=== PATIENT | female | born 2000 | race Caucasian/White ===

== ENCOUNTER 2023-01-20 13:03 | Outpatient (OUT) | payer BC, SELFPAY ==
--- NOTE | 2023-01-20 13:06 | US_ITS ---
The [address] [address] Patient Name: DELIA FUENTES MRN: [id number] date: 2000 Sex: F Assigned Patient Location: US Current Patient Location: US Accession/Order Number: [id number] Exam Date: 01/20/2023 13:07 Report Date: 01/20/2023 22:31 At the request of: JAIDA TRAN Procedure: US OB transvaginal EXAMINATION: US OB transvaginal HISTORY: Missed menses COMPARISON: No relevant comparison available. FINDINGS: GESTATIONAL SAC: Present and normal appearing. YOLK SAC: Present and normal appearing. POLE: Present and normal appearing. CARDIAC: Present. UTERUS: Normal size and appearance. OVARIES: Right: Normal. Left: Normal. CERVIX: 6.0 cm in length and closed. CUL-DE-SAC: Normal. OTHER: None. AGE BY LMP: 9 weeks 5 days ANDI BY LMP: 08/20/2023 AGE BY US CRL: 8 weeks 5 days ANDI BY US CRL: 08/27/2023 US/US OB transvaginal IMPRESSION: 1. Single live intrauterine . Electronically authenticated by: CAIO NGO Date: 01/20/2023 22:31
== END 2023-01-20 13:04 | disposition home or self-care (01) ==
LOC: US 13:05
PROVIDERS: Visit Provider Obstetrics & Gynecology
DX: N92.6 Irregular menstruation, unspecified (principal)
CPT/HCPCS: 76817

== ENCOUNTER 2023-02-02 16:10 | Outpatient (OUT) | payer BC, SELFPAY ==
[2023-02-02 16:59] LABS: Basophils Percent Auto 0.3 % (0.2-2.0); Eosinophils Absolute Auto 0.1 10^3/uL (0.0-0.7); Hematocrit 45.4 % (36.0-48.0); Hemoglobin 15.3 g/dL (12.0-16.0); Immature Granulocytes Abs Auto 0.06 10^3/uL (0.00-0.03); Immature Granulocytes Pct Auto 0.5 % (0.0-0.5); Lymphocytes Absolute Auto 2.1 10^3/uL (1.2-3.8); Lymphocytes Percent Auto 18.6 % (20.5-60.0); Mean Corpuscular HGB Conc 33.7 g/dL (29.9-35.2); Mean Corpuscular Hemoglobin 30.2 pg (26.7-34.0); Mean Corpuscular Volume 89.7 fL (81.0-99.0); Mean Platelet Volume 9.5 fL (9.5-13.5); Monocytes Absolute Auto 0.8 10^3/uL (0.3-0.8); Monocytes Percent Auto 6.7 % (1.7-12.0); Neutrophils Absolute Auto 8.4 10^3/uL (1.4-6.5); Neutrophils Percent Auto 72.9 % (43.0-75.0); Platelet Count 289 10^3/uL (150-450); Red Blood Count 5.06 10^6/uL (4.20-5.40); Red Cell Distribution Width 12.3 % (11.0-15.0); White Blood Count 11.5 10^3/uL (4.0-11.0)
[2023-02-02 17:22] LABS: Estimated Average Glucose 88 mg/dL; Glycohemoglobin A1C 4.7 % (4.5-6.2)
[2023-02-02 17:33] LABS: Thyroid Stimulating Hormone 0.143 uIU/mL (0.358-3.740)
[2023-02-04 04:11] LABS: HBsAg Screen Negative (Negative); HCV Ab Non Reactive (Non Reactive)
[2023-02-04 06:11] LABS: HIV Ab/p24 Ag Screen Non Reactive (Non Reactive); Rubella Antibodies, IgG 4.26 index (Immune >0.99)
[2023-02-04 10:08] LABS: Rapid Plasma Reagin, Quant Non Reactive titer (NonRea<1:1)
== END 2023-02-02 16:11 | disposition home or self-care (01) ==
PROVIDERS: Visit Provider Obstetrics & Gynecology
DX: Z34.80 Encounter for supervision of other normal pregnancy, unspecified trimester (principal); N92.6 Irregular menstruation, unspecified
CPT/HCPCS: 36415; 83036; 84443; 85025; 86592; 86762; 86803; 86850; 86900; 86901; 87086; 87150; 87186; 87340; 87389

== ENCOUNTER 2023-03-31 14:22 | Outpatient (OUT) | payer BC, SELFPAY ==
[2023-04-02 00:07] LABS: AFP Value 76.6 ng/mL (.); Gest. Age on Collection Date 18.7 weeks (.); Gestat. Age Based On Ultrasound (.); Insulin Dep Diabetes No (.); Maternal Age At EDD 24.5 yr (.); OSBR Risk 1 IN 1590 (.); Results Report (.)
== END 2023-03-31 14:23 | disposition home or self-care (01) ==
PROVIDERS: Visit Provider Obstetrics & Gynecology
DX: Z34.92 Encounter for supervision of normal pregnancy, unspecified, second trimester (principal)
CPT/HCPCS: 36415; 82105

== ENCOUNTER 2023-04-11 08:05 | Outpatient (OUT) | payer BC, SELFPAY ==
--- NOTE | 2023-04-11 08:06 | US_ITS ---
[address] [address] Patient Name: DELIA FUENTES MRN: [id number] date: 2000 Sex: F Assigned Patient Location: US Current Patient Location: Accession/Order Number: [id number] Exam Date: 04/11/2023 08:09 Report Date: 04/11/2023 21:28 At the request of: JAIDA TRAN Procedure: US OB anatomy EXAMINATION: US OB anatomy, US OB transvaginal HISTORY: SECOND TRIMESTER Z34.92 COMPARISON: No relevant comparison available. TECHNIQUE: Transabdominal sonographic examination was performed for obstetrical and evaluation. FINDINGS: Number: 1 Heart Rate: 131.0 bpm H.B. /min Amniotic Fluid Volume: Subjectively normal Placental Location: ANTERIOR with lower margin 1.9 cm from os. Cervix Length: 4.4 cm; closed. ANATOMY: Normal Structures -cerebellum, choroid plexus, cisterna magna, lateral cerebral ventricles, orbits, midline falx, hard palate, four-chamber heart, RVOT, LVOT, stomach, kidneys, bladder, umbilical cord insertion into abdomen, three-vessel cord, cervical spine, thoracic spine, lumbar spine, sacral spine, right upper extremity, left upper extremity, right lower extremity, left lower extremity. SUBOPTIMALLY SEEN: None ABNORMALITIES: None BIOMETRY: BPD: 4.4 cm 19 weeks 2 days HC: 17.7 cm 20 weeks 2 days AC: 15.8 cm 20 weeks 6 days FL: 3.4 cm 20 weeks 5 days EFW:370.9 grams; FL/AC: 21.6 FL/BPD: 78.0 HC/AC: 1.1 GESTATIONAL AGE: Age by EDC: 20 weeks 2 days ANDI by EDC: 08/27/2023 Age by current US: 20 weeks 2 days ANDI by current US: 08/27/2023 US/US OB anatomy IMPRESSION: 1. Single live intrauterine with growth detailed above. 2. Anterior low-lying placenta. Electronically authenticated by: CAIO NGO Date: 04/11/2023 21:28
--- NOTE | 2023-04-11 08:07 | US_ITS ---
[address] [address] Patient Name: DELIA FUENTES MRN: [id number] date: 2000 Sex: F Assigned Patient Location: US Current Patient Location: Accession/Order Number: [id number] Exam Date: 04/11/2023 08:09 Report Date: 04/11/2023 21:28 At the request of: JAIDA TRAN Procedure: US OB transvaginal EXAMINATION: US OB anatomy, US OB transvaginal HISTORY: SECOND TRIMESTER Z34.92 COMPARISON: No relevant comparison available. TECHNIQUE: Transabdominal sonographic examination was performed for obstetrical and evaluation. FINDINGS: Number: 1 Heart Rate: 131.0 bpm H.B. /min Amniotic Fluid Volume: Subjectively normal Placental Location: ANTERIOR with lower margin 1.9 cm from os. Cervix Length: 4.4 cm; closed. ANATOMY: Normal Structures -cerebellum, choroid plexus, cisterna magna, lateral cerebral ventricles, orbits, midline falx, hard palate, four-chamber heart, RVOT, LVOT, stomach, kidneys, bladder, umbilical cord insertion into abdomen, three-vessel cord, cervical spine, thoracic spine, lumbar spine, sacral spine, right upper extremity, left upper extremity, right lower extremity, left lower extremity. SUBOPTIMALLY SEEN: None ABNORMALITIES: None BIOMETRY: BPD: 4.4 cm 19 weeks 2 days HC: 17.7 cm 20 weeks 2 days AC: 15.8 cm 20 weeks 6 days FL: 3.4 cm 20 weeks 5 days EFW:370.9 grams; FL/AC: 21.6 FL/BPD: 78.0 HC/AC: 1.1 GESTATIONAL AGE: Age by EDC: 20 weeks 2 days ANDI by EDC: 08/27/2023 Age by current US: 20 weeks 2 days ANDI by current US: 08/27/2023 US/US OB transvaginal IMPRESSION: 1. Single live intrauterine with growth detailed above. 2. Anterior low-lying placenta. Electronically authenticated by: CAIO NGO Date: 04/11/2023 21:28
== END 2023-04-11 08:06 | disposition home or self-care (01) ==
LOC: US 08:05
PROVIDERS: Visit Provider Obstetrics & Gynecology
DX: Z34.92 Encounter for supervision of normal pregnancy, unspecified, second trimester (principal); Z3A.49 Greater than 42 weeks gestation of pregnancy; O44.42 Low lying placenta NOS or without hemorrhage, second trimester
CPT/HCPCS: 76805; 76817

== ENCOUNTER 2023-05-09 14:28 | Outpatient (OUT) | payer BC, SELFPAY ==
--- NOTE | 2023-05-09 14:30 | US_ITS ---
[address] [address] Patient Name: DELIA FUENTES MRN: [id number] date: 2000 Sex: F Assigned Patient Location: US Current Patient Location: US Accession/Order Number: [id number] Exam Date: 05/09/2023 14:31 Report Date: 05/09/2023 15:44 At the request of: JAIDA TRAN Procedure: US OB placenta EXAM: US OB placenta, US OB cervical length HISTORY: LOW LYING PLACENTA COMPARISON: None. TECHNIQUE: Transabdominal and transvaginal FINDINGS: position: Breech presentation, longitudinal lie Placenta: Anterior. The placental edge is 3.9 cm from the internal os. Grade 1. No intraplacental or retroplacental echogenic abnormality Heart rate: 137 bpm Cervix: 5.1 cm, closed Clinical age: 24 weeks 2 days US/US OB placenta IMPRESSION: Low lying placenta, the placental edge is 3.9 cm from the internal os Closed cervix measuring 5.1 cm Electronically authenticated by: WILD VOSS Date: 05/09/2023 15:44
--- NOTE | 2023-05-09 14:30 | US_ITS ---
[address] [address] Patient Name: DELIA FUENTES MRN: [id number] date: 2000 Sex: F Assigned Patient Location: Current Patient Location: Accession/Order Number: [id number] Exam Date: 05/09/2023 14:31 Report Date: 05/09/2023 15:44 At the request of: JAIDA TRAN Procedure: US OB cervical length EXAM: US OB placenta, US OB cervical length HISTORY: LOW LYING PLACENTA COMPARISON: None. TECHNIQUE: Transabdominal and transvaginal FINDINGS: position: Breech presentation, longitudinal lie Placenta: Anterior. The placental edge is 3.9 cm from the internal os. Grade 1. No intraplacental or retroplacental echogenic abnormality Heart rate: 137 bpm Cervix: 5.1 cm, closed Clinical age: 24 weeks 2 days US/US OB cervical length IMPRESSION: Low lying placenta, the placental edge is 3.9 cm from the internal os Closed cervix measuring 5.1 cm Electronically authenticated by: WILD VOSS Date: 05/09/2023 15:44
== END 2023-05-09 14:29 | disposition home or self-care (01) ==
LOC: US 14:28
PROVIDERS: Visit Provider Obstetrics & Gynecology
DX: Z36.2 Encounter for other antenatal screening follow-up (principal); O44.40 Low lying placenta NOS or without hemorrhage, unspecified trimester; Z3A.24 24 weeks gestation of pregnancy
CPT/HCPCS: 76815; 76817

== ENCOUNTER 2023-05-30 09:56 | Outpatient (OUT) | payer BC, SELFPAY ==
--- OUTSIDE RECORDS SUMMARY | 2023-05-30 10:16 | XMS_ITS | CCD ---
Author Name Unknown Address [address] [place] [address] Organization [facility] Care Team Providers Care Medical Reviewer Name Role Phone TYLERCY ., DR WATKINS Consulting Unavailabl e MARC ., DR SENA Procedure Practitioner Unavail able MARC ., DR SENA Admitting Unavailable MARC ., DR SENA Attending Unavailable MARC ., DR SENA Consulting Unavailable TOLAYMAT, SANJAY Consulting Unavailable ALICJA, MICHELLE ABREU Consulting Unava ildavey VOSS, DR WILD Garner Consulting Unavailable MARC ., DR SENA Admitting Unavailable MARC ., DR SENA Attending Unavailable MARC ., DR SENA Consulting Unavailable MARC ., DR SENA Consulting Unavailable MARC ., DR SENA Admitting Unavailable MARC ., DR SENA Attending Unavailable WEST, DR WILD Garner Consulting Unavailable MARC ., DR SENA Admitting Unavailable MARC ., DR SENA Attending Unavailable MARC ., DR SENA Consulting Unavailable MARC ., DR SENA Consulting Unavailable MARC ., DR SENA Admitting Unavailable MARC ., DR SENA Attending Unavailable MARC ., DR SENA Consulting Unavailable MARC ., DR SENA Admitting Unavailable MARC ., DR SENA Attending Unavailable MARC ., DR SENA Consulting Unavailable MARC ., DR SENA Admitting Unavailable MARC ., DR SENA Attending Unavailable ZIEBER, DR CAIO Carvalho Consulting Unavailable MARC ., DR SENA Admitting Unavailable MARC ., DR SENA Attending Unavailable MARC ., DR SENA Consulting Unavailable REQUEST, DR NESS LISTED Primary Care Unavaila ble [facility] ., DR SENA Admitting Unavailable WEST, DR WILD Garner Consulting Unavailable MARC ., DR SENA Attending Unavailable MARC ., DR SENA Consulting Unavailable MARC ., DR SENA Admitting Unavailable MARC ., DR SENA Attending Unavailable MARC ., DR SENA Consulting Unavailable MARC, JAIDA Attending Unavailable JAIDA BEVERLY Attending Unavailable Problems Active Problems Problem Classification Problem Date Documented Date Episodic/Chronic Immunizations and screening for infectious disease (1 source) Encounter for screening for human papillomavirus (HPV); Translations: [ENC SCREENING HUMAN PAPILLOMAVIRUS] Onset: 09-28-2022 Episodic Other screening for suspected conditions (not mental disorders or infectious disease) (13 sources) Encounter for screening for malignant neoplasm of cervix; Translations: [Encounter for screening for Streptococcus B] Onset: 11-10-2021 Episodic Past or Other Problems Problem Classification Problem Date Documented Da te Episodic/Chronic Malposition; malpresentation (1 source) Maternal care for high head at term, not applicable or unspecified; Translations: [MATERNAL CARE HIGH HEAD TERM NA/UNS] Onset: 02-17-2022 Episodic Other complications of (5 sources) Maternal care for excessive growth, third trimester, not applicable or unspecified; Translations: [MAT CARE EXCSS FTL GRTH 3RD TRI UNS] Onset: 01-29-2022 Episodic Other complications of (4 sources) Abnormal ultrasonic finding on screening of mother; Translations: [ABNORM US SCREEN MOTHER] Onset: 11-02-2021 Episodic Other and delivery including normal (1 source) Single live ; Translations: [SINGLE LIVE ] Onset: 02-17-2022 Episodic Polyhydramnios and other problems of amniotic cavity (3 sources) Full-term premature rupture of membranes, unspecified as to length of time between rupture and onset of labor; Translations: [FT PROM UNS TM BTWN RUPT ONSET LABR] Onset: 01-29-2022 Episodic Residual codes; unclassified (1 source) 38 weeks gestation of ; Translations: [38 WEEKS GESTATION OF ] Onset: 02-17-2022 Episodic Residual codes; unclassified (1 source) 37 weeks gestation of ; Translations: [37 WEEKS GESTATION OF ] Onset: 2022 Episodic Residual codes; unclassified (1 source) 36 weeks gestation of ; Translations: [36 WEEKS GESTATION OF ] Onset: 01-19-2022 Episodic Residual codes; unclassified (1 source) 35 weeks gestation of ; Translations: [35 WEEKS GESTATION OF ] Onset: 01-13-2022 Episodic Results Test Name Value Interpretation Reference Range Facility PAP ACOG PANEL 2: 21 to 29on 09-29-2022 . . Normal [facility] Comment on above: Performed By: #### [id number] #### [facility] [place] [facility] [address] [place] [address] Dr. Tyree Paiz Age Gdln ACOG Testing - Normal [facility] Comment on above: Performed By: #### [id number] #### [facility] [place] [facility] [address] [address] [address] Tyree Paiz DIAGNOSIS: Comment [facility] Comment on above: Result Comment: NEGA TIVE FOR INTRAEPITHELIAL LESION OR MALIGNANCY. Performed By: #### [id number] #### [facility] [place] [facility] [address] [place] [address] Dr. Tyree Paiz Methodology: Comment [facility] Comment on above: Result Comment: This liquid based ThinPrep(R) pap test was screened with the use of an image guided system. Performed By: #### 4 [id number] #### [facility] [place] [facility] [address] [place] [address] Dr. Tyree Paiz Note: Comment [facility] Comment on above: Result Comment: The Pap smear is a screening test designed to aid in the detection of premalignant and malignant conditions of the uterine cervix. It is not a diagnostic procedure and should not be used as the sole means of detecting cervical cancer. Both false-positive and false-negative reports do occur. . Performed By: #### [id number] #### [facility] [place] [facility] [address] [place] [address] Dr. Tyree Paiz Performed by: Comment Normal [facility] Comment on above: Result Comment: Rafael Tejada Mother Tester (ASCP) Performed By: #### [id number] #### [facility] [place] [facility] [address] [place] [address] Dr. Tyree Paiz Reflex Criteria: Comment [facility] Comment on above: Result Comment: The HPV DNA reflex criteria were not met with this specimen result therefore, no HPV testing was performed. . Performed By: #### 4 [id number] #### [facility] [place] [facility] [address] [place] [address] Dr. Tyree Paiz Specimen adequacy: Comment Normal [facility] Comment on above: Result Comment: Sati sfactory for evaluation. Endocervical and/or squamous metaplastic cells (endocervical component) are present. Performed By: #### 4 [id number] #### [facility] [place] [facility] [address] [place] [address] Dr. Tyree Paiz TYPE AND SCREENon 02-01-2022 TYPE AND SCREEN Antibody Screen NEGATIVE Blood Bank Notes testing done by 01/29/22 ABO Rh Typing AB Rh Positive Blood Bank Notes testing done by 01/29/22 [facility] Comment on above: Performed By: #### T NS ####[facility] [place] [id number] [address]Dr. Tyree Paiz CBC AUTO DIFFon 01-31-2022 BASO # 0.0 103/ul Normal 0.0-0.1 [facility] Comment on above: Performed By: #### C BC #### [facility] [address] [place] [address] Dr. Tyree Paiz Basophils/100 WBC (Bld) 0.3 % Normal 0.2-2.0 [facility] Comment on above: Performed By: #### C BC #### [facility] [address] [place] [address] Dr. Tyree Paiz EO # 0.1 103/ul Normal 0.0-0.7 [facility] Comment on above: Performed By: #### C BC #### [facility] [address] [place] [address] Dr. Tyree Paiz Eosinophils/100 WBC (Bld) 0.8 % Critically low 0.9-7.0 [facility] Comment on above: Performed By: #### C BC #### [facility] [address] [place] [address] Dr. Tyree Paiz Erythrocyte distribution width (RBC) [Ratio] 13.4 % Normal 11.0-15.0 [facility] Comment on above: Performed By: #### C BC #### [facility] [place] [facility] [address] [address] [address] Tyree Paiz Hematocrit (Bld) [Volume fraction] 27.4 % Critically low 36.0-48.0 [facility] Comment on above: Performed By: #### C BC #### [facility] [place] [facility] [address] [address] [address] Tyree Paiz Hemoglobin (Bld) [Mass/Vol] 8.6 g/dL Critically low 12.0-16.0 [facility] Comment on above: Performed By: #### C BC #### [facility] [place] [facility] [address] [place] [address] Dr. Tyree Paiz IG # 0.12 10e3/ul Critically high 0.00-0.03 [facility] Comment on above: Performed By: #### C BC #### [facility] [address] [place] [address] Dr. Tyree Paiz IG % 0.9 % Critically high 0.0-0.5 [facility] Comment on above: Performed By: #### C BC #### [facility] [address] [place] [address] Dr. Tyree Paiz LYMPH # 1.9 103/ul Normal 1.2-3.8 [facility] Comment on above: Performed By: #### C BC #### [facility] [address] [place] [address] Dr. Tyree Paiz Lymphocytes/100 WBC (Bld) 13.7 % Critically low 20.5-60.0 [facility] Comment on above: Performed By: #### C BC #### [facility] [address] [place] [address] Dr. Tyree Paiz MANUAL DIFF REQ NO Normal [facility] Comment on above: Performed By: #### C BC #### [facility] [address] [place] [address] Dr. Tyree Paiz MCH (RBC) [Entitic mass] 27.0 pg Normal 26.7-34.0 [facility] Comment on above: Performed By: #### C BC #### [facility] [place] [facility] [address] [address] [address] Tyree Paiz MCHC (RBC) [Mass/Vol] 31.4 g/dL Normal 29.9-35.2 [facility] Comment on above: Performed By: #### C BC #### [facility] [place] [facility] [address] [address] [address] Tyree Paiz MCV (RBC) [Entitic vol] 85.9 fL Normal 81.0-99.0 [facility] Comment on above: Performed By: #### C BC #### [facility] [address] [address] [address] Tyree Paiz MONO # 1.1 103/ul Critically high 0.3-0.8 [facility] Comment on above: Performed By: #### C BC #### [facility] [address] [address] [address] Tyree Paiz Monocytes/100 WBC (Bld) 8.1 % Normal 1.7-12.0 [facility] Comment on above: Performed By: #### C BC #### [facility] [place] [facility] [address] [address] [address] Tyree Paiz NEUT # 10.3 103/ul Critically high 1.4-6.5 [facility] Comment on above: Performed By: #### C BC #### [facility] [address] [place] [address] Dr. Tyree Paiz Neutrophils/100 WBC (Bld) 76.2 % Critically high 43.0-75.0 [facility] Comment on above: Performed By: #### C BC #### [facility] [address] [id number] Tyree Paiz Platelet mean volume (Bld) [Entitic vol] 9.5 fL Normal 9.5-13.5 [facility] Comment on above: Performed By: #### C BC #### [facility] [address] [place] [address] Dr. Tyree Paiz PLT 196 103/ul Normal 150-450 [facility] Comment on above: Performed By: #### C BC #### [facility] [address] [address] [address] Tyree Paiz RBC 3.19 106/ul Critically low 4.20-5.40 [facility] Comment on above: Performed By: #### C BC #### [facility] [address] [address] [address] Tyree Paiz WBC 13.5 103/ul Critically high 4.0-11.0 [facility] Comment on above: Performed By: #### C BC #### [facility] [address] [address] [address] Tyree Paiz CBC W MANUAL DIFFon 01-30-20 22 ATYPICAL LYMPH # Normal [facility] Comment on above: Performed By: #### C BCMAN ####[facility] [address] [place], [place] [address]DrSarah Paiz ATYPICAL LYMPH % Normal [facility] Comment on above: Performed By: #### C BCMAN ####[facility] [address] [address]Dr. Tyree Paiz BAND # 0.0 103/ul Normal 0.0-0.3 [facility] Comment on above: Performed By: #### C BCMAN ####[facility] [address] [address]Dr. Tyree Paiz BAND % 0 % Normal 0-5 [facility] Comment on above: Performed By: #### C BCMAN ####[facility] [address] [address]Dr. Tyree Paiz BASOM # 0.00 103/ul Normal 0.00-0.10 [facility] Comment on above: Performed By: #### C BCMAN ####[facility] [address] [address]Dr. Tyree Paiz BASOM % 0.0 % Critically low 0.2-2.0 [facility] Comment on above: Performed By: #### C BCMAN ####[facility] [address] [address]Dr. Tyree Paiz BLAST # Normal [facility] Comment on above: Performed By: #### C BCMAN ####[facility] [address] [id number]. Tyree Paiz BLAST % Normal [facility] Comment on above: Performed By: #### C LEWIS ####[facility] [address] [id number]. Tyree Paiz CORRECTED WBC Normal 4.0-11.0 [facility] Comment on above: Performed By: #### C LEWIS ####[facility] [address] [id number]. Tyree Paiz EOS # 0.41 103/ul Normal 0.00-0.70 [facility] Comment on above: Performed By: #### C LEWIS ####[facility] [address] [place], [place] [address]Dr. Tyree Paiz EOS% 3.0 % Normal 0.9-7.0 [facility] Comment on above: Performed By: #### C LEWIS ####[facility] [address] [place], [place] [address]Dr. Tyree Paiz HCT 31.3 % Critically low 36.0-48.0 [facility] Comment on above: Performed By: #### C LEWIS ####[facility] [address] [place], [place] [address]Dr. Tyree Paiz HGB 10.2 g/dl Critically low 12.0-16.0 [facility] Comment on above: Performed By: #### C LEWIS ####[facility] [address] [place], [place] [address]Dr. Tyree Paiz LYMPHM # 1.63 103/ul Normal 1.20-3.80 [facility] Comment on above: Performed By: #### C LEWIS ####[facility] [address] [place], [place] [address]Dr. Tyree Paiz LYMPHM% 12.0 % Critically low 20.5-60.0 [facility] Comment on above: Performed By: #### C LEWIS ####[facility] [address] [place], [place] [address]Dr. Tyree Paiz MCH 27.4 pg Normal 26.7-34.0 [facility] Comment on above: Performed By: #### C LEWIS ####[facility] [address] [address]Dr. Tyree Piaz MCHC 32.6 g/dl Normal 29.9-35.2 [facility] Comment on above: Performed By: #### C LEWIS ####[facility] [address] [id number]. Tyree Paiz MCV 84.1 fL Normal 81.0-99.0 [facility] Comment on above: Performed By: #### C LEWIS ####[facility] [address] [place], [place] [address]Dr. Tyree Paiz METAMYELOCYTE # Normal [facility] Comment on above: Performed By: #### C LEWIS ####[facility] [address] [place], [place] [address]Dr. Tyree Paiz METAMYELOCYTE % Normal [facility] Comment on above: Performed By: #### C LEWIS ####[facility] [address] [id number]. Tyree Paiz MONOM# 1.36 103/ul Critically high 0.30-0.80 [facility] Comment on above: Performed By: #### C LEWIS ####[facility] [address] [address]Dr. Tyree Paiz MONOM% 10.0 % Normal 1.7-12.0 [facility] Comment on above: Performed By: #### C LEWIS ####[facility] [address] [id number]. Tyree Paiz MPV 9.5 fL Normal 9.5-13.5 [facility] Comment on above: Performed By: #### C LEWIS ####[facility] [address] [address]Dr. Tyree Paiz MYELOCYTE # Normal [facility] Comment on above: Performed By: #### C LEWIS ####[facility] [address] [place], [place] [address]Dr. Tyree Paiz MYELOCYTE % Normal [facility] Comment on above: Performed By: #### C LEWIS ####[facility] [address] [id number]. Tyree Paiz NRBC Normal [facility] Comment on above: Performed By: #### C LEWIS ####[facility] [address] [id number]. Tyree Paiz PLT 258 103/ul Normal 150-450 [facility] Comment on above: Performed By: #### C LEWIS ####[facility] [address] [place], [place] [address]Lk. Tyree Paiz RBC 3.72 106/ul Critically low 4.20-5.40 [facility] Comment on above: Performed By: #### C LEWIS ####[facility] [address] [id number]. Tyree Paiz RDW 13.0 % Normal 11.0-15.0 [facility] Comment on above: Performed By: #### C LEWIS ####[facility] [address] [id number]. Tyree Paiz SEG # 10.20 103/ul Critically high 1.40-6.50 [facility] Comment on above: Performed By: #### C LEWIS ####[facility] [place] [address] [id number]. Tyree Paiz SEG % 75.0 % Normal 43.0-75.0 [facility] Comment on above: Performed By: #### C LEWIS ####[facility] [place] [address] [id number]. Tyree Paiz WBC 13.6 103/ul Critically high 4.0-11.0 [facility] Comment on above: Performed By: #### C LEWIS ####[facility] [place] [address] [id number]. Tyree Paiz Covid-19 PCR ([facility])on SARS-CoV-2 (COVID-19) RNA GINO+probe Ql (Unsp spec) Not detected Normal NOT DETECTED The [facility] Comment on above: Result Comment: When diagnostic testing is negative, the possibility of a false negative should be considered in the context of a patient's recent exposures and the presence of clinical signs and symptoms consistent with SARS-CoV-2. This test is not yet approved or cleared by the [place] FDA. When there are no FDA-approved or cleared tests available, and other criteria are met, FDA can make tests available under an emergency access mechanism called an Emergency Use Authorization (EUA). The EUA for this test is supported by the [place] of Health and Human Service's declaration that circumstances exist to justify the emergency use of in vitro diagnostics for the detection and/or diagnosis of the virus that causes COVID-19. This EUA will remain in effect for the duration of the COVID-19 declaration justifying emergency of IVDs, unless it is terminated or revoked by the FDA (after which the test may no longer be used). Performed By: #### C VDTBH #### [facility] [address] [place] [address] Dr. Tyree Paiz DRUG SCREEN RAPID (URINE)on 01-29-2022 AMP Negative Normal NEGATIVE [facility] Comment on above: Performed By: #### D RUGRPD #### [facility] [address] [place] [address] Dr. Tyree Paiz BAR Negative Normal NEGATIVE [facility] Comment on above: Performed By: #### D RUGRPD #### [facility] [address] [place] [address] Dr. Tyree Paiz BUP Negative Normal NEGATIVE [facility] Comment on above: Performed By: #### D RUGRPD #### [facility] [address] [place] [address] Dr. Tyree Paiz BZO Negative Normal NEGATIVE [facility] Comment on above: Performed By: #### D RUGRPD #### [facility] [address] [place] [address] Dr. Tyree Paiz ZACHARY Negative Normal NEGATIVE [facility] Comment on above: Performed By: #### D RUGRPD #### [facility] [place] [facility] [address] [place] [address] Dr. Tyree Paiz CUT-OFFS SEE BELOW Normal [facility] Comment on above: Result Comment: AMP (Amphetamine): 500ng/mL, BAR (Barbituates): 200 ng/mL, BZO (Benzodiazepines): 150 ng/mL, BUP (Buprenorphine): 10 ng/mL, ZACHARY (Cocaine): 150 ng/mL, mAMP (Methamphetamine): 500 ng/mL, MTD (Methadone): 200 ng/mL, OPI (Opiates): 100 ng/mL, OXY (Oxycodone): 100 ng/mL, PCP (Phencyclidine): 25 ng/mL, PPX (Propoxyphene): 300 ng/mL, THC (Cannabinoids): 50 ng/mL, TCA (Trycyclic Antidepressants): 300 ng/mL Performed By: #### D RUGRPD #### [facility] [place] [facility] [address] [place] [address] Dr. Tyree Paiz DRUG CUT HEADER DRUG CLASS TEST SYST EM CUT-OFF CONCENTRATIONS ARE FOLLOWS: Normal [facility] Comment on above: Performed By: #### D RUGRPD #### [facility] [place] [facility] [address] [place] [address] Dr. Tyree Paiz mAMP Negative Normal NEGATIVE [facility] Comment on above: Performed By: #### D RUGRPD #### [facility] [address] [place] [address] Dr. Tyree Paiz MTD Negative Normal NEGATIVE [facility] Comment on above: Performed By: #### D RUGRPD #### [facility] [address] [place] [address] Dr. Tyree Paiz OPI Negative Normal NEGATIVE [facility] Comment on above: Performed By: #### D RUGRPD #### [facility] [address] [place] [address] Dr. Tyree Paiz OXY Negative Normal NEGATIVE [facility] Comment on above: Performed By: #### D RUGRPD #### [facility] [place] [facility] [address] [place] [address] Dr. Tyree Paiz PCP Negative Normal NEGATIVE [facility] Comment on above: Performed By: #### D RUGRPD #### [facility] [place] [facility] [address] [place] [address] Dr. Tyree Paiz PPX Negative Normal NEGATIVE [facility] [place] Comment on above: Performed By: #### D RUGRPD #### [facility] [place] [facility] [address] [place] [address] Dr. Tyree Paiz TCA Negative Normal NEGATIVE [facility] [place] Comment on above: Performed By: #### D RUGRPD #### [facility] [place] [facility] [address] [place] [address] Dr. Tyree Paiz THC Negative Normal NEGATIVE [facility] [place] Comment on above: Performed By: #### D RUGRPD #### [facility] [place] [facility] [address] [place] [address] Dr. Tyree Paiz US PREG BIOPHY W NON STRESSo n 01-26-2022 US PREG BIOPHY W NON STRESS EXAMINATION: US PREG BIOPHY W NON STRESS HISTORY: Excessive growth affecting management of mother COMPARISON: No relevant comparison available. TECHNIQUE: Ultrasound biophysical profile was performed in the radiology department. FINDINGS: BREATHING MOVEMENTS: 2.0 GROSS BODY MOVEMENTS: 2.0 TONE: 2.0 QUALITATIVE AMNIOTIC FLUID VOLUME: 2.0 PRESENTATION: Blank HEART RATE: 158.8 bpm H.B./min AMNIOTIC FLUID VOLUME: 19.0 cm cm GESTATIONAL AGE: 37 weeks 5 days Largest pocket: 5.7 cm presentation: Cephalic CONCLUSION: Total biophysical profile score: 8.0 Electronically authenticated by: WILD VOSS Date: 2022-01-26 19:11 Normal [facility] US PREG BIOPHY W NON STRESSo n 01-19-2022 US PREG BIOPHY W NON STRESS EXAMINATION: US PREG BIOPHY W NON STRESS HISTORY: Large for gestation age fetus COMPARISON: No relevant comparison available. TECHNIQUE: Ultrasound biophysical profile was performed in the radiology department. FINDINGS: BREATHING MOVEMENTS: 2.0 GROSS BODY MOVEMENTS: 2.0 TONE: 2.0 QUALITATIVE AMNIOTIC FLUID VOLUME: 2.0 PRESENTATION: CEPHALIC AMNIOTIC FLUID VOLUME: 14.1 cm cm GESTATIONAL AGE: 36 weeks 4 days CONCLUSION: Total biophysical profile score: 8.0 Electronically authenticated by: WILD VOSS Date: 2022-01-19 07:52 Normal [facility] GROUP B STREP CULTUREon 12-22 S. agalactiae Ag Ql (Unsp spec) Culture Observations: NEGATIVE FOR GROUP B STREPTOCOCCUS. Normal [facility] Comment on above: Performed By: #### G BSCX ####[facility] [place] [id number] [place], [place] [address]EwDr. Tyree Paiz US PREG GROWTHon 01-12-2022 US PREG GROWTH EXAMINATION: US PREG GROWTH HISTORY: Large for gestation age fetus COMPARISON: No relevant comparison available. FINDINGS: Heart Rate: 148.0 bpm Amniotic Fluid Volume: 15.4 cm Number: 1.0 Position: CEPHALIC Maximum Vertical Pocket: 3.7 cm cm 3.4 cm cm 4.7 cm cm 3.6 cm cm BIOMETRY: BPD: 9.0 cm cm; 36 weeks 4 days; 78% HC: 32.1 cmcm; 36 weeks 2 days, 31% AC: 35.0 cm cm; 39 weeks 0 days, greater than 97% FL: 7.3 cm cm; 37 weeks 4 days; 86.2 % % EFW: 3368.8 grams, 7 lbs. 7 oz., 96% FL/AC: 20.9 FL/BPD: 81.3 HC/AC: 0.9 GESTATIONAL AGE: Age by EDC: 35 weeks 5 days ANDI by EDC: 02/11/2022 Age by US: 37 weeks 3 days ANDI by US: 01/30/2022 IMPRESSION: Large for gestational age. Estimated weight 96th percentile Electronically authenticated by: WILD VOSS Date: 2022-01-12 16:41 Normal [facility] [place] GLUCOSE - 1HRon 11-10-2021 Glucose [Mass/Vol] 98 mg/dL Normal 74-106 [facility] Comment on above: Performed By: #### G LU1HR #### [facility] [place] [facility] [address] [place], [place] [address] Dr. Tyree Paiz HEMOGRAM AND PLATELon 2021 Hematocrit (Bld) [Volume fraction] 36.3 % Normal 36.0-48.0 [facility] Comment on above: Performed By: #### H H #### [facility] [place] [facility] [address] [place], [place] [address] Dr. Tyree Paiz Hemoglobin (Bld) [Mass/Vol] 11.9 g/dL Critically low 12.0-16.0 [facility] Comment on above: Performed By: #### H H #### [facility] [place] [facility] [address] [place] [address] [address] Tyree Paiz MCH (RBC) [Entitic mass] 30.1 pg Normal 26.7-34.0 [facility] Comment on above: Performed By: #### H H #### [facility] [place] [facility] [address] [place] [address] [address] Tyree Paiz MCHC (RBC) [Mass/Vol] 32.8 g/dL Normal 29.9-35.2 [facility] [place] Comment on above: Performed By: #### H H #### [facility] [place] [facility] [address] [place] [address] [address] Tyree Paiz MCV (RBC) [Entitic vol] 91.7 fL Normal 81.0-99.0 [facility] Comment on above: Performed By: #### H H #### [facility] [place] [facility] [address] [place] [address] [address] Tyree Paiz PLT 237 103/ul Normal 150-450 [facility] [place] Comment on above: Performed By: #### H H #### [facility] [place] [facility] [address] [place] [address] [address] Tyree Paiz RBC 3.96 106/ul Critically low 4.20-5.40 [facility] Comment on above: Performed By: #### H H #### [facility] [place] [facility] [address] [place] [address] [address] Tyree Paiz WBC 12.6 103/ul Critically high 4.0-11.0 [facility] Comment on above: Performed By: #### H H #### [facility] [place] [facility] [address] [place] [address] [address] Tyree Paiz US PREG INCOMPLETE ANATOMYon 11-02-2021 US PREG INCOMPLETE ANATOMY EXAMINATION: US PREG INCOMPLETE ANATOMY HISTORY: Routine care COMPARISON: Ultrasound anatomy 09/29/2021 FINDINGS: Presentation: Cephalic Heart rate: Present Anatomy: Adequate visualization of the four-chamber heart. Right and left cardiac outflow tracts are limited in evaluation, but no convincing abnormality. Gestational age: 25 weeks, 4 days ANDI: 02/11/2022 IMPRESSION: 1. Single live intrauterine . 2. Four-chamber heart. Cardiac outflow tracts are limited in evaluation, but no appreciable abnormality. Electronically authenticated by: CAIO NGO Date: 2021-11-02 17:30 Normal [facility] [place] ED Note-Physicianon 06-07-19 ED Note-Physician Basic Information Time Seen: Jr Solomon DO 06/06/2020 11:16 Chief Complaint Swelling/redness B/L eyes progressing since thanksgiving. Denies vision changes, fevers. History of Present Illness Patient is a thin 20-year-old female who presents to emergency department the chief complaint of itchy scaly erythematous rash and swelling to the bilateral eyelids. She states that she first noticed a small amount of swelling and itching at Thanksgiving, it is grown progressively worse. She is attempted to use an pyfv-zhj-emelwjl eczema cream but states that it is not working. She is tearful, denies any pain but states that the itching is driving her crazy. She denies any visual disturbance, she does not wear contact lenses or use corrective lenses. She denies any new facial products or cosmetics, she denies any known irritants. She denies cough, fever, chills, denies sneezing, denies environmental allergies. She denies other areas of rash. Review of Systems A 10 point review of systems is negative except as noted above. Medical and Surgical History: Reviewed and noted Social history: Lives at home Tobacco: Denies Physical Exam Vitals & Measurements T: 36.4 ?C (Temporal Artery) HR: 130(Peripheral) RR: 18 BP: 132/86 SpO2: 99% HT: 160 cm HT: 160.0 cm WT: 73 kg WT: 73.0 kg BMI: 28.52 General: Alert and oriented, No acute distress, Comfortable in bed. Eye: Pupils are equal, round and reactive to light, Extraocular movements are intact. HENT: Normocephalic. There is an erythematous scaly rash about the periorbital tissues bilaterally. There is mild periorbital edema noted. There is no injection of the sclera or conjunctiva, no evidence of ocular foreign bodies. Neck: Supple, Non-tender, No jugular venous distention. Musculoskeletal: Normal range of motion, Normal strength. Neurologic: Alert, Oriented, Normal sensory, Normal motor function. Cognition and Speech: Oriented, Speech clear and coherent. Psychiatric: Cooperative, Appropriate mood & affect. Integumentary: Warm, Dry, [place] Medical Decision Making I believe this to be eyelid dermatitis/eczema, patient will be started on Lotemax ophthalmic ointment. She was given instructions on how to use it, she is to return should her rash worsen or other problems arise. She was instructed to follow-up with ophthalmology for recheck. Patient understood and agreed with the plan. Assessment/Plan 1. Eyelid dermatitis, eczematous (H01.139: Eczematous dermatitis of unspecified eye, unspecified eyelid) Disposition Plan Patient Discharge Condition Stable Discharge Disposition Discharge home Discharge Prescription List Prescriptions Lotemax 0.5% ophthalmic ointment, See Instructions Follow-up With When Contact Information Austyn Bocanegra In 3 days 06/09/2020 EST [facility] [address] [facility], [facility] [address] [phone] Business (1) Additional Instructions: Use the eye ointment as prescribed, return should vision disturbance develop, otherwise follow-up with the road oiling truck driver as directed for reevaluation. Patient Education Eczema Problem List/Past Medical History Ongoing No qualifying data Historical None Medications Inpatient No active inpatient medications Home Lotemax 0.5% ophthalmic ointment, See Instructions naproxen 500 mg Tab, 500 mg= 1 tab(s), Oral, BID, PRN Allergies No Known Allergies Social History Alcohol - Denies Alcohol Use, 06/06/2020 Substance Abuse - Denies Substance Abuse, 06/06/2020 Tobacco - Denies Tobacco Use, 06/06/2020 Lab Results No qualifying data available. Diagnostic Results No qualifying data available. Normal [facility] Comment on above: Result Comment: Elec tronically Signed By: Calvin Morley PA-C\.br\Date and Time Signed: 06/06/20 12:03 EST\.br\Electronically Co-Signed By: Jr Solomon DO\.br\Date and Time Co-Signed: 06/06/20 22:16 EST Coding Summary.on 06-06-2020 Coding Summary. CODING DATE: 06/06/2020 FINAL [facility] STATUS: Home (Routine DC) PAYOR: Self Pay ADMIT DX: REASON FOR VISIT DX: R21 Rash and other nonspecific skin eruption R22.0 Localized swelling, mass and lump, head FINAL DX: PRINCIPAL: H01.133 Eczematous dermatitis of right eye, unspecified eyelid SECONDARY: H01.136 Eczematous dermatitis of left eye, unspecified eyelid PYMT PROC APC STAT DESCRIPTION DOCTOR NAME DATE NOTE: The code number assigned matches the documented diagnosis and / or procedure in the patient's chart. However, the narrative phrase printed from the coding software may appear abbreviated, or result in slightly different terminology. Coded By: Aliya Mejía Date Saved: 06/06/2020 05:36 pm Normal [facility] Consent for Treatmenton 05-23 Consent for Treatment [id number] 0CD:127 Normal [facility] Discharge Instructionson Discharge Instructions [id number]. [id number]:127 Normal [facility] ED Clinical Summaryon 2020 ED Clinical Summary [place] [address] ED Clinical Summary Person Information Name: GRACE PENNY [facility]up[facility] Age: 20 Years : 2000 Sex: Female Language: Haitian PCP: Tony PHAN MD Marital Status: Single Visit Id: Visit Reason: Eye problem; EYE PROBLEMS Speciality: Acuity: 5 Enc Type: Emergency Med Service: Emergency Arrival: 06/06/2020 11:09:25 Discharge: 06/06/2020 11:59:55 LOS: 000 00:50 Checkin: 06/06/2020 11:09:25 Checkout: 06/06/2020 11:59:55 Dispo Type: Home (Routine DC) EVENTS: Event Name Event Status Request Date/Time Start Date/Time Complete Date/Time Arrive Complete 06/06/2020 11:09:25 06/06/2020 11:09:25 06/06/2020 11:09:25 Document Home Meds Request 06/06/2020 11:09:25 Triage Complete 06/06/2020 11:09:25 06/06/2020 11:15:38 06/06/2020 11:15:38 Bed Assign Complete 06/06/2020 11:15:49 06/06/2020 11:15:49 06/06/2020 11:15:49 Dr Exam Complete 06/06/2020 11:15:49 06/06/2020 11:16:35 06/06/2020 11:16:35 RN Exam Complete 06/06/2020 11:15:49 06/06/2020 11:31:25 06/06/2020 11:31:25 Registration Complete 06/06/2020 11:16:35 06/06/2020 11:32:13 06/06/2020 11:32:13 Dr Exam Complete 06/06/2020 11:16:57 06/06/2020 11:16:57 06/06/2020 11:16:57 Reg Complete Request 06/06/2020 11:32:13 Reg Bed Request Complete 06/06/2020 11:32:13 06/06/2020 11:32:13 06/06/2020 11:32:13 Discharge Complete 06/06/2020 11:41:28 06/06/2020 12:00:00 06/06/2020 12:00:00 Transfer Complete 06/06/2020 12:00:00 06/06/2020 12:00:00 06/06/2020 12:00:00 ADDRESS: [address] [place] [id number] PHYS DOC NOTES: MEDICAL INFORMATION: Prescriptions Given: New Medications Printed Prescriptions loteprednol ophthalmic (Lotemax 0.5% ophthalmic ointment) 1 eloise OPTH QID. Refills: 0. Medications to Continue with No Changes Other Medications naproxen (naproxen 500 mg Tab) 1 Tablets By Mouth 2 times a day as needed for pain. Refills: 0. PATIENT EDUCATION INFORMATION: Instructions: Eczema Follow up: With: Address: When: Austyn Bocanegra [facility] [address], [address] [place] [address] Business (1) In 3 days 06/09/2020 Comments: Use the eye ointment as prescribed, return should vision disturbance develop, otherwise follow-up with the road oiling truck driver as directed for reevaluation. DIAGNOSIS: 1:Eyelid dermatitis, eczematous Normal [facility] ED Patient Education Noteon 06-06-2020 ED Patient Education Note Immunology Eczema Eczema, also called atopic dermatitis, is a skin disorder that causes inflammation of the skin. It causes a red rash and dry, scaly skin. The skin becomes very itchy. Eczema is generally worse during the cooler winter months and often improves with the warmth of summer. Eczema usually starts showing signs in infancy. Some children outgrow eczema, but it may last through adulthood. CAUSES The exact cause of eczema is not known, but it appears to run in families. People with eczema often have a family history of eczema, allergies, asthma, or hay fever. Eczema is not contagious. Flare-ups of the condition may be caused by: ? Contact with something you are sensitive or allergic to. ? ? Stress. SIGNS AND SYMPTOMS ? Dry, scaly skin. ? ? Red, itchy rash. ? ? Itchiness. This may occur before the skin rash and may be very intense. ? DIAGNOSIS The diagnosis of eczema is usually made based on symptoms and medical history. TREATMENT Eczema cannot be cured, but symptoms usually can be controlled with treatment and other strategies. A treatment plan might include: ? Controlling the itching and scratching. ? ? Use solb-glx-gxgstsn antihistamines as directed for itching. This is especially useful at night when the itching tends to be worse. ? ? Use aqrt-kbu-ztkfdxv steroid creams as directed for itching. ? ? Avoid scratching. Scratching makes the rash and itching worse. It may also result in a skin infection (impetigo) due to a break in the skin caused by scratching. ? ? Keeping the skin well moisturized with creams every day. This will seal in moisture and help prevent dryness. Lotions that contain alcohol and water should be avoided because they can dry the skin. ? ? Limiting exposure to things that you are sensitive or allergic to (allergens). ? ? Recognizing situations that cause stress. ? ? Developing a plan to manage stress. ? HOME CARE INSTRUCTIONS ? Only take kpzu-cvm-udlmtop or prescription medicines as directed by your health care provider. ? ? Do not use anything on the skin without checking with your health care provider. ? ? Keep baths or showers short (5 minutes) in warm (not hot) water. Use mild cleansers for bathing. These should be unscented. You may add nonperfumed bath oil to the bath water. It is best to avoid soap and bubble bath. ? ? Immediately after a bath or shower, when the skin is still damp, apply a moisturizing ointment to the entire body. This ointment should be a petroleum ointment. This will seal in moisture and help prevent dryness. The thicker the ointment, the better. These should be unscented. ? ? Keep fingernails cut short. Children with eczema may need to wear soft gloves or mittens at night after applying an ointment. ? ? Dress in clothes made of cotton or cotton blends. Dress lightly, because heat increases itching. ? ? A child with eczema should stay away from anyone with fever blisters or cold sores. The virus that causes fever blisters (herpes simplex) can cause a serious skin infection in children with eczema. SEEK MEDICAL CARE IF: ? Your itching interferes with sleep. ? ? Your rash gets worse or is not better within 1 week after starting treatment. ? ? You see pus or soft yellow scabs in the rash area. ? ? You have a fever. ? ? You have a rash flare-up after contact with someone who has fever blisters. ? Document Released: 05/06/2001 Document Revised: 02/27/2014 Document Reviewed: 12/10/2013 ExitCare? Patient Information ?2015 [email or web address]. This information is not intended to replace advice given to you by your health care provider. Make sure you discuss any questions you have with your health care provider. Normal [facility] ED Patient Summaryon 021 ED Patient Summary [address] [address] Patient Discharge Instructions Person Information Name: GRACE PENNY Age: 20 Years Arrival Date: 06/06/2020 11:09:25 Discharge Diagnosis: 1:Eyelid dermatitis, eczematous Primary Care Physician: Tony PHAN MD Provider Information Primary Provider: Jr Solomon DO Advanced Mercerizing Range Controller:Calvin Morley PA-C The exam and treatment you received in the Emergency Department were for an urgent problem and are not intended as complete care. It is important that you follow up with a doctor, nurse practitioner, or physician?s studio assistant for ongoing care. If your symptoms become worse or you do not improve as expected and you are unable to reach your usual health care provider, you should return to the Emergency Department. We are available 24 hours a day. GRACE PENNY has been given the following list of patient education materials, prescriptions and follow-up instructions: Follow-up Instructions: With: Address: When: Austyn Bocanegra [facility], [address], [facility] [address] [place] [address] [facility] (1) In 3 days 06/09/2020 Comments: Use the eye ointment as prescribed, return should vision disturbance develop, otherwise follow-up with the road oiling truck driver as directed for reevaluation. In the event that this physician does not participate in your insurance network, please consult with your insurance company to find a nearby participating provider. Patient Education Materials: Eczema A MESSAGE TO ALL PATIENTS REGARDING OPIOIDS PRESCRIPTION OPIOIDS: WHAT YOU NEED TO KNOW Prescription opioids can be used to help relieve vqfftllb-zt-qesulx pain and are often prescribed following a surgery or injury, or for certain health conditions. These medications can be an important part of the treatment but also come with serious risks. It is important to work with your healthcare provider to make sure you are getting the safest, most effective care. WHAT ARE THE RISKS AND SIDE EFFECTS OF OPIOID USE? Prescription opioids carry serious risks of addiction and overdose, especially with prolonged use. An opioid overdose, often marked by slowed breathing, can cause sudden . The use of prescription opioids can have a number of side effects as well, even when taken as directed: ? Tolerance?meaning you might need to take more of the medication for the same pain relief ? Physical dependence?meaning you have symptoms of withdrawal when a medication is stopped ? Increased sensitivity to pain ? Constipation ? Nausea, vomiting, and dry mouth ? Sleepiness and dizziness ? Confusion ? Depression ? Low levels of testosterone that can result in lower sex drive, energy, and strength ? Itching and sweating RISKS ARE GREATER WITH: ? History of drug misuse, substance use disorder, or overdose ? Mental health conditions (such as depression or anxiety) ? Sleep apnea ? Older age (65 years and older) ? Avoid alcohol while taking prescription opioids. Also, unless specifically advised by your health care provider, medications to avoid include: ? Benzodiazepines (such as Xanax or Valium) ? Muscle relaxants (such as Soma or Flexeril) ? Hypnotics (such as Ambien or Lunesta) ? Other prescription opioids KNOW YOUR OPTIONS Talk to your health care provider about ways to manage your pain that don?t involve prescription opioids. Some of these options may actually work better and have fewer risks and side effects. Options may include: ? Pain relievers such as acetaminophen, ibuprofen, and naproxen ? Some medication that are also used for depression or seizures ? Physical therapy and exercise ? Cognitive behavioral therapy, a psychological, goal-directed approach, in which patients learn how to modify physical, behavioral, and emotional triggers of pain and stress. IF YOU ARE PRESCRIBED OPIOIDS FOR PAIN: ? Never take opioids in greater amounts or more often than prescribed. ? Follow up with your primary health care provider. o Work together to create a plan on how to manage your pain. o Talk about ways to help manage your pain that don?t involve prescription opioids. o Talk about any and all concerns and side effects. ? Help prevent misuse and abuse o Never sell or share prescription opioids. o Never use another person?s prescription opioids. ? Store prescription opioids in a secure place and out of reach of others (this may include visitors, children, friends, and family). ? Safely dispose of unused prescription opioids: Find your community drug take-back program or your pharmacy mail-back program, or flush them down the toilet, following guidance from the Food and Drug Administration (www.fda.gov/Drugs/Res ourcesForYou). ? Visit www.cdc.gov/drugoverdo se to learn about the risks of opioids abuse and overdose. (more content not included)... [facility] Registrationon 04-08-2020 Registration [id number]:127 [facility] Consenton 04-07-2020 Consent [id number]. [id number]:127 [facility] Registrationon 04-07-2020 Registration [id number]. [id number]:127 [facility] Encounters Encounter Date Encounter Type Care Provider Facility Start: 05-17-2023 End: 05-17-2023 ambulatory JAIDA BEVERLY Not Available Start: 04-19-2023 End: 04-19-2023 ambulatory JAIDA BEVERLY Not Available Start: 09-22-2022 End: 09-22-[address] JAIDA BEVERLY . Facility:[facility] Start: 01-29-2022 End: 02-01-2022 Evaluation and management of inpatient DR ROLAND NORTON . Facility:[facility] Start: 01-29-2022 End: 01-29-[address] JAIDA BEVERLY . Facility[facility] Start: 01-26-2022 End: 01-26-[address] WILD VOSS Facility:[facility] Start: 01-21-2022 End: 01-21-[address] JAIDA BEVERLY . Facility:[facility] Start: 01-18-2022 End: 01-18-[address] WILD VOSS Facility:[facility] Start: 01-12-2022 End: 01-12-[address] JAIDA BEVERLY . Facility:[facility] Start: 01-12-2022 End: 01-13-[address] NESS LISTED REQUEST Facility:[facility] Start: 11-10-2021 End: 11-11-[address] JAIDA BEVERLY . Facility:[facility] Start: 11-02-2021 End: 11-03-[address] JAIDA BEVERLY . Facility:[facility] Procedures Date Procedure Procedure Detail Performing Clinician Start: 01-30-2022 Extraction of Produc ts of Conception, Low Cervical, Open Approach DR ROLAND NORTON . Payers Date Payer Category Payer Unknown [id number] 2.16.84 [id number] 1999 Unknown [id number] 2.16.84 0.1.499473.3.579.2.593 1999 Unknown [id number] 2.16.84 0.1.295237.3.579.2.593 1999 Unknown [id number] 2.16.84 0.1.182852.3.579.2.593 1999 Unknown [id number] 2.16.84 0.1.655822.3.579.2.593 1999 Unknown [id number] 2.16.84 0.1.780791.3.579.2.593 1999 Unknown [id number] 2.16.84 0.1.509549.3.579.2.593 1999 Unknown [id number] 2.16.84 0.1.754197.3.579.2.593 1999 Unknown [id number] 2.16.84 0.1.148263.3.579.2.593 1999 Unknown [id number] 2.16.84 0.1.112711.3.579.2.593 1999 Unknown [id number] 2.16.840 .1.511775.3.579.2.1259 1999 Unknown [id number] 2.16.840 .1.789001.3.579.2.1259 1959 Unknown [id number] Clinical Note 01-29-2022 Note Date & Type Note Facility 01-29-2022 Note OPERATIVE NOTE OPERATION DATE: 01/30/2022 PROCEDURE: Primary low transverse section. PREOPERATIVE DIAGNOSIS: 1. Intrauterine at 38+ weeks. 2. Spontaneous labor. 3. Failure to descend. POSTOPERATIVE DIAGNOSIS: 1. Intrauterine at 38+ weeks. 2. Spontaneous labor. 3. Failure to descend. ANESTHESIA: Epidural with Duramorph. SURGEON: Jaida Beverly D.O. ECHOCARDIOGRAPHY TECHNOLOGIST: JOCELYNN Matos URINE OUTPUT: Yellow and clear. BLOOD LOSS: 575 mL. FINDINGS: Viable female. Apgars 8 at 1, 9 at 5. Weight unknown at this time. Delivery at 08:49. PROCEDURE: Patient was taken back to the Operating Room where she was given a spinal anesthesia with Duramorph without difficulty. She was prepped and draped in the normal sterile fashion. A Pfannenstiel skin incision was then made 2 cm above the symphysis pubis and carried down to underlying rectus fascia using a Bovie. The fascia was incised in the midline and extended laterally using Reza scissors. Two Vibha clamps were placed on the superior aspect of the fascia and dissected off the underlying rectus muscles. The same was performed on the inferior aspect as well. The muscles were then in the midline. Peritoneum was identified and entered bluntly. The peritoneum was then extended superiorly and inferiorly with good visualization of the bladder. The bladder blade was inserted. A low transverse incision was made on the patient's uterus and extended laterally digitally. The was then delivered atraumatically after the bladder blade was removed in the cephalic position. The cord was clamped and cut. Cord blood was obtained. The was handed off to awaiting team. The patient's placenta was spontaneously delivered. The uterus was then exteriorized. The uterus was cleared of all clots and debris. The bladder blade was reinserted. The patient's uterine incision was closed using #0 Vicryl in a running lock fashion. Excellent hemostasis was assured. The uterus was then returned to the patient's abdomen. The patient's abdomen was copiously irrigated using warm saline. Peritoneal gutters were cleared of all clots and debris. Again excellent hemostasis was assured. The patient's peritoneum was closed using 3-0 Vicryl in a running fashion. The patient's fascia was closed using #0 Vicryl in a running fashion. The patient's skin was closed using 4-0 Vicryl subcuticularly. The patient tolerated the procedure well. Sponge, lap, and needle counts were correct x2. The patient was taken to the Recovery Room in stable condition. [facility] Discharge summary note 01-29-2022 Note Date & Type Note Facility 01-29-2022 Note DISCHARGE SUMMARY DISCHARGE DATE: 02/16/2022 PRIMARY DIAGNOSES: 1. Intrauterine 38+ weeks. 2. Spontaneous labor. 3. Failure to descend. PROCEDURE: Primary low transverse section. HOSPITAL COURSE: As expected. Please see chart for full details. LABORATORY DATA: Please see chart. COMPLICATIONS: None. DISCHARGE CONDITION: Stable. CONSULTATION: Anesthesia. DISCHARGE INSTRUCTIONS: 1. Diet: Regular. 2. Medications: a. Percocet 5/325 one to two p.o. every 4-6 hours p.r.n. pain. b. Motrin 800 one p.o. every 8 hours p.r.n. pain. 3. Followup in one week. Restrictions: Pelvic rest for 6 weeks. No heavy lifting. May drive when pain free and no longer on narcotics. [facility] Progress note 08-08-2020 Note Date & Type Note Facility 08-08-2020 Note HNO ID: [id number] Author: Jackelyn Russell Service: ? Author Type: Physician Type: Progress Notes Filed: 08/08/2020 1:56 PM Note Text: VIRTUAL VISIT PROGRESS NOTE This is a virtual visit using ec0 It required patient-provider interaction for the medical decision making as documented below. Grace Penny is a 20 year old female seen for eyelid rash that is itchy uses eyedrops which help but then it comes right back. History of eczema HISTORY REVIEWED (electronic chart updated): No past medical history on file. No past surgical history on file. No family history on file. Social History Tobacco Use - Smoking status: Not on file Substance Use Topics - Alcohol use: Not on file - Drug use: Not on file No current outpatient medications on file. No current facility-administered medications for this visit. ALLERGIES Not on File REVIEW OF SYSTEMS: No f c sob PHYSICAL EXAMINATION: VIDEO EXAM: (if completed, performed via video enabled technology) Eyelid flaking dry patches bl ASSESSMENT: (H01.113, H01.116) Allergic dermatitis of eyelids of both eyes, unspecified eyelid (primary encounter diagnosis) PLAN: HC 2.4 oint bid 2 weeks Mupirocin oint bid x 7 days vaseline nightly Zyrtec nightly rtc 2 weeks if no improvement There are no Patient Instructions on file for this visit. Jackelyn Russell MD [facility] Summary Purpose Family History No Family History Records FoundNo Family History Records FoundNo Family History Records FoundNo Family History Records Found Advance Directives No Advanced Directives Records FoundNo Advanced Directives Records FoundNo Advanced Directives Records FoundNo Advanced Directives Records Found Additional Source Comments INFORMATION SOURCE (unrecogn ized section and content) DATE CREATED AUTHOR 11/23/2020 [facility] DATE CREATED AUTHOR AUTHOR'S ORGANIZ ATION 06/21/2021 [facility] DATE CREATED AUTHOR AUTHOR'S ORGANIZ ATION 09/29/2022 [facility] DATE CREATED AUTHOR AUTHOR'S ORGANALESSIO ATION 05/19/2023 [facility] FOR RECORDS PERTAINING TO PATIENTS WHO ARE OR HAVE BEEN ENROLLED IN A CHEMICAL DEPENDENCY/SUBSTANCEABUSE PROGRAM, SOME INFORMATION MAY BE OMITTED. This clinical summary was aggregated from multiple sources. Caution should be exercised in using it in the provision of clinical care. This summary normalizes information from multiple sources, and as a consequence, information in this document may materially change the coding, format and clinical context of patient data. In addition, data may be omitted in some cases. CLINICAL DECISIONS SHOULD BE BASED ON THE PRIMARY CLINICAL RECORDS. [facility]. provides no warranty or guarantee of the accuracy or completeness of information in this document.
[2023-05-30 11:22] LABS: Basophils Absolute Auto 0.1 10^3/uL (0.0-0.1); Basophils Percent Auto 0.5 % (0.2-2.0); Eosinophils Absolute Auto 0.1 10^3/uL (0.0-0.7); Eosinophils Percent Auto 0.7 % (0.9-7.0); Hemoglobin 12.9 g/dL (12.0-16.0); Immature Granulocytes Abs Auto 0.21 10^3/uL (0.00-0.03); Immature Granulocytes Pct Auto 1.7 % (0.0-0.5); Lymphocytes Absolute Auto 1.8 10^3/uL (1.2-3.8); Mean Corpuscular HGB Conc 32.3 g/dL (29.9-35.2); Mean Corpuscular Hemoglobin 29.4 pg (26.7-34.0); Mean Corpuscular Volume 91.1 fL (81.0-99.0); Mean Platelet Volume 8.9 fL (9.5-13.5); Monocytes Percent Auto 8.1 % (1.7-12.0); Platelet Count 251 10^3/uL (150-450); Red Blood Count 4.39 10^6/uL (4.20-5.40); Red Cell Distribution Width 12.8 % (11.0-15.0); White Blood Count 12.1 10^3/uL (4.0-11.0)
[2023-05-30 13:16] LABS: Glucose 1 Hour 88 mg/dL
== END 2023-05-30 09:57 | disposition home or self-care (01) ==
PROVIDERS: Visit Provider Obstetrics & Gynecology
DX: Z34.92 Encounter for supervision of normal pregnancy, unspecified, second trimester (principal)
CPT/HCPCS: 36415; 82950; 85025

== ENCOUNTER 2023-07-19 09:24 | Outpatient (OUT) | payer BC, SELFPAY ==
--- NOTE | 2023-07-19 09:27 | US_ITS ---
[address] [address] Patient Name: DELIA FUENTES MRN: [id number] date: 2000 Sex: F Assigned Patient Location: [facility] Current Patient Location: [facility] Accession/Order Number: [id number] Exam Date: 07/19/2023 09:27 Report Date: 07/19/2023 10:37 At the request of: JAIDA TRAN Procedure: US OB growth EXAMINATION: US OB growth HISTORY: SIZE INCONSISTENT WITH DATES COMPARISON: 04/11/2023 TECHNIQUE: Transabdominal sonographic examination was performed for obstetrical and evaluation. FINDINGS: Number: 1 Heart Rate: 138.0 bpm H.B. /min Amniotic Fluid Volume: 12.3 cm, largest fluid pocket 4.3 cm position: Cephalic presentation, longitudinal lie Placental Location: Anterior Cervix Length: Not measured BIOMETRY: BPD: 8.2 cm 32 weeks 5 days , 9% HC: 30.1 cm 33 weeks 2 days, 4% AC: 29.8 cm 33 weeks 5 days, 34% FL: 6.1 cm 31 weeks 5 days , less than 3% EFW:2103.6 grams; 4 lbs. 10 oz., 12% FL/AC: 20.5 FL/BPD: 75.0 HC/AC: 1.0 GESTATIONAL AGE: Age by EDC: 34 weeks 3 days Age by current US: 32 weeks 6 days ANDI by current US: 09/07/2023 ANDI by EDC: 08/27/2023 US/US OB growth IMPRESSION: Femur length less than the 3rd percentile Head circumference at the 4th percentile Estimated weight 12% *Reference: [facility] Practice Guideline for the performance of Obstetric Ultrasound Examinations, February 20, 2007. Electronically authenticated by: WILD VOSS Date: 07/19/2023 10:37
== END 2023-07-19 09:25 | disposition home or self-care (01) ==
LOC: NOMS 09:25
PROVIDERS: Visit Provider Obstetrics & Gynecology
DX: O26.843 Uterine size-date discrepancy, third trimester (principal); Z3A.32 32 weeks gestation of pregnancy
CPT/HCPCS: 76816

== ENCOUNTER 2023-08-03 13:59 | Outpatient (OUT) | payer BC, SELFPAY ==
--- NOTE | 2023-08-03 14:00 | US_ITS ---
[address] [address] Patient Name: DELIA FUENTES MRN: [id number] date: 2000 Sex: F Assigned Patient Location: [facility] Current Patient Location: [facility] Accession/Order Number: [id number] Exam Date: 08/03/2023 14:01 Report Date: 08/03/2023 14:36 At the request of: JAIDA TRAN Procedure: US OB growth EXAMINATION: US OB growth HISTORY: Size of fetus inconsistent with dates O26.843 COMPARISON: No relevant comparison available. FINDINGS: Heart Rate: 148.0 bpm Number: 1.0 Position: CEPHALIC Amniotic Fluid Volume: 15.5 cm Maximum Vertical Pocket: 6.3 cm BIOMETRY: BPD: 8.6 cm cm; 34 weeks 4 days; 11% HC: 31.5 cmcm; 35 weeks 2 days; 5% AC: 30.4 cm cm; 34 weeks 2 days; 8% FL: 7.4 cm cm; 37 weeks 6 days; 78% EFW: 2672.3 grams; 24% FL/AC: 24.3 FL/BPD: 86.3 HC/AC: 1.0 GESTATIONAL AGE: Age by EDC: 36 weeks 4 days ANDI by EDC: 08/27/2023 Age by US: 35 weeks 4 days ANDI by US: 09/03/2023 US/US OB growth IMPRESSION: 1. Single live intrauterine with growth detailed above. 2. Head circumference is at 5th percentile. Abdominal circumference 8th percentile. Electronically authenticated by: [employer] Date: 08/03/2023 14:36
--- OUTSIDE RECORDS SUMMARY | 2023-08-03 14:04 | XMS_ITS | CCD ---
Author Name Unknown Address [address] [place] [address] Organization [facility] Care Team Providers Care Fur Stylist Name Role Phone CIERRA ., DR WATKINS Consulting Unavailabl e SIRIA ., DR SENA Procedure Practitioner Unavail able SIRIA ., DR SENA Admitting Unavailable SIRIA ., DR SENA Attending Unavailable SIRIA ., DR SENA Consulting Unavailable AARONAYMAJacob, SANJAY Consulting Unavailable ALICJA, MICHELLE ABREU Consulting Unava ildavey VOSS, DR WILD Garner Consulting Unavailable SIRIA ., DR SENA Admitting Unavailable SIRIA ., DR SENA Attending Unavailable SIRIA ., DR SENA Consulting Unavailable SIRIA ., DR SENA Consulting Unavailable SIRIA ., DR SENA Admitting Unavailable SIRIA ., DR SENA Attending Unavailable WEST, DR WILD Garner Consulting Unavailable SIRIA ., DR SENA Admitting Unavailable SIRIA ., DR SENA Attending Unavailable SIRIA ., DR SENA Consulting Unavailable SIRIA ., DR SENA Consulting Unavailable SIRIA ., DR SENA Admitting Unavailable SIRIA ., DR SENA Attending Unavailable SIRIA ., DR SENA Consulting Unavailable SIRIA ., DR SENA Admitting Unavailable SIRIA ., DR SENA Attending Unavailable SIRIA ., DR SENA Consulting Unavailable SIRIA ., DR SENA Admitting Unavailable SIRIA ., DR SENA Attending Unavailable ZIEBER, DR CAIO Carvalho Consulting Unavailable SIRIA ., DR SENA Admitting Unavailable SIRIA ., DR SENA Attending Unavailable SIRIA ., DR SENA Consulting Unavailable REQUEST, DR NESS LISTED Primary Care Unavaila ble SIRIA ., DR SENA Admitting Unavailable WEST, DR WILD Garner Consulting Unavailable SIRIA ., DR SENA Attending Unavailable SIRIA ., DR SENA Consulting Unavailable SIRIA ., DR SENA Admitting Unavailable SIRIA ., DR SENA Attending Unavailable SIRIA ., DR SENA Consulting Unavailable Unavailable Primary Care Provider Unavailabl e SIRIA, JAIDA Attending Unavailable SIRIA, JAIDA Attending Unavailable SIRIA, JAIDA Attending Unavailable SIRIA, JAIDA Attending Unavailable SIRIA, JAIDA Attending Unavailable SIRIA, JAIDA Attending Unavailable Medications Current Medications Medication Drug Class(es) Dates Sig (Normalized) Sig (Original) alpha-tocopherol acetate 30 unt / ascorbic acid 100 mg / beta carotene 1000 unt / calcium carbonate 200 mg / calcium pantothenate 7 mg / cholecalciferol 400 unt / docusate sodium 25 mg / ferrous fumarate 29 mg / folic acid 1 mg / niacinamide 15 mg / pyridoxine hydrochloride 20 mg / riboflavin 3 mg / thiamine 3 mg / vitamin b12 0.012 mg / zinc oxide 20 mg oral tablet (2 sources) Vitamin B12, Vitamin D, Vitamin C Vit-DSS-Fe Fum-FA ( 19) tablet 1 (one) time each day at the same time 0 Active omeprazole 20 mg delayed release oral capsule (2 sources) Proton Pump Inhibitor Start: 05-17-2023 End: 05-16-2024 take 1 capsule by mouth once before mealtime omeprazole (PriLOSEC) [address] capsule Indications: Heartburn during in second trimester Take 1 capsule (20 mg) by mouth in the morning. Take before meals. Do not crush or chew.. 30 capsule 11 05/17/2023 05/16/2024 Active Problems Active Problems Problem Classification Problem Date Documented Date Episodic/Chronic Immunizations and screening for infectious disease (1 source) Encounter for screening for human papillomavirus (HPV); Translations: [ENC SCREENING HUMAN PAPILLOMAVIRUS] Onset: 09-28-2022 Episodic Other and delivery including normal (3 sources) Single live ; Translations: [Third trimester ] Onset: 02-17-2022 06-21-2023 Episodic Other screening for suspected conditions (not mental disorders or infectious disease) (13 sources) Encounter for screening for malignant neoplasm of cervix; Translations: [Encounter for screening for Streptococcus B] Onset: 11-10-2021 Episodic Unclassified (2 sources) OB Reminders Onset: 02-02-2023 02-02-2023 Past or Other Problems Problem Classification Problem [...] [ABNORM US SCREEN MOTHER] Onset: 11-02-2021 Episodic Polyhydramnios and other problems of amniotic [...] Test Name Value Interpretation Reference Range Facility Urinalysis macro (dipstick) panel (U)Ordered By: Debbie Pelaez on 06-23-2023 Bilirubin, UA Negative Negative - 4(70) +++ mg/dL [facility] Work Phone: Blood, UA Negative Negative - 50 Hugh/mcL [facility] Work Phone: Clarity, UA Clear [facility] [employer] Work Phone: Color, UA Yellow NOM [employer] Work Phone: Glucose, UA Negative Negative - 2000(110) ++++ mg/dL [facility] Work Phone: Interpretation and review of laboratory results Normal [facility] [employer] Work Phone: Ketones, UA Negative Negative - 160(16) ++++ mg/dL [facility] Work Phone: Leukocytes, UA Negative Negative - 500+++ Joe/mcL [facility] Work Phone: Nitrite, UA Negative Negative - Positive [facility] [employer] Work Phone: pH, UA 5.5 5 - 9 [facility] [employer] Work Phone: Protein, UA Negative Negative - 2000(20) ++++ mg/dL [facility] [employer] Work Phone: Spec Grav, UA 1.015 1 - 1.03 [facility] [employer] care Work Phone: Urobilinogen, UA 0.2 0.2 - 12 mg/dL [facility] [employer] Work Phone: [facility] [employer] Work Phone: PAP ACOG PANEL 2: 21 to 29on 09-29-2022 . . Normal [facility] Comment on above: Performed By: #### [id number] #### [facility] [address] [place] [address] Dr. Tyree Paiz Age Gdln ACOG Testing 21-29 [facility] Comment on above: Performed By: #### [id number] #### [facility] [address] [place] [address] Dr. Tyree Paiz DIAGNOSIS: Comment [facility] Comment on above: Result Comment: NEGA TIVE FOR INTRAEPITHELIAL LESION OR MALIGNANCY. Performed By: #### [id number] #### [facility] [address] [place] [address] Dr. Tyree Paiz Methodology: Comment [facility] Comment on above: Result Comment: This liquid based ThinPrep(R) pap test was screened with the use of an image guided system. Performed By: #### [id number] #### [facility] [address] [place] [address] Dr. Tyree Paiz Note: Comment Normal [facility] Comment on above: Result Comment: The Pap smear is a screening test designed to aid in the detection of premalignant and malignant conditions of the uterine cervix. It is not a diagnostic procedure and should not be used as the sole means of detecting cervical cancer. Both false-positive and false-negative reports do occur. . Performed By: #### [id number] #### [facility] [address] [place] [address] Dr. Tyree Paiz Performed by: Comment Normal [facility] Comment on above: Result Comment: Rafael Tejada, Fur Mixer (ASCP) Performed By: #### [id number] #### [facility] [address] [place] [address] Dr. Tyree Paiz Reflex Criteria: Comment [facility] Comment on above: Result Comment: The HPV DNA reflex criteria were not met with this specimen result therefore, no HPV testing was performed. . Performed By: #### [id number] #### [facility] [address] [place] [address] Dr. Tyree Paiz Specimen adequacy: Comment Normal [facility] Comment on above: Result Comment: Sati sfactory for evaluation. Endocervical and/or squamous metaplastic cells (endocervical component) are present. Performed By: #### [id number] #### [facility] [address] [place] [address] Dr. Tyree Paiz TYPE AND SCREENon 02-01-2022 TYPE AND SCREEN Antibody Screen NEGATIVE Blood Bank Notes testing done by 01/29/22 ABO Rh Typing AB Rh Positive Blood Bank Notes testing done by 01/29/22 [facility] Comment on above: Performed By: #### T NS ####[facility] [address] [place] [address]Dr. Tyree Paiz CBC AUTO DIFFon 01-31-2022 BASO # 0.0 103/ul Normal 0.0-0.1 [facility] Comment on above: Performed By: #### C BC #### [facility] [address] [place] [address] Dr. Tyree Paiz Basophils/100 WBC (Bld) 0.3 % Normal 0.2-2.0 [facility] Comment on above: Performed By: #### C BC #### [facility] [address] [place] [address] Dr. Tyree Paiz EO # 0.1 103/ul Normal 0.0-0.7 [facility] Comment on above: Performed By: #### C BC #### [facility] [address] [place] [address] Dr. Tyree Paiz Eosinophils/100 WBC (Bld) 0.8 % Critically low 0.9-7.0 [facility] Comment on above: Performed By: #### C BC #### [facility] [address] [place] [address] Dr. Tyree Paiz Erythrocyte distribution width (RBC) [Ratio] 13.4 % Normal 11.0-15.0 [facility] Comment on above: Performed By: #### C BC #### [facility] [address] [place] [address] Dr. Tyree Paiz Hematocrit (Bld) [Volume fraction] 27.4 % Critically low 36.0-48.0 [facility] Comment on above: Performed By: #### C BC #### [facility] [address] [place] [address] Dr. Tyree Paiz Hemoglobin (Bld) [Mass/Vol] 8.6 g/dL Critically low 12.0-16.0 [facility] Comment on above: Performed By: #### C BC #### [facility] [address] [place] [address] Dr. Tyree Paiz IG # 0.12 10e3/ul Critically high 0.00-0.03 [facility] Comment on above: Performed By: #### C BC #### [facility] [address] [place] [address] Dr. Tyree Paiz IG % 0.9 % Critically high 0.0-0.5 [facility] Comment on above: Performed By: #### C BC #### [facility] [address] [place] [address] Dr. Tyree Paiz LYMPH # 1.9 103/ul Normal 1.2-3.8 [facility] Comment on above: Performed By: #### C BC #### [facility] [address] [place] [address] Dr. Tyree Paiz Lymphocytes/100 WBC (Bld) 13.7 % Critically low 20.5-60.0 [facility] Comment on above: Performed By: #### C BC #### [facility] [address] [place] [address] Dr. Tyree Paiz MANUAL DIFF REQ NO Normal [facility] Comment on above: Performed By: #### C BC #### [facility] [address] [place] [address] Dr. Tyree Paiz MCH (RBC) [Entitic mass] 27.0 pg Normal 26.7-34.0 [facility] Comment on above: Performed By: #### C BC #### [facility] [address] [place] [address] Dr. Tyree Paiz MCHC (RBC) [Mass/Vol] 31.4 g/dL Normal 29.9-35.2 [facility] Comment on above: Performed By: #### C BC #### [facility] [address] [place] [address] Dr. Tyree Paiz MCV (RBC) [Entitic vol] 85.9 fL Normal 81.0-99.0 [facility] Comment on above: Performed By: #### C BC #### [facility] [address] [place] [address] Dr. Tyree Paiz MONO # 1.1 103/ul Critically high 0.3-0.8 [facility] Comment on above: Performed By: #### C BC #### [facility] [address] [place] [address] Dr. Tyree Paiz Monocytes/100 WBC (Bld) 8.1 % Normal 1.7-12.0 [facility] Comment on above: Performed By: #### C BC #### [facility] [address] [place] [address] Dr. Tyree Paiz NEUT # 10.3 103/ul Critically high 1.4-6.5 [facility] Comment on above: Performed By: #### C BC #### [facility] [address] [address] [address] Tyree Paiz Neutrophils/100 WBC (Bld) 76.2 % Critically high 43.0-75.0 [facility] Comment on above: Performed By: #### C BC #### [facility] [address] [address] [address] Tyree Paiz Platelet mean volume (Bld) [Entitic vol] 9.5 fL Normal 9.5-13.5 [facility] Comment on above: Performed By: #### C BC #### [facility] [address] [place] [address] Dr. Tyree Paiz PLT 196 103/ul Normal 150-450 [facility] Comment on above: Performed By: #### C BC #### [facility] [address] [place] [address] Dr. Tyree Paiz RBC 3.19 106/ul Critically low 4.20-5.40 [facility] Comment on above: Performed By: #### C BC #### [facility] [address] [address] [address] Tyree Paiz WBC 13.5 103/ul Critically high 4.0-11.0 [facility] Comment on above: Performed By: #### C BC #### [facility] [address] [address] [address] Tyree Paiz CBC W MANUAL DIFFon 01-30-20 22 ATYPICAL LYMPH # Normal [facility] [place] [facility] Comment on above: Performed By: #### C BCMAN ####[facility] [address] [place] [address]Dr. Tyree Paiz ATYPICAL LYMPH % Normal [facility] [place] [facility] Comment on above: Performed By: #### C BCMAN ####[facility] [address] [place] [id number]. Tyree Paiz BAND # 0.0 103/ul Normal 0.0-0.3 [facility] Comment on above: Performed By: #### C BCMAN ####[facility] [address] [place] [id number]. Yicy Paiz BAND % 0 % Normal 0-5 [facility] Comment on above: Performed By: #### C BCTY ####[facility] [address] [place] [id number]. Yicy Paiz BASOM # 0.00 103/ul Normal 0.00-0.10 [facility] Comment on above: Performed By: #### C BCTY ####[facility] [address] [place] [address]Dr. Yicy Paiz BASOM % 0.0 % Critically low 0.2-2.0 [facility] Comment on above: Performed By: #### C BCTY ####[facility] [address] [place] [address]Dr. Yicy Paiz BLAST # Normal [facility] Comment on above: Performed By: #### C BCTY ####[facility] [address] [place] [address]Dr. Yilan Paiz BLAST % Normal [facility] Comment on above: Performed By: #### C BCTY ####[facility] [address] [place] [address]Dr. Tyree Paiz CORRECTED WBC Normal 4.0-11.0 [facility] Comment on above: Performed By: #### C BCTY ####[facility] [address] [place] [address]Dr. Yicy Paiz EOS # 0.41 103/ul Normal 0.00-0.70 [facility] Comment on above: Performed By: #### C BCTY ####[facility] [address] [place] [address]Dr. Tyree Paiz EOS% 3.0 % Normal 0.9-7.0 [facility] Comment on above: Performed By: #### C BCTY ####[facility] [address] [place] [address]Dr. Tyree Paiz HCT 31.3 % Critically low 36.0-48.0 [facility] Comment on above: Performed By: #### Swathi SAUCEDO ####[facility] [address] [place], [place] [address]An. Tyree Paiz HGB 10.2 g/dl Critically low 12.0-16.0 [facility] Comment on above: Performed By: #### Swathi SAUCEDO ####[facility] [address] [place], [place] [address]Ld. Tyree Paiz LYMPHM # 1.63 103/ul Normal 1.20-3.80 [facility] Comment on above: Performed By: #### Swathi SAUCEDO ####[facility] [address] [place], [place] [address]We. Tyree Paiz LYMPHM% 12.0 % Critically low 20.5-60.0 [facility] Comment on above: Performed By: #### Swathi SAUCEDO ####[facility] [address] [place] [id number]. Tyree Paiz MCH 27.4 pg Normal 26.7-34.0 [facility] Comment on above: Performed By: #### Swathi SAUCEDO ####[facility] [address] [place] [id number]. Tyree Paiz MCHC 32.6 g/dl Normal 29.9-35.2 [facility] Comment on above: Performed By: #### Swathi SAUCEDO ####[facility] [address] [place], [place] [address]Lr. Tyree Paiz MCV 84.1 fL Normal 81.0-99.0 [facility] Comment on above: Performed By: #### Swathi SAUCEDO ####[facility] [address] [place], [place] [address]Dt. Tyree Paiz METAMYELOCYTE # Normal [facility] Comment on above: Performed By: #### Swathi SAUCEDO ####[facility] [address] [place] [id number]. Tyree Paiz METAMYELOCYTE % Normal [facility] Comment on above: Performed By: #### Swathi SAUCEDO ####[facility] [address] [place] [id number]. Tyree Paiz MONOM# 1.36 103/ul Critically high 0.30-0.80 [facility] [place] [facility] Comment on above: Performed By: #### C LEWIS ####[facility] [address] [place] [id number]. Tyree Paiz MONOM% 10.0 % Normal 1.7-12.0 [facility] Comment on above: Performed By: #### C LEWIS ####[facility] [address] [place] [id number]. Tyree Paiz MPV 9.5 fL Normal 9.5-13.5 [facility] Comment on above: Performed By: #### C LEWIS ####[facility] [address] [place] [id number]. Tyree Chencho MYELOCYTE # Normal [facility] Comment on above: Performed By: #### C LEWIS ####[facility] [address] [place] [id number]. Tyree Paiz MYELOCYTE % Normal [facility] Comment on above: Performed By: #### C LEWIS ####[facility] [address] [place] [id number]. Tyree Chencho NRBC Normal [facility] Comment on above: Performed By: #### C LEWIS ####[facility] [address] [place] [id number]. Nuhacy Chencho PLT 258 103/ul Normal 150-450 [facility] Comment on above: Performed By: #### C LEWIS ####[facility] [address] [place] [id number]. Tyree Paiz RBC 3.72 106/ul Critically low 4.20-5.40 [facility] Comment on above: Performed By: #### C LEWIS ####[facility] [address] [place] [id number]. Tyree Paiz RDW 13.0 % Normal 11.0-15.0 [facility] Comment on above: Performed By: #### C LEWIS ####[facility] [address] [place], [place] [address]DrSarah Paiz SEG # 10.20 103/ul Critically high 1.40-6.50 [facility] Comment on above: Performed By: #### C LEWIS ####[facility] [address] [place], [place] [address]OjSarah Paiz SEG % 75.0 % Normal 43.0-75.0 [facility] Comment on above: Performed By: #### C LEWIS ####[facility] [address] [place], [place] [address]PiSarah Paiz WBC 13.6 103/ul Critically high 4.0-11.0 [facility] Comment on above: Performed By: #### C LEWIS ####[facility] [address] [place], [place] [address]BqSarah Tyree Paiz [facility]on SARS-CoV-2 (COVID-19) RNA GINO+probe Ql (Unsp spec) Not detected Normal NOT DETECTED [facility] Comment on above: Result Comment: When diagnostic [...] for this test is supported by the [place] of Health and Human Service's declaration that [...] used). Performed By: #### C VDTBH #### [facility] [address] [place], [place] [address] Dr. Tyree Paiz DRUG SCREEN RAPID (URINE)on 01-29-2022 AMP Negative Normal NEGATIVE [facility] Comment on above: Performed By: #### D RUGRPD #### [facility] [address] [place] [address] Dr. Tyree Paiz BAR Negative Normal NEGATIVE [facility] Comment on above: Performed By: #### D RUGRPD #### [facility] [address] [place] [address] Dr. Tyree Paiz BUP Negative Normal NEGATIVE [facility] Comment on above: Performed By: #### D RUGRPD #### [facility] [address] [place] [address] Dr. Tyree Paiz BZO Negative Normal NEGATIVE [facility] Comment on above: Performed By: #### D RUGRPD #### [facility] [address] [place] [address] Dr. Tyree Paiz ZACHARY Negative Normal NEGATIVE [facility] Comment on above: Performed By: #### D RUGRPD #### [facility] [address] [place] [address] Dr. Tyree Paiz CUT-OFFS SEE BELOW Normal [facility] Comment on above: Result Comment: AMP [...] ng/mL Performed By: #### D RUGRPD #### [facility] [address] [place] [address] Dr. Tyree Paiz DRUG CUT HEADER DRUG CLASS TEST SYSTEM CUT-OFF CONCENTRATIONS ARE FOLLOWS: Normal [facility] Comment on above: Performed By: #### D RUGRPD #### [facility] [address] [place] [address] Dr. Tyree Paiz mAMP Negative Normal NEGATIVE [facility] Comment on above: Performed By: #### D RUGRPD #### [facility] [address] [place] [address] [address] Tyree Paiz MTD Negative Normal NEGATIVE [facility] Comment on above: Performed By: #### D RUGRPD #### [facility] [address] [place] [address] [address] Tyree Paiz OPI Negative Normal NEGATIVE [facility] Comment on above: Performed By: #### D RUGRPD #### [facility] [address] [place] [address] [address] Tyree Paiz OXY Negative Normal NEGATIVE [facility] Comment on above: Performed By: #### D RUGRPD #### [facility] [address] [place] [address] [address] Tyree Paiz PCP Negative Normal NEGATIVE [facility] Comment on above: Performed By: #### D RUGRPD #### [facility] [address] [place] [address] Dr. Tyree Paiz PPX Negative Normal NEGATIVE [facility] Comment on above: Performed By: #### D RUGRPD #### [facility] [address] [place] [address] [address] Tyree Paiz TCA Negative Normal NEGATIVE [facility] Comment on above: Performed By: #### D RUGRPD #### [facility] [address] [place] [address] [address] Tyree Paiz THC Negative Normal NEGATIVE [facility] Comment on above: Performed By: #### D RUGRPD #### [facility] [address] [place] [address] [address] Tyree Paiz US PREG BIOPHY W [...] by: WILD VOSS Date: 2022-01-26 19:11 Normal [facility] US PREG BIOPHY W NON STRESSo [...] by: WILD VOSS Date: 2022-01-19 07:52 Normal [facility] GROUP B STREP CULTUREon 12-22 S. agalactiae Ag Ql (Unsp spec) Culture Observations: NEGATIVE FOR GROUP B STREPTOCOCCUS. Normal [facility] Comment on above: Performed By: #### G BSCX ####[facility] [address] [place], [place] [address]Ci. Tyree Paiz US PREG GROWTHon 01-12-2022 US [...] WILD VOSS Date: 2022-01-12 16:41 Normal [facility] GLUCOSE - 1HRon 11-10-2021 Glucose [Mass/Vol] 98 mg/dL Normal 74-106 [facility] Comment on above: Performed By: #### G LU1HR #### [facility] [address] [place] [address] Dr. Tyree Paiz HEMOGRAM AND PLATELon 2021 Hematocrit (Bld) [Volume fraction] 36.3 % Normal 36.0-48.0 [facility] Comment on above: Performed By: #### H H #### [facility] [address] [place] [address] Dr. Tyree Paiz Hemoglobin (Bld) [Mass/Vol] 11.9 g/dL Critically low 12.0-16.0 [facility] Comment on above: Performed By: #### H H #### [facility] [address] [place] [address] Dr. Tyree Paiz MCH (RBC) [Entitic mass] 30.1 pg Normal 26.7-34.0 [facility] Comment on above: Performed By: #### H H #### [facility] [address] [place] [address] Dr. Tyree Paiz MCHC (RBC) [Mass/Vol] 32.8 g/dL Normal 29.9-35.2 [facility] Comment on above: Performed By: #### H H #### [facility] [address] [place] [address] Dr. Tyree Paiz MCV (RBC) [Entitic vol] 91.7 fL Normal 81.0-99.0 [facility] Comment on above: Performed By: #### H H #### [facility] [address] [place] [address] Dr. Tyree Paiz PLT 237 103/ul Normal 150-450 [facility] Comment on above: Performed By: #### H H #### [facility] [address] [place] [address] Dr. Tyree Paiz RBC 3.96 106/ul Critically low 4.20-5.40 [facility] Comment on above: Performed By: #### H H #### [facility] [address] [place], [place] [address] Dr. Tyree Paiz WBC 12.6 103/ul Critically high 4.0-11.0 [facility] Comment on above: Performed By: #### H H #### [facility] [address], [place] [address] Dr. Tyree Paiz US PREG INCOMPLETE ANATOMYon [...] CAIO NGO Date: 2021-11-02 17:30 Normal [facility] ED Note-Physicianon 06-07-19 ED Note-Physician Basic Information Time Seen: Neha Jr 06/06/2020 11:16 Chief Complaint Swelling/redness B/L eyes progressing since . Denies vision changes, fevers. History of Present Illness Patient is a thin 20-year-old female who presents to emergency department the chief complaint of itchy scaly erythematous rash and swelling to the bilateral eyelids. She states that she first noticed a small amount of swelling and itching at giving, it is grown progressively worse. She is attempted to use an tdrb-dic-gwhhnui eczema cream but states that it is [...] Appropriate mood & affect. Integumentary: Warm, Dry, Nimrod Medical Decision Making I believe this to [...] Information Austyn Bocanegra In 3 days 06/09/2020 [facility] [address] [facility], [facility] [address] [place] [address] Business (1) Additional Instructions: Use the eye ointment as prescribed, return should vision disturbance develop, otherwise follow-up with the appraisal analyst as directed for reevaluation. Patient Education Eczema [...] available. Diagnostic Results No qualifying data available. [facility] Comment on above: Result Comment: Elec tronically Signed By: Calvin Morley PA-C\.br\Date and Time Signed: 06/06/20 12:03 EST\.br\Electronically Co-Signed By: Jr Solomon DO\.br\Date and Time Co-Signed: 06/06/20 22:16 EST Coding Summary.on 06-06-2020 Coding Summary. CODING DATE: 06/06/2020 FINAL [facility] STATUS: Home (Routine DC) PAYOR: Self Pay [...] Aliya Mejía Date Saved: 06/06/2020 05:36 pm [facility] Consent for Treatmenton 05-23 Consent for Treatment [id number] .00CD:127 [facility] Discharge Instructionson Discharge Instructions [id number] 1.00CD:127 [facility] ED Clinical Summaryon 2020 ED Clinical Summary [address] [address] ED Clinical Summary Person Information Name: GRACE PENNY/[facility] Age: 20 Years : 2000 Sex: Female Language: Divehi PCP: Tony PHAN MD Marital Status: Single [...] 06/06/2020 12:00:00 06/06/2020 12:00:00 06/06/2020 12:00:00 ADDRESS: [address] [place] [id number] PHYS DOC NOTES: MEDICAL INFORMATION: Prescriptions Given: New Medications Printed Prescriptions loteprednol ophthalmic (Lotemax 0.5% ophthalmic ointment) 1 eloise OPTH QID. Refills: 0. Medications to Continue with No Changes Other Medications naproxen (naproxen 500 mg Tab) 1 Tablets By Mouth 2 times a day as needed for pain. Refills: 0. PATIENT EDUCATION INFORMATION: Instructions: Eczema Follow up: With: Address: When: Austyn Bocanegra [facility] [address], [address] [place] [address] Business (1) In 3 days 06/09/2020 Comments: Use the eye ointment as prescribed, return should vision disturbance develop, otherwise follow-up with the appraisal analyst as directed for reevaluation. DIAGNOSIS: 1:Eyelid dermatitis, eczematous Normal [facility] ED Patient Education Noteon 06-06-2020 [...] the itching and scratching. ? ? Use zhiz-ujv-cmdjbhu antihistamines as directed for itching. This is especially useful at night when the itching tends to be worse. ? ? Use uxjn-aja-wrmhpas steroid creams as directed for itching. ? [...] ? HOME CARE INSTRUCTIONS ? Only take zfuy-ovj-fchiokx or prescription medicines as directed by your [...] 02/27/2014 Document Reviewed: 12/10/2013 ExitCare? Patient Information ?2014 [employer]. This information is not intended to replace advice given to you by your health care provider. Make sure you discuss any questions you have with your health care provider. Normal [facility] ED Patient Summaryon 021 ED Patient Summary [address] [address] Patient Discharge Instructions Person Information Name: GRACE PENNY Age: 20 Years Arrival Date: 06/06/2020 11:09:25 Discharge Diagnosis: 1:Eyelid dermatitis, eczematous Primary Care Physician: Tony PHAN MD Provider Information Primary Provider: Jr Solomon DO Advanced Service Girl:Calvin Morley PA-C The exam and treatment you received in the Emergency Department were for an urgent problem and are not intended as complete care. It is important that you follow up with a doctor, nurse practitioner, or physician?s environmental assistant for ongoing care. If your symptoms [...] Follow-up Instructions: With: Address: When: Austyn Bocanegra [facility] [address], [address] [facility] [address] [place] [address] Business (1) In 3 days 06/09/2020 Comments: Use the eye ointment as prescribed, return should vision disturbance develop, otherwise follow-up with the appraisal analyst as directed for reevaluation. In the event that this physician does not participate in your insurance network, please consult with your insurance company to find a nearby participating provider. Patient Education Materials: Eczema A MESSAGE TO ALL PATIENTS REGARDING OPIOIDS PRESCRIPTION OPIOIDS: WHAT YOU NEED TO KNOW Prescription opioids can be used to help relieve kxrvdqbw-wt-ryyvyx pain and are often prescribed following a [...] guidance from the Food and Drug Administration (www.fda.gov/Drugs/Re sourcesForYou). ? Visit www.cdc.gov/drugoverd ose to learn about the risks of opioids abuse and overdose. (more content not included)... [facility] Registrationon 04-08-2020 Registration [id number] 1.00CD:127 [facility] Consenton 04-07-2020 Consent [id number] 1.00CD:127 [facility] Registrationon 04-07-2020 Registration [id number] 1.00CD:127 [facility] Vital Signs Date Time Vital Sign Value Performing Clinician Frances rajany 06-23-2023 11:47-0500 Body mass index (BMI) [Ratio] 33.37 kg/m2 Jaida Siria DO Work Phone: [facility] 06-23-2023 11:47-0500 Body weight 85.46 kg Jaida Siria DO Work Phone: [facility] 06-23-2023 11:47-0500 Diastolic blood pressure 70 mm[Hg] Jaida Siria DO Work Phone: [facility] 06-23-2023 11:47-0500 Systolic blood pressure 120 mm[Hg] Jaida Siria DO Work Phone: [facility] Healthcare Encounters Encounter Date Encounter Type Care Provider Facility Start: 07-25-2023 End: 07-25-2023 ambulatory JAIDA SIRIA Not Available Start: 07-11-2023 End: 07-11-2023 ambulatory JAIDA SIRIA Not Available Start: 06-23-2023 End: 06-23-2023 ambulatory JAIDA BEVERLY Not Available Start: 06-23-2023 End: 06-23-2023 flow sheet Jaida Beverly DO Work Phone: [facility] Comment on above: Third trimester preg jose Start: 06-07-2023 End: 06-07-2023 ambulatory JAIDA BEVERLY Not Available Start: 05-17-2023 End: 05-17-2023 ambulatory JAIDA BEVERLY Not Available Start: 04-19-2023 End: 04-19-2023 ambulatory JAIDA BEVERLY Not Available Start: 09-22-2022 End: 09-22-[address] JAIDA BEVERLY . Facility: Start: 01-29-2022 End: 02-01-2022 Evaluation and management of inpatient DR ROLAND NORTON . Facility: Start: 01-29-2022 End: 01-29-[address] JAIDA BEVERLY . Facility: Start: 01-26-2022 End: 01-26-[address] WILD VOSS Facility: Start: 01-21-2022 End: 01-21-[address] JAIDA BEVERLY . Facility: Start: 01-18-2022 End: 01-18-[address] WILD VOSS Facility: Start: 01-12-2022 End: 01-12-[address] JAIDA BEVERLY . Facility: Start: 01-12-2022 End: 01-13-2022 ambulatory NONE LISTED REQUEST Facility:[facility] Start: 11-10-2021 End: 11-11-[address] JAIDA BEVERLY . Facility: Start: 11-02-2021 End: 11-03-[address] JAIDA BEVERLY . Facility: Procedures Date Procedure Procedure Detail Performing Clinician Start: 06-23-2023 Urnls dip stick/tabl et rgnt non-auto w/o micrscp Jaida Beverly DO Work Phone: Start: 01-30-2022 Extraction of Produc ts of Conception, Low Cervical, Open Approach DR ROLAND NORTON . Plan of Treatment Date Care Activity Detail Author Start: 07-11-2023 End: 07-11-2023 Patient encounter procedure 07/11/2023 3:10 PM EST Routine [facility] [address] [place] [address] Jaida Beverly, DO [address] [place] [address] [facility] Payers Date Payer Category Payer Unknown BCBS BCBS xxxxxx [id number] 2022-Present [phone] [address] [place] [address] [id number] 1999 Unknown [id number] [id number] 1999 Unknown [id number] 2.16.840.1.636631.3.579.2.593 1999 Unknown [id number] 2.16.840.1.216607.3.579.2.593 1999 Unknown [id number] 2.16.840.1.571514.3.579.2.593 1999 Unknown [id number] 2.16.840.1.800482.3.579.2.593 1999 Unknown [id number] 2.16.840.1.801012.3.579.2.593 1999 Unknown [id number] 2.16.840.1.726490.3.579.2.593 1999 Unknown [id number] 2.16.840.1.591160.3.579.2.593 1999 Unknown [id number] 2.16.840.1.541665.3.579.2.593 1999 Unknown [id number] 2.16.840.1.328642.3.579.2.593 1999 Unknown [id number] 2.16.840.1.440089.3.579.2.9 1999 Unknown [id number] 2.16.840.1.814539.3.579.2.9 1999 Unknown [id number] 2.16.840.1.267362.3.579.2.9 1999 Unknown [id number] 2.16.840.1.040444.3.579.2.9 1999 Unknown [id number] 2.16.840.1.771713.3.579.2.9 1999 Unknown [id number] 2.16.840.1.955887.3.579.2.1259 1959 Unknown [id number] Social History Date Type Detail Facility Start: 02-02-2023 Tobacco smoking stat [facility] Never smoked tobacco [facility] Start: 02-02-2023 Tobacco use and exposure Smokeless t obacco non-user [facility] Start: 06-23-2023 Alcohol intake Current drinke r of alcohol (finding) [facility] Start: 02-02-2023 History of Social function [facility] Start: 02-02-2023 Tobacco use panel [facility] Start: 02-02-2023 Alcohol Comment Occasional alcohol u se [facility] Start: 12-04-2022 [facility] Start: 2000 Sex Assigned At Female [facility] Start: 01-13-2023 Gender identity Identifies as female gender (finding) [facility] Start: 01-13-2023 Sexual orientation Heterosexual (fin ding) [facility] Goals Date Patient Goal Desired Activity /State Personal health goal History of Present illness Narrative 06-23-2023 BHARAT Xavier - 06/23/2023 11:50 AM EST Note Date & Type Note Facility 06-23-2023 History of Presen t illness Narrative Reason for Appointment: Patient ID: Grace Fuentes is a 23 y.o. female who presents for Routine Visit Patient presents today for Return OB appointment. Patient presents today for a routine obstetrics appointment. Patient is currently 30w5d with a Estimated Date of Delivery: 08/27/23. Current Medications: has a current medication list which includes the following prescription(s): omeprazole and 19. Medical History: Active Ambulatory Problems Diagnosis Date Noted No Active Ambulatory Problems Resolved Ambulatory Problems Diagnosis Date Noted No Resolved Ambulatory Problems Past Medical History: Diagnosis Date 6 weeks follow-up Abnormal Pap smear of cervix History of Obesity (BMI 30-39.9) No family history on file. Social History Tobacco Use Smoking status: Never Smokeless tobacco: Never Substance Use Topics Alcohol use: Yes Comment: Occasional alcohol use Drug use: Never Past Surgical History: Procedure Laterality Date SECTION, LOW TRANSVERSE 01/2022 No Known Allergies Review of Systems: Review of Systems Constitutional: Negative. HENT: Negative. Eyes: Negative. Respiratory: Negative. Cardiovascular: Negative. Gastrointestinal: Negative. Genitourinary: Negative. Musculoskeletal: Negative. Skin: Negative. Neurological: Negative. All other systems reviewed and are negative. Hematological: Negative. Endocrine: Negative. Allergic/Immunologic: Negative. Objective Physical Exam Constitutional: Appearance: Normal appearance. She is normal weight. HENT: Head: Normocephalic. Cardiovascular: Rate and Rhythm: Normal rate. Pulses: Normal pulses. Pulmonary: Effort: Pulmonary effort is normal. Breath sounds: Normal breath sounds. Abdominal: Palpations: Abdomen is soft. Musculoskeletal: General: Normal range of motion. Neurological: General: No focal deficit present. Mental Status: She is alert and oriented to person, place, and time. Psychiatric: Mood and Affect: Mood normal. Behavior: Behavior normal. Thought Content: Thought content normal. Judgment: Judgment normal. Vitals and nursing note reviewed. Vitals: Estimated body mass index is 33.37 kg/m as calculated from the following: Height as of 09/22/22: 5' 3 . Weight as of this encounter: 188 lb 6.4 oz. BP: 120/70 Patient's last menstrual period was 11/13/2022. Assessment/Plan Encounter Diagnosis Name Primary? Third trimester Patient presents today for a routine obstetrics appointment. Patient is currently 30w5d . Patient states she is doing well but has complaints of being tired due to current . Patient has verbalizes frequent movement. labor precautions was discussed/given and patient was instructed to perform kick counts three times a day. Follow Up: Patient is to return to office in 2 week for routine OB appointment. Documented by BHARAT Xavier on behalf of: YVETTE Xavier documented in this encounter [facility] Clinical Note 01-29-2022 Note Date & Type Note Facility 01-29-2022 Note OPERATIVE NOTE OPERATION DATE: 01/30/2022 PROCEDURE: Primary low transverse section. PREOPERATIVE DIAGNOSIS: 1. Intrauterine at 38+ weeks. 2. Spontaneous labor. 3. Failure to descend. POSTOPERATIVE DIAGNOSIS: 1. Intrauterine at 38+ weeks. 2. Spontaneous labor. 3. Failure to descend. ANESTHESIA: Epidural with Duramorph. SURGEON: Jaida Beverly D.O. STUDENT DEVELOPMENT SPECIALIST: JOCELYNN Matos URINE OUTPUT: Yellow and clear. [...] and cut. Cord blood was obtained. The infant was handed off to awaiting team. The [...] the Recovery Room in stable condition. [facility] Discharge summary note 01-29-2022 Note Date & [...] free and no longer on narcotics. [facility] Progress note 08-08-2020 Note Date & Type Note Facility 08-08-2020 Note HNO ID: [id number] Author: Jackelyn Russell Service: ? Author Type: [...] file for this visit. Jackelyn Russell MD [facility] Evaluation note Note Date & Type Note Facility Evaluation note Diagnosis Third trimester state, incidental documented in this encounter [facility] Summary Purpose Family History No Family History Records FoundNo Family History Records FoundNo Family History Records FoundNo Family History Records Found Advance Directives No Advanced Directives Records FoundNo Advanced Directives Records FoundNo Advanced Directives Records FoundNo Advanced Directives Records Found Additional Source Comments INFORMATION SOURCE (unrecogn ized section and content) DATE CREATED AUTHOR [facility]23/2020 [place] [facility] DATE CREATED AUTHOR AUTHOR'S ORGANIZ ATION 06/21/2021 [facility] DATE CREATED AUTHOR AUTHOR'S ORGANIZ ATION 09/29/2022 [facility] DATE CREATED AUTHOR AUTHOR'S ORGANIZ ATION 07/26/2023 [facility] [employer] EPIC Reason for Visit (unrecogniz ed section and content) Reason Comments Routine Visit FOR RECORDS PERTAINING TO PATIENTS WHO ARE [...] BE BASED ON THE PRIMARY CLINICAL RECORDS. [employer] [facility]. provides no warranty or guarantee of the accuracy or completeness of information in this document.
== END 2023-08-03 14:00 | disposition home or self-care (01) ==
LOC: NOMS 13:59
PROVIDERS: Visit Provider Obstetrics & Gynecology
DX: O26.843 Uterine size-date discrepancy, third trimester (principal); Z3A.36 36 weeks gestation of pregnancy
CPT/HCPCS: 76816; 87081

== ENCOUNTER 2023-08-03 20:44 | Outpatient (REF) | payer BC, SELFPAY ==
--- OUTSIDE RECORDS SUMMARY | 2023-08-03 20:50 | XMS_ITS | CCD ---
Author Name Unknown Address [address] [place] [address] Organization [facility] Care Team Providers Care Hand Ii Blocker Name Role Phone CIERRA ., DR WATKINS [...] Unavailable SIRIA ., DR SENA Admitting Unavailable SRIIA ., DR SENA Attending Unavailable SIRIA ., [...] UA Negative Negative - 4(70) +++ mg/dL [facility] Work Phone: Blood, UA Negative Negative - 50 Hugh/mcL [facility] Work Phone: Clarity, UA Clear [facility] [employer] Work Phone: Color, UA Yellow [facility] [employer] Work Phone: Glucose, UA Negative Negative - 2000(110) ++++ mg/dL [facility] Work Phone: Interpretation and review of laboratory results Normal [facility] [employer] re Work Phone: Ketones, UA Negative Negative - 160(16) ++++ mg/dL [facility] Work Phone: Leukocytes, UA Negative Negative - 500+++ Joe/mcL [facility] Work Phone: Nitrite, UA Negative Negative - Positive [facility] [employer] Work Phone: pH, UA 5.5 5 - 9 [facility] [employer] Work Phone: Protein, UA Negative Negative - 2000(20) ++++ mg/dL [facility] [employer] Work Phone: Spec Grav, UA 1.015 1 - 1.03 [facility] [employer] care Work Phone: Urobilinogen, UA 0.2 0.2 - 12 mg/dL [facility] [employer] Work Phone: [facility] [employer] Work Phone: PAP ACOG PANEL 2: 21 to 29on 09-29-2022 . . Normal [facility] Comment on above: Performed By: #### [id number] #### [facility] [address] [place] [address] Dr. Tyree Paiz Age Gdln ACOG Testing 21-29 [facility] Comment on above: Performed By: #### [id number] #### [facility] [address] [place] [address] Dr. Tyree Paiz DIAGNOSIS: Comment [facility] Comment on above: Result Comment: NEGA TIVE FOR INTRAEPITHELIAL LESION OR MALIGNANCY. Performed By: #### [id number] #### [facility] [address] [place] [address] Dr. Tyree Paiz Methodology: Comment [facility] Comment on above: Result Comment: This liquid based ThinPrep(R) pap test was screened with the use of an image guided system. Performed By: #### [id number] #### [facility] [address] [place] [address] Dr. Tyree Paiz Note: Comment Normal [facility] Comment on above: Result Comment: The Pap smear is a screening test designed to aid in the detection of premalignant and malignant conditions of the uterine cervix. It is not a diagnostic procedure and should not be used as the sole means of detecting cervical cancer. Both false-positive and false-negative reports do occur. . Performed By: #### [id number] #### [facility] [address] [place] [address] Dr. Tyree Paiz Performed by: Comment Normal [facility] Comment on above: Result Comment: Rafael Tejada, Platform Attendant (ASCP) Performed By: #### [id number] #### [facility] [address] [place] [address] Dr. Tyree Paiz Reflex Criteria: Comment [facility] Comment on above: Result Comment: The HPV DNA reflex criteria were not met with this specimen result therefore, no HPV testing was performed. . Performed By: #### 4 [id number] #### [facility] [address] [place] [address] Dr. Tyree Paiz Specimen adequacy: Comment Normal [facility] Comment on above: Result Comment: Sati sfactory for evaluation. Endocervical and/or squamous metaplastic cells (endocervical component) are present. Performed By: #### [id number] #### [facility] [address] [place] [address] Dr. Tyree Paiz TYPE AND SCREENon 02-01-2022 TYPE AND SCREEN Antibody Screen NEGATIVE Blood Bank Notes testing done by 01/29/22 ABO Rh Typing AB Rh Positive Blood Bank Notes testing done by 01/29/22 [facility] Comment on above: Performed By: #### T NS ####[facility] [address] [place] [address]Dr. Tyree Paiz CBC AUTO DIFFon 01-31-2022 BASO # 0.0 103/ul Normal 0.0-0.1 [facility] Comment on above: Performed By: #### C BC #### [facility] [address] [place] [address] Dr. Tyree Paiz Basophils/100 WBC (Bld) 0.3 % Normal 0.2-2.0 [facility] Comment on above: Performed By: #### C BC #### [facility] [address] [place] [address] Dr. Tyree Paiz EO # 0.1 103/ul Normal 0.0-0.7 [facility] Comment on above: Performed By: #### C BC #### [facility] [address] [place] [address] Dr. Tyree Paiz Eosinophils/100 WBC (Bld) 0.8 % Critically low 0.9-7.0 [facility] Comment on above: Performed By: #### C BC #### [facility] [address] [place] [address] Dr. Tyree Paiz Erythrocyte distribution width (RBC) [Ratio] 13.4 % Normal 11.0-15.0 [facility] Comment on above: Performed By: #### C BC #### [facility] [address] [place] [address] Dr. Tyree Paiz Hematocrit (Bld) [Volume fraction] 27.4 % Critically low 36.0-48.0 [facility] Comment on above: Performed By: #### C BC #### [facility] [address] [place] [address] Dr. Tyree Paiz Hemoglobin (Bld) [Mass/Vol] 8.6 g/dL Critically low 12.0-16.0 [facility] Comment on above: Performed By: #### C BC #### [facility] [address] [place] [address] Dr. Tyree Paiz IG # 0.12 10e3/ul Critically high 0.00-0.03 [facility] Comment on above: Performed By: #### C BC #### [facility] [address] [place] [address] Dr. Tyree Paiz IG % 0.9 % Critically high 0.0-0.5 [facility] Comment on above: Performed By: #### C BC #### [facility] [address] [place] [address] Dr. Tyree Paiz LYMPH # 1.9 103/ul Normal 1.2-3.8 [facility] Comment on above: Performed By: #### C BC #### [facility] [address] [place] [address] Dr. Tyree Paiz Lymphocytes/100 WBC (Bld) 13.7 % Critically low 20.5-60.0 [facility] Comment on above: Performed By: #### C BC #### [facility] [address] [place] [address] Dr. Tyree Paiz MANUAL DIFF REQ NO Normal [facility] Comment on above: Performed By: #### C BC #### [facility] [address] [place] [address] Dr. Tyree Paiz MCH (RBC) [Entitic mass] 27.0 pg Normal 26.7-34.0 [facility] Comment on above: Performed By: #### C BC #### [facility] [address] [place] [address] Dr. Tyree Paiz MCHC (RBC) [Mass/Vol] 31.4 g/dL Normal 29.9-35.2 [facility] Comment on above: Performed By: #### C BC #### [facility] [address] [place] [address] Dr. Tyree Paiz MCV (RBC) [Entitic vol] 85.9 fL Normal 81.0-99.0 [facility] Comment on above: Performed By: #### C BC #### [facility] [address] [place] [address] Dr. Tyree Paiz MONO # 1.1 103/ul Critically high 0.3-0.8 [facility] Comment on above: Performed By: #### C BC #### [facility] [address] [place] [address] Dr. Tyree Paiz Monocytes/100 WBC (Bld) 8.1 % Normal 1.7-12.0 [facility] Comment on above: Performed By: #### C BC #### [facility] [address] [place] [address] Dr. Tyree Paiz NEUT # 10.3 103/ul Critically high 1.4-6.5 [facility] Comment on above: Performed By: #### C BC #### [facility] [address] [address] [address] Tyree Paiz Neutrophils/100 WBC (Bld) 76.2 % Critically high 43.0-75.0 [facility] Comment on above: Performed By: #### C BC #### [facility] [address] [address] [address] Tyree Paiz Platelet mean volume (Bld) [Entitic vol] 9.5 fL Normal 9.5-13.5 [facility] Comment on above: Performed By: #### C BC #### [facility] [address] [place] [address] Dr. Tyree Paiz PLT 196 103/ul Normal 150-450 [facility] Comment on above: Performed By: #### C BC #### [facility] [address] [place] [address] Dr. Tyree Paiz RBC 3.19 106/ul Critically low 4.20-5.40 [facility] Comment on above: Performed By: #### C BC #### [facility] [address] [address] [address] Tyree Paiz WBC 13.5 103/ul Critically high 4.0-11.0 [facility] Comment on above: Performed By: #### C BC #### [facility] [address] [address] [address] Tyree Paiz CBC W MANUAL DIFFon 01-30-20 22 ATYPICAL LYMPH # Normal [facility] Comment on above: Performed By: #### C BCMAN ####[facility] [address] [place] [address]Dr. Tyree Paiz ATYPICAL LYMPH % Normal [facility] Comment on above: Performed By: #### C BCMAN ####[facility] [address] [place] [id number]. Tyree Paiz BAND # 0.0 103/ul Normal 0.0-0.3 [facility] Comment on above: Performed By: #### C BCMAN ####[facility] [address] [place] [id number]. Yicy Paiz BAND % 0 % Normal 0-5 [facility] Comment on above: Performed By: #### C BCTY ####[facility] [address] [place] [id number]. Yicy Paiz BASOM # 0.00 103/ul Normal 0.00-0.10 [facility] Comment on above: Performed By: #### C BCTY ####[facility] [address] [place] [address]Dr. Yicy Paiz BASOM % 0.0 % Critically low 0.2-2.0 [facility] Comment on above: Performed By: #### C BCTY ####[facility] [address] [place] [address]Dr. Yicy Paiz BLAST # Normal [facility] Comment on above: Performed By: #### C BCTY ####[facility] [address] [place] [address]Dr. Yilan Paiz BLAST % Normal [facility] Comment on above: Performed By: #### C BCTY ####[facility] [address] [place] [address]Dr. Tyree Paiz CORRECTED WBC Normal 4.0-11.0 [facility] Comment on above: Performed By: #### C BCTY ####[facility] [address] [place] [address]Dr. Yicy Paiz EOS # 0.41 103/ul Normal 0.00-0.70 [facility] Comment on above: Performed By: #### C BCTY ####[facility] [address] [place] [address]Dr. Tyree Paiz EOS% 3.0 % Normal 0.9-7.0 [facility] Comment on above: Performed By: #### C BCTY ####[facility] [address] [place] [address]Dr. Tyree Paiz HCT 31.3 % Critically low 36.0-48.0 [facility] Comment on above: Performed By: #### Swathi SAUCEDO ####[facility] [address] [place], [place] [address]Kj. Tyree Paiz HGB 10.2 g/dl Critically low 12.0-16.0 [facility] Comment on above: Performed By: #### Swathi SAUCEDO ####[facility] [address] [place], [place] [address]Tj. Tyree Paiz LYMPHM # 1.63 103/ul Normal 1.20-3.80 [facility] Comment on above: Performed By: #### Swathi SAUCEDO ####[facility] [address] [place], [place] [address]Pg. Tyree Paiz LYMPHM% 12.0 % Critically low 20.5-60.0 [facility] Comment on above: Performed By: #### Swathi SAUCEDO ####[facility] [address] [place] [id number]. Tyree Paiz MCH 27.4 pg Normal 26.7-34.0 [facility] Comment on above: Performed By: #### Swathi SAUCEDO ####[facility] [address] [place] [id number]. Tyree Paiz MCHC 32.6 g/dl Normal 29.9-35.2 [facility] Comment on above: Performed By: #### Swathi SAUCEDO ####[facility] [address] [place], [place] [address]Ex. Tyree Paiz MCV 84.1 fL Normal 81.0-99.0 [facility] Comment on above: Performed By: #### Swathi SAUCEDO ####[facility] [address] [place], [place] [address]Nu. Tyree Paiz METAMYELOCYTE # Normal [facility] Comment on above: Performed By: #### Swathi SAUCEDO ####[facility] [address] [place] [id number]. Tyree Paiz METAMYELOCYTE % Normal [facility] Comment on above: Performed By: #### Swathi SAUCEDO ####[facility] [address] [place] [id number]. Tyree Paiz MONOM# 1.36 103/ul Critically high 0.30-0.80 [facility] [place] [facility] Comment on above: Performed By: #### C LEWIS ####[facility] [address] [place] [id number]. Tyree Paiz MONOM% 10.0 % Normal 1.7-12.0 [facility] Comment on above: Performed By: #### C LEWIS ####[facility] [address] [place] [id number]. Tyree Paiz MPV 9.5 fL Normal 9.5-13.5 [facility] Comment on above: Performed By: #### C LEWIS ####[facility] [address] [place] [id number]. Tyree Chencho MYELOCYTE # Normal [facility] Comment on above: Performed By: #### C LEWIS ####[facility] [address] [place] [id number]. Tyree Paiz MYELOCYTE % Normal [facility] Comment on above: Performed By: #### C LEWIS ####[facility] [address] [place] [id number]. Tyree Chencho NRBC Normal [facility] Comment on above: Performed By: #### C LEWIS ####[facility] [address] [place] [id number]. Nuhacy Chencho PLT 258 103/ul Normal 150-450 [facility] Comment on above: Performed By: #### C LEWIS ####[facility] [address] [place] [id number]. Tyree Paiz RBC 3.72 106/ul Critically low 4.20-5.[address] [facility] Comment on above: Performed By: #### C LEWIS ####[facility] [address] [place] [id number]. Tyree Paiz RDW 13.0 % Normal 11.0-15.0 [facility] Comment on above: Performed By: #### C LEWIS ####[facility] [address] [place], [place] [address]DrSarah Paiz SEG # 10.20 103/ul Critically high 1.40-6.50 The [facility] Comment on above: Performed By: #### C LEWIS ####[facility] [address] [place], [place] [address]QrSarah Paiz SEG % 75.0 % Normal 43.0-75.0 [facility] Comment on above: Performed By: #### C LEWIS ####[facility] [address] [place], [place] [address]VlSarah Paiz WBC 13.6 103/ul Critically high 4.0-11.0 [facility] Comment on above: Performed By: #### C LEWIS ####[facility] [address] [place], [place] [address]UdSarah Tyree Paiz Covid-19 PCR ([facility])on SARS-CoV-2 (COVID-19) RNA GINO+probe Ql (Unsp spec) Not detected Normal NOT DETECTED [facility] Comment on above: Result Comment: When [...] for this test is supported by the [place] of Health and Human Service's declaration that [...] used). Performed By: #### C VDTBH #### [facility] [address] [place], [place] [address] Dr. Tyree Paiz DRUG SCREEN RAPID (URINE)on 01-29-2022 AMP Negative Normal NEGATIVE [facility] Comment on above: Performed By: #### D RUGRPD #### [facility] [address] [place] [address] Dr. Tyree Paiz BAR Negative Normal NEGATIVE [facility] Comment on above: Performed By: #### D RUGRPD #### [facility] [address] [place] [address] Dr. Tyree Paiz BUP Negative Normal NEGATIVE [facility] Comment on above: Performed By: #### D RUGRPD #### [facility] [address] [place] [address] Dr. Tyree Paiz BZO Negative Normal NEGATIVE [facility] Comment on above: Performed By: #### D RUGRPD #### [facility] [address] [place] [address] Dr. Tyree Paiz ZACHARY Negative Normal NEGATIVE [facility] Comment on above: Performed By: #### D RUGRPD #### [facility] [address] [place] [address] Dr. Tyree Paiz CUT-OFFS SEE BELOW Normal [facility] Comment on above: Result Comment: AMP (Amphetamine): 500ng/mL, BAR (Barbituates): 200 ng/mL, BZO (Benzodiazepines): 150 ng/mL, BUP (Buprenorphine): 10 ng/mL, ZACHARY (Cocaine): 150 ng/mL, mAMP (Methamphetamine): 500 ng/mL, MTD (Methadone): 200 ng/mL, OPI (Opiates): 100 ng/mL, OXY (Oxycodone): 100 ng/mL, PCP (Phencyclidine): 25 ng/mL, PPX (Propoxyphene): 300 ng/mL, THC (Cannabinoids): 50 ng/mL, TCA (Trycyclic Antidepressants): 300 ng/mL Performed By: #### D RUGRPD #### [facility] [address] [place] [address] Dr. Tyree Paiz DRUG CUT HEADER DRUG CLASS TEST SYSTEM CUT-OFF CONCENTRATIONS ARE FOLLOWS: Normal [facility] Comment on above: Performed By: #### D RUGRPD #### [facility] [address] [place] [address] Dr. Tyree Paiz mAMP Negative Normal NEGATIVE [facility] Comment on above: Performed By: #### D RUGRPD #### [facility] [address] [address] [address] Tyree Paiz MTD Negative Normal NEGATIVE [facility] Comment on above: Performed By: #### D RUGRPD #### [facility] [address] [address] [address] Tyree Paiz OPI Negative Normal NEGATIVE [facility] Comment on above: Performed By: #### D RUGRPD #### [facility] [address] [address] [address] Tyree Paiz OXY Negative Normal NEGATIVE [facility] Comment on above: Performed By: #### D RUGRPD #### [facility] [address] [address] [address] Tyree Paiz PCP Negative Normal NEGATIVE [facility] Comment on above: Performed By: #### D RUGRPD #### [facility] [address] [place] [address] Dr. Tyree Paiz PPX Negative Normal NEGATIVE [facility] Comment on above: Performed By: #### D RUGRPD #### [facility] [address] [address] [address] Tyree Paiz TCA Negative Normal NEGATIVE [facility] Comment on above: Performed By: #### D RUGRPD #### [facility] [address] [address] [address] Tyree Paiz THC Negative Normal NEGATIVE [facility] Comment on above: Performed By: #### D RUGRPD #### [facility] [address] [address] [address] Tyree Paiz US PREG BIOPHY W [...] WILD VOSS Date: 2022-01-26 19:11 Normal [facility] US PREG BIOPHY W NON STRESSo [...] WILD VOSS Date: 2022-01-19 07:52 Normal [facility] GROUP B STREP CULTUREon 12-22 S. agalactiae Ag Ql (Unsp spec) Culture Observations: NEGATIVE FOR GROUP B STREPTOCOCCUS. Normal [facility] Comment on above: Performed By: #### G BSCX ####[facility] [address] [place], [place] [address]Ew. Tyree Paiz US PREG GROWTHon 01-12-2022 US [...] Age by US: 37 weeks 3 days ADNI by US: 01/30/2022 IMPRESSION: Large for gestational age. Estimated weight 96th percentile Electronically authenticated by: WILD VOSS Date: 2022-01-12 16:41 Normal [facility] GLUCOSE - 1HRon 11-10-2021 Glucose [Mass/Vol] 98 mg/dL Normal 74-106 [facility] Comment on above: Performed By: #### G LU1HR #### [facility] [address] [place] [address] Dr. Tyree Paiz HEMOGRAM AND PLATELon 2021 Hematocrit (Bld) [Volume fraction] 36.3 % Normal 36.0-48.0 [facility] Comment on above: Performed By: #### H H #### [facility] [address] [place] [address] Dr. Tyree Paiz Hemoglobin (Bld) [Mass/Vol] 11.9 g/dL Critically low 12.0-16.0 [facility] Comment on above: Performed By: #### H H #### [facility] [address] [place] [address] Dr. Tyree Paiz MCH (RBC) [Entitic mass] 30.1 pg Normal 26.7-34.0 [facility] Comment on above: Performed By: #### H H #### [facility] [address] [place] [address] Dr. Tyree Paiz MCHC (RBC) [Mass/Vol] 32.8 g/dL Normal 29.9-35.2 [facility] Comment on above: Performed By: #### H H #### [facility] [address] [place] [address] Dr. Tyree Paiz MCV (RBC) [Entitic vol] 91.7 fL Normal 81.0-99.0 [facility] Comment on above: Performed By: #### H H #### [facility] [address] [place] [address] Dr. Tyree Paiz PLT 237 103/ul Normal 150-450 [facility] Comment on above: Performed By: #### H H #### [facility] [address] [place] [address] Dr. Tyree Paiz RBC 3.96 106/ul Critically low 4.20-5.[address] [facility] Comment on above: Performed By: #### H H #### [facility] [address] [place], [place] [address] Dr. Tyree Paiz WBC 12.6 103/ul Critically high 4.0-11.0 [facility] Comment on above: Performed By: #### H H #### [facility] [address] [place], [place] [address] Dr. Tyree Paiz US PREG INCOMPLETE ANATOMYon [...] CAIO NGO Date: 2021-11-02 17:30 Normal [facility] ED Note-Physicianon 06-07-19 ED Note-Physician Basic [...] worse. She is attempted to use an sbaa-aqn-rmfkwot eczema cream but states that it is [...] Appropriate mood & affect. Integumentary: Warm, Dry, Kaka Medical Decision Making I believe this to [...] Information Austyn Bocanegra In 3 days 06/09/2020 [facility] [address] [facility], [facility] [address] [place] [address] Business (1) Additional Instructions: Use the eye ointment as prescribed, return should vision disturbance develop, otherwise follow-up with the kennel manager as directed for reevaluation. Patient Education Eczema [...] available. Diagnostic Results No qualifying data available. [facility] Comment on above: Result Comment: Elec tronically Signed By: Calvin Morley PA-C\.br\Date and Time Signed: 06/06/20 12:03 EST\.br\Electronically Co-Signed By: Jr Solomon DO\.br\Date and Time Co-Signed: 06/06/20 22:16 EST Coding Summary.on 06-06-2020 Coding Summary. CODING DATE: 06/06/2020 FINAL [facility] STATUS: Home (Routine DC) PAYOR: Self Pay [...] Aliya Mejía Date Saved: 06/06/2020 05:36 pm [facility] Consent for Treatmenton 05-23 Consent for Treatment [id number] [facility] Discharge Instructionson Discharge Instructions [id number] 1.00CD:127 [facility] ED Clinical Summaryon 2020 ED Clinical Summary [address] [address] ED Clinical Summary Person Information Name: GRACE PENNY/[facility] Age: 20 Years : 2000 Sex: Female Language: Hebrew PCP: Tony PHAN MD Marital Status: Single [...] 06/06/2020 12:00:00 06/06/2020 12:00:00 06/06/2020 12:00:00 ADDRESS: [address] [id number] PHYS DOC NOTES: MEDICAL INFORMATION: Prescriptions Given: New Medications Printed Prescriptions loteprednol ophthalmic (Lotemax 0.5% ophthalmic ointment) 1 eloise OPTH QID. Refills: 0. Medications to Continue with No Changes Other Medications naproxen (naproxen 500 mg Tab) 1 Tablets By Mouth 2 times a day as needed for pain. Refills: 0. PATIENT EDUCATION INFORMATION: Instructions: Eczema Follow up: With: Address: When: Austyn Bocanegra [facility] [address], [address] [place] [address] Business (1) In 3 days 06/09/2020 Comments: Use the eye ointment as prescribed, return should vision disturbance develop, otherwise follow-up with the kennel manager as directed for reevaluation. DIAGNOSIS: 1:Eyelid dermatitis, eczematous Normal [facility] ED Patient Education Noteon 06-06-2020 ED Patient [...] the itching and scratching. ? ? Use qlpu-wdy-llvwuvc antihistamines as directed for itching. This is especially useful at night when the itching tends to be worse. ? ? Use hfyf-vug-hranwqm steroid creams as directed for itching. ? [...] ? HOME CARE INSTRUCTIONS ? Only take xpns-yph-frzahhn or prescription medicines as directed by your [...] Document Reviewed: 12/10/2013 ExitCare? Patient Information ?2014 [employer]. This information is not intended to replace advice given to you by your health care provider. Make sure you discuss any questions you have with your health care provider. Normal [facility] ED Patient Summaryon 021 ED Patient Summary [address] [address] Patient Discharge Instructions Person Information Name: GRACE PENNY Age: 20 Years Arrival Date: 06/06/2020 11:09:25 Discharge Diagnosis: 1:Eyelid dermatitis, eczematous Primary Care Physician: Tony PHAN MD Provider Information Primary Provider: Jr Solomon DO Advanced Director Peoplesoft:Calvin Morley PA-C The exam and treatment you received in the Emergency Department were for an urgent problem and are not intended as complete care. It is important that you follow up with a doctor, nurse practitioner, or physician?s fire control assistant for ongoing care. If your symptoms [...] Follow-up Instructions: With: Address: When: Austyn Bocanegra [facility] [address], [address] [facility] [address] [place] [address] Business (1) In 3 days 06/09/2020 Comments: Use the eye ointment as prescribed, return should vision disturbance develop, otherwise follow-up with the kennel manager as directed for reevaluation. In the event that this physician does not participate in your insurance network, please consult with your insurance company to find a nearby participating provider. Patient Education Materials: Eczema A MESSAGE TO ALL PATIENTS REGARDING OPIOIDS PRESCRIPTION OPIOIDS: WHAT YOU NEED TO KNOW Prescription opioids can be used to help relieve lkbrbehd-mf-dyamzx pain and are often prescribed following a [...] abuse and overdose. (more content not included)... [facility] Registrationon 04-08-2020 Registration [id number]# 1.00CD:127 [facility] [place] 04-07-2020 Consent [id number]# 1.00CD:127 [facility] Registrationon 04-07-2020 Registration [id number]# 1.00CD:127 [facility] Vital Signs Date Time Vital Sign Value Performing Clinician Frances rajany 06-23-2023 11:47-0500 Body mass index (BMI) [Ratio] 33.37 kg/m2 Jaida Siria DO Work Phone: [facility] 06-23-2023 11:47-0500 Body weight 85.46 kg Jaida Siria DO Work Phone: [facility] 06-23-2023 11:47-0500 Diastolic blood pressure 70 mm[Hg] Jaida Siria DO Work Phone: [facility] 06-23-2023 11:47-0500 Systolic blood pressure 120 mm[Hg] Jaida Siria DO Work Phone: [facility] Healthcare Encounters Encounter Date Encounter Type Care [...] PM EST Routine [facility] [address] [place] [address] Jaida Beverly, DO [address] [place] [address] [facility] Payers Date Payer Category Payer Unknown BCBS BCBS xxxxxx [id number] 2022-Present [phone] [address] [place] [address] [id number] 1999 Unknown [id number] 2.16.840.1.526043.3.579.2.593 1999 Unknown [id number] 2.16.840.1.499601.3.579.2.593 1999 Unknown [id number] 2.16.840.1.509889.3.579.2.593 1999 Unknown [id number] 2.16.840.1.243971.3.579.2.593 1999 Unknown [id number] 2.16.840.1.769868.3.579.2.593 1999 Unknown [id number] 2.16.840.1.587250.3.579.2.593 1999 Unknown [id number] 2.16.840.1.197307.3.579.2.593 1999 Unknown [id number] 2.16.840.1.378678.3.579.2.593 1999 Unknown [id number] 2.16.840.1.773684.3.579.2.593 1999 Unknown [id number] 2.16.840.1.907013.3.579.2.593 1999 Unknown [id number] 2.16.840.1.549857.3.579.2.9 1999 Unknown [id number] 2.16.840.1.539635.3.579.2.9 1999 Unknown [id number] 2.16.840.1.686388.3.579.2.9 1999 Unknown [id number] 2.16.840.1.144395.3.579.2.9 1999 Unknown [id number] 2.16.840.1.012858.3.579.2.9 1999 Unknown [id number] 2.16.840.1.986909.3.579.2.1259 1959 Unknown [id number] Social History Date Type Detail Facility Start: 02-02-2023 Tobacco smoking stat [facility] Never smoked tobacco [facility] Start: 02-02-2023 [...] of: YVETTE Xavier documented in this encounter [facility] Clinical Note 01-29-2022 Note Date & Type Note Facility 01-29-2022 Note OPERATIVE NOTE OPERATION DATE: 01/30/2022 PROCEDURE: Primary low transverse section. PREOPERATIVE DIAGNOSIS: 1. Intrauterine at 38+ weeks. 2. Spontaneous labor. 3. Failure to descend. POSTOPERATIVE DIAGNOSIS: 1. Intrauterine at 38+ weeks. 2. Spontaneous labor. 3. Failure to descend. ANESTHESIA: Epidural with Duramorph. SURGEON: Jaida Beverly D.O. REGISTERED DENTAL ASSISTANT RDA: JOCELYNN Matos URINE OUTPUT: Yellow and clear. [...] the Recovery Room in stable condition. [facility] Discharge summary note 01-29-2022 Note Date [...] free and no longer on narcotics. [facility] Progress note 08-08-2020 Note Date & Type Note Facility 08-08-2020 Note HNO ID: [id number] Author: Jackelyn Russell Service: ? Author Type: [...] file for this visit. Jackelyn Russell MD [facility] Evaluation note Note Date & Type [...] section and content) DATE CREATED AUTHOR 11/23/2020 [facility] DATE CREATED AUTHOR AUTHOR'S ORGANIZ ATION 06/21/2021 [facility] DATE CREATED AUTHOR AUTHOR'S ORGANIZ ATION 09/29/[address] [facility] DATE CREATED AUTHOR AUTHOR'S ORGANIZ ATION 07/26/2023 [facility] EPIC Reason for Visit (unrecogniz ed [...] BE BASED ON THE PRIMARY CLINICAL RECORDS. [facility]. provides no warranty or guarantee of the accuracy or completeness of information in this document.
== END 2023-08-03 20:45 | disposition home or self-care (01) ==
LOC: LAB 20:44
PROVIDERS: Visit Provider Obstetrics & Gynecology
DX: Z34.93 Encounter for supervision of normal pregnancy, unspecified, third trimester (principal)
CPT/HCPCS: 87081

== ENCOUNTER 2023-08-12 20:50 | Observation (INO) | payer BC, SELFPAY ==
--- OUTSIDE RECORDS SUMMARY | 2023-08-12 20:53 | XMS_ITS | CCD ---
Author Organization [facility] Care Team Providers Care Drug Abuse Resistance Education Officer Name Role Phone CIERRA ., DR WATKINS Consulting Unavailabl e SIRIA ., DR SENA Procedure Practitioner Unavail able SIRIA ., DR SENA Admitting Unavailable SIRIA ., DR SENA Attending Unavailable SIRIA ., DR SENA Consulting Unavailable TOLAYMAT, SANJAY Consulting Unavailable ALICJA, MICHELLE ABREU Consulting Unava ildavey VOSS, DR WILD Garner Consulting Unavailable SIRIA ., DR SENA Admitting Unavailable SIRIA ., DR SENA Attending Unavailable SIRIA ., DR SENA Consulting Unavailable SIRIA ., DR SENA Consulting Unavailable SIRIA ., DR SENA Admitting Unavailable SIRIA ., DR SENA Attending Unavailable [place], DR WILD Garner Consulting Unavailable SIRIA ., [...] ble SIRIA ., DR SENA Admitting Unavailable SHANIKA, DR WILD Garner Consulting Unavailable SIRIA ., [...] UA Negative Negative - 4(70) +++ mg/dL [facility] Work Phone: Blood, UA Negative Negative - 50 Hugh/mcL [facility] Work Phone: Clarity, UA Clear [facility] [employer] [facility] Work Phone: Color, UA Yellow [facility] Work Phone: Glucose, UA Negative Negative - 2000(110) ++++ mg/dL [facility] Work Phone: Interpretation and review of laboratory results Normal [facility] [employer] [facility] Work Phone: Ketones, UA Negative Negative - 160(16) ++++ mg/dL [facility] Work Phone: Leukocytes, UA Negative Negative - 500+++ Joe/mcL [facility] Work Phone: Nitrite, UA Negative Negative - Positive [facility] Work Phone: pH, UA 5.5 5 - 9 [facility] [employer] Work Phone: Protein, UA Negative Negative - 2000(20) ++++ mg/dL [facility] Work Phone: Spec Grav, UA 1.015 1 - 1.03 [facility] care Work Phone: Urobilinogen, UA 0.2 0.2 - 12 mg/dL [facility] Work Phone: [facility] Work Phone: PAP ACOG PANEL 2: 20 to 28on 09-29-2022 . . Normal [facility] Comment on above: Performed By: #### [id number] #### [facility] [address] [place] [address] Dr. Tyree Paiz Age Gdln ACOG Testing - [facility] Comment on above: Performed By: #### [id number] #### [facility] [address] [address] [address] Tyree Paiz DIAGNOSIS: Comment [facility] Comment on above: Result Comment: NEGA TIVE FOR INTRAEPITHELIAL LESION OR MALIGNANCY. Performed By: #### [id number] #### [facility] [address] [address] [address] Tyree Paiz Methodology: Comment [facility] Comment on above: Result Comment: This liquid based ThinPrep(R) pap test was screened with the use of an image guided system. Performed By: #### [id number] #### [facility] [address] [place] [address] Dr. Tyree Paiz Note: Comment [facility] Comment on above: Result Comment: The Pap smear is a screening test designed to aid in the detection of premalignant and malignant conditions of the uterine cervix. It is not a diagnostic procedure and should not be used as the sole means of detecting cervical cancer. Both false-positive and false-negative reports do occur. . Performed By: #### [id number] #### [facility] [address] [place] [address] Dr. Tyree Paiz Performed by: Comment Normal [facility] Comment on above: Result Comment: Rafael Tejada, Radiator Fitter (ASCP) Performed By: #### [id number] #### [facility] [address] [place] [address] Dr. Tyree Paiz Reflex Criteria: Comment [facility] Comment on above: Result Comment: The HPV DNA reflex criteria were not met with this specimen result therefore, no HPV testing was performed. . Performed By: #### [id number] #### [facility] [address] [place] [address] Dr. Tyree Paiz Specimen adequacy: Comment Normal [facility] Comment on above: Result Comment: Sati sfactory for evaluation. Endocervical and/or squamous metaplastic cells (endocervical component) are present. Performed By: #### [id number] #### [facility] [address] [place] [address] Dr. Tyree Paiz TYPE AND SCREENon 02-01-2022 TYPE AND SCREEN Antibody Screen NEGATIVE Blood Bank Notes testing done by 01/29/22 ABO Rh Typing AB Rh Positive Blood Bank Notes testing done by 01/29/22 [facility] Comment on above: Performed By: #### T NS ####[facility] [address] [address]Dr. Tyree Paiz CBC AUTO DIFFon 01-31-2022 BASO # 0.0 103/ul Normal 0.0-0.1 [facility] Comment on above: Performed By: #### C BC #### [facility] [address] [place] [address] Dr. Tyree Paiz Basophils/100 WBC (Bld) 0.3 % Normal 0.2-2.0 [facility] Comment on above: Performed By: #### C BC #### [facility] [address] [place] [address] Dr. Tyree Paiz EO # 0.1 103/ul Normal 0.0-0.7 [facility] Comment on above: Performed By: #### C BC #### [facility] [address] [place] [address] Dr. Tyree Paiz Eosinophils/100 WBC (Bld) 0.8 % Critically low 0.9-7.0 [facility] Comment on above: Performed By: #### C BC #### [facility] [address] [place] [address] Dr. Tyree Paiz Erythrocyte distribution width (RBC) [Ratio] 13.4 % Normal 11.0-15.0 [facility] Comment on above: Performed By: #### C BC #### [facility] [address] [place] [address] Dr. Tyree Paiz Hematocrit (Bld) [Volume fraction] 27.4 % Critically low 36.0-48.0 [facility] Comment on above: Performed By: #### C BC #### [facility] [address] [place] [address] Dr. Tyree Paiz Hemoglobin (Bld) [Mass/Vol] 8.6 g/dL Critically low 12.0-16.0 [facility] [place] Comment on above: Performed By: #### C BC #### [facility] [address] [place] [address] Dr. Tyree Paiz IG # 0.12 10e3/ul Critically high 0.00-0.03 [facility] Comment on above: Performed By: #### C BC #### [facility] [address] [place] [address] Dr. Tyree Paiz IG % 0.9 % Critically high 0.0-0.5 [facility] Comment on above: Performed By: #### C BC #### [facility] [address] [place] [address] Dr. Tyree Paiz LYMPH # 1.9 103/ul Normal 1.2-3.8 [facility] [place] Comment on above: Performed By: #### C BC #### [facility] [address] [place] [address] Dr. Tyree Paiz Lymphocytes/100 WBC (Bld) 13.7 % Critically low 20.5-60.0 [facility] Comment on above: Performed By: #### C BC #### [facility] [address] [place] [address] Dr. Tyree Paiz MANUAL DIFF REQ NO Normal [facility] Comment on above: Performed By: #### C BC #### [facility] [address] [place] [address] Dr. Tyree Paiz MCH (RBC) [Entitic mass] 27.0 pg Normal 26.7-34.0 [facility] Comment on above: Performed By: #### C BC #### [facility] [address] [place] [address] Dr. Tyree Paiz MCHC (RBC) [Mass/Vol] 31.4 g/dL Normal 29.9-35.2 [facility] Comment on above: Performed By: #### C BC #### [facility] [address] [place] [address] Dr. Tyree Paiz MCV (RBC) [Entitic vol] 85.9 fL Normal 81.0-99.0 [facility] Comment on above: Performed By: #### C BC #### [facility] [address] [place] [address] Dr. Tyree Paiz MONO # 1.1 103/ul Critically high 0.3-0.8 [facility] Comment on above: Performed By: #### C BC #### [facility] [address] [place] [address] Dr. Tyree Paiz Monocytes/100 WBC (Bld) 8.1 % Normal 1.7-12.0 [facility] Comment on above: Performed By: #### C BC #### [facility] [address] [place] [address] Dr. Tyree Paiz NEUT # 10.3 103/ul Critically high 1.4-6.5 [place] Comment on above: Performed By: #### C BC #### [facility] [address] [address] [address] Tyree Paiz Neutrophils/100 WBC (Bld) 76.2 % Critically high 43.0-75.0 [facility] Comment on above: Performed By: #### C BC #### [facility] [address] [address] [address] Tyree Paiz Platelet mean volume (Bld) [Entitic vol] 9.5 fL Normal 9.5-13.5 [facility] Comment on above: Performed By: #### C BC #### [facility] [address] [address] [address] Tyree Paiz PLT 196 103/ul Normal 150-450 [facility] Comment on above: Performed By: #### C BC #### [facility] [address] [address] [address] Tyree Paiz RBC 3.19 106/ul Critically low 4.20-5.40 [facility] Comment on above: Performed By: #### C BC #### [facility] [address] [address] [address] Tyree Paiz WBC 13.5 103/ul Critically high 4.0-11.0 [facility] Comment on above: Performed By: #### C BC #### [facility] [address] [address] [address] Tyree Paiz CBC W MANUAL DIFFon 01-30-20 22 ATYPICAL LYMPH # Normal [facility] Comment on above: Performed By: #### C BCMAN ####[facility] [address] [address]DrSarah Paiz ATYPICAL LYMPH % Normal [facility] Comment on above: Performed By: #### C BCMAN ####[facility] [address] [id number]. Tyree Paiz BAND # 0.0 103/ul Normal 0.0-0.3 [facility] Comment on above: Performed By: #### C BCMAN ####[facility] [address] [address]Dr. Tyree Paiz BAND % 0 % Normal 0-5 [facility] Comment on above: Performed By: #### C BCMAN ####[facility] [address] [address]Dr. Tyree Paiz BASOM # 0.00 103/ul Normal 0.00-0.10 [facility] Comment on above: Performed By: #### C BCMAN ####[facility] [address] [address]Dr. Yicy Pazi BASOM % 0.0 % Critically low 0.2-2.0 [facility] Comment on above: Performed By: #### C BCMAN ####[facility] [address] [place], [place] [address]Dr. Yicy Paiz BLAST # Normal [facility] Comment on above: Performed By: #### C BCTY ####[facility] [address] [place], [place] [address]Dr. Yicy Paiz BLAST % Normal [facility] Comment on above: Performed By: #### C BCTY ####[facility] [address] [address]Dr. Tyree Paiz CORRECTED WBC Normal 4.0-11.0 [facility] Comment on above: Performed By: #### C BCTY ####[facility] [address] [place], [place] [address]Dr. Tyree Paiz EOS # 0.41 103/ul Normal 0.00-0.70 [facility] Comment on above: Performed By: #### C BCTY ####[facility] [address] [address]Dr. Tyree Paiz EOS% 3.0 % Normal 0.9-7.0 [facility] Comment on above: Performed By: #### C BCMAN ####[facility] [address] [address]Dr. Tyree Paiz HCT 31.3 % Critically low 36.0-48.0 [facility] Comment on above: Performed By: #### C BCTY ####[facility] [address] [employer] [place], [place] [address]Oz. Tyree Paiz HGB 10.2 g/dl Critically low 12.0-16.0 [facility] Comment on above: Performed By: #### C LEWIS ####[facility] [address] [employer] [place], [place] [address]Ev. Tyree Paiz LYMPHM # 1.63 103/ul Normal 1.20-3.80 [facility] Comment on above: Performed By: #### C LEWIS ####[facility] [address] [employer], [place] [address]Xc. Tyree Paiz LYMPHM% 12.0 % Critically low 20.5-60.0 [facility] Comment on above: Performed By: #### C LEWIS ####[facility] [address] [employer], [place] [address]Id. Tyree Paiz MCH 27.4 pg Normal 26.7-34.0 [facility] Comment on above: Performed By: #### Swathi SAUCEDO ####[facility] [address] [id number]. Tyree Paiz MCHC 32.6 g/dl Normal 29.9-35.2 [facility] Comment on above: Performed By: #### C LEWIS ####[facility] [address] [employer] [place] [employer], [place] [address]Sg. Tyree Paiz MCV 84.1 fL Normal 81.0-99.0 [facility] Comment on above: Performed By: #### Swathi SAUCEDO ####[facility] [address] [employer], [place] [address]Rv. Tyree Paiz METAMYELOCYTE # Normal [facility] Comment on above: Performed By: #### Swathi SAUCEDO ####[facility] [address] [employer], [place] [address]Ud. Tyree Paiz METAMYELOCYTE % Normal [facility] Comment on above: Performed By: #### Swathi SAUCEDO ####[facility] [address] [id number]. Tyree Paiz MONOM# 1.36 103/ul Critically high 0.30-0.80 [place] Comment on above: Performed By: #### C LEWIS ####[facility] [address] [address]Dr. Tyree Paiz MONOM% 10.0 % Normal 1.7-12.0 [facility] Comment on above: Performed By: #### C LEWIS ####[facility] [address] [id number]. Tyree Paiz MPV 9.5 fL Normal 9.5-13.5 [facility] Comment on above: Performed By: #### C BCTY ####[facility] [address] [address]Dr. Tyree Paiz MYELOCYTE # Normal [facility] Comment on above: Performed By: #### C LEWIS ####[facility] [address] [id number]. Nuhacy Paiz MYELOCYTE % Normal [facility] Comment on above: Performed By: #### C LEWIS ####[facility] [address] [address]Dr. Tyree Paiz NRBC Normal [facility] Comment on above: Performed By: #### C LEWIS ####[facility] [address] [id number]. Tyree Paiz PLT 258 103/ul Normal 150-450 [facility] Comment on above: Performed By: #### C LEWIS ####[facility] [address] [id number]. Tyree Paiz RBC 3.72 106/ul Critically low 4.20-5.40 [facility] Comment on above: Performed By: #### C LEWIS ####[facility] [address] [address]Dr. Tyree Chencho RDW 13.0 % Normal 11.0-15.0 [facility] Comment on above: Performed By: #### C LEWIS ####[facility] [address] [place], [place] [address]Dr. Nuhacy Paiz SEG # 10.20 103/ul Critically high 1.40-6.50 [facility] Comment on above: Performed By: #### C LEWIS ####[facility] [address] [employer], [place] [address]Dr. Tyree Paiz SEG % 75.0 % Normal 43.0-75.0 [facility] Comment on above: Performed By: #### C LEWIS ####[facility] [address] [employer], [place] [address]HcSarah Paiz WBC 13.6 103/ul Critically high 4.0-11.0 [place] Comment on above: Performed By: #### C LEWIS ####[facility] [address] [employer], [place] [address]JlDr. Tyree Paiz Covid-19 PCR ([facility])on SARS-CoV-2 (COVID-19) RNA GINO+probe Ql (Unsp spec) Not detected Normal NOT DETECTED [facility] Comment on above: Result Comment: When [...] for this test is supported by the [place] of Health and Human Service's declaration that [...] used). Performed By: #### C VDTBH #### [facility] [address], [place] [address] Dr. Tyree Paiz DRUG SCREEN RAPID (URINE)on 01-29-2022 AMP Negative Normal NEGATIVE [facility] Comment on above: Performed By: #### D RUGRPD #### [facility] [address] [place] [address] Dr. Tryee Paiz BAR Negative Normal NEGATIVE [facility] Comment on above: Performed By: #### D RUGRPD #### [facility] [address] [place] [address] Dr. Tyree Paiz BUP Negative Normal NEGATIVE [facility] Comment on above: Performed By: #### D RUGRPD #### [facility] [address] [place] [address] Dr. Tyree Paiz BZO Negative Normal NEGATIVE [facility] [place] Comment on above: Performed By: #### D RUGRPD #### [facility] [address] [place] [address] Dr. Tyree Paiz ZACHARY Negative Normal NEGATIVE [facility] Comment on above: Performed By: #### D RUGRPD #### [facility] [address] [place] [address] Dr. Tyree Paiz CUT-OFFS SEE BELOW Normal [facility] Comment on above: Result Comment: AMP (Amphetamine): 500ng/mL, BAR (Barbituates): 200 ng/mL, BZO (Benzodiazepines): 150 ng/mL, BUP (Buprenorphine): 10 ng/mL, ZACHARY (Cocaine): 150 ng/mL, mAMP (Methamphetamine): 500 ng/mL, MTD (Methadone): 200 ng/mL, OPI (Opiates): 100 ng/mL, OXY (Oxycodone): 100 ng/mL, PCP (Phencyclidine): 25 ng/mL, PPX (Propoxyphene): 300 ng/mL, THC (Cannabinoids): 50 ng/mL, TCA (Trycyclic Antidepressants): 300 ng/mL Performed By: #### D RUGRPD #### [facility] [address] [place] [address] Dr. Tyree Paiz DRUG CUT HEADER DRUG CLASS TEST SYSTEM CUT-OFF CONCENTRATIONS ARE FOLLOWS: Normal [facility] Comment on above: Performed By: #### D RUGRPD #### [facility] [address] [place] [address] Dr. Tyree Paiz mAMP Negative Normal NEGATIVE [facility] Comment on above: Performed By: #### D RUGRPD #### [facility] [address] [address] [address] Tyree Paiz MTD Negative Normal NEGATIVE [facility] Comment on above: Performed By: #### D RUGRPD #### [facility] [address] [address] [address] Tyree Paiz OPI Negative Normal NEGATIVE [facility] Comment on above: Performed By: #### D RUGRPD #### [facility] [address] [address] [address] Tyree Paiz OXY Negative Normal NEGATIVE [facility] Comment on above: Performed By: #### D RUGRPD #### [facility] [address] [place] [address] Dr. Tyree Paiz PCP Negative Normal NEGATIVE [facility] Comment on above: Performed By: #### D RUGRPD #### [facility] [address] [place] [address] Dr. Tyree Paiz PPX Negative Normal NEGATIVE [facility] Comment on above: Performed By: #### D RUGRPD #### [facility] [address] [address] [address] Tyree Paiz TCA Negative Normal NEGATIVE [facility] Comment on above: Performed By: #### D RUGRPD #### [facility] [address] [place] [address] Dr. Tyree Paiz THC Negative Normal NEGATIVE [facility] Comment on above: Performed By: #### D RUGRPD #### [facility] [address] [place] [address] Dr. Tyree Paiz US PREG BIOPHY W [...] WILD VOSS Date: 2022-01-26 19:11 Normal [facility] US PREG BIOPHY W NON STRESSo [...] WILD VOSS Date: 2022-01-19 07:52 Normal [facility] GROUP B STREP CULTUREon 12-22 S. agalactiae Ag Ql (Unsp spec) Culture Observations: NEGATIVE FOR GROUP B STREPTOCOCCUS. Normal [facility] Comment on above: Performed By: #### G BSCX ####[facility] [address] [employer], [place] [address]Fz. Tyree Paiz US PREG GROWTHon 01-12-2022 US [...] WILD VOSS Date: 2022-01-12 16:41 Normal [facility] GLUCOSE - 1HRon 11-10-2021 Glucose [Mass/Vol] 98 mg/dL Normal 74-106 [facility] Comment on above: Performed By: #### G LU1HR #### [facility] [address] [place] [address] Dr. Tyree Paiz HEMOGRAM AND PLATELon 2021 Hematocrit (Bld) [Volume fraction] 36.3 % Normal 36.0-48.0 [facility] Comment on above: Performed By: #### H H #### [facility] [address] [place] [address] Dr. Tyree Paiz Hemoglobin (Bld) [Mass/Vol] 11.9 g/dL Critically low 12.0-16.0 [facility] Comment on above: Performed By: #### H H #### [facility] [address] [place] [address] Dr. Tyree Paiz MCH (RBC) [Entitic mass] 30.1 pg Normal 26.7-34.0 [facility] Comment on above: Performed By: #### H H #### [facility] [address] [place] [address] Dr. Tyree Paiz MCHC (RBC) [Mass/Vol] 32.8 g/dL Normal 29.9-35.2 [facility] Comment on above: Performed By: #### H H #### [facility] [address] [place] [address] Dr. Tyree Paiz MCV (RBC) [Entitic vol] 91.7 fL Normal 81.0-99.0 [facility] Comment on above: Performed By: #### H H #### [facility] [address] [place] [address] Dr. Tyree Paiz PLT 237 103/ul Normal 150-450 [facility] Comment on above: Performed By: #### H H #### [facility] [address] [place] [address] Dr. Tyree Paiz RBC 3.96 106/ul Critically low 4.20-5.40 [facility] Comment on above: Performed By: #### H H #### [facility] [address], [place] [address] Dr. Tyree Paiz WBC 12.6 103/ul Critically high 4.0-11.0 [place] Comment on above: Performed By: #### H H #### [facility] [address], [place] [address] Dr. Tyree Paiz US PREG INCOMPLETE ANATOMYon [...] CAIO NGO Date: 2021-11-02 17:30 Normal [facility] ED Note-Physicianon 06-07-19 21 ED Note-Physician Basic Information Time Seen: Jr Solomon DO 06/06/2020 11:16 Chief Complaint Swelling/redness B/L eyes progressing since gi. Denies vision changes, fevers. History of Present Illness Patient is a thin 20-year-old female who presents to emergency department the chief complaint of itchy scaly erythematous rash and swelling to the bilateral eyelids. She states that she first noticed a small amount of swelling and itching at Thanksgiving, it is grown progressively worse. She is attempted to use an ivca-lxy-nhxfiqa eczema cream but states that it is [...] Appropriate mood & affect. Integumentary: Warm, Dry, [place] Medical Decision Making I believe this to [...] Information Austyn Bocanegra In 3 days 06/09/2020 [facility] [address] [facility], [place] [id number] Business (1) Additional Instructions: Use the eye ointment as prescribed, return should vision disturbance develop, otherwise follow-up with the oil field rig builder as directed for reevaluation. Patient Education Eczema [...] available. Diagnostic Results No qualifying data available. [facility] Comment on above: Result Comment: Elec tronically Signed By: Calvin Morley PA-C\.br\Date and Time Signed: 06/06/20 12:03 EST\.br\Electronically Co-Signed By: Jr Solomon DO\.br\Date and Time Co-Signed: 06/06/20 22:16 EST Coding Summary.on 06-06-2020 Coding Summary. CODING DATE: 06/06/2020 FINAL [facility] STATUS: Home (Routine DC) PAYOR: Self [...] Aliya Mejía Date Saved: 06/06/2020 05:[address] [facility] Consent for Treatmenton 05-23 Consent for Treatment [id number] .00CD:127 [facility] Discharge Instructionson Discharge Instructions [id number]# 1.00CD:127 [facility] ED Clinical Summaryon 2020 ED Clinical Summary [place] [id number] ED Clinical Summary Person Information Name: GRACE PENNY [facility] Age: 20 Years : 2000 Sex: [...] 06/06/2020 12:00:00 06/06/2020 12:00:00 06/06/2020 12:00:00 ADDRESS: [address] [facility] [address] PHYS DOC NOTES: MEDICAL INFORMATION: Prescriptions Given: New Medications Printed Prescriptions loteprednol ophthalmic (Lotemax 0.5% ophthalmic ointment) 1 eloise OPTH QID. Refills: 0. Medications to Continue with No Changes Other Medications naproxen (naproxen 500 mg Tab) 1 Tablets By Mouth 2 times a day as needed for pain. Refills: 0. PATIENT EDUCATION INFORMATION: Instructions: Eczema Follow up: With: Address: When: Austyn Bocanegra [facility] [address], [address] [place] [address] Business (1) In 3 days 06/09/2020 Comments: Use the eye ointment as prescribed, return should vision disturbance develop, otherwise follow-up with the oil field rig builder as directed for reevaluation. DIAGNOSIS: 1:Eyelid dermatitis, eczematous [facility] ED Patient Education Noteon 06-06-2020 ED [...] the itching and scratching. ? ? Use myhq-zre-jjnwnkw antihistamines as directed for itching. This is especially useful at night when the itching tends to be worse. ? ? Use wpwn-qnn-iknvbrf steroid creams as directed for itching. ? [...] ? HOME CARE INSTRUCTIONS ? Only take rqdf-mcy-lnutjao or prescription medicines as directed by your [...] Document Reviewed: 12/10/2013 ExitCare? Patient Information ?2014 [employer]. This information is not intended to replace advice given to you by your health care provider. Make sure you discuss any questions you have with your health care provider. [facility] ED Patient Summaryon 021 ED Patient Summary [address] [address] Patient Discharge Instructions Person Information Name: GRACE PENNY Age: 20 Years Arrival Date: 06/06/2020 11:09:25 Discharge Diagnosis: 1:Eyelid dermatitis, eczematous Primary Care Physician: Tony PHAN MD Provider Information Primary Provider: Jr Solomon DO Advanced Conveyor Tender:Calvin Morley PA-C The exam and treatment you received in the Emergency Department were for an urgent problem and are not intended as complete care. It is important that you follow up with a doctor, nurse practitioner, or physician?s offset press assistant for ongoing care. If your symptoms [...] Follow-up Instructions: With: Address: When: Austyn Bocanegra [facility] [address] [address] Business (1) In 3 days 06/09/2020 Comments: Use the eye ointment as prescribed, return should vision disturbance develop, otherwise follow-up with the oil field rig builder as directed for reevaluation. In the event that this physician does not participate in your insurance network, please consult with your insurance company to find a nearby participating provider. Patient Education Materials: Eczema A MESSAGE TO ALL PATIENTS REGARDING OPIOIDS PRESCRIPTION OPIOIDS: WHAT YOU NEED TO KNOW Prescription opioids can be used to help relieve pyawozkv-qw-wfzrhn pain and are often prescribed following a [...] abuse and overdose. (more content not included)... [facility] Registrationon 04-08-2020 Registration [id number] 1.00CD:127 [facility] Consenton 04-07-2020 Consent [id number]# 1.00CD:127 [facility] Registrationon 04-07-2020 Registration [id number]# 1.00CD:127 [facility] Vital Signs Date Time Vital Sign Value Performing Clinician Frances lity 06-23-2023 11:47-0500 Body mass index (BMI) [Ratio] 33.37 kg/m2 Jaida Siria DO Work Phone: [facility] 06-23-2023 11:47-0500 Body weight 85.46 kg Jaida Siria DO Work Phone: [facility] 06-23-2023 11:47-0500 Diastolic blood pressure 70 mm[Hg] Jaida Siria DO Work Phone: [facility] 06-23-2023 11:47-0500 Systolic blood pressure 120 mm[Hg] Jaida Siria DO Work Phone: [facility] Healthcare Encounters Encounter Date Encounter Type Care Provider Facility Start: 08-10-2023 End: 08-10-2023 ambulatory JAIDA SIRIA Not Available Start: 08-03-2023 End: 08-03-2023 ambulatory JAIDA SIRIA Not Available Start: 07-25-2023 End: 07-25-2023 ambulatory JAIDA SIRIA Not Available Start: 07-11-2023 End: 07-11-2023 ambulatory JAIDA SIRIA Not Available Start: 06-23-2023 End: 06-23-2023 ambulatory JAIDA SIRIA Not Available Start: 06-23-2023 End: 06-23-2023 flow sheet Jaida Siria DO Work Phone: [facility] Comment on above: Third trimester preg jose Start: 06-07-2023 End: 06-07-2023 ambulatory JAIDA SIRIA Not Available Start: 05-17-2023 End: 05-17-2023 ambulatory JAIDA SIRIA Not Available Start: 04-19-2023 End: 04-19-2023 ambulatory JAIDA SIRIA Not Available Start: 09-22-2022 End: 09-22-2022 ambulatory [...] . Facility:[facility] Start: 01-12-2022 End: 01-13-2022 ambulatory NONE LISTED REQUEST Facility: Start: 11-10-2021 End: 11-11-[address] JAIDA BEVERLY . Facility: Start: 11-02-2021 End: 11-03-[address] JAIDA BEVERLY . Facility: Procedures Date Procedure Procedure Detail Performing Clinician Start: 06-23-2023 Urnls dip stick/tabl et rgnt non-auto w/o micrscp Jaida Siria DO Work Phone: Start: 01-30-2022 Extraction of Produc ts of Conception, Low Cervical, Open Approach DR ROLAND NORTON . Plan of Treatment Date Care Activity Detail Author Start: 07-11-2023 End: 07-11-2023 Patient encounter procedure 07/11/2023 3:10 PM EST Routine [facility] [address] [id number] Jaida Beverly, DO [address] [place] [address] [facility] Payers Date Payer Category Payer Unknown BCBS BCBS xxxxxx [id number] 2022-Present [phone] [address] [place] [address] [id number] 1999 Unknown [id number] 2.16.840.1.975605.3.579.2.593 1999 Unknown [id number] 2.16.840.1.234184.3.579.2.593 1999 Unknown [id number] 2.16.840.1.503474.3.579.2.593 1999 Unknown [id number] 2.16.840.1.937465.3.579.2.593 1999 Unknown [id number] 2.16.840.1.580202.3.579.2.593 1999 Unknown [id number] 2.16.840.1.833722.3.579.2.593 1999 Unknown [id number] 2.16.840.1.306389.3.579.2.593 1999 Unknown [id number] 2.16.840.1.023464.3.579.2.593 1999 Unknown [id number] 2.16.840.1.705309.3.579.2.593 1999 Unknown [id number] 2.16.840.1.003968.3.579.2.593 1999 Unknown [id number] 2.16.840.1.219848.3.579.2.9 1999 Unknown [id number] 2.16.840.1.901564.3.579.2.9 1999 Unknown [id number] 2.16.840.1.725845.3.579.2.9 1999 Unknown [id number] 2.16.840.1.261317.3.579.2.9 1999 Unknown [id number] 2.16.840.1.814813.3.579.2.9 1999 Unknown [id number] 2.16.840.1.662600.3.579.2.9 1999 Unknown [id number] 2.16.840.1.337415.3.579.2.9 1999 Unknown [id number] 2.16.840.1.317929.3.579.2.9 1959 Unknown [id number] Social History Date Type Detail Facility Start: 02-02-2023 Tobacco smoking stat [facility] Never smoked tobacco [facility] [...] of: YVETTE Xavier documented in this encounter [facility] Clinical Note 01-29-2022 Note Date & Type Note Facility 01-29-2022 Note OPERATIVE NOTE OPERATION DATE: 01/30/2022 PROCEDURE: Primary low transverse section. PREOPERATIVE DIAGNOSIS: 1. Intrauterine at 38+ weeks. 2. Spontaneous labor. 3. Failure to descend. POSTOPERATIVE DIAGNOSIS: 1. Intrauterine at 38+ weeks. 2. Spontaneous labor. 3. Failure to descend. ANESTHESIA: Epidural with Duramorph. SURGEON: Jaida Beverly D.O. CHARITY FUNDRAISER: JOCELYNN Matos URINE OUTPUT: Yellow and clear. [...] patient's uterus and extended laterally digitally. The infant was then delivered atraumatically after the bladder [...] the Recovery Room in stable condition. [facility] Discharge summary note 01-29-2022 Note Date [...] free and no longer on narcotics. [facility] Progress note 08-08-2020 Note Date & Type Note Facility 08-08-2020 Note HNO ID: [id number] Author: Jackelyn Russell Service: ? Author Type: [...] file for this visit. Jackelyn Russell MD [facility] Evaluation note Note Date & Type Note [...] and content) DATE CREATED AUTHOR 11/23/2020 [facility] DATE CREATED AUTHOR AUTHOR'S ORGANIZ ATION 06/21/2021 [facility] DATE CREATED AUTHOR AUTHOR'S ORGANIZ ATION 09/29/2022 [facility] DATE CREATED AUTHOR AUTHOR'S ORGANIZ ATION 08/11/2023 [facility] EPIC Reason for Visit (unrecogniz ed [...] BE BASED ON THE PRIMARY CLINICAL RECORDS. [facility] [employer] [facility]. provides no warranty or guarantee of the accuracy or completeness of information in this document.
[2023-08-12 21:11] VITALS: BP 116/76; PULSE 110
[2023-08-12 21:23] LABS: Bilirubin Urine NEGATIVE (NEGATIVE); Blood Urine NEGATIVE (NEGATIVE); Clarity Urine CLEAR (CLEAR); Color Urine LT. YELLOW (YELLOW); Glucose Urine UA NEGATIVE (NEGATIVE); Ketones Urine NEGATIVE (NEGATIVE); Leukocyte Esterase Urine NEGATIVE (NEGATIVE); Nitrite Urine NEGATIVE (NEGATIVE); Protein Urine NEGATIVE (NEG/TRACE); Specific Gravity Urine 1.025 (1.005-1.025); Urobilinogen Urine 0.2 EU/dL (0.2-1.0)
[2023-08-12 21:26] LABS: Urine Microscopic Indicated NO
== END 2023-08-12 22:10 | disposition home or self-care (01) ==
PROVIDERS: Admitting Provider Obstetrics & Gynecology; Visit Provider Obstetrics & Gynecology
DX: O26.893 Other specified pregnancy related conditions, third trimester (principal); R10.9 Unspecified abdominal pain; R19.7 Diarrhea, unspecified; Z3A.37 37 weeks gestation of pregnancy
CPT/HCPCS: 59025; 81003; G0378; G0379

== ENCOUNTER 2023-08-20 06:28 | Inpatient (IN) | payer BC, SELFPAY ==
[2023-08-20] VITALS (30 sets, daily range): BP systolic 86–123; BP diastolic 43–73; PULSE 65–102; TEMP 36.4–36.7; O2SAT 95–100
--- OUTSIDE RECORDS SUMMARY | 2023-08-20 06:32 | XMS_ITS | CCD ---
Author Organization [facility] Care Team Providers Care Commissioner Of Relocation Services Name Role Phone CIERRA ., DR WATKINS [...] Unavailable SIRIA ., DR SENA Attending Unavailable BLISS, DR WILD [employer] Unavailable SIRIA ., [...] UA Negative Negative - 4(70) +++ mg/dL [facility] Work Phone: Blood, UA Negative Negative - 50 Hugh/mcL [facility] Work Phone: Clarity, UA Clear NOM Reactivity re Work Phone: Color, UA Yellow NOM Rico e Work Phone: Glucose, UA Negative Negative - 2000(110) ++++ mg/dL [facility] Work Phone: Interpretation and review of laboratory results Normal [facility] [employer] Work Phone: Ketones, UA Negative Negative - 160(16) ++++ mg/dL [facility] Work Phone: Leukocytes, UA Negative Negative - 500+++ Joe/mcL [facility] Work Phone: Nitrite, UA Negative Negative - Positive [facility] [employer] Work Phone: pH, UA 5.5 5 - 9 [facility] [employer] Work Phone: Protein, UA Negative Negative - 2000(20) ++++ mg/dL [facility] [employer] Work Phone: Spec Grav, UA 1.015 1 - 1.03 [facility] [employer] care Work Phone: Urobilinogen, UA 0.2 0.2 - 12 mg/dL [facility] [employer] Work Phone: [facility] [employer] Work Phone: PAP ACOG PANEL 2: 21 to 29on 09-29-2022 . . Normal [place] Comment on above: Performed By: #### [id number] #### [facility] [address] [place] [address] Dr. Tyree Paiz Age Gdln ACOG Testing 21-29 [facility] Comment on above: Performed By: #### [id number] #### [facility] [address] [place] [address] Dr. Tyree Paiz DIAGNOSIS: Comment [facility] Comment on above: Result Comment: NEGA TIVE FOR INTRAEPITHELIAL LESION OR MALIGNANCY. Performed By: #### [id number] #### [facility] [address] [place] [address] Dr. Tyree Paiz Methodology: Comment [facility] Comment on above: Result Comment: This liquid based ThinPrep(R) pap test was screened with the use of an image guided system. Performed By: #### [id number] #### [facility] [address] [place] [address] Dr. Tyree Paiz Note: Comment Normal [place] Comment on above: Result Comment: The Pap smear is a screening test designed to aid in the detection of premalignant and malignant conditions of the uterine cervix. It is not a diagnostic procedure and should not be used as the sole means of detecting cervical cancer. Both false-positive and false-negative reports do occur. . Performed By: #### [id number] #### [facility] [address] [place] [address] Dr. Tyree Paiz Performed by: Comment Normal [facility] Comment on above: Result Comment: Rafael Tejada, Prosthetic Dentist (ASCP) Performed By: #### [id number] #### [facility] [address] [place] [address] Dr. Tyree Paiz Reflex Criteria: Comment [facility] Comment on above: Result Comment: The HPV DNA reflex criteria were not met with this specimen result therefore, no HPV testing was performed. . Performed By: #### [id number] #### [facility] [address] [place] [address] Dr. Tyree Paiz Specimen adequacy: Comment Normal [facility] Comment on above: Result Comment: Sati sfactory for evaluation. Endocervical and/or squamous metaplastic cells (endocervical component) are present. Performed By: #### [id number] #### [facility] [address] [place] [address] Dr. Tyree Paiz TYPE AND SCREENon 02-01-2022 TYPE AND SCREEN Antibody Screen NEGATIVE Blood Bank Notes testing done by 01/29/22 ABO Rh Typing AB Rh Positive Blood Bank Notes testing done by 01/29/22 [facility] Comment on above: Performed By: #### T NS ####[facility] [address] [place] [address]Dr. Tyree Paiz CBC AUTO DIFFon 01-31-2022 BASO # 0.0 103/ul Normal 0.0-0.1 [place] Comment on above: Performed By: #### C BC #### [facility] [address] [place] [address] Dr. Tyree Paiz Basophils/100 WBC (Bld) 0.3 % Normal 0.2-2.0 [place] Comment on above: Performed By: #### C BC #### [facility] [address] [place] [address] Dr. Tyree Paiz EO # 0.1 103/ul Normal 0.0-0.7 [place] Comment on above: Performed By: #### C BC #### [facility] [address] [place] [address] Dr. Tyree Paiz Eosinophils/100 WBC (Bld) 0.8 % Critically low 0.9-7.0 [place] Comment on above: Performed By: #### C BC #### [facility] [address] [place] [address] Dr. Tyree Paiz Erythrocyte distribution width (RBC) [Ratio] 13.4 % Normal 11.0-15.0 [place] Comment on above: Performed By: #### C BC #### [facility] [address] [place] [address] Dr. Tyree Paiz Hematocrit (Bld) [Volume fraction] 27.4 % Critically low 36.0-48.0 [place] Comment on above: Performed By: #### C BC #### [facility] [address] [place] [address] Dr. Tyree Paiz Hemoglobin (Bld) [Mass/Vol] 8.6 g/dL Critically low 12.0-16.0 [place] Comment on above: Performed By: #### C BC #### [facility] [address] [place] [address] Dr. Tyree Paiz IG # 0.12 10e3/ul Critically high 0.00-0.03 [facility] Comment on above: Performed By: #### C BC #### [facility] [address] [place] [address] Dr. Tyree Paiz IG % 0.9 % Critically high 0.0-0.5 [facility] Comment on above: Performed By: #### C BC #### [facility] [address] [place] [address] Dr. Tyree Paiz LYMPH # 1.9 103/ul Normal 1.2-3.8 [place] Comment on above: Performed By: #### C BC #### [facility] [address] [place] [address] Dr. Tyree Paiz Lymphocytes/100 WBC (Bld) 13.7 % Critically low 20.5-60.0 [place] Comment on above: Performed By: #### C BC #### [facility] [address] [place] [address] Dr. Tyree Paiz MANUAL DIFF REQ NO Normal [facility] Comment on above: Performed By: #### C BC #### [facility] [address] [place] [address] Dr. Tyree Paiz MCH (RBC) [Entitic mass] 27.0 pg Normal 26.7-34.0 [place] Comment on above: Performed By: #### C BC #### [facility] [address] [place] [address] Dr. Tyree Paiz MCHC (RBC) [Mass/Vol] 31.4 g/dL Normal 29.9-35.2 [place] Comment on above: Performed By: #### C BC #### [facility] [address] [place] [address] Dr. Tyree Paiz MCV (RBC) [Entitic vol] 85.9 fL Normal 81.0-99.0 [place] Comment on above: Performed By: #### C BC #### [facility] [address] [place] [address] Dr. Tyree Paiz MONO # 1.1 103/ul Critically high 0.3-0.8 [facility] Comment on above: Performed By: #### C BC #### [facility] [address] [place] [address] Dr. Tyree Paiz Monocytes/100 WBC (Bld) 8.1 % Normal 1.7-12.0 [place] Comment on above: Performed By: #### C BC #### [facility] [address] [place] [address] Dr. Tyree Paiz NEUT # 10.3 103/ul Critically high 1.4-6.5 [facility] Comment on above: Performed By: #### C BC #### [facility] [address] [address] [address] Tyree Paiz Neutrophils/100 WBC (Bld) 76.2 % Critically high 43.0-75.0 [place] Comment on above: Performed By: #### C BC #### [facility] [address] [address] [address] Tyree Paiz Platelet mean volume (Bld) [Entitic vol] 9.5 fL Normal 9.5-13.5 [facility] Comment on above: Performed By: #### C BC #### [facility] [address] [place] [address] Dr. Tyree Paiz PLT 196 103/ul Normal 150-450 [place] Comment on above: Performed By: #### C BC #### [facility] [address] [place] [address] Dr. Tyree Paiz RBC 3.19 106/ul Critically low 4.20-5.40 [facility] Comment on above: Performed By: #### C BC #### [facility] [address] [address] [address] Tyree Paiz WBC 13.5 103/ul Critically high 4.0-11.0 [facility] Comment on above: Performed By: #### C BC #### [facility] [address] [address] [address] Tyree Paiz CBC W MANUAL DIFFon 01-30-20 22 ATYPICAL LYMPH # Normal [facility] Comment on above: Performed By: #### C BCMAN ####[facility] [address] [place] [address]Dr. Tyree Paiz ATYPICAL LYMPH % Normal [facility] Comment on above: Performed By: #### C BCMAN ####[facility] [address] [place] [address]Dr. Tyree Paiz BAND # 0.0 103/ul Normal 0.0-0.3 [facility] Comment on above: Performed By: #### C BCMAN ####[facility] [address] [place] [address]Dr. Yicy Paiz BAND % 0 % Normal 0-5 [facility] Comment on above: Performed By: #### C BCTY ####[facility] [address] [place] [address]Dr. Yicy Paiz BASOM # 0.00 103/ul Normal 0.00-0.10 [facility] Comment on above: Performed By: #### C BCTY ####[facility] [address] [place] [address]Dr. Yicy Paiz BASOM % 0.0 % Critically low 0.2-2.0 [facility] Comment on above: Performed By: #### C BCTY ####[facility] [address] [place] [address]Dr. Yicy Paiz BLAST # Normal [facility] Comment on above: Performed By: #### C BCTY ####[facility] [address] [place] [address]Dr. Yilan Paiz BLAST % Normal [facility] Comment on above: Performed By: #### C BCTY ####[facility] [address] [place] [address]Dr. Tyree Paiz CORRECTED WBC Normal 4.0-11.0 [facility] Comment on above: Performed By: #### C BCTY ####[facility] [address] [place] [address]Dr. Yicy Paiz EOS # 0.41 103/ul Normal 0.00-0.70 [facility] Comment on above: Performed By: #### C BCTY ####[facility] [address] [place] [address]Dr. Tyree Paiz EOS% 3.0 % Normal 0.9-7.0 [facility] Comment on above: Performed By: #### C BCTY ####[facility] [address] [place] [address]Dr. Tyree Paiz HCT 31.3 % Critically low 36.0-48.0 [facility] Comment on above: Performed By: #### Swathi SAUCEDO ####[facility] [address] [place], [place] [address]Ib. Tyree Paiz HGB 10.2 g/dl Critically low 12.0-16.0 [facility] Comment on above: Performed By: #### Swathi SAUCEDO ####[facility] [address] [place], [place] [address]Ff. Tyree Paiz LYMPHM # 1.63 103/ul Normal 1.20-3.80 [place] Comment on above: Performed By: #### Swathi SAUCEDO ####[facility] [address] [place], [place] [address]Dp. Tyree Paiz LYMPHM% 12.0 % Critically low 20.5-60.0 [facility] Comment on above: Performed By: #### Swathi SAUCEDO ####[facility] [address] [place] [address]Dr. Tyree Paiz MCH 27.4 pg Normal 26.7-34.0 [place] Comment on above: Performed By: #### Swathi SAUCEDO ####[facility] [address] [place] [address]Dr. Tyree Paiz MCHC 32.6 g/dl Normal 29.9-35.2 [place] Comment on above: Performed By: #### Swathi SAUCEDO ####[facility] [address] [place], [place] [address]Tw. Tyree Paiz MCV 84.1 fL Normal 81.0-99.0 [facility] Comment on above: Performed By: #### Swathi SAUCEDO ####[facility] [address] [place], [place] [address]Is. Tyree Paiz METAMYELOCYTE # Normal [facility] Comment on above: Performed By: #### Swathi SAUCEDO ####[facility] [address] [place] [address]Dr. Tyree Paiz METAMYELOCYTE % Normal [facility] Comment on above: Performed By: #### Swathi SAUCEDO ####[facility] [address] [place] [address]Dr. Tyree Paiz MONOM# 1.36 103/ul Critically high 0.30-0.80 [facility] Comment on above: Performed By: #### C LEWIS ####[facility] [address] [place] [address]Dr. Tyree Paiz MONOM% 10.0 % Normal 1.7-12.0 [place] Comment on above: Performed By: #### C LEWIS ####[facility] [address] [place] [address]Dr. Tyree Paiz MPV 9.5 fL Normal 9.5-13.5 [place] Comment on above: Performed By: #### C LEWIS ####[facility] [address] [place] [address]Dr. Tyree Chencho MYELOCYTE # Normal [place] Comment on above: Performed By: #### C LEWIS ####[facility] [address] [place] [address]Dr. Tyree Paiz MYELOCYTE % Normal [facility] Comment on above: Performed By: #### C LEWIS ####[facility] [address] [place] [address]Dr. Tyree Chencho NRBC Normal [facility] Comment on above: Performed By: #### C LEWIS ####[facility] [address] [place] [address]Dr. Nuhacy Chencho PLT 258 103/ul Normal 150-450 [facility] Comment on above: Performed By: #### C LEWIS ####[facility] [address] [place] [address]Dr. Tyree Paiz RBC 3.72 106/ul Critically low 4.20-5.40 [facility] Comment on above: Performed By: #### C LEWIS ####[facility] [address] [place] [address]Dr. Tyree Paiz RDW 13.0 % Normal 11.0-15.0 [facility] Comment on above: Performed By: #### C LEWIS ####[facility] [address] [place], [place] [address]DrSarah Paiz SEG # 10.20 103/ul Critically high 1.40-6.50 [facility] [place] [facility] Comment on above: Performed By: #### C LEWIS ####[facility] [address] [place], [place] [address]IzSarah Paiz SEG % 75.0 % Normal 43.0-75.0 [place] Comment on above: Performed By: #### C LEWIS ####[facility] [address] [place], [place] [address]RvSarah Paiz WBC 13.6 103/ul Critically high 4.0-11.0 [facility] Comment on above: Performed By: #### C LEWIS ####[facility] [address] [place], [place] [address]EsSarah Tyree Paiz [facility]on SARS-CoV-2 (COVID-19) RNA GINO+probe Ql (Unsp spec) Not detected Normal NOT DETECTED [facility] Comment on above: Result Comment: When [...] for this test is supported by the [place] of Health and Human Service's declaration that [...] used). Performed By: #### C VDTBH #### [facility] [address] [place], [place] [address] Dr. Tyree Paiz DRUG SCREEN RAPID (URINE)on 01-29-2022 AMP Negative Normal NEGATIVE [facility] Comment on above: Performed By: #### D RUGRPD #### [facility] [address] [place] [address] Dr. Tyree Paiz BAR Negative Normal NEGATIVE [place] Comment on above: Performed By: #### D RUGRPD #### [facility] [address] [place] [address] Dr. Tyree Paiz BUP Negative Normal NEGATIVE [place] Comment on above: Performed By: #### D RUGRPD #### [facility] [address] [place] [address] Dr. Tyree Paiz BZO Negative Normal NEGATIVE [place] Comment on above: Performed By: #### D RUGRPD #### [facility] [address] [place] [address] Dr. Tyree Paiz ZACHARY Negative Normal NEGATIVE [place] Comment on above: Performed By: #### D RUGRPD #### [facility] [address] [place] [address] Dr. Tyree Paiz CUT-OFFS SEE BELOW Normal [place] Comment on above: Result Comment: AMP (Amphetamine): 500ng/mL, BAR (Barbituates): 200 ng/mL, BZO (Benzodiazepines): 150 ng/mL, BUP (Buprenorphine): 10 ng/mL, ZACHARY (Cocaine): 150 ng/mL, mAMP (Methamphetamine): 500 ng/mL, MTD (Methadone): 200 ng/mL, OPI (Opiates): 100 ng/mL, OXY (Oxycodone): 100 ng/mL, PCP (Phencyclidine): 25 ng/mL, PPX (Propoxyphene): 300 ng/mL, THC (Cannabinoids): 50 ng/mL, TCA (Trycyclic Antidepressants): 300 ng/mL Performed By: #### D RUGRPD #### [facility] [address] [place] [address] Dr. Tyree Paiz DRUG CUT HEADER DRUG CLASS TEST SYSTEM CUT-OFF CONCENTRATIONS ARE FOLLOWS: Normal [place] Comment on above: Performed By: #### D RUGRPD #### [facility] [address] [place] [address] Dr. Tyree Paiz mAMP Negative Normal NEGATIVE [place] Comment on above: Performed By: #### D RUGRPD #### [facility] [address] [address] [address] Tyree Paiz MTD Negative Normal NEGATIVE [place] Comment on above: Performed By: #### D RUGRPD #### [facility] [address] [address] [address] Tyree Paiz OPI Negative Normal NEGATIVE [place] Comment on above: Performed By: #### D RUGRPD #### [facility] [address] [address] [address] Tyree Paiz OXY Negative Normal NEGATIVE [place] Comment on above: Performed By: #### D RUGRPD #### [facility] [address] [address] [address] Tyree Paiz PCP Negative Normal NEGATIVE [place] Comment on above: Performed By: #### D RUGRPD #### [facility] [address] [place] [address] Dr. Tyree Paiz PPX Negative Normal NEGATIVE [place] Comment on above: Performed By: #### D RUGRPD #### [facility] [address] [address] [address] Tyree Paiz TCA Negative Normal NEGATIVE [place] Comment on above: Performed By: #### D RUGRPD #### [facility] [address] [address] [address] Tyree Paiz THC Negative Normal NEGATIVE [place] Comment on above: Performed By: #### D RUGRPD #### [facility] [address] [address] [address] Tyree Paiz US PREG BIOPHY W [...] WILD VOSS Date: 2022-01-26 19:11 Normal [facility] US PREG BIOPHY W NON STRESSo [...] WILD VOSS Date: 2022-01-19 07:52 Normal [facility] GROUP B STREP CULTUREon 12-22 S. agalactiae Ag Ql (Unsp spec) Culture Observations: NEGATIVE FOR GROUP B STREPTOCOCCUS. Normal [facility] Comment on above: Performed By: #### G BSCX ####[facility] [address] [place], [place] [address]Qn. Tyree Paiz US PREG GROWTHon 01-12-2022 US [...] WILD VOSS Date: 2022-01-12 16:41 Normal [facility] GLUCOSE - 1HRon 11-10-2021 Glucose [Mass/Vol] 98 mg/dL Normal 74-106 [facility] Comment on above: Performed By: #### G LU1HR #### [facility] [address] [place] [address] Dr. Tyree Paiz HEMOGRAM AND PLATELon 2021 Hematocrit (Bld) [Volume fraction] 36.3 % Normal 36.0-48.0 [place] Comment on above: Performed By: #### H H #### [facility] [address] [place] [address] Dr. Tyree Paiz Hemoglobin (Bld) [Mass/Vol] 11.9 g/dL Critically low 12.0-16.0 [facility] Comment on above: Performed By: #### H H #### [facility] [address] [place] [address] Dr. Tyree Paiz MCH (RBC) [Entitic mass] 30.1 pg Normal 26.7-34.0 [place] Comment on above: Performed By: #### H H #### [facility] [address] [place] [address] Dr. Tyree Paiz MCHC (RBC) [Mass/Vol] 32.8 g/dL Normal 29.9-35.2 [facility] Comment on above: Performed By: #### H H #### [facility] [address] [place] [address] Dr. Tyree Paiz MCV (RBC) [Entitic vol] 91.7 fL Normal 81.0-99.0 [facility] Comment on above: Performed By: #### H H #### [facility] [address] [place] [address] Dr. Tyree Paiz PLT 237 103/ul Normal 150-450 [facility] Comment on above: Performed By: #### H H #### [facility] [address] [place] [address] Dr. Tyree Paiz RBC 3.96 106/ul Critically low 4.20-5.40 [facility] Comment on above: Performed By: #### H H #### [facility] [address] [place], [place] [address] Dr. Tyree Paiz WBC 12.6 103/ul Critically high 4.0-11.0 [facility] Comment on above: Performed By: #### H H #### [facility] [address] [place], [place] [address] Dr. Tyree Paiz US PREG INCOMPLETE ANATOMYon [...] CAIO NGO Date: 2021-11-02 17:30 Normal [facility] ED Note-Physicianon 06-07-19 ED Note-Physician Basic [...] worse. She is attempted to use an ahta-kui-tyzhqux eczema cream but states that it is [...] Appropriate mood & affect. Integumentary: Warm, Dry, [facility] Decision Making I believe this to [...] Information Austyn Bocanegra In 3 days 06/09/2020 [place] [address] [facility] [address] [place] [address] Business (1) Additional Instructions: Use the eye ointment as prescribed, return should vision disturbance develop, otherwise follow-up with the air breaker operator as directed for reevaluation. Patient Education Eczema [...] available. Diagnostic Results No qualifying data available. [facility] Comment on above: Result Comment: Elec tronically Signed By: Calvin Morley PA-C\.br\Date and Time Signed: 06/06/20 12:03 EST\.br\Electronically Co-Signed By: Jr Solmoon DO\.br\Date and Time Co-Signed: 06/06/20 22:16 EST Coding Summary.on 06-06-2020 Coding Summary. CODING DATE: 06/06/2020 FINAL [facility] STATUS: Home (Routine DC) PAYOR: Self [...] Aliya Mejía Date Saved: 06/06/2020 05:36 pm [facility] Consent for Treatmenton 05-23 Consent for Treatment [id number] .[id number]:127 [facility] Discharge Instructionson Discharge Instructions [id number] 1.00CD:127 [facility] ED Clinical Summaryon 2020 ED Clinical Summary [address] [address] ED Clinical Summary Person Information Name: GRACE PENNY/[facility] Age: 20 Years : 2000 Sex: Female Language: Faroese PCP: Tony PHAN MD Marital Status: Single [...] 06/06/2020 12:00:00 06/06/2020 12:00:00 06/06/2020 12:00:00 ADDRESS: [address] [place] [id number] PHYS DOC NOTES: MEDICAL INFORMATION: Prescriptions Given: New Medications Printed Prescriptions loteprednol ophthalmic (Lotemax 0.5% ophthalmic ointment) 1 eloise OPTH QID. Refills: 0. Medications to Continue with No Changes Other Medications naproxen (naproxen 500 mg Tab) 1 Tablets By Mouth 2 times a day as needed for pain. Refills: 0. PATIENT EDUCATION INFORMATION: Instructions: Eczema Follow up: With: Address: When: Austyn Bocanegra [facility] [address], [address] [place] [address] Business (1) In 3 days 06/09/2020 Comments: Use the eye ointment as prescribed, return should vision disturbance develop, otherwise follow-up with the air breaker operator as directed for reevaluation. DIAGNOSIS: 1:Eyelid dermatitis, eczematous Normal [facility] ED Patient Education Noteon 06-06-2020 ED [...] the itching and scratching. ? ? Use ozuq-zkk-saypwnz antihistamines as directed for itching. This is especially useful at night when the itching tends to be worse. ? ? Use nrrz-uyx-uiwizcv steroid creams as directed for itching. ? [...] ? HOME CARE INSTRUCTIONS ? Only take ynoq-tku-yvqphqh or prescription medicines as directed by your [...] Document Reviewed: 12/10/2013 ExitCare? Patient Information ?2014 [employer] This information is not intended to replace advice given to you by your health care provider. Make sure you discuss any questions you have with your health care provider. Normal [facility] ED Patient Summaryon 021 ED Patient Summary [address] [address] Patient Discharge Instructions Person Information Name: GRACE PENNY Age: 20 Years Arrival Date: 06/06/2020 11:09:25 Discharge Diagnosis: 1:Eyelid dermatitis, eczematous Primary Care Physician: Tony PHAN MD Provider Information Primary Provider: Jr Solomon DO [facility] Counselor:Calvin Morley PA-C The exam and treatment you received in the Emergency Department were for an urgent problem and are not intended as complete care. It is important that you follow up with a doctor, nurse practitioner, or physician?s registered nurse first assistant for ongoing care. If your symptoms [...] Follow-up Instructions: With: Address: When: Austyn Bocanegra [facility] 3, [address] [facility] [address] [place] [address] Business (1) In 3 days 06/09/2020 Comments: Use the eye ointment as prescribed, return should vision disturbance develop, otherwise follow-up with the air breaker operator as directed for reevaluation. In the event that this physician does not participate in your insurance network, please consult with your insurance company to find a nearby participating provider. Patient Education Materials: Eczema A MESSAGE TO ALL PATIENTS REGARDING OPIOIDS PRESCRIPTION OPIOIDS: WHAT YOU NEED TO KNOW Prescription opioids can be used to help relieve sabtoyne-js-oobysl pain and are often prescribed following a [...] abuse and overdose. (more content not included)... [facility] Registrationon 04-08-2020 Registration [id number]# 1.00CD:127 [facility] Consenton 04-07-2020 Consent [id number]# 1.00CD:127 [facility] Registrationon 04-07-2020 Registration [id number]# 1.00CD:127 [facility] Vital Signs Date Time Vital Sign Value Performing Clinician Frances lity 06-23-2023 11:47-0500 Body mass index (BMI) [Ratio] 33.37 kg/m2 Jaida Siria DO Work Phone: [facility] 06-23-2023 11:47-0500 Body weight 85.46 kg Jaida Siria DO Work Phone: [facility] 06-23-2023 11:47-0500 Diastolic blood pressure 70 mm[Hg] Jaida Siria DO Work Phone: [facility] 06-23-2023 11:47-0500 Systolic blood pressure 120 mm[Hg] Jaida Siria DO Work Phone: [facility] Healthcare Encounters Encounter Date Encounter Type Care Provider Facility Start: 08-17-2023 End: 08-17-2023 ambulatory JAIDA SIRIA Not Available Start: 08-10-2023 End: 08-10-2023 ambulatory JAIDA SIRIA Not Available Start: 08-03-2023 End: 08-03-2023 ambulatory JAIDA SIRIA Not Available Start: 07-25-2023 End: 07-25-2023 ambulatory JAIDA MORRISONO Not Available Start: 07-11-2023 End: 07-11-2023 ambulatory JAIDA SIRIA Not Available Start: 06-23-2023 End: 06-23-2023 ambulatory JAIDA SIRIA Not Available Start: 06-23-2023 End: 06-23-2023 flow sheet Jaida Beverly DO Work Phone: [facility] Comment on above: Third trimester preg jose Start: 06-07-2023 End: 06-07-2023 ambulatory JAIDA MORRISONO Not Available Start: 05-17-2023 End: 05-17-2023 ambulatory JAIDA SIRIA Not Available Start: 04-19-2023 End: 04-19-2023 ambulatory JAIDA MORRISONO Not Available Start: 09-22-2022 End: 09-22-2022 ambulatory [...] PM EST Routine [facility] [address] [place] [id number] Jaida Beverly, DO [address] [place] [address] [facility] Payers Date Payer Category Payer Unknown BCBS BCBS xxxxxx [id number] 2022-Present [phone] [address] [place] [address] [id number] 1999 Unknown [id number] 2.16.840.1.266840.3.579.2.593 1999 Unknown [id number] 2.16.840.1.589267.3.579.2.593 1999 Unknown [id number] 2.16.840.1.607468.3.579.2.593 1999 Unknown [id number] 2.16.840.1.313437.3.579.2.593 1999 Unknown [id number] 2.16.840.1.532152.3.579.2.593 1999 Unknown [id number] 2.16.840.1.360610.3.579.2.593 1999 Unknown [id number] 2.16.840.1.542069.3.579.2.593 1999 Unknown [id number] 2.16.840.1.262100.3.579.2.593 1999 Unknown [id number] 2.16.840.1.508020.3.579.2.593 1999 Unknown [id number] 2.16.840.1.126440.3.579.2.593 1999 Unknown [id number] 2.16.840.1.404799.3.579.2.9 1999 Unknown [id number] 2.16.840.1.251538.3.579.2.1259 1999 Unknown [id number] 2.16.840.1.134697.3.579.2.9 1999 Unknown [id number] 2.16.840.1.416576.3.579.2.9 1999 Unknown [id number] 2.16.840.1.474547.3.579.2.9 1999 Unknown [id number] 2.16.840.1.333032.3.579.2.1259 1999 Unknown [id number] 2.16.840.1.080231.3.579.2.9 1999 Unknown [id number] 2.16.840.1.484821.3.579.2.9 1999 Unknown [id number] 2.16.840.1.716529.3.579.2.1259 1959 Unknown [id number] Social History Date Type Detail Facility Start: 02-02-2023 Tobacco smoking stat [facility] Never smoked tobacco [facility] [...] [facility] Start: 01-13-2023 Sexual orientation Heterosexual (rosario larissa) [facility] Goals Date Patient Goal Desired Activity /State Personal health goal History of Present illness Narrative 06-23-2023 BHARAT Mandel - 06/23/2023 11:50 AM EST Note Date [...] for routine OB appointment. Documented by BHARAT Mandel on behalf of: mychal Bedolla PAC documented in this encounter [facility] Clinical Note 01-29-2022 Note Date & Type Note Facility 01-29-2022 Note OPERATIVE NOTE OPERATION DATE: 01/30/2022 PROCEDURE: Primary low transverse section. PREOPERATIVE DIAGNOSIS: 1. Intrauterine at 38+ weeks. 2. Spontaneous labor. 3. Failure to descend. POSTOPERATIVE DIAGNOSIS: 1. Intrauterine at 38+ weeks. 2. Spontaneous labor. 3. Failure to descend. ANESTHESIA: Epidural with Duramorph. SURGEON: Jaida Beverly D.O. HYPNOTHERAPIST: JOCELYNN Matos URINE OUTPUT: Yellow and clear. [...] the Recovery Room in stable condition. [facility] Discharge summary note 01-29-2022 Note Date [...] free and no longer on narcotics. [facility] Progress note 08-08-2020 Note Date & Type Note Facility 08-08-2020 Note HNO ID: [id number] Author: Jackelyn Russell Service: ? Author Type: [...] file for this visit. Jackelyn Russell MD [facility] Evaluation note Note Date & Type [...] and content) DATE CREATED AUTHOR 11/23/2020 [facility] DATE CREATED AUTHOR AUTHOR'S ORGANIZ ATION 06/21/2021 [facility] DATE CREATED AUTHOR AUTHOR'S ORGANIZ ATION 09/29/2022 [facility] DATE CREATED AUTHOR AUTHOR'S ORGANIZ ATION 08/19/2023 [facility] EPIC Reason for Visit (unrecogniz ed [...] BE BASED ON THE PRIMARY CLINICAL RECORDS. [facility] [employer] [facility]. provides no warranty or guarantee of the accuracy or completeness of information in this document.
[2023-08-20 07:44] LABS: Basophils Percent Auto 0.4 % (0.2-2.0); Eosinophils Absolute Auto 0.1 10^3/uL (0.0-0.7); Eosinophils Percent Auto 0.6 % (0.9-7.0); Hematocrit 37.7 % (36.0-48.0); Immature Granulocytes Pct Auto 0.9 % (0.0-0.5); Lymphocytes Absolute Auto 2.3 10^3/uL (1.2-3.8); Lymphocytes Percent Auto 20.3 % (20.5-60.0); Mean Corpuscular HGB Conc 31.8 g/dL (29.9-35.2); Mean Corpuscular Volume 84.7 fL (81.0-99.0); Mean Platelet Volume 9.6 fL (9.5-13.5); Monocytes Percent Auto 8.6 % (1.7-12.0); Neutrophils Absolute Auto 7.7 10^3/uL (1.4-6.5); Neutrophils Percent Auto 69.2 % (43.0-75.0); Platelet Count 236 10^3/uL (150-450); Red Blood Count 4.45 10^6/uL (4.20-5.40); Red Cell Distribution Width 13.9 % (11.0-15.0); White Blood Count 11.1 10^3/uL (4.0-11.0)
[2023-08-20 08:09] LABS: Cannabinoid Screen Urine NEGATIVE (NEGATIVE); Cocaine Screen Urine NEGATIVE (NEGATIVE); Methamphetamines Screen Urine NEGATIVE (NEGATIVE); Phencyclidine Screen Urine NEGATIVE (NEGATIVE)
[2023-08-20 08:10] LABS: Amphetamine Screen Urine NEGATIVE (NEGATIVE); Barbiturates Screen Urine NEGATIVE (NEGATIVE); Benzodiazepines Screen Urine NEGATIVE (NEGATIVE); Buprenorphine Screen Urine NEGATIVE (NEGATIVE); Methadone Screen Urine NEGATIVE (NEGATIVE); Opiate Screen Urine NEGATIVE (NEGATIVE); Oxycodone Screen Urine NEGATIVE (NEGATIVE); Tricyclic Antidepressant Urine NEGATIVE (NEGATIVE)
[2023-08-20] MEDS: 0.9 % SODIUM CHLORIDE 1,000 ML 1000 ML IV (08:18)
[2023-08-20] MEDS: CITRIC ACID/SODIUM CITRATE 30 ML SOLUTION ORACIT SHOHL'S SOLN PO (08:18)
[2023-08-20] MEDS: FAMOTIDINE/PF 20 MG/2 ML VIAL IV (08:18)
[2023-08-20] MEDS: CEFAZOLIN SODIUM/DEXTROSE,ISO 2 GM/50 ML PIGGYBACK IV ×2 (08:18→15:39)
[2023-08-20] MEDS: METOCLOPRAMIDE HCL 10 MG/2 ML VIAL IVP (08:19)
[2023-08-20] MEDS: ACETAMINOPHEN 500 MG TABLET 1000 MG PO ×2 (08:55→18:24)
[2023-08-20] MEDS: LACTATED RINGER'S SOLUTION 1,000 ML 50 ML IV ×2 (09:09→09:19)
--- NOTE | 2023-08-20 09:31 | PM.ONB ---
Brief Operative Note Date of procedure: 08/20/23 Pre-op diagnosis general: iup at 39wks, previous c/s Post-op diagnosis: same as pre-op Procedure: NAME OF PROCEDURE: [ section ] PROCEDURE: Patient was taken back to the Operating Room where she was given a spinal anesthesia with Duramorph without difficulty. She was prepped and draped in the normal sterile fashion. A Pfannenstiel skin incision was then made 2 cm above the symphysis pubis and carried down to underlying rectus fascia using a Bovie. The fascia was incised in the midline and extended laterally using Reza scissors. Two Vibha clamps were placed on the superior aspect of the fascia and dissected off the underlying rectus muscles. The same was performed on the inferior aspect as well. The muscles were then in the midline. Peritoneum was identified and entered bluntly. The peritoneum was then extended superiorly and inferiorly with good visualization of the bladder. The bladder blade was inserted. A low transverse incision was made on the patient's uterus and extended laterally digitally. The was then delivered atraumatically after the bladder blade was removed in the cephalic position. The cord was clamped and cut. Cord blood was obtained. The was handed off to awaiting team. The patient's placenta was spontaneously delivered. The uterus was then exteriorized. The uterus was cleared of all clots and debris. The bladder blade was reinserted. The patient's uterine incision was closed using #0 Vicryl in a running lock fashion. Excellent hemostasis was assured. The uterus was then returned to the patient's abdomen. The patient's abdomen was copiously irrigated using warm saline. Peritoneal gutters were cleared of all clots and debris. Again excellent hemostasis was assured. The patient's peritoneum was closed using 3-0 Vicryl in a running fashion. The patient's fascia was closed using #0 Vicryl in a running fashion. The patient's skin was closed using 4-0 Vicryl subcuticularly. The patient tolerated the procedure well. Sponge, lap, and needle counts were correct x2. The patient was taken to the Recovery Room in stable condition. Anesthesia: spinal Surgeon: Shmuel Beverly Calibrator Barometers: Tiffany Salazar Estimated blood loss (mL): 600 Pathology: none sent Condition: stable Disposition: PACU Urinary Catheter Management Urinary Catheter Management Urethral: Cath placed during this visit: yes Urethral indwelling: No Insertion date: 08/20/23 Insertion time: 08:00
--- NOTE | 2023-08-20 09:34 | P.OBPRC_ITS ---
Procedure Pre-op/Post-op diagnoses: Pre-Op/Post-Op Diagnoses Operation Date: 08/20/23 08:30 <No data on this case meets the specified criteria> Procedure: Procedures Operation Date: 08/20/23 08:30 Actual Procedure Side Surgeon p Repeat Not Applicable Shmuel Beverly DO Product Engineering Manager: Tiffany Salazar Disposition: PACU Anesthesia type: Spinal
[2023-08-20] MEDS: BUPIVACAINE LIPOSOME/PF 266 MG/13.3 ML VIAL INJ (09:47)
[2023-08-20] MEDS: BUPIVACAINE HCL 0.5% PF 50 MG/10 ML VIAL INJ (09:47)
[2023-08-20] MEDS: 0.9 % SODIUM CHLORIDE 10 ML VIAL 40 ML INJ (09:48)
[2023-08-20] MEDS: OXYTOCIN/0.9 % SODIUM CHLORIDE 20 UNITS/1,000 ML PLAST..BAG 125 UNIT IV (10:21)
[2023-08-20] MEDS: KETOROLAC TROMETHAMINE 30 MG/ML VIAL IVP ×2 (15:38→22:10)
[2023-08-20] MEDS: ENOXAPARIN SODIUM 40 MG/0.4 ML SYRINGE SUBQ (22:09)
[2023-08-21 00:41] VITALS: BP 105/59; PULSE 75; TEMP 36.7
[2023-08-21] MEDS: ACETAMINOPHEN 500 MG TABLET 1000 MG PO ×3 (03:21→19:41)
[2023-08-21 05:06] VITALS: BP 131/64; PULSE 97; TEMP 36.6
[2023-08-21 06:25] LABS: Basophils Absolute Auto 0.1 10^3/uL (0.0-0.1); Basophils Percent Auto 0.4 % (0.2-2.0); Eosinophils Absolute Auto 0.1 10^3/uL (0.0-0.7); Eosinophils Percent Auto 0.5 % (0.9-7.0); Hematocrit 29.2 % (36.0-48.0); Hemoglobin 9.3 g/dL (12.0-16.0); Immature Granulocytes Pct Auto 0.8 % (0.0-0.5); Lymphocytes Absolute Auto 2.8 10^3/uL (1.2-3.8); Lymphocytes Percent Auto 20.9 % (20.5-60.0); Mean Corpuscular HGB Conc 31.8 g/dL (29.9-35.2); Mean Corpuscular Hemoglobin 27.5 pg (26.7-34.0); Mean Corpuscular Volume 86.4 fL (81.0-99.0); Mean Platelet Volume 9.5 fL (9.5-13.5); Monocytes Absolute Auto 0.9 10^3/uL (0.3-0.8); Monocytes Percent Auto 6.9 % (1.7-12.0); Neutrophils Absolute Auto 9.3 10^3/uL (1.4-6.5); Neutrophils Percent Auto 70.5 % (43.0-75.0); Platelet Count 195 10^3/uL (150-450); Red Blood Count 3.38 10^6/uL (4.20-5.40); White Blood Count 13.2 10^3/uL (4.0-11.0)
[2023-08-21] MEDS: IBUPROFEN 400 MG TABLET 800 MG PO ×3 (06:54→18:25)
[2023-08-21 08:35] VITALS: TEMP 37.3
[2023-08-21 08:37] VITALS: BP 113/69; PULSE 100
--- NOTE | 2023-08-21 10:02 | P.OBPN_ITS ---
OB - PN: Subj Subjective Patient comments: no complaints and pain well controlled [place] status: doing well Exam Constitutional Vital Signs, click to edit/add: Last Vital Signs Temp 99.1 F 08/21/23 08:35 Pulse 100 H 08/21/23 08:37 Resp 16 08/21/23 08:35 BP 113/69 08/21/23 08:37 Pulse Ox 95 08/20/23 15:42 O2 Del Method Room Air 08/21/23 05:06 Documenting provider has reviewed patient's vital signs: yes Common normals: no apparent distress Respiratory Common normals: clear to auscultation bilaterally Cardio Common normals: regular rate and regular rhythm GI Common normals: Normal to inspection, nondistended, normoactive bowel sounds present Extremity Common normals: no clubbing, cyanosis or edema and no calf tenderness Results Labs Labs: Short CBC 08/21/23 Range/Units 06:13 WBC 13.2 H (4.0-11.0) 10^3/uL Hgb 9.3 L (12.0-16.0) g/dL Hct 29.2 L (36.0-48.0) % Plt Count 195 (150-450) 10^3/uL Urinary Catheter Management Urinary Catheter Management Urethral: Cath placed during this visit: yes, but has since been removed by the nurse Urethral indwelling: No Insertion date: 08/20/23 Insertion time: 08:00 Removal date: 08/21/23 Removal time: 05:29 OB - PN: A/P Plan - day: 1 Plan: routine postop care Time Spent with Patient Time: Total time spent is greater than 50% in coordination of care (as documented) at patient's floor/unit and/or counseling patient: Total time spent with greater than 50% in coordination of care (as documented) at patient's floor/unit and/or counseling patient: less than 15 minutes
[2023-08-21] MEDS: DOCUSATE SODIUM 100 MG CAPSULE PO (11:40)
[2023-08-21] MEDS: SIMETHICONE 80 MG TAB.CHEW PO (13:37)
--- NOTE | 2023-08-21 13:48 | PC.NURSE ---
c/o gas pain-medicated with simethicone, visits with family
[2023-08-21 16:53] VITALS: BP 109/66; PULSE 97
[2023-08-21 16:59] VITALS: TEMP 36.7
[2023-08-21] MEDS: ENOXAPARIN SODIUM 40 MG/0.4 ML SYRINGE SUBQ (22:52)
[2023-08-22 01:09] VITALS: BP 109/61; PULSE 83
[2023-08-22 01:12] VITALS: TEMP 36.6
[2023-08-22] MEDS: IBUPROFEN 400 MG TABLET 800 MG PO ×2 (01:12→08:42)
[2023-08-22] MEDS: ACETAMINOPHEN 500 MG TABLET 1000 MG PO (04:12)
--- NOTE | 2023-08-22 07:41 | PM.OBPN ---
OB - PN: Subj Subjective Patient comments: no complaints and pain well controlled [place] status: doing well Exam Constitutional Vital Signs, click to edit/add: Last Vital Signs Temp 97.9 F 08/22/23 01:12 Pulse 83 08/22/23 01:09 Resp 16 08/22/23 01:12 BP 109/61 08/22/23 01:09 Pulse Ox 95 08/20/23 15:42 O2 Del Method Room Air 08/22/23 01:12 Documenting provider has reviewed patient's vital signs: yes Common normals: no apparent distress Respiratory Common normals: clear to auscultation bilaterally Cardio Common normals: regular rate and regular rhythm GI Common normals: Normal to inspection, nondistended, normoactive bowel sounds present Extremity Common normals: no calf tenderness Urinary Catheter Management Urinary Catheter Management Urethral: Cath placed during this visit: yes, but has since been removed by the nurse Urethral indwelling: No Insertion date: 08/20/23 Insertion time: 08:00 Removal date: 08/21/23 Removal time: 05:29 OB - PN: A/P Plan - day: 2 Plan: routine postop care, discharge home and other (1wk) Time Spent with Patient Time: Total time spent is greater than 50% in coordination of care (as documented) at patient's floor/unit and/or counseling patient: Total time spent with greater than 50% in coordination of care (as documented) at patient's floor/unit and/or counseling patient: less than 15 minutes
[2023-08-22 08:39] VITALS: BP 133/72; PULSE 104
[2023-08-22 08:40] VITALS: BP 133/72; TEMP 36.7
[2023-08-22] MEDS: DOCUSATE SODIUM 100 MG CAPSULE PO (08:42)
--- NOTE | 2023-08-22 11:35 | DS_ITS ---
DISCHARGE DATE: ??08/22/2023 ? PRIMARY DIAGNOSES: 1.? Intrauterine at 39 weeks. 2.? Previous . ? PROCEDURE:? section. ? HOSPITAL COURSE:? As expected.? Please see chart for full details.? ? LABORATORY DATA:? Please see chart. ? COMPLICATIONS:? None. ? DISCHARGE CONDITION:? Stable. ? CONSULTATION:? Anesthesia. ? DISCHARGE INSTRUCTIONS: 1.? Diet:? Regular. 2.? Medications: a.? Percocet 5/325 one to two p.o. every 4-6 hours p.r.n. pain. b.? Motrin 800 one p.o. every 8 hours p.r.n. pain. 3.? Followup in one week. Restrictions:? Pelvic rest for 6 weeks.? No heavy lifting.? May drive when pain free and no longer on narcotics. MTDD
== END 2023-08-22 11:35 | disposition home or self-care (01) | DRG 788 ==
PROVIDERS: Admitting Provider Obstetrics & Gynecology; Visit Provider Obstetrics & Gynecology
PROC: 10D00Z1 Extraction of Products of Conception, Low, Open Approach (ICD-10-PCS; CPT 59514; principal; 2023-08-20 08:30)
DX: O34.211 Maternal care for low transverse scar from previous cesarean delivery (principal); Z3A.39 39 weeks gestation of pregnancy; Z37.0 Single live birth
CPT/HCPCS: 36415; 51702; 80307; 85025; 86850; 86900; 86901; 94667; 94668; 96372; 96374; 96375; J1094

== ENCOUNTER 2024-08-28 10:03 | Outpatient (OUT) | payer BC, SELFPAY ==
--- OUTSIDE RECORDS SUMMARY | 2024-08-28 10:29 | XMS_ITS | CCD ---
Author Organization [facility] Care Team Providers Care Application Integration Specialist Name Role Phone CIERRA ., DR WATKINS Consulting Unavailabl e MARC ., DR SENA Procedure Practitioner Unavail able MARC ., DR SENA Admitting Unavailable MARC ., DR SENA Attending Unavailable MARC ., DR SENA Consulting Unavailable TOLAYMAT, SANJAY Consulting Unavailable ALICJA, MICHELLE ABREU Consulting Unava ilable SHANIKA, DR WILD Garner Consulting Unavailable MARC ., [...] DR NESS LISTED Primary Care Unavaila ble MARC ., DR SENA Admitting Unavailable WEST, DR WILD Garner Consulting Unavailable MARC ., DR SENA Attending Unavailable MARC ., DR SENA Consulting Unavailable MARC ., DR SENA Admitting Unavailable MARC ., JAIDA Attending Unavailable MARC ., DR SENA Consulting Unavailable Unavailable Primary Care Provider Unavailelizabeth e Unavailable Primary Care Provider Unavailelizabeth e BJORN CAMARGO Attending Unavailable JAIDA BEVERLY Attending Unavailable JAIDA BEVERLY Attending Unavailable MARIE RIZVI Attending Unavailable Medications Current Medications Medication Drug [...] day at the same time 0 Active nitrofurantoin, macrocrystals 25 mg / nitrofurantoin, monohydrate 75 mg oral capsule (1 source) Nitrofuran Antibacterial Start: 06-26-2024 End: 07-01-2024 take 1 capsule by mouth twice daily nitrofurantoin monohydrate and macrocrystal (MACROBID) 100 mg capsule Indications: Dysuria Take 1 capsule by mouth two times a day for 5 days. 10 capsule 06/26/2024 07/01/2024 Active omeprazole 20 mg delayed release oral [...] Problem Classification Problem Date Documented Date Episodic/Chronic Genitourinary symptoms and ill-defined conditions (1 source) Dysuria; Translations: [Dysuria] 06-26-2024 Episodic Immunizations and screening for infectious disease (1 [...] UA Negative Negative - 4(70) +++ mg/dL [facility] Work Phone: Blood, UA Negative Negative - 50 Hugh/mcL [facility] Work Phone: Clarity, UA Clear [employer] Work Phone: Color, UA Yellow [employer] Work Phone: Glucose, UA Negative Negative - 1999(110) ++++ mg/dL [facility] [employer] Work Phone: Interpretation and review of laboratory results Normal [employer] Work Phone: Ketones, UA Negative Negative - 160(16) ++++ mg/dL [facility] Work Phone: Leukocytes, UA Negative Negative - 500+++ Joe/mcL [employer] Work Phone: Nitrite, UA Negative Negative - Positive [facility] [employer] Work Phone: pH, UA 5.5 5 - 9 [facility] [employer] Work Phone: Protein, UA Negative Negative - 1999(20) ++++ mg/dL [facility] [employer] Work Phone: Spec Grav, UA 1.015 1 - 1.03 [facility] [employer] Work Phone: Urobilinogen, UA 0.2 0.2 - 12 mg/dL [facility] [employer] Work Phone: [employer] Work Phone: PAP ACOG PANEL 2: 21 to 29on 09-29-2022 . . Normal [facility] Comment on above: Performed By: #### [id number] #### [facility] [address] [address] [address] Tyree Paiz Age Gdln ACOG Testing 20- Normal [facility] Comment on above: Performed By: #### [id number] #### [facility] [id number] Tyree Paiz DIAGNOSIS: Comment [facility] Comment on above: Result Comment: NEGA TIVE FOR INTRAEPITHELIAL LESION OR MALIGNANCY. Performed By: #### 4 [id number] #### [facility] [address] [place] [address] Dr. Tyree Paiz Methodology: Comment [facility] Comment on above: Result Comment: This liquid based ThinPrep(R) pap test was screened with the use of an image guided system. Performed By: #### [id number] #### [facility] [address] [place] [address] Dr. Tyree Paiz Note: Comment Normal [facility] Comment on above: Result Comment: The Pap smear is a screening test designed to aid in the detection of premalignant and malignant conditions of the uterine cervix. It is not a diagnostic procedure and should not be used as the sole means of detecting cervical cancer. Both false-positive and false-negative reports do occur. . Performed By: #### 4 [id number] #### [facility] [address] [place] [address] Dr. Tyree Paiz Performed by: Comment Normal [facility] Comment on above: Result Comment: Rafael Tejada, Shoe Reconditioner (ASCP) Performed By: #### [id number] #### [facility] [address] [place] [address] Dr. Tyree Paiz Reflex Criteria: Comment [facility] Comment on above: Result Comment: The HPV DNA reflex criteria were not met with this specimen result therefore, no HPV testing was performed. . Performed By: #### 4 [id number] #### [facility] [address] [place] [address] Dr. Tyree Paiz Specimen adequacy: Comment Normal [facility] Comment on above: Result Comment: Sati sfactory for evaluation. Endocervical and/or squamous metaplastic cells (endocervical component) are present. Performed By: #### 4 [id number] #### [facility] [address] [place] [address] Dr. Tyree Paiz TYPE AND SCREENon 02-01-2022 TYPE AND SCREEN Antibody Screen NEGATIVE Blood Bank Notes testing done by 01/29/22 ABO Rh Typing AB Rh Positive Blood Bank Notes testing done by 01/29/22 [facility] Comment on above: Performed By: #### T NS ####[facility] [address] [id number]. Tyree Paiz CBC AUTO DIFFon 01-31-2022 BASO # 0.0 103/ul Normal 0.0-0.1 [facility] Comment on above: Performed By: #### C BC #### [facility] [address] [address] [address] Tyree Paiz Basophils/100 WBC (Bld) 0.3 % Normal 0.2-2.0 [facility] Comment on above: Performed By: #### C BC #### [facility] [address] [address] [address] Tyree Paiz EO # 0.1 103/ul Normal 0.0-0.7 [facility] Comment on above: Performed By: #### C BC #### [facility] [address] [address] [address] Tyree Paiz Eosinophils/100 WBC (Bld) 0.8 % Critically low 0.9-7.0 [facility] Comment on above: Performed By: #### C BC #### [facility] [address] [address] [address] Tyree Paiz Erythrocyte distribution width (RBC) [Ratio] 13.4 % Normal 11.0-15.0 [facility] Comment on above: Performed By: #### C BC #### [facility] [address] [address] [address] Tyree Paiz Hematocrit (Bld) [Volume fraction] 27.4 % Critically low 36.0-48.0 [facility] Comment on above: Performed By: #### C BC #### [facility] [address] [address] [address] Tyree Paiz Hemoglobin (Bld) [Mass/Vol] 8.6 g/dL Critically low 12.0-16.0 [facility] Comment on above: Performed By: #### C BC #### [facility] [address] [address] [address] Tyree Paiz IG # 0.12 10e3/ul Critically high 0.00-0.03 [facility] Comment on above: Performed By: #### C BC #### [facility] [address] [place] [address] Dr. yTree Paiz IG % 0.9 % Critically high 0.0-0.5 [facility] Comment on above: Performed By: #### C BC #### [facility] [address] [place] [address] Dr. Tyree Paiz LYMPH # 1.9 103/ul Normal 1.2-3.8 [facility] Comment on above: Performed By: #### C BC #### [facility] [address] [place] [address] Dr. Tyree Paiz Lymphocytes/100 WBC (Bld) 13.7 % Critically low 20.5-60.0 [facility] Comment on above: Performed By: #### C BC #### [facility] [address] [place] [address] Dr. Tyree Paiz MANUAL DIFF REQ NO Normal [facility] Comment on above: Performed By: #### C BC #### [facility] [address] [place] [address] Dr. Tyree Paiz MCH (RBC) [Entitic mass] 27.0 pg Normal 26.7-34.0 [facility] Comment on above: Performed By: #### C BC #### [facility] [address] [place] [address] Dr. Tyree Paiz MCHC (RBC) [Mass/Vol] 31.4 g/dL Normal 29.9-35.2 [facility] Comment on above: Performed By: #### C BC #### [facility] [address] [place] [address] Dr. Tyree Paiz MCV (RBC) [Entitic vol] 85.9 fL Normal 81.0-99.0 [facility] Comment on above: Performed By: #### C BC #### [facility] [address] [place] [address] Dr. Tyree Paiz MONO # 1.1 103/ul Critically high 0.3-0.8 [facility] Comment on above: Performed By: #### C BC #### [facility] [id number] Tyree Paiz Monocytes/100 WBC (Bld) 8.1 % Normal 1.7-12.0 [facility] Comment on above: Performed By: #### C BC #### [facility] [address] [address] [address] Tyree Paiz NEUT # 10.3 103/ul Critically high 1.4-6.5 [facility] Comment on above: Performed By: #### C BC #### [facility] [address] [address] [address] Tyree Paiz Neutrophils/100 WBC (Bld) 76.2 % Critically high 43.0-75.0 [facility] Comment on above: Performed By: #### C BC #### [facility] [address] [address] [address] Tyree Paiz Platelet mean volume (Bld) [Entitic vol] 9.5 fL Normal 9.5-13.5 [facility] Comment on above: Performed By: #### C BC #### [facility] [address] [address] [address] Tyree Paiz PLT 196 103/ul Normal 150-450 [facility] Comment on above: Performed By: #### C BC #### [facility] [id number] Tyree Paiz RBC 3.19 106/ul Critically low 4.20-5.40 [facility] Comment on above: Performed By: #### C BC #### [facility] [address] [address] [address] Tyree Paiz WBC 13.5 103/ul Critically high 4.0-11.0 [facility] Comment on above: Performed By: #### C BC #### [facility] [id number] Tyree Paiz CBC W MANUAL DIFFon 01-30-20 22 ATYPICAL LYMPH # Normal [facility] Comment on above: Performed By: #### C BCMAN ####[facility] [address] [address]Dr. Tyree Paiz ATYPICAL LYMPH % Normal [facility] Comment on above: Performed By: #### C BCMAN ####[facility] [address] [address]Dr. Yicy Paiz BAND # 0.0 103/ul Normal 0.0-0.3 [facility] Comment on above: Performed By: #### C BCMAN ####[facility] [address] [address]Dr. Yilan Paiz BAND % 0 % Normal 0-5 [facility] Comment on above: Performed By: #### C BCMAN ####[facility] [address] [address]Dr. Tyree Paiz BASOM # 0.00 103/ul Normal 0.00-0.10 [facility] Comment on above: Performed By: #### C BCTY ####[facility] [address] [place], [place] [address]Dr. Tyree Paiz BASOM % 0.0 % Critically low 0.2-2.0 [facility] Comment on above: Performed By: #### C BCTY ####[facility] [address] [address]Dr. Tyree Paiz BLAST # Normal [facility] Comment on above: Performed By: #### C BCTY ####[facility] [address] [address]Dr. Tyree Paiz BLAST % Normal [facility] Comment on above: Performed By: #### C BCTY ####[facility] [address] [address]Dr. Tyree Paiz CORRECTED WBC Normal 4.0-11.0 [facility] Comment on above: Performed By: #### C BCTY ####[facility] [address] [address]Dr. Tyree Paiz EOS # 0.41 103/ul Normal 0.00-0.70 [facility] Comment on above: Performed By: #### C BCTY ####[facility] [address] [place], [place] [address]Dr. Tyree Paiz EOS% 3.0 % Normal 0.9-7.0 [facility] Comment on above: Performed By: #### C LEWIS ####[facility] [address] [id number]. Tyree Paiz HCT 31.3 % Critically low 36.0-48.0 [facility] Comment on above: Performed By: #### C LEWIS ####[facility] [address] [id number]. Tyree Paiz HGB 10.2 g/dl Critically low 12.0-16.0 [facility] Comment on above: Performed By: #### C LEWIS ####[facility] [address] [address]Dr. Tyree Paiz LYMPHM # 1.63 103/ul Normal 1.20-3.80 [facility] Comment on above: Performed By: #### C LEWIS ####[facility] [address] [address]Dr. Tyree Paiz LYMPHM% 12.0 % Critically low 20.5-60.0 [facility] Comment on above: Performed By: #### C LEWIS ####[facility] [address] [address]Dr. Tyree Paiz MCH 27.4 pg Normal 26.7-34.0 [facility] Comment on above: Performed By: #### C LEWIS ####[facility] [address] [id number]. Tyree Paiz MCHC 32.6 g/dl Normal 29.9-35.2 [facility] Comment on above: Performed By: #### C LEWIS ####[facility] [address] [id number]. Tyree Paiz MCV 84.1 fL Normal 81.0-99.0 [facility] Comment on above: Performed By: #### C LEWIS ####[facility] [address] [address]Dr. Tyree Paiz METAMYELOCYTE # Normal [facility] Comment on above: Performed By: #### C LEWIS ####[facility] [address] [id number]. Tyree Paiz METAMYELOCYTE % Normal [facility] Comment on above: Performed By: #### C BCTY ####[facility] [address] [place], [place] [address]Rk. Tyree Paiz MONOM# 1.36 103/ul Critically high 0.30-0.80 [facility] Comment on above: Performed By: #### C LEWIS ####[facility] [address] [id number]. Tyree Paiz MONOM% 10.0 % Normal 1.7-12.0 [facility] Comment on above: Performed By: #### C LEWIS ####[facility] [address] [id number]. Tyree Chencho MPV 9.5 fL Normal 9.5-13.5 [facility] Comment on above: Performed By: #### C LEWIS ####[facility] [address] [id number]. Tyree Paiz MYELOCYTE # Normal [facility] Comment on above: Performed By: #### C LEWIS ####[facility] [address] [id number]. Tyree Paiz MYELOCYTE % Normal [facility] Comment on above: Performed By: #### C LEWIS ####[facility] [address] [id number]. Tyree Paiz NRBC Normal [facility] Comment on above: Performed By: #### C LEWIS ####[facility] [address] [id number]. Tyree Paiz PLT 258 103/ul Normal 150-450 [facility] Comment on above: Performed By: #### C LEWIS ####[facility] [address] [id number]. Tyree Paiz RBC 3.72 106/ul Critically low 4.20-5.40 [facility] Comment on above: Performed By: #### C LEWIS ####[facility] [address] [place], [place] [address]Gj. Tyree Paiz RDW 13.0 % Normal 11.0-15.0 [facility] Comment on above: Performed By: #### C LEWIS ####[facility] [address] [place], [place] [address]Kp. Tyree Paiz SEG # 10.20 103/ul Critically high 1.40-6.50 [facility] Comment on above: Performed By: #### C LEWIS ####[facility] [address] [place], [place] [address]Zk. Tyree Paiz SEG % 75.0 % Normal 43.0-75.0 [facility] Comment on above: Performed By: #### C LEWIS ####[facility] [address] [place], [place] [address]Tv. Tyree Paiz WBC 13.6 103/ul Critically high 4.0-11.0 [facility] Comment on above: Performed By: #### C LEWIS ####[facility] [address] [place], [place] [address]Av. Tyree Paiz Covid-19 PCR ([facility])on SARS-CoV-2 (COVID-19) RNA GINO+probe Ql (Unsp spec) Not detected Normal NOT DETECTED [facility] Comment on above: Result Comment: When [...] for this test is supported by the [employer] Worker of Health and Human Service's declaration that [...] used). Performed By: #### C VDTBH #### [facility] [address] [place] [address] Dr. Tyree Paiz DRUG SCREEN RAPID (URINE)on 01-29-2022 AMP Negative Normal NEGATIVE [facility] Comment on above: Performed By: #### D RUGRPD #### [facility] [address] [place] [address] Dr. Tyree Paiz BAR Negative Normal NEGATIVE [facility] Comment on above: Performed By: #### D RUGRPD #### [facility] [address] [place] [address] Dr. Tyree Paiz BUP Negative Normal NEGATIVE [facility] Comment on above: Performed By: #### D RUGRPD #### [facility] [address] [place] [address] Dr. Tyree Paiz BZO Negative Normal NEGATIVE [facility] Comment on above: Performed By: #### D RUGRPD #### [facility] [address] [place] [address] Dr. Tyree Paiz ZACHARY Negative Normal NEGATIVE [facility] Comment on above: Performed By: #### D RUGRPD #### [facility] [address] [place] [address] Dr. Tyree Paiz CUT-OFFS SEE BELOW Normal [facility] Comment on above: Result Comment: AMP [...] ng/mL Performed By: #### D RUGRPD #### [facility] [address] [address] [address] Tyree Paiz DRUG CUT HEADER DRUG CLASS TEST SYSTEM CUT-OFF CONCENTRATIONS ARE FOLLOWS: Normal [facility] Comment on above: Performed By: #### D RUGRPD #### [facility] [address] [address] [address] Tyree Paiz mAMP Negative Normal NEGATIVE [facility] Comment on above: Performed By: #### D RUGRPD #### [facility] [address] [address] [address] Tyree Paiz MTD Negative Normal NEGATIVE [facility] Comment on above: Performed By: #### D RUGRPD #### [facility] [address] [place] [address] Dr. Tyree Paiz OPI Negative Normal NEGATIVE [facility] Comment on above: Performed By: #### D RUGRPD #### [facility] [address] [place] [address] Dr. Tyree Paiz OXY Negative Normal NEGATIVE [facility] Comment on above: Performed By: #### D RUGRPD #### [facility] [address] [place] [address] Dr. Tyree Paiz PCP Negative Normal NEGATIVE [facility] Comment on above: Performed By: #### D RUGRPD #### [facility] [address] [place] [address] Dr. Tyree Paiz PPX Negative Normal NEGATIVE [facility] Comment on above: Performed By: #### D RUGRPD #### [facility] [address] [address] [address] Tyree Paiz TCA Negative Normal NEGATIVE [facility] Comment on above: Performed By: #### D RUGRPD #### [facility] [address] [address] [address] Tyree Paiz THC Negative Normal NEGATIVE [facility] Comment on above: Performed By: #### D RUGRPD #### [facility] [address] [place] [address] Dr. Tyree Paiz US PREG BIOPHY W [...] WILD VOSS Date: 2022-01-26 19:11 Normal [facility] US PREG BIOPHY W NON STRESSo [...] WILD VOSS Date: 2022-01-19 07:52 Normal [facility] GROUP B STREP CULTUREon 12-22 S. agalactiae Ag Ql (Unsp spec) Culture Observations: NEGATIVE FOR GROUP B STREPTOCOCCUS. Normal [facility] Comment on above: Performed By: #### G BSCX ####[facility] [address] [place], [place] [address]ZxSarah Paiz US PREG GROWTHon 01-12-2022 US PREG [...] by: WILD VOSS Date: 2022-01-12 16:41 Normal [facility] GLUCOSE - 1HRon 11-10-2021 Glucose [Mass/Vol] 98 mg/dL Normal 74-106 [facility] Comment on above: Performed By: #### G LU1HR #### [facility] [address] [place] [address] Dr. Tyree Paiz HEMOGRAM AND PLATELon 2021 Hematocrit (Bld) [Volume fraction] 36.3 % Normal 36.0-48.0 [facility] Comment on above: Performed By: #### H H #### [facility] [address] [address] [address] Tyree Paiz Hemoglobin (Bld) [Mass/Vol] 11.9 g/dL Critically low 12.0-16.0 [facility] Comment on above: Performed By: #### H H #### [facility] [address] [address] [address] Tyree Paiz MCH (RBC) [Entitic mass] 30.1 pg Normal 26.7-34.0 [facility] Comment on above: Performed By: #### H H #### [facility] [address] [address] [address] Tyree Paiz MCHC (RBC) [Mass/Vol] 32.8 g/dL Normal 29.9-35.2 [facility] Comment on above: Performed By: #### H H #### [facility] [address] [address] [address] Tyree Paiz MCV (RBC) [Entitic vol] 91.7 fL Normal 81.0-99.0 [facility] Comment on above: Performed By: #### H H #### [facility] [address] [place], [place] [address] Dr. Tyree Paiz PLT 237 103/ul Normal 150-450 [facility] Comment on above: Performed By: #### H H #### [facility] [address] [place], [place] [address] Dr. Tyree Paiz RBC 3.96 106/ul Critically low 4.20-5.40 [facility] Comment on above: Performed By: #### H H #### [facility] [address] [place], [place] [address] Dr. Tyree Paiz WBC 12.6 103/ul Critically high 4.0-11.0 [facility] Comment on above: Performed By: #### H H #### [facility] [address] [place], [place] [address] Dr. Tyree Paiz US PREG INCOMPLETE ANATOMYon [...] CAIO NGO Date: 2021-11-02 17:30 Normal [facility] ED Note-Physicianon 06-07-19 21 ED Note-Physician Basic Information Time Seen: Neha [...] small amount of swelling and itching at , it is grown progressively worse. She is attempted to use an tgyb-pyg-zbemaoo eczema cream but states that it is [...] Appropriate mood & affect. Integumentary: Warm, Dry, [place] Medical Decision Making I believe this to [...] Information Austyn Bocanegra In 3 days 06/09/2020 [facility] [place] [address], [address] [place] [address]- Business (1) Additional Instructions: Use the eye ointment as prescribed, return should vision disturbance develop, otherwise follow-up with the manager of software development as directed for reevaluation. Patient Education Eczema [...] available. Diagnostic Results No qualifying data available. [facility] Comment on above: Result Comment: Elec tronically Signed By: Calvin Morley PA-C\.br\Date and Time Signed: 06/06/20 12:03 EST\.br\Electronically Co-Signed By: Jr Solomon DO\.br\Date and Time Co-Signed: 06/06/20 22:16 EST Coding Summary.on 06-06-2020 Coding Summary. CODING DATE: 06/06/2020 [facility] System STATUS: Home (Routine DC) PAYOR: Self Pay [...] Aliya Mejía Date Saved: 06/06/2020 05:36 pm [facility] Consent for Treatmenton 05-23 Consent for Treatment [id number] .00CD:127 [facility] Discharge Instructionson Discharge Instructions [id number] 1.00CD:127 Normal [facility] ED Clinical Summaryon 2020 ED Clinical Summary [place] [id number] ED Clinical Summary Person Information Name: GRACE PENNY Krupa/NewOsmin Age: 20 Years : 2000 Sex: Female Language: Georgian PCP: Tony PHAN MD Marital Status: Single [...] 06/06/2020 12:00:00 06/06/2020 12:00:00 06/06/2020 12:00:00 ADDRESS: [address] [place], [place] [id number] [facility] DOC NOTES: MEDICAL INFORMATION: Prescriptions Given: New Medications Printed Prescriptions loteprednol ophthalmic (Lotemax 0.5% ophthalmic ointment) 1 eloise OPTH QID. Refills: 0. Medications to Continue with No Changes Other Medications naproxen (naproxen 500 mg Tab) 1 Tablets By Mouth 2 times a day as needed for pain. Refills: 0. PATIENT EDUCATION INFORMATION: Instructions: Eczema Follow up: With: Address: When: Austyn Bocanegra [facility] [address] [id number] [facility] (0) In 3 days 06/09/2020 Comments: Use the eye ointment as prescribed, return should vision disturbance develop, otherwise follow-up with the manager of software development as directed for reevaluation. DIAGNOSIS: 1:Eyelid dermatitis, eczematous Normal [facility] ED Patient Education Noteon 06-06-2020 ED [...] the itching and scratching. ? ? Use rtbk-sel-gwzhiwu antihistamines as directed for itching. This is especially useful at night when the itching tends to be worse. ? ? Use jwfy-arj-edxweaq steroid creams as directed for itching. ? [...] ? HOME CARE INSTRUCTIONS ? Only take vmiw-eaf-etpcroz or prescription medicines as directed by your [...] Document Reviewed: 12/10/2013 ExitCare? Patient Information ?2015 [employer]. This information is not intended to replace advice given to you by your health care provider. Make sure you discuss any questions you have with your health care provider. Normal [facility] ED Patient Summaryon 021 ED Patient Summary [address] [address] Patient Discharge Instructions Person Information Name: GRACE PENNY Age: 20 Years Arrival Date: 06/06/2020 11:09:25 Discharge Diagnosis: 1:Eyelid dermatitis, eczematous Primary Care Physician: Tony PHAN MD Provider Information Primary Provider: Jr Solomon DO Advanced Mailroom Coordinator:Calvin Morley PA-C The exam and treatment you received in the Emergency Department were for an urgent problem and are not intended as complete care. It is important that you follow up with a doctor, nurse practitioner, or physician?s assistant baseball coach for ongoing care. If your symptoms become worse or you do not improve as expected and you are unable to reach your usual health care provider, you should return to the Emergency Department. We are available 24 hours a day. GRACE PENNY has been given the following list of patient education materials, prescriptions and follow-up instructions: Follow-up Instructions: With: Address: When: Austyn Bocanegra [facility] [address], [address] [address] Business (1) In 3 days 06/09/2020 Comments: Use the eye ointment as prescribed, return should vision disturbance develop, otherwise follow-up with the manager of software development as directed for reevaluation. In the event that this physician does not participate in your insurance network, please consult with your insurance company to find a nearby participating provider. Patient Education Materials: Eczema A MESSAGE TO ALL PATIENTS REGARDING OPIOIDS PRESCRIPTION OPIOIDS: WHAT YOU NEED TO KNOW Prescription opioids can be used to help relieve bjafqkwj-gw-jxnuww pain and are often prescribed following a [...] abuse and overdose. (more content not included)... [facility] Registrationon 04-08-2020 Registration [id number] 1.00CD:127 [facility] Consenton 04-07-2020 Consent [id number] 1.00CD:127 [facility] Registrationon 04-07-2020 Registration [id number] 1.00CD:127 [facility] Vital Signs Date Time Vital Sign Value Performing Clinician Frances godoy 06-23-2023 11:47-0500 Body mass index (BMI) [Ratio] 33.37 kg/m2 Itandi DO Work Phone: [facility] [employer] 06-23-2023 11:47-0500 Body weight 85.46 kg Itandi DO Work Phone: [facility] 06-23-2023 11:47-0500 Diastolic blood pressure 70 mm[Hg] [employer] Work Phone: [facility] 06-23-2023 11:47-0500 Systolic blood pressure 120 mm[Hg] Jaida Beverly DO Work Phone: [facility] Encounters Encounter Date Encounter Type Care Provider Facility Start: 08-10-2024 End: 08-10-2024 ambulatory BJORN Estrella ALTONBRIAN Not Available Start: 06-26-2024 End: 06-26-2024 ambulatory Facility:[facility] Start: 06-26-2024 End: 06-26-2024 Telemedicine consultation with patient Chadwick Ornelas APRN.ASSEMBLER [employer] Work Phone: Telemedicine Comment on above: Dysuria (Primary Dx) Start: 09-29-2023 End: 09-29-2023 ambulatory MARIE RIZVI Not Available Start: 08-25-2023 End: 08-25-2023 ambulatory JAIDA BEVERLY Not Available Start: 08-17-2023 End: 08-17-2023 ambulatory JAIDA BEVERLY Not Available Start: 06-23-2023 End: 06-23-2023 flow sheet Jaida Beverly DO Work Phone: [facility] Comment on above: Third trimester preg jose Start: 09-22-2022 End: 09-22-[address] JAIDA [...] Treatment Date Care Activity Detail Author Start: 02-02-2032 Urine microalbumin profile DTa P,Tdap,Td Vaccine (2 - Tdap) [facility] Start: 01-22-2024 Covid-19 Vaccine ( season) Covid-19 Vaccine () [facility] Start: 01-22-2024 Influenza vaccination Influenza Vacc ine (#1) [facility] Start: 07-11-2023 End: 07-11-2023 Patient encounter procedure 07/11/2023 3:10 PM EST Routine [facility] [address] [place] [id number] Jaida Beverly, DO [address] [place] [address] [facility] Start: 01-29-2020 Screening for malign ant neoplasm of cervix Cervical Cancer Screening [facility] Start: 2018 Hepatitis B Vaccine (1 of 3 - 19+ 3-dose series) Hepatitis B Vaccine (1 of 3 - 19+ 3-dose series) [facility] Start: 2017 Anxiety Screening Anxiety Screening [facility] Start: 2017 Depression Screening Depression Scre ening [facility] Start: 2017 Hepatitis C screening Hepatitis C Sc reening [facility] Start: 2017 HIV screening HIV Screening [facility] Start: 2014 HPV Vaccine (1 - 3-d ose series) HPV Vaccine (1 - 3-dose series) [facility] Start: 2013 Peds To Adult Transi tion Annual Assessment Peds To Adult Transition Annual Assessment [facility] Start: 2011 Peds To Adult Transi tion Initial Discussion Peds To Adult Transition Initial Discussion [facility] Payers Date Payer Category Payer Unknown BCBS BCBS xxxxxx [id number] 2022-Present [phone] [address] [place] [address] [id number] 1999 Unknown [id number] 1999 Unknown [id number] [id number] 1999 Unknown [id number] [id number] 1999 Unknown [id number] 1999 Unknown [id number] 1999 Unknown [id number] [id number] 1999 Unknown [id number] [id number] 1999 Unknown [id number] [id number] 1999 Unknown [id number] [id number] 1999 Unknown [id number] [id number] 1999 Unknown [id number] [id number] 1999 Unknown [id number] [id number] 1999 Unknown [id number] [id number] 1999 Unknown [id number] 1959 Unknown [id number] Social History Date Type Detail Facility Start: 02-02-2023 Tobacco smoking stat [facility] Never smoked tobacco [facility] Start: 02-02-2023 Tobacco use and exposure Smoke less tobacco non-user [facility] Start: 06-23-2023 Alcohol intake [...] Sexual orientation Heterosexual (fin ding) [facility] Tobacco smoking stat [facility] Tobacco smoking consumption unknown [facility] Goals Date Patient Goal Desired Activity /State Personal health goal Instructions 06-26-2024 Patient Instructions Note Date & Type Note Facility 06-26-2024 Instructions Chadwick Ornelas APRN.ASSEMBLER [employer] - 06/26/2024 12:45 PM EST [facility] PATIENT INFO BLADDER INFECTION OVERVIEW Bladder infections are one of the most common infections, causing symptoms of burning with urination and needing to urinate frequently. A bladder infection is a type of urinary tract infection (UTI). Bladder infections are more common is women than men. Most women have an uncomplicated bladder infection that is easily treated with a short course of antibiotics. In men, bladder infections may also affect the prostate gland, and a longer course of treatment may be needed. BLADDER INFECTION CAUSES The urinary tract includes the kidneys (which filter urine), ureters (the tube that carries urine from the kidneys to the bladder), the bladder (which stores urine), and urethra (the tube that carries urine out of the bladder). Bacteria do not normally live in these areas. However, bacteria normally live close to the urethra in women and men who are not circumcised. Bladder infections occur when bacteria travel up the urethra into the bladder. Factors that increase the risk of developing a bladder infection include: Vaginal sex Use of spermicides History of past bladder infections Diabetes In men, not being circumcised or having anal sex increase the risk of bladder infections. BLADDER INFECTION SYMPTOMS The typical symptoms of a bladder infection include: Pain or burning when urinating Frequent need to urinate Urgent need to urinate Blood in the urine Fever, back pain, nausea, or vomiting are not common symptoms of a bladder infection, but can occur in people with a kidney infection (pyelonephritis). If you have these symptoms, you should call your doctor or nurse immediately. Is it a bladder infection or something else? -- Burning with urination can also occur in people with vaginitis (eg, yeast infection) or urethritis (inflammation of the urethra). For this reason, it is important to call your healthcare provider before assuming you have a bladder infection. BLADDER INFECTION DIAGNOSIS Simple bladder infections are usually diagnosed based upon your symptoms alone. However, most patients, especially those who have bladder infection symptoms for the first time, should see a healthcare provider for urine testing. Urine culture -- A urine culture is a test that uses a sample of urine to try and grow bacteria in a laboratory. It usually requires about 48 hours to get results. However, a urine culture is not always required to diagnose a bladder infection. Urine culture is often recommended if: You have never had a bladder infection before You have symptoms that are not typical for bladder infection You have had resistant bladder infections before You have frequent bladder infections You do not begin to feel better within 24 to 48 hours after starting antibiotics You are BLADDER INFECTION TREATMENT Bladder infection -- In young, healthy adolescents and adults with a bladder infection, the usual treatment includes a three to seven day course of antibiotics. The typical drugs chosen are: trimethoprim-sulfamethoxazole (Bactrim ), nitrofurantoin (Macrobid ), ciprofloxacin (Cipro ) or levofloxacin (Levaquin ). In men, the infection may involve your prostate gland and treatment is usually given for at least 7 days. Your symptoms should begin to resolve within one day after starting treatment. It is important to take the full course of antibiotics to completely eliminate the infection. If your symptoms persist for more than two or three days after starting treatment, call your healthcare provider. If needed, you can take a prescription medication that numbs the bladder and urethra (phenazopyridine [Pyridium ]) to reduce the burning pain of some UTIs. A similar medication is available without a prescription (eg, Uristat). Both medications change the color of the urine (usually blue or orange) and can interfere with laboratory testing. You should not take these medications for more than 48 hours due to the risk of side effects. These medications do not treat the infection and must be taken along with an antibiotic. Some providers recommend drinking more fluids while treating bladder infections to help flush bacteria from the bladder. Others believe that drinking more fluids may dilute the antibiotic in the bladder and make the medication less effective. No studies have been performed to address this issue. There are also no good studies on the effectiveness of cranberry juice for treating a bladder infection; we do not recommend using cranberry juice to treat bladder infections. Follow-up care -- Follow-up testing is not needed in healthy, young men or women with a bladder infection if symptoms resolve. women are usually asked to have a repeat urine culture one to two weeks after treatment has ended to make sure the bacteria are no longer in the urine. RECURRENT BLADDER INFECTIONS Bladder infections versus other causes -- Some adults, especially women, develop bladder infections frequently. In this case, it is important to confirm that your symptoms (eg, pain or burning, frequency, and urgency) are caused by a bladder infection. Symptoms are usually similar from one infection to another. The best way to confirm an infection is to have a urine culture. If your urine culture is negative for infection, other causes of pain, burning, and frequency should be investigated. There is no reason to take antibiotics if your urine culture is negative. Need for further testing -- If you continue to develop bladder infections, you may require further testing. If you continue to notice blood in your urine after your bladder infection has cleared, you should have further testing. Preventing recurrent UTIs -- Women with recurrent urinary tract infections may be advised to take steps to prevent bladder infections, including one or more of the following: Changes in control -- Women who develop frequent bladder infections and use spermicides, particularly those who also use a diaphragm, may be encouraged to use an alternate method of control. Cranberry products -- Taking cranberry juice or cranberry tablets has been promoted as one way to help prevent frequent bladder infections. However, this has not been proven. Drinking more fluid and urinating after intercourse -- Although studies have not proven that drinking more fluids or urinating soon after intercourse can prevent infection, some healthcare providers recommend these measures since they are not harmful. Drinking more fluid may help to wash out bacteria that enter the bladder. Postmenopausal women -- Postmenopausal women who develop recurrent bladder infections may benefit from using vaginal estrogen. Vaginal estrogen is available in a flexible ring that is worn in the vagina for three months (eg, Estring ), a small tablet (Vagifem ), or a cream (eg, Premarin or Estrace ). Vaginal estrogen is discussed in more detail in a separate topic review. Antibiotics -- A preventive antibiotic treatment may be recommended if you repeatedly develop bladder infections and have not responded to other preventive measures. Antibiotics are highly effective in preventing recurrent bladder infections and can be taken in several different ways. Preventive antibiotic -- You can take a low dose of an antibiotic once per day or three times per week for six months to several years. Antibiotics following intercourse -- In women who develop urinary tract infections after sex, taking a single low dose antibiotic after intercourse can help to prevent bladder infections. Self-treatment -- A plan to begin antibiotics at the first sign of a bladder infection may be recommended in some situations. Before starting this regimen, it is important that you have had testing (urine cultures) to confirm that your symptoms are caused by a bladder infection; some people have symptoms of a bladder infection but do not actually have an infection. documented in this encounter [facility] Progress note 06-26-2024 Note Date & Type Note Facility 06-26-2024 Note HNO ID: [id number] Author: CHADWICK ORNELAS APRN.ANDREW Service: ? Author Type: Nurse Practitioner Type: Progress Notes Filed: 06/26/2024 12:45 Note Text: Telemedicine Visit - Distance Health Virtual Visit Note Patient seen on [employer] Video Visit platform. Location of patient: [place] I have communicated my name and active licensure. The patient's identity and physical location were verified at the time of this visit. Either the patient or their legal auto service representative has been informed of the risks and benefits of -- and alternatives to -- treatment through a remote evaluation and consents to proceed with the evaluation remotely. History of Present Illness Grace Fuentes is a 24 year old female with a history of UTI symptoms for 1 days. Urinary symptoms ROS: Positive for: Blood in urine, Dysuria, and Increase in frequency of urination Negative for: Back/Flank pain and Fevers /Lactating: : No: Lactating: No Sexually active: Yes: STI concerns: No LMP: 10 days ago Number of previous UTI's in last 6 months: 0 Number of previous UTI's in last 12 months: 0 Alleviating Factors include Increasing fluids with minimal relief in symptoms. No past medical history on file. No past surgical history on file. No family history on file. ALLERGIES No Known Allergies Current Outpatient Medications Medication Sig nitrofurantoin monohydrate and macrocrystal (MACROBID) 100 mg capsule Take 1 capsule by mouth two times a day for 5 days. No current facility-administered medications for this visit. Video Exam (Examination performed via Video enabled technology) General Appearance: Alert, oriented, pleasant, in NAD: Yes Ill appearing: No Lethargic appearing: No Respiratory distress: No Abdomen: non-tender by self palpation CVA Tenderness: non-tender bilaterally by self palpation ASSESSMENT/PLAN: 1. Dysuria - ICD9: 788.1, ICD10: R30.0 Acute -Pt. With 1 day of symptoms, some blood when wiping. Pt. Does not live near [facility] lab. Advised patient will empirically treat but under strict precautions to be seen in person if no improvement or worsening symptoms -Pt. Aware if gets another UTI in the next 12 months, needs in person visit -Have urinalysis done in 4 weeks - Begin treatment with Macrobid 100 mg BID for 5 days - Patient education for prevention given - NITROFURANTOIN MONOHYDRATE AND MACROCRYSTAL 100 MG ORAL CAP Red flags discussed for in person care and follow up, including but not limited to worsening symptoms, hematuria, new back pain, fever, chills, or other concerning symptoms All questions answered Chadwick Ornelas APRN.CNP [facility] History of Present illness Narrative 06-26-2024 Chadwick Ornelas APRN.ANDREW - 06/26/2024 12:33 PM EST Note Date & Type Note Facility 06-26-2024 History of Presen t illness Narrative Telemedicine Visit - Distance Health Virtual Visit Note Patient seen on [employer] Video Visit platform. Location of patient: [place] I have communicated my name and active licensure. The patient's identity and physical location were verified at the time of this visit. Either the patient or their legal auto service representative has been informed of the risks and benefits of -- and alternatives to -- treatment through a remote evaluation and consents to proceed with the evaluation remotely. History of Present Illness Grace Fuentes is a 24 year old female with a history of UTI symptoms for 1 days. Urinary symptoms ROS: Positive for: Blood in urine, Dysuria, and Increase in frequency of urination Negative for: Back/Flank pain and Fevers /Lactating: : No: Lactating: No Sexually active: Yes: STI concerns: No LMP: 10 days ago Number of previous UTI's in last 6 months: 0 Number of previous UTI's in last 12 months: 0 Alleviating Factors include Increasing fluids with minimal relief in symptoms. No past medical history on file. No past surgical history on file. No family history on file. ALLERGIES No Known Allergies Current Outpatient Medications Medication Sig nitrofurantoin monohydrate and macrocrystal (MACROBID) 100 mg capsule Take 1 capsule by mouth two times a day for 5 days. No current facility-administered medications for this visit. Video Exam (Examination performed via Video enabled technology) General Appearance: Alert, oriented, pleasant, in NAD: Yes Ill appearing: No Lethargic appearing: No Respiratory distress: No Abdomen: non-tender by self palpation CVA Tenderness: non-tender bilaterally by self palpation ASSESSMENT/PLAN: 1. Dysuria - ICD9: 788.1, ICD10: R30.0 Acute -Pt. With 1 day of symptoms, some blood when wiping. Pt. Does not live near [facility] lab. Advised patient will empirically treat but under strict precautions to be seen in person if no improvement or worsening symptoms -Pt. Aware if gets another UTI in the next 12 months, needs in person visit -Have urinalysis done in 4 weeks - Begin treatment with Macrobid 100 mg BID for 5 days - Patient education for prevention given - NITROFURANTOIN MONOHYDRATE & MACROCRYSTAL 100 MG ORAL CAP Red flags discussed for in person care and follow up, including but not limited to worsening symptoms, hematuria, new back pain, fever, chills, or other concerning symptoms All questions answered Chadwick Ornelas APRN.ANDREW documented in this encounter [facility] History of Present illness Narrative 06-23-2023 BHARAT [...] of: YVETTE Xavier documented in this encounter [facility] Clinical Note 01-29-2022 Note Date & Type Note Facility 01-29-2022 Note OPERATIVE NOTE OPERATION DATE: 01/30/2022 PROCEDURE: Primary low transverse section. PREOPERATIVE DIAGNOSIS: 1. Intrauterine at 38+ weeks. 2. Spontaneous labor. 3. Failure to descend. POSTOPERATIVE DIAGNOSIS: 1. Intrauterine at 38+ weeks. 2. Spontaneous labor. 3. Failure to descend. ANESTHESIA: Epidural with Duramorph. SURGEON: Jaida Beverly D.O. BUILDING SERVICES COORDINATOR: JOCELYNN Matos URINE OUTPUT: Yellow and clear. [...] the Recovery Room in stable condition. [facility] Discharge summary note 01-29-2022 Note Date [...] free and no longer on narcotics. [facility] Progress note 08-08-2020 Note Date & Type Note Facility 08-08-2020 Note HNO ID: [id number] Author: Jackelyn Russell Service: ? Author Type: [...] for this visit. Jackelyn Russell MD [facility] Evaluation note Note Date & Type Note Facility Evaluation note Diagnosis Third trimester state, incidental documented in this encounter [facility] Evaluation note Note Date & Type Note Facility Evaluation note Diagnosis Dysuria- Primary documented in this encounter [facility] Summary Purpose Family History No Family History Records FoundNo Family History Records FoundNo Family History Records FoundNo Family History Records FoundNo Family History Records Found Advance Directives No Advanced Directives Records FoundNo Advanced Directives Records FoundNo Advanced Directives Records FoundNo Advanced Directives Records FoundNo Advanced Directives Records Found Additional Source Comments INFORMATION SOURCE (unrecogn ized section and content) DATE CREATED AUTHOR 11/23/2020 Chavez Lal [facility] DATE CREATED AUTHOR AUTHOR'S ORGANIZ ATION 06/21/2021 [facility] DATE CREATED AUTHOR AUTHOR'S ORGANIZ ATION 09/29/2022 [facility] DATE CREATED AUTHOR AUTHOR'S ORGANIZ ATION 06/28/2024 [facility] DATE CREATED AUTHOR AUTHOR'S ORGANIZ ATION 08/12/2024 [facility] d[facility] Specialists EPIC Reason for Visit (unrecogniz ed section and content) Reason Comments Routine Visit Reason Comments UTI Source Comments (unrecognize d section and content) In the event this informatio n is protected by the Federal Confidentiality of Alcohol and Drug Abuse Patient Records regulations: The Federal rules restrict any use of the information to criminally investigate or prosecute any alcohol or drug abuse patient.[facility] FOR RECORDS PERTAINING TO PATIENTS WHO ARE [...] BE BASED ON THE PRIMARY CLINICAL RECORDS. [employer] provides no warranty or guarantee of the accuracy or completeness of information in this document.
[2024-08-28 10:33] LABS: Basophils Percent Auto 0.6 % (0.2-2.0); Eosinophils Absolute Auto 0.2 10^3/uL (0.0-0.7); Eosinophils Percent Auto 2.4 % (0.9-7.0); Hemoglobin 14.8 g/dL (12.0-16.0); Immature Granulocytes Abs Auto 0.01 10^3/uL (0.00-0.03); Immature Granulocytes Pct Auto 0.1 % (0.0-0.5); Lymphocytes Absolute Auto 2.4 10^3/uL (1.2-3.8); Lymphocytes Percent Auto 34.2 % (20.5-60.0); Mean Corpuscular HGB Conc 32.9 g/dL (29.9-35.2); Mean Corpuscular Hemoglobin 29.2 pg (26.7-34.0); Mean Corpuscular Volume 88.8 fL (81.0-99.0); Mean Platelet Volume 9.2 fL (9.5-13.5); Monocytes Absolute Auto 0.5 10^3/uL (0.3-0.8); Monocytes Percent Auto 7.7 % (1.7-12.0); Neutrophils Absolute Auto 3.8 10^3/uL (1.4-6.5); Platelet Count 279 10^3/uL (150-450); Red Blood Count 5.07 10^6/uL (4.20-5.40); Red Cell Distribution Width 12.4 % (11.0-15.0)
[2024-08-28 11:23] LABS: Alanine Aminotransferase 38 U/L (14-59); Albumin Globulin Ratio 1.2; Albumin Level 4.3 g/dL (3.4-5.0); Alkaline Phosphatase 77 U/L (46-116); Aspartate Amino Transferase 22 U/L (15-37); BUN Creatinine Ratio 18.7; Bilirubin Total 0.4 mg/dL (0.2-1.0); Carbon Dioxide 31.3 mmol/L (21.0-32.0); Chloride 105 mmol/L (98-107); Chol HDL Ratio 2.1; Cholesterol 133 mg/dL (<=200); Estimated GFR (African America >60 (>=60 mL/min/1.73m^2); Estimated GFR (Non-African Ame >60 (>=60 mL/min/1.73m^2); Globulin 3.5 g/dL; Glucose 88 mg/dL (74-106); HDL Cholesterol 62 mg/dL (40-60); Potassium 4.3 mmol/L (3.5-5.1); Sodium 140 mmol/L (136-145); Total Protein 7.8 g/dL (6.4-8.2); Triglycerides 40 mg/dL (<=150)
== END 2024-08-28 10:04 | disposition home or self-care (01) ==
LOC: LAB 10:06
PROVIDERS: PCP Family Medicine; Visit Provider Family Medicine
DX: Z00.00 Encounter for general adult medical examination without abnormal findings (principal); Z13.6 Encounter for screening for cardiovascular disorders; R30.0 Dysuria
CPT/HCPCS: 36415; 80053; 80061; 85025

== ENCOUNTER 2024-09-20 07:54 | Outpatient (OUT) | payer BC, SELFPAY ==
--- NOTE | 2024-09-20 07:56 | US_ITS ---
The [address] [address] Patient Name: DELIA FUENTES MRN: [id number] date: 2000 Sex: F Assigned Patient Location: Current Patient Location: Accession/Order Number: [id number] Exam Date: 09/20/2024 09:08 Report Date: 09/20/2024 09:12 At the request of: JAIDA TRAN DO Procedure: US pelvis w/ transvaginal Pelvic ultrasound. Reason for exam: Pelvic pain Comparison: none Technique: Transabdominal imaging of the uterus and ovaries was performed. Transvaginal imaging of the uterus and ovaries was also obtained. Additional spectral Doppler analysis of the ovaries was also obtained. Findings: Uterus measures 7.6 x 5.9 x 4.4 cm. No fibroid. Endometrium measures 7.4 mm without focal abnormality. No free fluid is seen. Right ovary measures 3.4 x 2.0 x 1.7 cm. The left ovary measures 3.1 x 1.6 x 2.0 cm. No evidence of adnexal mass or cyst. Normal arterial and venous Doppler waveforms. US/US pelvis w/ transvaginal Impression: Unremarkable pelvic ultrasound. Impression dictated by: Arturo Ruggiero Jr., D.O. 09/20/2024 9:12 AM Dictation [facility] Electronically authenticated by: [id number] Y Date: 09/20/2024 09:12
== END 2024-09-20 07:55 | disposition home or self-care (01) ==
LOC: US 07:54
PROVIDERS: PCP Family Medicine; Visit Provider Obstetrics & Gynecology
DX: R10.2 Pelvic and perineal pain (principal)
CPT/HCPCS: 76830; 76856

== ENCOUNTER 2024-12-12 19:37 | Outpatient (REF) | payer BC, SELFPAY ==
--- OUTSIDE RECORDS SUMMARY | 2024-11-29 10:40 | XMS_ITS | Encounter Summary ---
Author Organization [facility] Address [address] [place] [address] Care Team Providers Care Tamping Machine Operator Name Role Phone JostinSheng Sameer DO Primary Care Provider [phone] JostinSheng Sameer DO Unavailable [phone] Encounter Details Date Type Department Care Team (Late st Contact Info) Description 11/29/2024 10:40 AM EDT Office Visit [facility] [address] [facility] [address] [place] [address] Sandhya Jaramillo, CHEMICAL LABORATORY TESTER [address] [place] [address] Dysuria (Primary Dx); Vaginal itching Social History Tobacco Use Types Packs/Day Years Used Date Smoking Tobacco: Never Smokeless Tobacco: Never Alcohol Use Standard Drinks/Week Comments Yes 0 (1 standard drink = 0.6 oz pur e alcohol) Occasional alcohol use Social Connection and Isolat ion Panel [NHANES] Answer Date Recorded In a typical week, how many times do you talk on the phone with family, friends, or neighbors? More than three times a week 08/09/2024 How often do you get togethe r with friends or relatives? Once a week 08/09/2024 How often do you attend chur ch or synagogue services? Patient declined 08/09/2024 Do you belong to any clubs o r organizations such as latter day groups, unions, fraternal or athletic groups, or school groups? No 08/09/2024 How often do you attend meet ings of the clubs or organizations you belong to? Never 08/09/2024 Are you , , di vorced, , never , or living with a partner? 08/09/2024 AUDIT-C Answer Date Recorded Q1: How often do you have a drink containing alcohol? Never 08/09/2024 Q2: How many drinks containi ng alcohol do you have on a typical day when you are drinking? Patient does not drink Q3: How often do you have si x or more drinks on one occasion? Never 08/09/2024 Overall Financial Resource Strain (CARDIA) Answe r Date Recorded How hard is it for you to pa y for the very basics like food, housing, medical care, and heating? Not hard at all 08/09/2024 PHQ-2 Answer Date Recorded Patient Health Questionnaire-2 Score 0 08/10/2024 [facility] - Occupational Stress Questionnaire Answer Date Recorded Do you feel stress - tense, restless, nervous, or anxious, or unable to sleep at night because your mind is troubled all the time - these days? Only a little 08/09/2024 Exercise Vital Sign Answer Date Recorde d On average, how many days pe r week do you engage in moderate to strenuous exercise (like a brisk walk)? 4 days 08/09/2024 On average, how many minutes do you engage in exercise at this level? 30 min 08/09/2024 Hunger Vital Sign Answer Date Recorded Within the past 12 months, y ou worried that your food would run out before you got the money to buy more. Never true 08/10/19 Within the past 12 months, t he food you bought just didn't last and you didn't have money to get more. Never true 08/09/2024 PRAPARE - Transportation Answer Date Re corded In the past 12 months, has l ack of transportation kept you from medical appointments or from getting medications? No 07/22 In the past 12 months, has l ack of transportation kept you from meetings, work, or from getting things needed for daily living? No 08/09/2024 Housing Stability Vital Sign Answer Daniel e Recorded In the last 12 months, was t here a time when you were not able to pay the mortgage or rent on time? No 08/09/2024 In the past 12 months, how m any times have you moved where you were living? 0 08/09/2024 At any time in the past 12 m [facility], were you homeless or living in a usp (including now)? No 08/09/2024 Comments Unknown Sex and Gender Information Value Date Recorded Sex Assigned at Female 01/13/2023 1:36 PM EDT Legal Sex Female 11:47 PM EDT Gender Identity Female 01/13/2023 1:36 PM EDT Sexual Orientation Straight 01/13/2023 1: 36 PM EDT documented as of this encounter Last Filed Vital Signs Vital Sign Reading Time Taken Comments Blood Pressure 110/80 11/29/2024 10:50 AM EDT Pulse 103 11/29/2024 10:50 AM EDT Temperature 36.7 C (98.1 F) 11/29/2024 10:50 AM EDT Respiratory Rate 20 11/29/2024 10:50 AM EDT Oxygen Saturation 98% 11/29/2024 10:50 AM EDT Inhaled Oxygen Concentration - - Weight - - Height - - Body Mass Index - - documented in this encounter Progress Notes * Sandhya Jaramillo NP - 11/29/2024 10:40 AM EDT Images from the original note were not included. [address] [facility] [place], [address] P: [phone] F: [phone] [facility] Historian of HPI: patient Grace Gayle is a 24 y.o. female who presents today to the Urgent Care with the following complaints and denials which have been present for 7 month(s). C/O Denies Symptom Comments [x] [] Dysuria [] [x] hematuria [] [x] Urinary frequency [] [x] Urinary incontinence [] [x] Urinary urgency [x] [] Genital itching [x] [] Genital discharge [x] [] Back pain [x] [] Abd pain Additional Comments: pt has not taken any OTC medications Pt stated that she has been having issues off and on since April 2024. She stated she has seen her family PCP and OB. All testing through those offices has been negative. She has diarrhea/constipation off and on. She now has a GI appt on January 012024. IH Testing: An In-House UA has been obtained ROS A complete system ROS was performed and negative aside from the pertinent positives noted in the HPI and PE. Visit Vitals BP 110/80 Pulse 103 Temp 98.1 ??F Resp 20 SpO2 98% OB Status Unknown Smoking Status Never PHYSICAL EXAM Physical Exam Vitals reviewed. Constitutional: General: She is not in acute distress. Appearance: Normal appearance. HENT: Head: Normocephalic and atraumatic. Nose: Nose normal. Mouth/Throat: Mouth: Mucous membranes are moist. Pharynx: Oropharynx is clear. Eyes: Extraocular Movements: Extraocular movements intact. Conjunctiva/sclera: Conjunctivae normal. Pupils: Pupils are equal, round, and reactive to light. Cardiovascular: Rate and Rhythm: Normal rate and regular rhythm. Pulses: Normal pulses. Heart sounds: Normal heart sounds. Pulmonary: Effort: Pulmonary effort is normal. No respiratory distress. Breath sounds: Normal breath sounds. No wheezing, rhonchi or rales. Abdominal: General: Abdomen is flat. Bowel sounds are normal. There is no distension. Palpations: Abdomen is soft. There is no mass. Tenderness: There is no abdominal tenderness. There is no right CVA tenderness, left CVA tenderness, guarding or rebound. Hernia: No hernia is present. Genitourinary: Vagina: Vaginal discharge present. Comments: Reports slight vaginal discharge with irritation and burning with urination Musculoskeletal: General: Normal range of motion. Cervical back: Normal range of motion and neck supple. Skin: General: Skin is warm and dry. Capillary Refill: Capillary refill takes less than 2 seconds. Findings: No rash. Neurological: General: No focal deficit present. Mental Status: She is alert and oriented to person, place, and time. Psychiatric: Mood and Affect: Mood normal. Behavior: Behavior normal. Thought Content: Thought content normal. Judgment: Judgment normal. TREATMENT PLAN 1. Dysuria (Primary) Presents today for evaluation of possible UTI vs yeast infection. She does not have any concern forSTI. She reports ongoing symptoms off and on since April of 2024 . She has seen her PCP, RADIO INTERFERENCE SUPERVISOR, and now has an upcoming appointment with GI in December. UA in urgent care is negative for acute UTI. She is agreeable to in house testing. - URINALYSIS ANALYZER TEST - URINARY TRACT INFECTION (HTRX); Future - URINARY TRACT INFECTION (HTRX) 2. Vaginal itching Pt is agreeable to in house testing for BV, yeast, and Trich. She does not have any concern for STI, but was made aware that Trich is run automatically for the in house testing. She expressed an understanding. - POCT CEPHEID MVP See telephone encounter. documented in this encounter Plan of Treatment Upcoming Encounters Date Type Department Care Team (Late st Contact Info) Description 01/09/2025 8:10 AM EDT Office Visit [facility] [address] [place] [address] Shmuel Beverly, DO [address] [facility] [place] [address] Pending Results Name Type Priority Associated Diagnoses Date /Time POCT CEPHEID MVP Point of Care Testing Routine Vaginal itching 11/29/2024 2:08 PM EDT documented as of this encounter Goals Goal Patient Goal Type Associated Problems Recent Progress Patient-Stated? Author Reminders Care Plan OB Reminders No Open Scheduling, Background documented as of this encounter Procedures Procedure Name Priority Date/Time Associated Diagnosis Comments POCT CEPHEID MVP Routine 11/29/2024 2:08 PM EDT Vaginal itching URINARY TRACT INFECTION (HTRX) Routine 11/29/2024 11:32 AM EDT Dysuria URINALYSIS ANALYZER TEST Routine 11/29/2024 10:56 AM EDT Dysuria documented in this encounter Results * (ABNORMAL) URINARY TRACT INFECTION (HTRX) (11/29/2024 11:32 AM EDT) ACINETOBACTER BAUMANII 0 19.961 - 24.689 ppm 11/30/2024 6:48 AM EDT [facility] ACINETOBACTER BAUMANII Not Detected 19.961 - 24.689 ppm 11/30/2024 6:48 AM EDT [facility] CITROBACTER FREUNDII 0 23.000 - 31.881 ppm 11/30/2024 6:48 AM EDT [facility] CITROBACTER FREUNDII Not Detected 23.000 - 31.881 ppm 11/30/2024 6:48 AM EDT [facility] ENTEROBACTER AEROGENES, CLOACAE 0 23.000 - 31.535 ppm 11/30/2024 6:48 AM EDT [facility] ENTEROBACTER AEROGENES, CLOACAE Not Detected 23.000 - 31.535 ppm 11/30/2024 6:48 AM EDT [facility] ENTEROCOCCUS FAECALIS, FAECIUM 0 26.000 - 31.575 ppm 11/30/2024 6:48 AM EDT [facility] ENTEROCOCCUS FAECALIS, FAECIUM Not Detected 26.000 - 31.575 ppm 11/30/2024 6:48 AM EDT [facility] ESCHERICHIA COLI 0 23.000 - 28.500 ppm 11/30/2024 6:48 AM EDT [facility] ESCHERICHIA COLI Not Detected 23.000 - 28.500 ppm 11/30/2024 6:48 AM EDT [facility] KLEBSIELLA PNEUMONIAE, OXYTOCA 0 23.000 - 30.500 ppm 11/30/2024 6:48 AM EDT [facility] KLEBSIELLA PNEUMONIAE, OXYTOCA Not Detected 23.000 - 30.500 ppm 11/30/2024 6:48 AM EDT [facility] MORGANELLA MORGANII 0 19.961 - 24.689 ppm 11/30/2024 6:48 AM EDT [facility] MORGANELLA MORGANII Not Detected 19.961 - 24.689 ppm 11/30/2024 6:48 AM EDT [facility] PROTEUS MIRABILIS, VULGARIS 0 23.000 - 28.500 ppm 11/30/2024 6:48 AM EDT [facility] PROTEUS MIRABILIS, VULGARIS Not Detected 23.000 - 28.500 ppm 11/30/2024 6:48 AM EDT [facility] PSEUDOMONAS AERUGINOSA 0 23.000 - 28.500 ppm 11/30/2024 6:48 AM EDT [facility] PSEUDOMONAS AERUGINOSA Not Detected 23.000 - 28.500 ppm 11/30/2024 6:48 AM EDT [facility] STAPHYLOCOCCUS AUREUS 0 26.000 - 30.902 ppm 11/30/2024 6:48 AM EDT [facility] STAPHYLOCOCCUS AUREUS Not Detected 26.000 - 30.902 ppm 11/30/2024 6:48 AM EDT [facility] STREPTOCOCCUS AGALACTIAE (GROUP B STREP) 0 26.000 - 32.222 ppm 11/30/2024 6:48 AM EDT [facility] STREPTOCOCCUS AGALACTIAE (GROUP B STREP) Not Detected 26.000 - 32.222 ppm 11/30/2024 6:48 AM EDT [facility] TAWANDA ALBICANS, PARAPSILOSIS, TROPICALIS 0 19.961 - 30.770 ppm 11/30/2024 6:48 AM EDT [facility] TAWANDA ALBICANS, PARAPSILOSIS, TROPICALIS Not Detected 19.961 - 30.770 ppm 11/30/2024 6:48 AM EDT [facility] TAWANDA GLABRATA 0 23.000 - 32.138 ppm 11/30/2024 6:48 AM EDT [facility] TAWANDA GLABRATA Not Detected 23.000 - 32.138 ppm 11/30/2024 6:48 AM EDT [facility] TAWANDA KRUSEI 0 23.000 - 32.271 ppm 11/30/2024 6:48 AM EDT [facility] TAWANDA KRUSEI Not Detected 23.000 - 32.271 ppm 11/30/2024 6:48 AM EDT [facility] SERRATIA MARCESCENS 0 23.000 - 31.204 ppm 11/30/2024 6:48 AM EDT [facility] SERRATIA MARCESCENS Not Detected 23.000 - 31.204 ppm 11/30/2024 6:48 AM EDT [facility] STREPTOCOCCUS PYOGENES (GROUP A STREP) 0 19.961 - 24.689 ppm 11/30/2024 6:48 AM EDT [facility] STREPTOCOCCUS PYOGENES (GROUP A STREP) Not Detected 19.961 - 24.689 ppm 11/30/2024 6:48 AM EDT [facility] STAPHYLOCOCCUS EPIDERMIDIS, HAEMOLYTICUS, LUGDUNENSIS, SAPROPHYTICUS (URINA 0 19.961 - 24.689 ppm 11/30/2024 6:48 AM EDT [facility] STAPHYLOCOCCUS EPIDERMIDIS, HAEMOLYTICUS, LUGDUNENSIS, SAPROPHYTICUS (URINA Not Detected 19.961 - 24.689 ppm 11/30/2024 6:48 AM EDT [facility] STAPHYLOCOCCUS EPIDERMIDIS, HAEMOLYTICUS, LUGDUNENSIS, SAPROPHYTICUS (URINA 30.382(A) 19.961 - 24.689 ppm 11/30/2024 6:48 AM EDT [facility] STAPHYLOCOCCUS EPIDERMIDIS, HAEMOLYTICUS, LUGDUNENSIS, SAPROPHYTICUS (URINA Detected(A) 19.961 - 24.689 ppm 11/30/2024 6:48 AM EDT [facility] Urine 11/29/2024 11:3 2 AM EDT 11/30/2024 1:41 AM EDT Sandhya Jaramillo CHEMICAL LABORATORY TESTER LAB BLOOD ORDERABLES Final R esult [facility] [address] [place] [address] * URINALYSIS ANALYZER TEST (11/29/2024 10:56 AM EDT) LEUKOCYTES - Negative NITRITES - Negative UROBILINOGEN - 0.2 - 1.0 PROTEIN - Negative PH 7.0 5.0 - 6.0 BLOOD - Negative SPECIFIC GRAVITY 1.000 1.001 - 1.035 KETONES - Negative BILIRUBIN - Negative GLUCOSE - Negative Urine 11/29/2024 10:5 6 AM EDT Sandeep Bejarano DO POINT OF CARE TEST ENTER/ED IT ORDERABLES Final Result documented in this encounter Visit Diagnoses Diagnosis Dysuria- Primary Vaginal itching Pruritus of genital organs documented in this encounter Additional Health Concerns Active Problems Noted Date Diagnosed Date OB Reminders 02/02/2023 documented as of this encounter Care Teams Tamping Machine Operator Relationship Specialty Start Date End Date Sheng Frankel DO [address] [place] [address] PCP - General Family Medicine 08/10/24 Sheng Frankel DO [address] [place] [address] PCP - Jaymie Ryan 09/20/24 documented as of this encounter
--- OUTSIDE RECORDS SUMMARY | 2024-12-12 15:40 | XMS_ITS | Encounter Summary ---
Author Organization [facility] Address [address] [place] [address] Care Team Providers Care Lime Vat Tender Name Role Phone Sheng Frankel DO Primary Care Provider [phone] OwingsSheng rocha DO Unavailable [phone] Reason for Visit * Reason Comments Well Women Visit Encounter Details Date Type Department Care Team ([facility] st Contact Info) Description 12/12/2024 3:40 PM EDT Office Visit [facility] [address] [place] [phone] Shmuel Beverly, DO [address] [place], [facility]11 Well woman exam with routine gynecological exam; Anxiety, generalized ; Mood changes Social History Tobacco Use Types Packs/Day Years [...] 08/09/2024 How often do you attend chur or anabaptist services? Patient declined 08/09/2024 Do you belong to any clubs o r organizations such as restorationist groups, unions, fraternal or athletic groups, or [...] Recorded Patient Health Questionnaire-2 Score 0 08/10/2024 [facility] - Occupational Stress [...] money to buy more. Never true 08/10/19 25 Within the past 12 months, t he [...] any time in the past 12 m [facility], were you homeless or living in a fpc (including now)? No 08/09/2024 Comments Unknown Sex and Gender Information Value Date Recorded Sex Assigned at Female 01/13/2023 1:36 PM EDT Legal Sex Female 11:47 PM EDT Gender Identity Female 01/13/2023 1:36 PM EDT Sexual Orientation Straight 01/13/2023 1: 36 PM EDT documented as of this encounter Last Filed Vital Signs Vital Sign Reading Time Taken Comments Blood Pressure 120/82 12/12/2024 4:01 PM EDT Pulse - - Temperature - - Respiratory Rate - - Oxygen Saturation - - Inhaled Oxygen Concentration - - Weight 77.6 kg (171 lb 1.9 oz) 12/12/2024 4:01 P M EDT Height - - Body Mass Index 30.31 08/10/2024 11:12 AM EDT documented in this encounter Plan of Treatment Upcoming Encounters Date Type Department Care Team (Late st Contact Info) Description 01/09/2025 8:10 AM EDT Office Visit [facility] [address] [facility] [facility] [phone] Shmuel Beverly DO [address] [facility] [facility] [place] [address] Scheduled Orders Name Type Priority Associated Diagnoses Orde r Schedule Pap Smear Pathology and Cytology Routine Well woman exam with routine gynecological exam Ordered: 12/12/2024 documented as of this encounter Goals Goal Patient Goal Type Associated Problems Recent Progress Patient-Stated? Author Reminders Care Plan OB Reminders No Open Scheduling, Background documented as of this encounter Visit Diagnoses Diagnosis Well woman exam with routine gynecological exam Routine gynecological examination Anxiety, generalized Mood changes Unspecified episodic mood disorder documented in this encounter Additional Health Concerns Active Problems Noted Date Diagnosed Date OB Reminders 02/02/2023 documented as of this encounter Care Teams Lime Vat Tender Relationship Specialty Start Date End Date Sheng Frankel DO [address] [place] [address] PCP - General Family Medicine 08/10/24 Sheng Frankel DO [address] [place] [address] PCP - [employer] 09/20/24 documented as of this encounter
--- OUTSIDE RECORDS SUMMARY | 2024-12-12 19:40 | XMS_ITS | CCD ---
Author Organization [facility] Care Team Providers Care Travel Sales Consultant Name Role Phone CIERRA ., DR WATKINS Consulting Unavailabl e SIRIA ., DR SENA Procedure Practitioner Unavail able SIRIA ., DR SENA Admitting Unavailable SIRIA ., DR SENA Attending Unavailable SIRIA ., DR SENA Consulting Unavailable TOLAYMAT, SANJAY Consulting Unavailable ALICJA, MICHELLE ABREU Consulting Unava ilable SHANIKA, DR WILD Garner Consulting Unavailable SIRIA [...] DR SENA Admitting Unavailable SIRIA ., DR SEAN Attending Unavailable SIRIA ., DR SENA Consulting [...] Unavailable Unavailable Primary Care Provider Unavailabl e Unavailable Primary Care Provider Unavailabl e [place] TerraceSheng rocha DO Primary Care Provider [phone] Jostin Sheng Estrella Unavailable [phone] SHENG FRANKEL Attending Unavailable JAIDA BEVERLY Attending Unavailable SANDHYA IVORY Attending Unavailable Medications Current Medications Medication Drug [...] day at the same time 0 Active amoxicillin 875 mg / clavulanate 125 mg oral tablet (2 sources) Penicillin-class Antibacterial Start: 12-02-2024 End: 12-12-2024 take 1 tablet by mouth in the morning amoxicillin-clavula tanisha (Augmentin) 875-125 MG tablet Indications: Dysuria Take 1 tablet (875 mg) by mouth in the morning and 1 tablet (875 mg) before bedtime. Do all this for 10 days. 20 tablet 12/02/2024 12/12/2024 Active 24 hr metFORMIN hydrochloride 500 mg extended release oral tablet (5 sources) Biguanide Start: 09-20-2024 End: 12-19-2024 take 1 tablet by mouth every twenty-four hours at mealtime metFORMIN XR (Glucophage-XR) 500 MG 24 hr tablet Indications: PCOS (polycystic ovarian syndrome) Take 1 tablet (500 mg) by mouth in the evening. Take with meals Do not crush, chew, or split. 90 tablet 09/20/2024 12/19/2024 Active nitrofurantoin, macrocrystals 25 mg / nitrofurantoin, [...] Problem Classification Problem Date Documented Date Episodic/Chronic Abdominal pain (2 sources) Pain in female pelvis; Translations: [Pelvic and perineal pain] 09-19-2024 Episodic Genitourinary symptoms and ill-defined conditions (4 sources) Dysuria; Translations: [Dysuria] 06-26-2024 Episodic Immunizations and screening for infectious disease (1 source) Encounter for screening for human papillomavirus (HPV); Translations: [ENC SCREENING HUMAN PAPILLOMAVIRUS] Onset: 09-28-2022 Episodic Other female genital disorders (2 sources) Pruritus of vagina; Translations: [Other specified noninflammatory disorders of vagina] 11-29-2024 Episodic Other nutritional; endocrine; and metabolic disorders (10 sources) Obesity; Translations: [Obesity, unspecified] Onset: 08-10-2024 08-10-2024 Chronic Other and delivery including normal (3 sources) Single live ; Translations: [Third trimester ] Onset: 02-17-2022 06-21-2023 Episodic Unclassified (12 sources) OB Reminders Onset: 02-02-2023 02-02-2023 Past [...] US SCREEN MOTHER] Onset: 11-02-2021 Episodic Other complications of (10 sources) size does not accord with dates; Translations: [Uterine size-date discrepancy, third trimester] Onset: 07-25-2023 07-25-2023 Episodic Other screening for suspected conditions (not mental disorders or infectious disease) (20 sources) Encounter for screening for malignant neoplasm of cervix; Translations: [Encounter for screening for Streptococcus B] Onset: 11-10-2021 Episodic Polyhydramnios and other problems of amniotic [...] WEEKS GESTATION OF ] Onset: 01-13-2022 Episodic Short gestation; low weight; and growth retardation (10 sources) Yftkq-kkl-hctwj baby; Translations: [ small for gestational age, unspecified weight] Onset: 07-25-2023 07-25-2023 Episodic Results Test Name Value Interpretation Reference Range Facility No Panel Informationon 11-30 ACINETOBACTER BAUMANII 0 NO [facility] ACINETOBACTER BAUMANII Not detected [facility] TAWANDA ALBICANS, PARAPSILOSIS, TROPICALIS 0 [facility] TAWANDA ALBICANS, PARAPSILOSIS, TROPICALIS Not detected [facility] TAWANDA GLABRATA 0 [facility] TAWANDA GLABRATA Not detected [facility] TAWANDA KRUSEI 0 [facility] TAWANDA KRUSEI Not detected [facility] CITROBACTER FREUNDII 0 [facility] CITROBACTER FREUNDII Not detected [facility] ENTEROBACTER AEROGENES, CLOACAE 0 [facility] ENTEROBACTER AEROGENES, CLOACAE Not detected [facility] ENTEROCOCCUS FAECALIS, FAECIUM 0 [facility] ENTEROCOCCUS FAECALIS, FAECIUM Not detected [facility] ESCHERICHIA COLI 0 [facility] ESCHERICHIA COLI Not detected [facility] Interpretation and review of laboratory results Abnormal [facility] KLEBSIELLA PNEUMONIAE, OXYTOCA 0 [facility] KLEBSIELLA PNEUMONIAE, OXYTOCA Not detected [facility] MORGANELLA MORGANII 0 [facility] MORGANELLA MORGANII Not detected [facility] PROTEUS MIRABILIS, VULGARIS 0 [facility] PROTEUS MIRABILIS, VULGARIS Not detected [facility] PSEUDOMONAS AERUGINOSA 0 [facility] PSEUDOMONAS AERUGINOSA Not detected [facility] SERRATIA MARCESCENS 0 [facility] SERRATIA MARCESCENS Not detected [facility] STAPHYLOCOCCUS AUREUS 0 [facility] STAPHYLOCOCCUS AUREUS Not detected [facility] STAPHYLOCOCCUS EPIDERMIDIS, HAEMOLYTICUS, LUGDUNENSIS, SAPROPHYTICUS (URINA 0 [facility] STAPHYLOCOCCUS EPIDERMIDIS, HAEMOLYTICUS, LUGDUNENSIS, SAPROPHYTICUS (URINA Not detected [facility] STAPHYLOCOCCUS EPIDERMIDIS, HAEMOLYTICUS, LUGDUNENSIS, SAPROPHYTICUS (URINA 30.382 Abnormal [facility] STAPHYLOCOCCUS EPIDERMIDIS, HAEMOLYTICUS, LUGDUNENSIS, SAPROPHYTICUS (URINA Detected Abnormal [facility] STREPTOCOCCUS AGALACTIAE (GROUP B STREP) 0 [facility] STREPTOCOCCUS AGALACTIAE (GROUP B STREP) Not detected [facility] STREPTOCOCCUS PYOGENES (GROUP A STREP) 0 [facility] STREPTOCOCCUS PYOGENES (GROUP A STREP) Not detected [facility] - Chemistry and C hemistry - challengeon 11-29-2024 Bilirubin Ql (U) - Negative [facility] Glucose [Mass/Vol] - Negative [facility] Ketones Ql (U) - Negative [facility] pH (U) 7 [pH] 5.0 - 6.0 [facility] Specific gravity (U) [Rel density] 1 1.001 - 1.035 [facility] Laboratory - Hematology and Cell countson 11-29-2024 Hemoglobin Ql (U) - Negative [facility] Laboratory - Urinalysison Nitrite Ql (U) - Negative [facility] Protein Ql (U) - Negative [facility] No Panel Informationon 11-29 Interpretation and review of laboratory results [facility] LEUKOC[facility]TES - Negative [facility] UROBILINOGEN - 0.2 - 1.0 [facility] US PELVIS W/ TRANSVAGINALon 09-20-[address] [address] Ultrasound Report Signed Patient: GRCAE FUENTES MR#: [id number] : 2000 Acct:[id number] Age/Sex: 24 / F ADM Date: 09/20/24 Loc: US Attending Dr: Jaida Beverly D.O. Ordering Physician: Jaida Beverly D.O. Date of Service: 09/20/24 Procedure(s): US pelvis w/ transvaginal Accession Number(s): [id number] cc: Sheng Frankel; Jaida Beverly D.O. [address] [address] Patient Name: GRACE FUENTES MRN: [id number] date: 2000 Sex: F Assigned Patient Location: Current Patient Location: US Accession/Order Number: [id number] Exam Date: 09/20/2024 09:08 Report Date: 09/20/2024 09:12 At the request of: JAIDA BEVERLY DO Procedure: US pelvis w/ transvaginal Pelvic ultrasound. Reason for exam: Pelvic pain Comparison: none Technique: Transabdominal imaging of the uterus and ovaries was performed. Transvaginal imaging of the uterus and ovaries was also obtained. Additional spectral Doppler analysis of the ovaries was also obtained. Findings: Uterus measures 7.6 x 5.9 x 4.4 cm. No fibroid. Endometrium measures 7.4 mm without focal abnormality. No free fluid is seen. Right ovary measures 3.4 x 2.0 x 1.7 cm. The left ovary measures 3.1 x 1.6 x 2.0 cm. No evidence of adnexal mass or cyst. Normal arterial and venous Doppler waveforms. US/US pelvis w/ transvaginal Impression: Unremarkable pelvic ultrasound. Impression dictated by: Arturo Ruggiero Jr., D.O. 09/20/2024 9:12 AM Dictation Location: [place] [address] Electronically authenticated by: [id number] Y Date: 09/20/2024 09:12 Dictated By: Arturo Ruggiero M.D. Signed By: 09/20/24914 DD/ 1 TD/TT: Second Ride Fare Collector: [facility] Radiology, Radiologist, - 09/20/2024 [place] [address] Ultrasound Report Signed Patient: GRACE FUENTES MR#: [id number] : 2000 Acct:[id number] Age/Sex: 24 / F ADM Date: 09/20/24 Loc: US Attending Dr: Jaida Beverly D.O. Ordering Physician: Jaida Beverly D.O. Date of Service: 09/20/24 Procedure(s): US pelvis w/ transvaginal Accession Number(s): [id number] cc: Sheng Frankel; Jaida Beverly D.O. The [place] [id number] Patient Name: GRACE FUENTES MRN: [facility]:[id number] date: 2000 Sex: F Assigned Patient Location: Current Patient Location: US Accession/Order Number: [id number] Exam Date: 09/20/2024 09:08 Report Date: 09/20/2024 09:12 At the request of: JAIDA BEVERLY DO Procedure: US pelvis w/ transvaginal Pelvic ultrasound. Reason for exam: Pelvic pain Comparison: none Technique: Transabdominal imaging of the uterus and ovaries was performed. Transvaginal imaging of the uterus and ovaries was also obtained. Additional spectral Doppler analysis of the ovaries was also obtained. Findings: Uterus measures 7.6 x 5.9 x 4.4 cm. No fibroid. Endometrium measures 7.4 mm without focal abnormality. No free fluid is seen. Right ovary measures 3.4 x 2.0 x 1.7 cm. The left ovary measures 3.1 x 1.6 x 2.0 cm. No evidence of adnexal mass or cyst. Normal arterial and venous Doppler waveforms. US/US pelvis w/ transvaginal Impression: Unremarkable pelvic ultrasound. Impression dictated by: Arturo Ruggiero Jr., D.O. 09/20/2024 9:12 AM Dictation Location: [place] [address] Electronically authenticated by: [id number] Y Date: 09/20/2024 09:12 Dictated By: Arturo Ruggiero M.D. Signed By: 09/20/24914 DD/ 1 TD/TT: Second Ride Fare Collector: [facility] Radiology Study observation (narrative) [facility] US PELVIS W/ TRANSVAGINALOrd ered By: Radiologist Radiology on 09-20-2024 [facility] Work Phone: Urinalysis macro (dipstick) panel (U)Ordered By: Debbie Pelaez on 06-23-2023 Bilirubin, UA Negative Negative - 4(70) +++ mg/dL [facility] Work Phone: Blood, UA Negative Negative - 50 Hugh/mcL [facility] Work Phone: Clarity, UA Clear [facility] Work Phone: Color, UA Yellow [facility] Work Phone: Glucose, UA Negative Negative - 2000(110) ++++ mg/dL [facility] Work Phone: Interpretation and review of laboratory results Normal [facility] Work Phone: Ketones, UA Negative Negative - 160(16) ++++ mg/dL [facility] Work Phone: Leukocytes, UA Negative Negative - 500+++ Joe/mcL [facility] Work Phone: Nitrite, UA Negative Negative - Positive [facility] Work Phone: pH, UA 5.5 5 - 9 [facility] Work Phone: Protein, UA Negative Negative - 2000(20) ++++ mg/dL [facility] Work Phone: Spec Grav, UA 1.015 1 - 1.03 [facility] Work Phone: Urobilinogen, UA 0.2 0.2 - 12 mg/dL [facility] Work Phone: [facility] Work Phone: PAP ACOG PANEL 2: 21 to 29on 09-29-2022 . . Normal [facility] Comment on above: Performed By: #### [id number] #### [facility] [address] [place] [address] Dr. Tyree Paiz Age Gdln ACOG Testing 21-29 [facility] Comment on above: Performed By: #### [id number] #### [facility] [address] [place] [address] Dr. Tyree Paiz DIAGNOSIS: Comment [facility] Comment on above: Result Comment: NEGA TIVE FOR INTRAEPITHELIAL LESION OR MALIGNANCY. Performed By: #### 4 [id number] #### [facility] [address] [place] [address] Dr. Tyree Paiz Methodology: Comment [facility] Comment on above: Result Comment: This liquid based ThinPrep(R) pap test was screened with the use of an image guided system. Performed By: #### [id number] #### [facility] [address] [place] [address] Dr. Tyree Paiz Note: Comment [facility] Comment on above: Result Comment: The Pap smear is a screening test designed to aid in the detection of premalignant and malignant conditions of the uterine cervix. It is not a diagnostic procedure and should not be used as the sole means of detecting cervical cancer. Both false-positive and false-negative reports do occur. . Performed By: #### [id number] #### [facility] [address] [place] [address] Dr. Tyree Paiz Performed by: Comment Normal [facility] Comment on above: Result Comment: Rafael Tejada, Unhairing Machine Operator (ASCP) Performed By: #### 4 [id number] #### [facility] [address] [place] [address] Dr. Tyree Paiz Reflex Criteria: Comment [facility] Comment on above: Result Comment: The HPV DNA reflex criteria were not met with this specimen result therefore, no HPV testing was performed. . Performed By: #### 4 [id number] #### [facility] [address] [place] [address] [address] Tyree Paiz Specimen adequacy: Comment Normal [facility] Comment on above: Result Comment: Sati sfactory for evaluation. Endocervical and/or squamous metaplastic cells (endocervical component) are present. Performed By: #### 4 [id number] #### [facility] [address] [place] [address] [address] Tyree Paiz TYPE AND SCREENon 02-01-2022 TYPE AND SCREEN Antibody Screen NEGATIVE Blood Bank Notes testing done by 01/29/22 ABO Rh Typing AB Rh Positive Blood Bank Notes testing done by 01/29/22 Normal [facility] Comment on above: Performed By: #### T NS ####[facility] [address] [place] [address]Dr. Tyree Paiz CBC AUTO DIFFon 01-31-2022 BASO # 0.0 103/ul Normal 0.0-0.1 [facility] Comment on above: Performed By: #### C BC #### [facility] [address] [place] [address] Dr. Tyree Paiz Basophils/100 WBC (Bld) 0.3 % Normal 0.2-2.0 [facility] Comment on above: Performed By: #### C BC #### [facility] [address] [place] [address] Dr. Tyree Paiz EO # 0.1 103/ul Normal 0.0-0.7 [facility] Comment on above: Performed By: #### C BC #### [facility] [address] [place] [address] Dr. Tyree Paiz Eosinophils/100 WBC (Bld) 0.8 % Critically low 0.9-7.0 [facility] Comment on above: Performed By: #### C BC #### [facility] [address] [place] [address] Dr. Tyree Paiz Erythrocyte distribution width (RBC) [Ratio] 13.4 % Normal 11.0-15.0 [facility] Comment on above: Performed By: #### C BC #### [facility] [address] [place] [address] [address] Tyree Paiz Hematocrit (Bld) [Volume fraction] 27.4 % Critically low 36.0-48.0 [facility] Comment on above: Performed By: #### C BC #### [facility] [address] [place] [address] [address] Tyree Paiz Hemoglobin (Bld) [Mass/Vol] 8.6 g/dL Critically low 12.0-16.0 [facility] Comment on above: Performed By: #### C BC #### [facility] [address] [place] [address] [address] Tyree Paiz IG # 0.12 10e3/ul Critically high 0.00-0.03 [facility] Comment on above: Performed By: #### C BC #### [facility] [address] [place] [address] Dr. Tyree Paiz IG % 0.9 % Critically high 0.0-0.5 [facility] Comment on above: Performed By: #### C BC #### [facility] [address] [place] [address] Dr. Tyree Paiz LYMPH # 1.9 103/ul Normal 1.2-3.8 [facility] Comment on above: Performed By: #### C BC #### [facility] [address] [place] [address] Dr. Tyree Paiz Lymphocytes/100 WBC (Bld) 13.7 % Critically low 20.5-60.0 [facility] Comment on above: Performed By: #### C BC #### [facility] [address] [place] [address] Dr. Tyree Paiz MANUAL DIFF REQ NO Normal [facility] Comment on above: Performed By: #### C BC #### [facility] [address] [place] [address] Dr. Tyree Paiz MCH (RBC) [Entitic mass] 27.0 pg Normal 26.7-34.0 [facility] Comment on above: Performed By: #### C BC #### [facility] [address] [place], [place] [address] Dr. Tyree Paiz MCHC (RBC) [Mass/Vol] 31.4 g/dL Normal 29.9-35.2 [facility] Comment on above: Performed By: #### C BC #### [facility] [address] [place] [address] Dr. Tyree Paiz MCV (RBC) [Entitic vol] 85.9 fL Normal 81.0-99.0 [facility] Comment on above: Performed By: #### C BC #### [facility] [address] [place] [address] Dr. Tyree Paiz MONO # 1.1 103/ul Critically high 0.3-0.8 [facility] Comment on above: Performed By: #### C BC #### [facility] [address] [place] [address] Dr. Tyree Paiz Monocytes/100 WBC (Bld) 8.1 % Normal 1.7-12.0 [facility] Comment on above: Performed By: #### C BC #### [facility] [address] [place] [address] Dr. Tyree Paiz NEUT # 10.3 103/ul Critically high 1.4-6.5 [facility] Comment on above: Performed By: #### C BC #### [facility] [address] [place] [address] Dr. Tyree Paiz Neutrophils/100 WBC (Bld) 76.2 % Critically high 43.0-75.0 [facility] Comment on above: Performed By: #### C BC #### [facility] [address] [place] [address] Dr. Tyree Paiz Platelet mean volume (Bld) [Entitic vol] 9.5 fL Normal 9.5-13.5 [facility] Comment on above: Performed By: #### C BC #### [facility] [address] [place] [address] Dr. Tyree Paiz PLT 196 103/ul Normal 150-450 [facility] Comment on above: Performed By: #### C BC #### [facility] [address] [place], [place] [address] Dr. Tyree Paiz RBC 3.19 106/ul Critically low 4.20-5.40 [facility] Comment on above: Performed By: #### C BC #### [facility] [address] [place] [address] [address] Tyree Paiz WBC 13.5 103/ul Critically high 4.0-11.0 [facility] Comment on above: Performed By: #### C BC #### [facility] [address] [place] [address] [address] Tyree Paiz CBC W MANUAL DIFFon 01-30-20 22 ATYPICAL LYMPH # Normal [facility] Comment on above: Performed By: #### C BCMAN ####[facility] [address] [place] [address]Dr. Tyree Paiz ATYPICAL LYMPH % Normal [facility] Comment on above: Performed By: #### C BCMAN ####[facility] [address] [place] [address]Dr. Tyree Paiz BAND # 0.0 103/ul Normal 0.0-0.3 [facility] Comment on above: Performed By: #### C BCMAN ####[facility] [address] [place] [address]Dr. Tyree Paiz BAND % 0 % Normal 0-5 [facility] Comment on above: Performed By: #### C BCMAN ####[facility] [address] [place] [address]Dr. Tyree Paiz BASOM # 0.00 103/ul Normal 0.00-0.10 [facility] Comment on above: Performed By: #### C BCMAN ####[facility] [address] [place] [address]Dr. Tyree Paiz BASOM % 0.0 % Critically low 0.2-2.0 [facility] Comment on above: Performed By: #### C BCMAN ####[facility] [address] [place] [address]Dr. Tyree Paiz BLAST # Normal [facility] Comment on above: Performed By: #### C BCMAN ####[facility] [address] [place] [address]Dr. Tyree Paiz BLAST % Normal [facility] Comment on above: Performed By: #### C LEWIS ####[facility] [address] [place] [address]Dr. Tyree Paiz CORRECTED WBC Normal 4.0-11.0 [facility] Comment on above: Performed By: #### C LEWIS ####[facility] [address] [place] [address]Dr. Tyree Paiz EOS # 0.41 103/ul Normal 0.00-0.70 [facility] Comment on above: Performed By: #### C LEWIS ####[facility] [address] [place] [address]Dr. Tyree Paiz EOS% 3.0 % Normal 0.9-7.0 [facility] Comment on above: Performed By: #### C LEWIS ####[facility] [address] [place] [address]Dr. Tyree Paiz HCT 31.3 % Critically low 36.0-48.0 [facility] Comment on above: Performed By: #### C LEWIS ####[facility] [address] [place], [place] [address]Dr. Tyree Paiz HGB 10.2 g/dl Critically low 12.0-16.0 [facility] Comment on above: Performed By: #### C LEWIS ####[facility] [address] [place] [address]Dr. Tyree Paiz LYMPHM # 1.63 103/ul Normal 1.20-3.80 [facility] Comment on above: Performed By: #### C LEWIS ####[facility] [address] [place], [place] [address]Dr. Tyree Paiz LYMPHM% 12.0 % Critically low 20.5-60.0 [facility] Comment on above: Performed By: #### C LEWIS ####[facility] [address] [place], [place] [address]Dr. Tyree Paiz MCH 27.4 pg Normal 26.7-34.0 [facility] Comment on above: Performed By: #### C LEWIS ####[facility] [address] [place] [id number]. Tyree Paiz MCHC 32.6 g/dl Normal 29.9-35.2 [facility] Comment on above: Performed By: #### C LEWIS ####[facility] [address] [place] [address]Dr. Tyree Paiz MCV 84.1 fL Normal 81.0-99.0 [facility] Comment on above: Performed By: #### C BCTY ####[facility] [address] [place], [place] [address]Dr. Tyree Paiz METAMYELOCYTE # Normal [facility] Comment on above: Performed By: #### C LEWIS ####[facility] [address] [place], [place] [address]Dr. Tyree Paiz METAMYELOCYTE % Normal [facility] Comment on above: Performed By: #### C LEWIS ####[facility] [address] [place] [address]Dr. Tyree Paiz MONOM# 1.36 103/ul Critically high 0.30-0.80 [facility] Comment on above: Performed By: #### C LEWIS ####[facility] [address] [place] [address]Dr. Tyree Paiz MONOM% 10.0 % Normal 1.7-12.0 [facility] Comment on above: Performed By: #### C LEWIS ####[facility] [address] [place], [place] [address]Dr. Tyree Paiz MPV 9.5 fL Normal 9.5-13.5 [facility] Comment on above: Performed By: #### C LEWIS ####[facility] [address] [place], [place] [address]Dr. Tyree Paiz MYELOCYTE # Normal [facility] Comment on above: Performed By: #### C LEWIS ####[facility] [address] [place], [place] [address]Dr. Tyree Paiz MYELOCYTE % Normal [facility] Comment on above: Performed By: #### C LEWIS ####[facility] [address] [place] [address]Dr. Tyree Paiz NRBC Normal [facility] Comment on above: Performed By: #### C LEWIS ####[facility] [address] [place] [address]Dr. Tyree Paiz PLT 258 103/ul Normal 150-450 [facility] Comment on above: Performed By: #### C LEWIS ####[facility] [address] [place], [place] [address]Fu. Tyree Paiz RBC 3.72 106/ul Critically low 4.20-5.40 [facility] Comment on above: Performed By: #### C LEWIS ####[facility] [address] [place] [id number]. Tyree Paiz RDW 13.0 % Normal 11.0-15.0 [facility] Comment on above: Performed By: #### C LEWIS ####[facility] D[address]hlnk[address] [place] [id number]. Tyree Paiz SEG # 10.20 103/ul Critically high 1.40-6.50 [facility] Comment on above: Performed By: #### C LEWIS ####[facility] Rifs[address]hgao[address] [place] [id number]. Tyree Paiz SEG % 75.0 % Normal 43.0-75.0 [facility] Comment on above: Performed By: #### C LEWIS ####[facility] Fhyfwgyrdl68[address] [place] [id number]. Tyree Paiz WBC 13.6 103/ul Critically high 4.0-11.0 [facility] Comment on above: Performed By: #### C LEWIS ####[facility] Sppkgtbvlq6172 [place] [id number]. Tyree Paiz Covid-19 PCR ([facility])on SARS-CoV-2 (COVID-19) RNA GINO+probe Ql (Unsp spec) Not detected Normal NOT DETECTED [facility] Comment on above: Result Comment: When [...] for this test is supported by the Contract Administrative Assistant of Health and Human Service's declaration that [...] used). Performed By: #### C VDTBH #### [facility] [address] [place] [address] Dr. Tyree Paiz DRUG SCREEN RAPID (URINE)on 01-29-2022 AMP Negative Normal NEGATIVE [facility] Comment on above: Performed By: #### D RUGRPD #### [facility] [address] [place] [address] Dr. Tyree Paiz BAR Negative Normal NEGATIVE [facility] Comment on above: Performed By: #### D RUGRPD #### [facility] [address] [place] [address] Dr. Tyree Paiz BUP Negative Normal NEGATIVE [facility] Comment on above: Performed By: #### D RUGRPD #### [facility] [address] [place] [address] Dr. Tyree Paiz BZO Negative Normal NEGATIVE [facility] Comment on above: Performed By: #### D RUGRPD #### [facility] [address] [place] [address] Dr. Tyree Paiz ZACHARY Negative Normal NEGATIVE [facility] Comment on above: Performed By: #### D RUGRPD #### [facility] [address] [place] [address] Dr. Tyree Paiz CUT-OFFS SEE BELOW Normal [facility] Comment on above: Result Comment: AMP (Amphetamine): 500ng/mL, BAR (Barbituates): 200 ng/mL, BZO (Benzodiazepines): 150 ng/mL, BUP (Buprenorphine): 10 ng/mL, ZACHARY (Cocaine): 150 ng/mL, mAMP (Methamphetamine): 500 ng/mL, MTD (Methadone): 200 ng/mL, OPI (Opiates): 100 ng/mL, OXY (Oxycodone): 100 ng/mL, PCP (Phencyclidine): 25 ng/mL, PPX (Propoxyphene): 300 ng/mL, THC (Cannabinoids): 50 ng/mL, TCA (Trycyclic Antidepressants): 300 ng/mL Performed By: #### D RUGRPD #### [facility] [address] [place] [address] Dr. Tyree Paiz DRUG CUT HEADER DRUG CLASS TEST SYSTEM CUT-OFF CONCENTRATIONS ARE FOLLOWS: Normal [facility] Comment on above: Performed By: #### D RUGRPD #### [facility] [address] [place] [address] Dr. Tyree Paiz mAMP Negative Normal NEGATIVE [facility] Comment on above: Performed By: #### D RUGRPD #### [facility] [address] [place] [address] Dr. Tyree Paiz MTD Negative Normal NEGATIVE [facility] Comment on above: Performed By: #### D RUGRPD #### [facility] [address] [place] [address] Dr. Tyree Paiz OPI Negative Normal NEGATIVE [facility] Comment on above: Performed By: #### D RUGRPD #### [facility] [address] [place] [address] Dr. Tyree Paiz OXY Negative Normal NEGATIVE [facility] Comment on above: Performed By: #### D RUGRPD #### [facility] [address] [place] [address] Dr. Tyree Paiz PCP Negative Normal NEGATIVE [facility] Comment on above: Performed By: #### D RUGRPD #### [facility] [address] [place] [address] Dr. Tyree Paiz PPX Negative Normal NEGATIVE [facility] Comment on above: Performed By: #### D RUGRPD #### [facility] [address] [place] [address] [address] Tyree Paiz TCA Negative Normal NEGATIVE [facility] Comment on above: Performed By: #### D RUGRPD #### [facility] [address] [place] [address] [address] Tyree Paiz THC Negative Normal NEGATIVE [facility] Comment on above: Performed By: #### D RUGRPD #### [facility] [address] [place] [address] [address] Tyree Paiz US PREG BIOPHY W [...] [place] Date: 2022-01-26 19:11 Normal [facility] US PREG BIOPHY W NON STRESSo [...] [place] Date: 2022-01-19 07:52 Normal [facility] GROUP B STREP CULTUREon 12-22 S. agalactiae Ag Ql (Unsp spec) Culture Observations: NEGATIVE FOR GROUP B STREPTOCOCCUS. Normal [facility] Comment on above: Performed By: #### G BSCX ####[facility] Lx[address]zbalvm47[address] [place], [place] [address]VcDr. Tyree Pazi US PREG GROWTHon 01-12-2022 US PREG GROWTH [...] [place] Date: 2022-01-12 16:41 Normal [facility] GLUCOSE - 1HRon 11-10-2021 Glucose [Mass/Vol] 98 mg/dL Normal 74-106 [facility] Comment on above: Performed By: #### G LU1HR #### [facility] [address] [place] [address] [address] Tyree Paiz HEMOGRAM AND PLATELon 2021 Hematocrit (Bld) [Volume fraction] 36.3 % Normal 36.0-48.0 [facility] Comment on above: Performed By: #### H H #### [facility] [address] [place], [place] [address] Dr. Tyree Paiz Hemoglobin (Bld) [Mass/Vol] 11.9 g/dL Critically low 12.0-16.0 [facility] Comment on above: Performed By: #### H H #### [facility] [address] [place] [address] [address] Tyree Paiz MCH (RBC) [Entitic mass] 30.1 pg Normal 26.7-34.0 [facility] Comment on above: Performed By: #### H H #### [facility] [address] [place] [address] [address] Tyree Paiz MCHC (RBC) [Mass/Vol] 32.8 g/dL Normal 29.9-35.2 [facility] Comment on above: Performed By: #### H H #### [facility] [address] [place] [address] [address] Tyree Paiz MCV (RBC) [Entitic vol] 91.7 fL Normal 81.0-99.0 [facility] Comment on above: Performed By: #### H H #### [facility] [address] [place] [address] [address] Tyree Paiz PLT 237 103/ul Normal 150-450 [facility] Comment on above: Performed By: #### H H #### [facility] [address] [place] [address] [address] Tyree Paiz RBC 3.96 106/ul Critically low 4.20-5.40 [facility] Comment on above: Performed By: #### H H #### [facility] [address] [place] [address] [address] Tyree Paiz WBC 12.6 103/ul Critically high 4.0-11.0 [facility] Comment on above: Performed By: #### H H #### [facility] [address] [place] [address] [address] Tyree Paiz US PREG INCOMPLETE ANATOMYon [...] CAIO NGO Date: 2021-11-02 17:30 Normal [facility] ED Note-Physicianon 06-07-19 ED Note-Physician Basic [...] worse. She is attempted to use an foia-xdc-nyupeam eczema cream but states that it is [...] Appropriate mood & affect. Integumentary: Warm, Dry, [place] Medical Decision Making I believe this to [...] Austyn Bocanegra In 3 days 06/09/2020 EST [facility] [address] [facility], [place] [place] [phone] Business (1) Additional Instructions: Use the eye ointment as prescribed, return should vision disturbance develop, otherwise follow-up with the application packager as directed for reevaluation. Patient Education Eczema [...] Diagnostic Results No qualifying data available. Normal [facility] Comment on above: Result Comment: Elec tronically Signed By: Calvin Morley PA-C\.br\Date and Time Signed: 06/06/20 12:03 EST\.br\Electronically Co-Signed By: Jr Solomon DO\.br\Date and Time Co-Signed: 06/06/20 22:16 EST Coding Summary.on 06-06-2020 Coding Summary. CODING DATE: 06/06/2020 FINAL [facility] STATUS: Home (Routine DC) PAYOR: Self Pay [...] Mejía Date Saved: 06/06/2020 05:36 pm Normal [facility] Consent for Treatmenton 05-23 Consent for Treatment [id number] #1.00CD:127 Normal [facility] Discharge Instructionson Discharge Instructions [id number] 6#1.00CD:127 Normal [facility] ED Clinical Summaryon 2020 ED Clinical Summary [place] [id number] ED Clinical Summary Person Information Name: GRACE PENNY [facility] Age: 20 Years : 2000 Sex: Female Language: Belizean PCP: Tony PHAN MD Marital Status: Single [...] 06/06/2020 12:00:00 06/06/2020 12:00:00 06/06/2020 12:00:00 ADDRESS: [address] [place] [id number] PHYS DOC NOTES: MEDICAL INFORMATION: Prescriptions Given: New Medications Printed Prescriptions loteprednol ophthalmic (Lotemax 0.5% ophthalmic ointment) 1 eloise OPTH QID. Refills: 0. Medications to Continue with No Changes Other Medications naproxen (naproxen 500 mg Tab) 1 Tablets By Mouth 2 times a day as needed for pain. Refills: 0. PATIENT EDUCATION INFORMATION: Instructions: Eczema Follow up: With: Address: When: Austyn Bocanegra [facility] [address], [address] [place] [phone] Business (1) In 3 days 06/09/2020 Comments: Use the eye ointment as prescribed, return should vision disturbance develop, otherwise follow-up with the application packager as directed for reevaluation. DIAGNOSIS: 1:Eyelid dermatitis, eczematous Normal [facility] ED Patient Education Noteon 06-06-2020 ED Patient [...] the itching and scratching. ? ? Use qbeu-uqe-zphpewg antihistamines as directed for itching. This is especially useful at night when the itching tends to be worse. ? ? Use xufc-tip-umtvahm steroid creams as directed for itching. ? [...] ? HOME CARE INSTRUCTIONS ? Only take oknd-sgl-tlofwce or prescription medicines as directed by your [...] Document Reviewed: 12/10/2013 ExitCare? Patient Information ?2015 [employer] This information is not intended to replace advice given to you by your health care provider. Make sure you discuss any questions you have with your health care provider. Normal [facility] ED Patient Summaryon 021 ED Patient Summary [address] [address] Patient Discharge Instructions Person Information Name: GRACE PENNY Age: 20 Years Arrival Date: 06/06/2020 11:09:25 Discharge Diagnosis: 1:Eyelid dermatitis, eczematous Primary Care Physician: Tony PHAN MD Provider Information Primary Provider: Jr Solomon DO [employer] Operator:Calvin Morley PA-C The exam and treatment you received in the Emergency Department were for an urgent problem and are not intended as complete care. It is important that you follow up with a doctor, nurse practitioner, or physician?s campus administrative assistant for ongoing care. If your symptoms [...] Follow-up Instructions: With: Address: When: Austyn Bocanegra [facility] [address], [facility] [address] [place] [phone] Business (1) In 3 days 06/09/2020 Comments: Use the eye ointment as prescribed, return should vision disturbance develop, otherwise follow-up with the application packager as directed for reevaluation. In the event that this physician does not participate in your insurance network, please consult with your insurance company to find a nearby participating provider. Patient Education Materials: Eczema A MESSAGE TO ALL PATIENTS REGARDING OPIOIDS PRESCRIPTION OPIOIDS: WHAT YOU NEED TO KNOW Prescription opioids can be used to help relieve ehtzaxvu-br-jphxex pain and are often prescribed following a [...] guidance from the Food and Drug Administration (www.fda.gov/Drugs/R esourcesForYou). ? Visit www.cdc.gov/drugover dose to learn about the risks of opioids abuse and overdose. (more content not included)... [facility] Registrationon 04-08-2020 Registration [id number]#1.00CD:127 [facility] Consenton 04-07-2020 Consent [id number] 0#1.00CD:127 [facility] Registrationon 04-07-2020 Registration [id number] 6#1.00CD:127 [facility] Vital Signs Date Time Vital Sign Value Performing Clinician Frances godoy 11-29-2024 10:50-0400 Body temperature 98.1 [degF] Sandhya Ivory DRY HOUSE ATTENDANT Work Phone: [facility] 11-29-2024 10:50-0400 Diastolic blood pressure 80 mm[Hg] Sandhya Ivory DRY HOUSE ATTENDANT Work Phone: [facility] 11-29-2024 10:50-0400 Heart rate 103 /min Sandhya Ivory DRY HOUSE ATTENDANT Work Phone: [facility] 11-29-2024 10:50-0400 Respiratory rate 20 /min Sandhya Ivory DRY HOUSE ATTENDANT Work Phone: [facility] 11-29-2024 10:50-0400 SaO2% (BldA) [Mass fraction] 98 % Sandhya Ivory DRY HOUSE ATTENDANT Work Phone: [facility] 11-29-2024 10:50-0400 Systolic blood pressure 110 mm[Hg] Sandhya Ivory DRY HOUSE ATTENDANT Work Phone: [facility] 09-19-2024 13:00-0400 Body mass index (BMI) [Ratio] 30.56 kg/m2 Jaida Siria DO Work Phone: [facility] 09-19-2024 13:00-0400 Body weight 78.25 kg Jaida Siria DO Work Phone: [facility] 09-19-2024 13:00-0400 Diastolic blood pressure 80 mm[Hg] Jaida Siria DO Work Phone: [facility] 09-19-2024 13:00-0400 Systolic blood pressure 130 mm[Hg] Jaida Siria DO Work Phone: [facility] 06-23-2023 11:47-0500 Body mass index (BMI) [Ratio] 33.37 kg/m2 Jaida Siria DO Work Phone: [facility] 06-23-2023 11:47-0500 Body weight 85.46 kg Jaida Siria DO Work Phone: [facility] 06-23-2023 11:47-0500 Diastolic blood pressure 70 mm[Hg] Jaida Siria DO Work Phone: [facility] 06-23-2023 11:47-0500 Systolic blood pressure 120 mm[Hg] Jaida Siria DO Work Phone: [facility] Encounters Encounter Date Encounter Type Care Provider Facility Start: 12-12-2024 End: 12-12-2024 Bamboo flowsheet Jaida Siria DO Work Phone: [facility] Start: 12-12-2024 End: 12-12-2024 Bamboo flowsheet Jaida Siria DO Work Phone: [facility] Start: 11-29-2024 End: 12-02-2024 Follow-up encounter Sandhya Ivory DRY HOUSE ATTENDANT Work Phone: [facility] Comment on above: Dysuria (Primary Dx) Start: 11-29-2024 End: 11-29-2024 Office outpatient visit 25 minutes Sandhya Ivory DRY HOUSE ATTENDANT Work Phone: [facility] Comment on above: Dysuria (Primary Dx) ; Vaginal itching Start: 11-29-2024 End: 11-29-2024 ambulatory SANDHYA IVORY Not Available Start: 11-05-2024 End: 11-05-2024 Telephone encounter Sheng Sameer Frankel DO Work Phone: [facility] 230 Comment on above: Referral Start: 09-20-2024 End: 09-20-2024 Clinisync Result Encounter Jaida Siria DO Work Phone: [facility] Unsolicited Start: 09-20-2024 End: 09-20-2024 Clinisync Result Encounter Jaida Siria DO Work Phone: [facility] Unsolicited Start: 09-19-2024 End: 09-19-2024 Bamboo flowsheet Jaida Siria DO Work Phone: [facility] Start: 09-19-2024 End: 09-19-2024 Bamboo flowsheet Jaida Siria DO Work Phone: [facility] Start: 09-19-2024 End: 09-19-2024 Office outpatient visit 15 minutes Jaida Siria DO Work Phone: [facility] Comment on above: Pelvic pain in femal e Start: 09-19-2024 End: 09-19-2024 ambulatory JAIDA SIRIA Not Available Start: 08-31-2024 End: 08-31-2024 Telephone encounter Sheng Estrella [place] DO Work Phone: [facility] Start: 08-10-2024 End: 08-10-2024 ambulatory SHENG Estrella ALTONBRIAN Not Available Start: 06-26-2024 End: 06-26-2024 ambulatory Facility:[facility] Start: 06-26-2024 End: 06-26-2024 Telemedicine consultation with patient Chadwick Ornelas APRN.[employer] Work Phone: Telemedicine Comment on above: Dysuria (Primary Dx) Start: 06-23-2023 End: 06-23-2023 flow sheet Jaida [...] Date Procedure Procedure Detail Performing Clinician Start: 11-29-2024 POCT CEPHEID MVP Sarah Ivory DRY HOUSE ATTENDANT Work Phone: Start: 11-29-2024 URINARY TRACT INFECT ION (HTRX) Sandhya Ivory DRY HOUSE ATTENDANT Work Phone: Start: 11-29-2024 Urnls dip stick/tabl et rgnt auto w/o microscopy Sandeep Bejarano DO Work Phone: Start: 09-20-2024 US PELVIS W/ TRANSVAGINAL Jaida Siria DO Work Phone: Start: 06-23-2023 Urnls dip stick/tabl et rgnt non-auto w/o micrscp Jaida Siria DO Work Phone: Start: 01-30-2022 Extraction of Produc ts of Conception, Low Cervical, Open Approach DR ROLAND NORTON . Plan of Treatment Date Care Activity Detail Author Start: 02-02-2032 Urine microalbumin profile DTaP,Tdap,Td Vaccine (2 - Tdap) [facility] Start: 01-21-2025 Influenza [facility] Start: 12-12-2024 End: 12-12-2024 Patient encounter procedure [facility] Comment on above: Arrived Start: 09-19-2024 End: 03-21-2025 US Pelvis US Pelvis w/ TV Imaging Routine Pelvic pain in female Expected: 09/19/2024, Expires: 03/21/2025 [facility] Comment on above: Expected: 09/19/2024 , Expires: 03/21/2025 Start: 09-19-2024 End: 03-21-2025 US Pelvis transvaginal US pelvis transvaginal Imaging Routine Pelvic pain in female Expected: 09/19/2024, Expires: 03/21/2025 [facility] Comment on above: Expected: 09/19/2024 , Expires: 03/21/2025 Start: 09-19-2024 End: 09-19-2024 Patient encounter procedure 09/19/2024 1:00 PM EDT Office Visit [facility] [address] [place] [address] Jaida Beverly, DO [address] [place] [address] Arrived [facility] Comment on above: Arrived Start: 01-22-2024 Covid-19 Vaccine ( season) Covid-19 Vaccine () [facility] Start: 01-22-2024 Influenza vaccination Influenza Vacc ine (#1) [facility] Start: 07-11-2023 End: 07-11-2023 Patient encounter procedure 07/11/2023 3:10 PM EST Routine [facility] [address] [place] [address] Jaida Beverly, DO [address] [place] [address] [facility] Start: 01-29-2020 Screening for malign ant neoplasm of cervix Cervical Cancer Screening [facility] Start: 2018 Hepatitis B Vaccine (1 of 3 - 19+ 3-dose series) Hepatitis B Vaccine (1 of 3 - 19+ 3-dose series) [facility] Start: 2017 Anxiety Screening Anxiety Screening [facility] Start: 2017 Depression Screening Depression Scre ening [facility] Start: 2017 Hepatitis C screening Hepatitis C Sc reening [facility] Start: 2017 HIV screening HIV Screening [facility] Start: 2014 HPV Vaccine (1 - 3-d ose series) HPV Vaccine (1 - 3-dose series) [facility] Start: 2013 Peds To Adult Transition Annual Assessment Peds To Adult Transition Annual Assessment [facility] Start: 2011 Peds To Adult Transition Initial Discussion Peds To Adult Transition Initial Discussion [facility] CHLAMYDIA TRACHOMATI S (GENITO/STI) CHLAMYDIA TRACHOMATIS (GENITO/STI) Lab Routine Pelvic pain in female Ordered: 09/19/2024 [facility] Comment on above: Ordered: 09/19/2024 Neisseria gonorrhoea e DNA [Presence] in Unspecified specimen by GINO with probe detection Neisseria gonorrhea DNA probe, direct Lab Routine Pelvic pain in female Ordered: 09/19/2024 [facility] Comment on above: Ordered: 09/19/2024 POCT CEPHEID MVP POCT CEPHEID MV P Point of Care Testing Routine Vaginal itching 11/29/2024 2:08 PM EDT [facility] Work Phone: SURESWAB(R) ADVANCED VAGINITIS PLUS, TMA SURESWAB(R) ADVANCED VAGINITIS PLUS, TMA Pathology and Cytology Routine Pelvic pain in female Ordered: 09/19/2024 [facility] Work Phone: Comment on above: Ordered: 09/19/2024 Payers Date Payer Category Payer [facility] [id number] 2022 Unknown [facility] [id number] 2022-Present [phone] [address] [place] [address] [id number] 1999 Unknown [id number] [id number]. 2.593 1999 Unknown [id number] 2.16.840.1.576091.3.579. 2.593 1999 Unknown [id number] 2.16.840.1.383989.3.579. 2.593 1999 Unknown [id number] 2.16.840.1.504723.3.579. 2.593 1999 Unknown [id number] 2.16.840.1.195824.3.579. 2.593 1999 Unknown [id number] 2.16.840.1.115537.3.579. 2.593 1999 Unknown [id number] 2.16.840.1.461030.3.579. 2.593 1999 Unknown [id number] 2.16.840.1.964745.3.579. 2.593 1999 Unknown [id number] 2.16.840.1.257469.3.579. 2.593 1999 Unknown [id number] 2.16.840.1.476421.3.579. 2.593 1999 Unknown [id number] 2.16.840.1.406642.3.579. 2.1259 1999 Unknown [id number] 2.16.840.1.013059.3.579. 2.1259 1999 Unknown [id number] 2.16.840.1.568199.3.579. 2.1259 1959 Unknown [id number] Social History Date Type Detail Facility Start: 02-02-2023 Tobacco smoking stat [facility] Never smoked tobacco [facility] Start: 02-02-2023 Tobacco use and exposure Smoke less tobacco non-user [facility] Start: 06-23-2023 End: 11-29-2024 Alcohol intake Current drinker of alcohol (finding) [facility] Start: 02-02-2023 End: 08-09-2024 History of Social function [facility] Start: 02-02-2023 End: 08-09-2024 Tobacco use panel [facility] Start: 02-02-2023 Alcohol Comment Occasional alcohol u se [facility] Start: 12-04-2022 [facility] Start: 2000 Sex Assigned At Female [facility] Start: 01-13-2023 Gender identity Identifies as female gender (finding) [facility] Start: 01-13-2023 Sexual orientation Heterosexual (fin ding) [facility] Tobacco smoking stat us NHIS Tobacco smoking consumption unknown [facility] How often do you att end spiritism or mormonism services? Patient declined [facility] Do you belong to any clubs or organizations such as spiritism groups, unions, fraternal or athletic groups, or school groups? No [facility] Are you now , , , , never or living with a partner? [facility] How often to you hav e a drink containing alcohol? Never [facility] Do you feel stress - tense, restless, nervous, or anxious, or unable to sleep at night because your mind is troubled all the time - these days [OSQ] Only a little [facility] (I/We) worried wheth er (my/our) food would run out before (I/we) got money to buy more. Never true [facility] Goals Date Patient Goal Desired Activity /State Personal health goal Clinical Notes 08-08-2020 to 12-02-2024 Telephone Encounter - Sandhya Ivory NP - 12/02/2024 11:18 AM EDTTelephone Encounter - Sandhya Ivory NP - 12/02/2024 11:18 AM EDTTelephone Encounter - Debra Nunez MA - 12/02/2024 9:19 AM EDT Note Date & Type Note Facility 12-02-2024 Telephone encounter Note Sent [facility] to [facility] 12-02-2024 Miscellaneous Notes Sent Augment[facility] to [facility]. Spoke with patient and she is still having some discomfort. Would like atb to be sent to [facility] in [place] Please notify patient that urine culture report grew low bacterial load of staph epidermidis which is part of a given body sites's normal fadumo. How is she feeling? If she is still having symptoms, I will send in an ATB for her. Follow up with PCP if not improving. Thanks. Please notify patient that in house testing for BV, yeast, and Trich are all negative. These are not the cause of her symptoms. We will call with urine culture results once they are completed. Thanks. documented in this encounter [facility] 12-02-2024 Telephone encounter Note Spoke with patient and she is still having some discomfort. Would like atb to be sent to [facility] in [place] [facility] 12-02-2024 Telephone encounter Note Please notify patient that urine culture report grew low bacterial load of staph epidermidis which is part of a given body sites's normal fadumo. How is she feeling? If she is still having symptoms, I will send in an ATB for her. Follow up with PCP if not improving. Thanks. [facility] 11-29-2024 Telephone encounter Note Please notify patient that in house testing for BV, yeast, and Trich are all negative. These are not the cause of her symptoms. We will call with urine culture results once they are completed. Thanks. [facility] 11-29-2024 History of Presen t illness Narrative Images from the original note were not included. [address] , [address] [facility], [address] P: [phone] F: [phone] HPI Historian of HPI: patient Grace Fuentes is a 24 y.o. female who presents [...] Vitals BP 110/80 Pulse 103 Temp 98.1 F Resp 20 SpO2 98% OB Status Unknown [...] infection. She does not have any concern for STI. She reports ongoing symptoms off and on since April of 2024 . She has seen her PCP, TONGSMAN, and now has an upcoming appointment with [...] See telephone encounter. documented in this encounter [facility] 11-05-2024 Telephone encounter Note Pt is still having the same issues as when she was seen in July. She still has cramping and goes between constipation and diarrhea. She states she has felt sick for 5 months. She did see her lingo cleaner since and had further testing there but nothing was found. She was thinking the next step would be a GI referral. She was wondering if Dr. Frankel would refer her to a GI or if she needed to been seen again in the office? [facility] 11-05-2024 Miscellaneous Notes Pt is still having the same issues as when she was seen in July. She still has cramping and goes between constipation and diarrhea. She states she has felt sick for 5 months. She did see her lingo cleaner since and had further testing there but nothing was found. She was thinking the next step would be a GI referral. She was wondering if Dr. Frankel would refer her to a GI or if she needed to been seen again in the office? documented in this encounter [facility] 09-19-2024 History of Presen t illness Narrative Reason for Appointment: Patient ID: Grace Fuentes is a 24 y.o. female who presents for Pelvic Pain Patient presents today for Acute Visit. MEDICATIONS No current outpatient medications ALLERGIES No Known Allergies PROBLEMS Active Ambulatory Problems Diagnosis Date Noted SGA (small for gestational age) 07/25/2023 Size of fetus inconsistent with dates in third trimester 07/25/2023 Abnormal cervical Papanicolaou smear 08/10/2024 Obesity 08/10/2024 Resolved Ambulatory Problems Diagnosis Date Noted No Resolved Ambulatory Problems Past Medical History: Diagnosis Date 6 weeks follow-up Abnormal Pap smear of cervix History of Obesity (BMI 30-39.9) HISTORY PAST MEDICAL HISTORY SOCIAL HISTORY Past Medical History: Diagnosis Date 6 weeks follow-up Abnormal Pap smear of cervix History of Obesity (BMI 30-39.9) Social History Tobacco Use Smoking status: Never Smokeless tobacco: Never Substance Use Topics Alcohol use: Yes Comment: Occasional alcohol use Drug use: Never FAMILY HISTORY No family history on file. SURGICAL HISTORY Past Surgical History: Procedure Laterality Date SECTION, LOW TRANSVERSE 01/2022 SECTION, LOW TRANSVERSE 08/20/2023 REVIEW OF SYSTEMS Review of Systems: Review of Systems Constitutional: Negative. HENT: Negative. Eyes: Negative. Respiratory: Negative. Cardiovascular: Negative. Gastrointestinal: Negative. Genitourinary: Positive for pelvic pain. Musculoskeletal: Negative. Skin: Negative. Neurological: Negative. All other systems reviewed and are negative. Hematological: Negative. Endocrine: Negative. Allergic/Immunologic: Negative. OBJECTIVE Objective: Physical Exam Constitutional: Appearance: Normal appearance. She is well-developed. Genitourinary: Vulva normal. Cardiovascular: Rate and Rhythm: Normal rate and regular rhythm. Pulmonary: Effort: Pulmonary effort is normal. Breath sounds: Normal breath sounds. Abdominal: General: Bowel sounds are normal. There is no distension. Palpations: Abdomen is soft. Tenderness: There is no abdominal tenderness. There is no guarding or rebound. Musculoskeletal: General: No swelling. Normal range of motion. Right lower leg: No edema. Left lower leg: No edema. Neurological: Mental Status: She is alert and oriented to person, place, and time. Skin: General: Skin is warm and dry. Psychiatric: Mood and Affect: Mood normal. Behavior: Behavior normal. Vitals and nursing note reviewed. Exam conducted with a hourly sign language interpreter present. Vitals: Estimated body mass index is 30.56 kg/m as calculated from the following: Height as of 08/10/24: 5' 3 . Weight as of this encounter: 172 lb 8 oz. BP: 130/80 Patient's last menstrual period was 08/15/2024. ASSESSMENT & PLAN ICD-10-CM 1. Pelvic pain in female R10.2 Pt presents with pelvic pain and abdominal bloating, cultures obtained. Pt given pelvic ultrasound to have obtained. Pt to return for annual unless needed sooner. Pt does not desire control. Documented by Rosalie Matos LPN on behalf of: Jaida Beverly DO documented in this encounter [facility] 08-31-2024 Telephone encounter Note Let pt know her labs were all unremarkable, no changes needed at this time. [facility] 08-31-2024 Miscellaneous Notes Let pt know her labs were all unremarkable, no changes needed at this time. documented in this encounter [facility] 06-26-2024 Instructions Chadwick Ornelas APRN.[facility] - 06/26/2024 12:45 PM EST [facility] [...] have an infection. documented in this encounter [facility] 06-26-2024 Note HNO ID: [id number] Author: CHADWICK ORNELAS APRN.CNP Service: ? Author Type: Nurse Practitioner Type: Progress Notes Filed: 06/26/2024 12:45 Note Text: Telemedicine Visit - Distance Health Virtual Visit Note Patient seen on [employer] Video Visit platform. Location of patient: [place] I have communicated my name and active licensure. The patient's identity and physical location were verified at the time of this visit. Either the patient or their legal ict sales representative has been informed of the risks [...] when wiping. Pt. Does not live near [facility] lab. Advised patient will empirically treat [...] concerning symptoms All questions answered Chadwick Ornelas APRN.[facility] 06-26-2024 History of Presen t illness Narrative Telemedicine Visit - Distance Health Virtual Visit Note Patient seen on [employer] Video Visit platform. Location of patient: [place] I have communicated my name and active licensure. The patient's identity and physical location were verified at the time of this visit. Either the patient or their legal ict sales representative has been informed of the risks [...] when wiping. Pt. Does not live near [facility] lab. Advised patient will empirically treat but [...] Chadwick Ornelas APRN.ANDREW documented in this encounter [facility] 06-23-2023 History of Presen t illness Narrative [...] YVETTE Xavier documented in this encounter [facility] 01-29-2022 Note OPERATIVE NOTE OPERATION DATE: 01/30/2022 PROCEDURE: Primary low transverse section. PREOPERATIVE DIAGNOSIS: 1. Intrauterine at 38+ weeks. 2. Spontaneous labor. 3. Failure to descend. POSTOPERATIVE DIAGNOSIS: 1. Intrauterine at 38+ weeks. 2. Spontaneous labor. 3. Failure to descend. ANESTHESIA: Epidural with Duramorph. SURGEON: Jaida Beverly D.O. GEAR TESTER: JOCELYNN Matos URINE OUTPUT: Yellow and clear. [...] the Recovery Room in stable condition. [facility] 01-29-2022 Note DISCHARGE SUMMARY DISCHARGE DATE: 02/16/2022 [...] free and no longer on narcotics. [facility] 08-08-2020 Note HNO ID: [id number] Author: Jackelyn Russell Service: ? Author Type: [...] file for this visit. Jackelyn Russell MD [facility] Evaluation note Diagnosis Third trimester state, incidental [facility] Diagnosis D[facility]- Primary [facility] Diagnosis Pelvic pain in female Unspecified symptom associated with female genital organs [facility] Diagnosis Dysuria- Primary documented in [facility] encounter [facility]* Diagnosis Dysuria- Primary Vaginal itching Pruritus of genital organs documented in this encounter [facility] Summary [...] content) DATE CREATED AUTHOR 11/23/2020 [facility] DATE CREATED AUTHOR AUTHOR'S ORGANIZ ATION 06/21/2021 [facility] DATE CREATED AUTHOR AUTHOR'S ORGANIZ ATION 09/29/2022 [facility] DATE CREATED AUTHOR AUTHOR'S ORGANIZ ATION 06/28/2024 [facility] DATE CREATED AUTHOR AUTHOR'S ORGANIZ ATION 12/03/2024 [facility] EPIC Reason for Visit (unrecogniz ed section and content) Reason Comments Routine Visit Reason Comments UTI Reason Comments Pelvic Pain Reason Onset Date Comments Referral 11/05/2024 Source Comments (unrecognize d section and content) In the event this informatio n is protected by the Federal Confidentiality of Alcohol and Drug Abuse Patient Records regulations: The Federal rules restrict any use of the information to criminally investigate or prosecute any alcohol or drug abuse patient.[facility] Care Teams (unrecognized sec tion and content) Travel Sales Consultant Relationship Specialty Start Date End Date Sheng Frankel DO [address] [place] [address] PCP - General Family Medicine 08/10/24 Travel Sales Consultant Relationship Specialty Start Date End Date Sheng Frankel DO [address] [place] [address] PCP - General Family Medicine 08/10/24 Travel Sales Consultant Relationship Specialty Start Date End Date Sheng Frankel DO [address] [place] [address] PCP - General Family Medicine 08/10/24 Sheng Frankel, DO [address] [place] [address] PCP - [facility] 09/20/24 Travel Sales Consultant Relationship Specialty Start Date End Date Sheng Frankel, DO [address] [place] [address] PCP - General Family Medicine 08/10/24 Sheng Frankel, DO [address] [place] [address] PCP - [facility] 09/20/24 Travel Sales Consultant Relationship Specialty Start Date End Date Sheng Frankel, DO [address] [place] [address] PCP - General Family Medicine 08/10/24 Sheng Frankel, DO [address] [place] [address] PCP - [facility] 09/20/24 Travel Sales Consultant Relationship Specialty Start Date End Date Sheng Frankel DO [address] [place] [address] PCP - General Family Medicine 08/10/24 Sheng Frankel, DO [address] [place] [address] PCP - [facility] 09/20/24 FOR RECORDS PERTAINING TO PATIENTS WHO ARE [...] BE BASED ON THE PRIMARY CLINICAL RECORDS. [employer] [facility]. provides no warranty or guarantee of the accuracy or completeness of information in this document.
--- OUTSIDE RECORDS SUMMARY | 2024-12-12 19:40 | XMS_ITS | Encounter Summary ---
Author Organization [facility] Address [address] [place] [address] Care Team Providers Care Mash Grinder Name Role Phone Elaina Villarreal Tapan ERNST-INCIDENT ANALYST Unavailable + [phone] Sheng Frankel DO Primary Care Provider + [phone] Sheng Frankel DO Unavailable [phone] Encounter Details Date Type Department Care Team (Late Contact Info) Description 05/09/2023 Clinisync Result Encounter [facility] External Department Unsolicited Jaida Beverly DO [address] [facility] [address] [place], [place] [id number] Social History Tobacco Use Types Packs/Day Years Used Date Smoking Tobacco: Never Smokeless Tobacco: Never Alcohol Use Standard Drinks/Week Comments Yes 0 (1 standard drink = 0.6 oz pur e alcohol) Occasional alcohol use Comments Yes Sex and Gender Information Value Date Recorded Sex Assigned at Female 01/13/2023 1:36 PM EDT Legal Sex Female 11:47 PM EDT Gender Identity Female 01/13/2023 1:36 PM EDT Sexual Orientation Straight 01/13/2023 1: 36 PM EDT COVID-19 Exposure Response Date Recorded In the last 10 days, have yo u been in contact with someone who was confirmed or suspected to have Coronavirus/COVID-19? No / Unsure 04/12/2023 8:47 AM EST documented as of this encounter Plan of Treatment Upcoming Encounters Date Type Department Care Team (Late Contact Info) Description 01/09/2025 8:10 AM EDT Office Visit [facility] [address] [place] [address] Jaida Beverly, DO [address] [place] [address] documented as of this encounter Goals Goal Patient Goal Type Associated Problems Recent Progress Patient-Stated? Author Reminders Care Plan OB Reminders No Open Scheduling, Background documented as of this encounter Procedures Procedure Name Priority Date/Time Associated Diagnosis Comments US OB CERVICAL LENGTH 05/09/2023 3:44 PM EST documented in this encounter Results * US OB CERVICAL LENGTH (05/09/2023 3:44 PM EST) Anatomical Region Laterality Modality Other 05/09/2023 3:44 PM EST Narrative 05/09/2023 3:47 PM EST The [address] [address] Ultrasound Report Signed Patient: GRACE FUENTES MR#: [id number] : 2000 Acct:[id number] Age/Sex: 23 / F ADM Date: 05/09/23 Loc: US Attending Dr: Jaida Beverly D.O. Ordering Physician: Jaida Beverly D.O. Date of Service: 05/09/23 Procedure(s): US OB cervical length Accession Number(s): [id number] cc: Jaida Beverly D.O.; Physician,Non-Staff M.DSarah The [address] [address] Patient Name: GRACE FUENTES MRN: [id number] date: 2000 Sex: F Assigned Patient Location: US Current Patient Location: US Accession/Order Number: [id number] Exam Date: 05/09/2023 14:31 Report Date: 05/09/2023 15:44 At the request of: JAIDA BEVERLY Procedure: US OB cervical length EXAM: US OB placenta, US OB cervical length HISTORY: LOW LYING PLACENTA COMPARISON: None. TECHNIQUE: Transabdominal and transvaginal FINDINGS: position: Breech presentation, longitudinal lie Placenta: Anterior. The placental edge is 3.9 cm from the internal os. Grade 1. No intraplacental or retroplacental echogenic abnormality Heart rate: 137 bpm Cervix: 5.1 cm, closed Clinical age: 24 weeks 2 days US/US OB cervical length IMPRESSION: Low lying placenta, the placental edge is 3.9 cm from the internal os Closed cervix measuring 5.1 cm Electronically authenticated by: WILD VOSS Date: 05/09/2023 15:44 Dictated By: Wild Voss M.D. Signed By: 05/09/23 1547 DD/ 1544 TD/TT: Relay Worker: Procedure Note Radiology, Radiologist, MD - 05/09/2023 [place] [address] Ultrasound Report Signed Patient: GRACE FUENTES MMR#: [id number] : 2000Acct:[id number] Age/Sex: 23 / FADM Date: 05/09/23 Loc: US Attending Dr: Jaida Beverly D.O. Ordering Physician: Jaida Beverly D.O. Date of Service: 05/09/23 Procedure(s): US OB cervical length Accession Number(s): [id number] cc: Jaida Beverly D.O.; Physician,Non-Staff Yesenia The [place] [id number] Patient Name: GRACE FUENTES MRN: [id number] date: 2000 Sex: F Assigned Patient Location: US Current Patient Location: US Accession/Order Number: [id number] Exam Date: 05/09/2023 14:31 Report Date: 05/09/2023 15:44 At the request of: JAIDA BEVERLY Procedure: US OB cervical length EXAM: US OB placenta, US OB cervical length HISTORY: LOW LYING PLACENTA COMPARISON: None. TECHNIQUE: Transabdominal and transvaginal FINDINGS: position: Breech presentation, longitudinal lie Placenta: Anterior. The placental edge is 3.9 cm from the internal os.Grade 1. No intraplacental or retroplacental echogenic abnormality Heart rate: 137 bpm Cervix: 5.1 cm, closed Clinical age: 24 weeks 2 days US/US OB cervical length IMPRESSION: Low lying placenta, the placental edge is 3.9 cm from the internal os Closed cervix measuring 5.1 cm Electronically authenticated by: WILD VOSS Date: 05/09/2023 15:44 Dictated By: Wild Voss M.D. Signed By:05/09/23 1547 DD/ 1544 TD/TT: Relay Worker: us Jaida Siria DO [facility] Final Result documented in this encounter Visit Diagnoses Not on filedocumented in this encounter Additional Health Concerns Active Problems Noted Date Diagnosed Date OB Reminders 02/02/2023 documented as of this encounter Care Teams Mash Grinder Relationship Specialty Start Date End Date Elaina Villarreal APRN-INCIDENT ANALYST [address] [place] [address] PCP - [facility] 08/21/22 4 Sheng Frankel DO [address] [place] [address] PCP - General Family Medicine 08/10/24 Sheng Frankel DO [address] [place] [address] PCP - [facility] [employer] 09/20/24 documented as of this encounter
--- OUTSIDE RECORDS SUMMARY | 2024-12-12 19:40 | XMS_ITS | Encounter Summary ---
Author Organization [facility] Address [address] [place] [address] Care Team Providers Care Quality Assurance Consultant Name Role Phone Elaina Villarreal Tapan ERNST-FUNERAL PRE ARRANGEMENT COUNSELOR Unavailable + [phone] Sheng Frankel DO Primary Care Provider + [phone] Sheng Frankel DO Unavailable [phone] Encounter Details Date Type Department Care Team (Late Contact Info) Description 05/09/2023 Clinisync Result Encounter [facility] External Department Unsolicited Jaida Beverly DO [address] [facility] [address] [place], [place] [id number] Social History Tobacco Use Types Packs/Day Years [...] EDT Office Visit [facility] [address] [place] [address] Jaida Beverly, DO [address] [facility] [address] [place] [address] documented as of this encounter Goals Goal Patient Goal Type Associated Problems Recent Progress Patient-Stated? Author Reminders Care Plan OB Reminders No Open Scheduling, Background documented as of this encounter Procedures Procedure Name Priority Date/Time Associated Diagnosis Comments US OB PLACENTA 05/09/2023 3:44 PM EST documented in this encounter Results * US OB PLACENTA (05/09/2023 3:44 PM EST) Anatomical Region Laterality Modality Other 05/09/2023 3:44 PM EST Narrative 05/09/2023 3:47 PM EST The [place] [id number] Ultrasound Report Signed Patient: GRACE FUENTES MR#: [id number] : 2000 Acct:[id number] Age/Sex: 23 / F ADM Date: 05/09/23 Loc: US Attending Dr: Jaida Beverly D.O. Ordering Physician: Jaida eBverly D.O. Date of Service: 05/09/23 Procedure(s): US OB placenta Accession Number(s): [id number] cc: Jaida Beverly D.O.; Physician,Non-Staff M.DSarah The [address] [address] Patient Name: GRACE FUENTES MRN: [id number] date: 2000 Sex: F Assigned Patient Location: US Current Patient Location: US Accession/Order Number: [id number] Exam Date: 05/09/2023 14:31 Report Date: 05/09/2023 15:44 At the request of: JAIDA BEVERLY Procedure: US OB placenta EXAM: US OB placenta, US OB cervical length HISTORY: LOW LYING PLACENTA COMPARISON: None. TECHNIQUE: Transabdominal and transvaginal FINDINGS: position: Breech presentation, longitudinal lie Placenta: Anterior. The placental edge is 3.9 cm from the internal os. Grade 1. No intraplacental or retroplacental echogenic abnormality Heart rate: 137 bpm Cervix: 5.1 cm, closed Clinical age: 24 weeks 2 days US/US OB placenta IMPRESSION: Low lying placenta, the placental edge is 3.9 cm from the internal os Closed cervix measuring 5.1 cm Electronically authenticated by: WILD VOSS Date: 05/09/2023 15:44 Dictated By: Wild Voss M.D. Signed By: 05/09/23 1547 DD/ 1544 TD/TT: Frame Bander: Procedure Note Radiology, Radiologist, MD - 05/09/2023 [place] [address] Ultrasound Report Signed Patient: GRACE FUENTES MMR#: [id number] : 2000Acct:[id number] Age/Sex: 23 / FADM Date: 05/09/23 Loc: US Attending Dr: Jaida Beverly D.O. Ordering Physician: Jaida Beverly D.O. Date of Service: 05/09/23 Procedure(s): US OB placenta Accession Number(s): [id number] cc: Jaida Beverly D.O.; Physician,Non-Staff Yes[place] The [place] [id number] Patient Name: GRACE FUENTES MRN: [id number] date: 2000 Sex: F Assigned Patient Location: US Current Patient Location: US Accession/Order Number: [id number] Exam Date: 05/09/2023 14:31 Report Date: 05/09/2023 15:44 At the request of: JAIDA BEVERLY Procedure: US OB placenta EXAM: US OB placenta, US OB cervical length HISTORY: LOW LYING PLACENTA COMPARISON: None. TECHNIQUE: Transabdominal and transvaginal FINDINGS: position: Breech presentation, longitudinal lie Placenta: Anterior. The placental edge is 3.9 cm from the internal os.Grade 1. No intraplacental or retroplacental echogenic abnormality Heart rate: 137 bpm Cervix: 5.1 cm, closed Clinical age: 24 weeks 2 days US/US OB placenta IMPRESSION: Low lying placenta, the placental edge is 3.9 cm from the internal os Closed cervix measuring 5.1 cm Electronically authenticated by: WILD VOSS Date: 05/09/2023 15:44 Dictated By: Wild Voss M.D. Signed By:05/09/23 1547 DD/ 1544 TD/TT: Frame Bander: us Jaida Siria DO [facility] Final Result documented in this encounter Visit Diagnoses Not on filedocumented in this encounter Additional Health Concerns Active Problems Noted Date Diagnosed Date OB Reminders 02/02/2023 documented as of this encounter Care Teams Quality Assurance Consultant Relationship Specialty Start Date End Date Elaina Villarreal APRN-FUNERAL PRE ARRANGEMENT COUNSELOR [address] [place] [address] PCP - [facility] 08/21/22 4 Sheng Frankel DO [address] [place] [address] PCP - General Family Medicine 08/10/24 Sheng Frankel DO [address] [place] [address] PCP - [facility] 09/20/24 documented as of this encounter
--- OUTSIDE RECORDS SUMMARY | 2024-12-12 19:40 | XMS_ITS | Encounter Summary ---
Author Organization [facility] Address [address] [place] [address] Care Team Providers Care Toggle Press Folder And Feeder Name Role Phone Elaina Villarreal KLEVER-AUTO JOB ESTIMATOR Unavailable + [phone] Sheng Frankel DO Primary Care Provider + [phone] Sheng Frankel DO Unavailable [phone] Encounter Details Date Type Department Care Team (Late Contact Info) Description 03/07/2023 Abstract [facility] [address] [place] [address] Shmuel Beverly, DO [address] [place], [facility] Social History Tobacco Use Types Packs/Day Years [...] suspected to have Coronavirus/COVID-19? No / Unsure 02/08/2023 8:37 AM EDT documented as of this encounter Plan of Treatment Upcoming Encounters Date Type Department Care Team (Late Contact Info) Description 01/09/2025 8:10 AM EDT Office Visit [facility] [address] [place] [id number] Shmuel Beverly, DO [address] [place] [address] documented as of this encounter Goals Goal Patient Goal Type Associated Problems Recent Progress Patient-Stated? Author Reminders Care Plan OB Reminders No Open Scheduling, Background documented as of this encounter Visit Diagnoses Not on filedocumented in this encounter Additional Health Concerns Active Problems Noted Date Diagnosed Date OB Reminders 02/02/2023 documented as of this encounter Care Teams Toggle Press Folder And Feeder Relationship Specialty Start Date End Date Elaina Villarreal APRN-[facility] [address] [place] [address] PCP - [facility] 08/21/22 4 Sheng Frankel DO [address] [place] [address] PCP - General Family Medicine 08/10/24 Sheng Frankel DO [address] [place] [address] PCP - [facility] 09/20/24 documented as of this encounter
--- OUTSIDE RECORDS SUMMARY | 2024-12-12 19:40 | XMS_ITS | Encounter Summary ---
Author Organization [facility] Address [address] [facility] [place] [address] Care Team Providers Care Supervisor Salvage Name Role Phone Elaina Villarreal KLEVER-PRODUCTION LINE WORKER Unavailable + [phone] Sheng Frankel DO Primary Care Provider + [phone] Sheng Frankel DO Unavailable [phone] Encounter Details Date Type Department Care Team (Late Contact Info) Description 08/20/2023 Abstract [facility] OB [address] [place] [address] Shmuel Beverly DO [facility] Stephanie [place], [place] [address] Social History Tobacco Use Types Packs/Day Years [...] PM EDT documented as of this encounter Plan of Treatment Upcoming Encounters Date Type Department Care Team ([facility] Contact Info) Description 01/09/2025 8:10 AM EDT Office Visit [facility] OB [address] [facility] [place] [address] Shmuel Beverly [address] [place] [address] documented as of this encounter Goals Goal Patient Goal Type Associated Problems Recent Progress Patient-Stated? Author Reminders Care Plan OB Reminders No Open Scheduling, Background documented as of this encounter Visit Diagnoses Not on filedocumented in this encounter Additional Health Concerns Active Problems Noted Date Diagnosed Date OB Reminders 02/02/2023 documented as of this encounter Care Teams Supervisor Salvage Relationship Specialty Start Date End Date Elaina Villarreal, BUSINESS DATA ANALYST-PRODUCTION LINE WORKER [address] [place] [address] PCP - [facility] 08/21/22 4 Sheng Frankel DO [address] [place] [address] PCP - General Family Medicine 08/10/24 Sheng Frankel DO [address] [place] [address] PCP - Jaymie Ryan 09/20/24 documented as of this encounter
--- OUTSIDE RECORDS SUMMARY | 2024-12-12 19:40 | XMS_ITS | Encounter Summary ---
Author Organization [facility] Address [address] [place] [address] Care Team Providers Care Amphibian Crewmember Name Role Phone Elaina Villarreal Tapan ERNST-ADVICE LINE RN Unavailable + [phone] Sheng Frankel DO Primary Care Provider + [phone] Sheng Frankel DO Unavailable [phone] Encounter Details Date Type Department Care Team (Late Contact Info) Description 04/11/2023 Clinisync Result Encounter [facility] External Department Unsolicited Jaida Beverly DO [address] [facility] [address] [place], [place] [id number] Social History Tobacco Use Types Packs/Day Years [...] EDT Office Visit [facility] [address] [facility] [place] [address] Jaida Beverly, DO [address] [facility] [place] [address] documented as of this encounter Goals Goal Patient Goal Type Associated Problems Recent Progress Patient-Stated? Author Reminders Care Plan OB Reminders No Open Scheduling, Background documented as of this encounter Procedures Procedure Name Priority Date/Time Associated Diagnosis Comments US OB TRANSVAGINAL 04/11/2023 9: 28 PM EST documented in this encounter Results * US OB TRANSVAGINAL (04/11/2023 9:28 PM EST) Anatomical Region Laterality Modality Other 04/11/2023 9:28 PM EST Narrative 04/11/2023 9:28 PM EST The [address] [address] Ultrasound Report Signed Patient: GRACE FUENTES MR#: [id number] : 2000 Acct:[id number] Age/Sex: 23 / F ADM Date: 04/11/23 Loc: US Attending Dr: Jaida Beverly D.O. Ordering Physician: Jaida Beverly D.O. Date of Service: 04/11/23 Procedure(s): US OB transvaginal Accession Number(s): [id number] cc: Jaida Beverly D.O.; Physician,Non-Staff M.DSarah The [address] [address] Patient Name: GRACE FUENTES MRN: [id number] date: 2000 Sex: F Assigned Patient Location: US Current Patient Location: US Accession/Order Number: [id number] Exam Date: 04/11/2023 08:09 Report Date: 04/11/2023 21:28 At the request of: JAIDA BEVERLY Procedure: US OB transvaginal EXAMINATION: US OB anatomy, US OB transvaginal HISTORY: SECOND TRIMESTER Z34.92 COMPARISON: No relevant comparison available. TECHNIQUE: Transabdominal sonographic examination was performed for obstetrical and evaluation. FINDINGS: Number: 1 Heart Rate: 131.0 bpm H.B. /min Amniotic Fluid Volume: Subjectively normal Placental Location: ANTERIOR with lower margin 1.9 cm from os. Cervix Length: 4.4 cm; closed. ANATOMY: Normal Structures -cerebellum, choroid plexus, cisterna magna, lateral cerebral ventricles, orbits, midline falx, hard palate, four-chamber heart, RVOT, LVOT, stomach, kidneys, bladder, umbilical cord insertion into abdomen, three-vessel cord, cervical spine, thoracic spine, lumbar spine, sacral spine, right upper extremity, left upper extremity, right lower extremity, left lower extremity. SUBOPTIMALLY SEEN: None ABNORMALITIES: None BIOMETRY: BPD: 4.4 cm 19 weeks 2 days HC: 17.7 cm 20 weeks 2 days AC: 15.8 cm 20 weeks 6 days FL: 3.4 cm 20 weeks 5 days EFW:370.9 grams; FL/AC: 21.6 FL/BPD: 78.0 HC/AC: 1.1 GESTATIONAL AGE: Age by EDC: 20 weeks 2 days ANDI by EDC: 08/27/2023 Age by current US: 20 weeks 2 days ANDI by current US: 08/27/2023 US/US OB transvaginal IMPRESSION: 1. Single live intrauterine with growth detailed above. 2. Anterior low-lying placenta. Electronically authenticated by: SHON RUIZ Date: 04/11/2023 21:28 Dictated By: Shon Ruiz M.D. Signed By: 04/11/232130 DD/ 27 TD/TT: Automatic Door Mechanic: Procedure Note Radiology, Radiologist, MD - 04/11/20[address] [place] [address] Ultrasound Report Signed Patient: GRACE [facility]UENTES [facility]#: [id number] : 2000Acct:[id number] Age/Sex: 23 / FADM Date: 04/11/23 Loc: US Attending Dr: Jaida Beverly D.O. Ordering Physician: Jaida Beverly D.O. Date of Service: 04/11/23 Procedure(s): US OB transvaginal Accession Number(s): [id number] cc: Jaida Beverly D.O.; Physician,Non-Staff Yesenia [address] [address] Patient Name: GRACE FUENTES MRN: [facility]:[id number] date: 2000 Sex: F Assigned Patient Location: US Current Patient Location: US Accession/Order Number: [id number] Exam Date: 04/11/2023 08:09 Report Date: 04/11/2023 21:28 At the request of: JAIDA BEVERLY Procedure: US OB transvaginal EXAMINATION: US OB anatomy, US OB transvaginal HISTORY: SECOND TRIMESTER Z34.92 COMPARISON: No relevant comparison available. TECHNIQUE: Transabdominal sonographic examination was performed for obstetrical and evaluation. FINDINGS: Number: 1 Heart Rate: 131.0 bpm H.B. /min Amniotic Fluid Volume: Subjectively normal Placental Location: ANTERIOR with lower margin 1.9 cm from os. Cervix Length: 4.4 cm; closed. ANATOMY: Normal Structures -cerebellum, choroid plexus, cisterna magna, lateral cerebral ventricles, orbits, midline falx, hard palate, four-chamberheart, RVOT, LVOT, stomach, kidneys, bladder, umbilical cord insertion intoabdomen, three-vessel cord, cervical spine, thoracic spine, lumbar spine, sacralspine, right upper extremity, left upper extremity, right lower extremity, leftlower extremity. SUBOPTIMALLY SEEN: None ABNORMALITIES: None BIOMETRY: BPD: 4.4 cm 19 weeks 2 days HC: 17.7 cm 20 weeks 2 days AC: 15.8 cm 20 weeks 6 days FL: 3.4 cm 20 weeks 5 days EFW:370.9 grams; FL/AC: 21.6 FL/BPD: 78.0 HC/AC: 1.1 GESTATIONAL AGE: Age by EDC: 20 weeks 2 days ANDI by EDC: 08/27/2023 Age by current US: 20 weeks 2 days ANDI by current US: 08/27/2023 US/US OB transvaginal IMPRESSION: 1. Single live intrauterine with growth detailed above. 2. Anterior low-lying placenta. Electronically authenticated by: SHON RUIZ Date: 04/11/2023 21:28 Dictated By: Shon Ruiz M.D. Signed By:04/11/232130 DD/ 27 TD/TT: Automatic Door Mechanic: us Jaida Siria DO [facility] Final Result documented in this encounter Visit Diagnoses Not on filedocumented in this encounter Additional Health Concerns Active Problems Noted Date Diagnosed Date OB Reminders 02/02/2023 documented as of this encounter Care Teams Amphibian Crewmember Relationship Specialty Start Date End Date Elaina Villarreal, PLATING TANK OPERATOR-ADVICE LINE RN [address] [place] [address] PCP - [facility] 08/21/22 4 Sheng Frankel DO [address] [place] [address] PCP - General Family Medicine 08/10/24 Sheng Frankel DO [address] [place] [address] PCP - Jaymie Ryan 09/20/24 documented as of this encounter
--- OUTSIDE RECORDS SUMMARY | 2024-12-12 19:40 | XMS_ITS | Encounter Summary ---
Author Organization [facility] Address [address] [place] [address] Care Team Providers Care Fruit Peeler Name Role Phone JostinSheng Sameer DO Primary Care Provider + [phone] JostinSheng DO Unavailable [phone] Encounter Details Date Type Department Care Team (Latest Contact Info) Description 12/09/2024 Travel Social History Tobacco Use Types Packs/Day Years [...] week 08/09/2024 How often do you attend [facility] or anglican services? Patient declined 08/09/2024 Do you belong to any clubs o r organizations such as mosque groups, unions, fraternal or athletic groups, or [...] 08/10/2024 [facility] of Occupat ional [facility] - Occupational Stress Questionnaire Answer Date Recorded [...] any time in the past 12 m [facility], were you homeless or living in a nursing home (including now)? No 08/09/2024 Comments Unknown Sex [...] EDT Office Visit [facility] [address] [facility] [place] [address] Shmuel Beverly DO [address] [facility] [place] [address] documented as of this encounter Goals Goal Patient Goal Type Associated Problems Recent Progress Patient-Stated? Author Reminders Care Plan OB Reminders No Open Scheduling, Background documented as of this encounter Visit Diagnoses Not on filedocumented in this encounter Additional Health Concerns Active Problems Noted Date Diagnosed Date OB Reminders 02/02/2023 documented as of this encounter Care Teams Fruit Peeler Relationship Specialty Start Date End Date Sheng Frankel DO [address] [facility] [address] [place] [address] PCP - General Family Medicine 08/10/24 Sheng Frankel DO [address] [facility] [address] [place] [address] PCP - Jaymie Ryan 09/20/24 documented as of this encounter
--- OUTSIDE RECORDS SUMMARY | 2024-12-12 19:40 | XMS_ITS | Encounter Summary ---
Author Organization [facility] Address [address] [place] [address] Care Team Providers Care Email Deployment Specialist Name Role Phone JostinSheng Sameer DO Primary Care Provider [phone] JostinSheng DO Unavailable [phone] Encounter Details Date Type Department Care Team (Latest Contact Info) Description 11/29/2024 Travel Social History Tobacco Use Types Packs/Day [...] week 08/09/2024 How often do you attend [facility] or lutheran services? Patient declined 08/09/2024 Do you belong to any clubs o r organizations such as latter-day groups, unions, fraternal or athletic groups, or [...] Recorded Patient Health Questionnaire-2 Score 0 08/10/2024 [facility] of Occupat ional [facility] - Occupational Stress Questionnaire Answer Date Recorded [...] any time in the past 12 m [facility], were you homeless or living in a mcfp (including now)? No 08/09/2024 Comments Unknown Sex [...] EDT Office Visit [facility] [address] [facility] [place] [address] Shmuel Beverly DO [address] [facility] [place] [address] documented as of this encounter Goals Goal Patient Goal Type Associated Problems Recent Progress Patient-Stated? Author Reminders Care Plan OB Reminders No Open Scheduling, Background documented as of this encounter Visit Diagnoses Not on filedocumented in this encounter Additional Health Concerns Active Problems Noted Date Diagnosed Date OB Reminders 02/02/2023 documented as of this encounter Care Teams Email Deployment Specialist Relationship Specialty Start Date End Date Sheng Frankel DO [address] [place] [address] PCP - General Family Medicine 08/10/24 Sheng Frankel DO [address] [place] [address] PCP - Jaymie Ryan 09/20/24 documented as of this encounter
--- OUTSIDE RECORDS SUMMARY | 2024-12-12 19:40 | XMS_ITS | Encounter Summary ---
Author Organization [facility] Address [address] [place] [address] Care Team Providers Care Banquet Pilot Name Role Phone JostinSheng Sameer DO Primary Care Provider [phone] Jostin Sheng Sameer DO Unavailable [phone] Encounter Details Date Type Department Care Team ([facility] st Contact Info) Description 11/29/2024 Results Follow-Up [facility] [address] [facility] [address] [place] [address] Sandhya Jaramillo, BRICK BAKER [address] [place] [address] Dysuria (Primary Dx) Social History Tobacco Use Types Packs/Day Years [...] often do you attend chur ch or uatsdin services? Patient declined 08/09/2024 Do you belong to any clubs o r organizations such as voodoo groups, unions, fraternal or athletic groups, or [...] Recorded Patient Health Questionnaire-2 Score 0 08/10/2024 [facility] of Occupat ional Health - [...] any time in the past 12 m [facility], were you homeless or living in a halfway (including now)? No 08/09/2024 Comments Unknown Sex and Gender Information Value Date Recorded Sex Assigned at Female 01/13/2023 1:36 PM EDT Legal Sex Female 11:47 PM EDT Gender Identity Female 01/13/2023 1:36 PM EDT Sexual Orientation Straight 01/13/2023 1: 36 PM EDT documented as of this encounter Miscellaneous Notes * Telephone Encounter - Sandhya Jaramillo NP - 12/02/2024 11:18 AM EDT Sent Augmentin to [facility]. * Telephone Encounter - Debra Nunez MA - 12/02/2024 9:19 AM EDT Spoke with patient and she is still having some discomfort. Would like atb to be sent to [facility] in [place] * Telephone Encounter - Sandhya Jaramillo NP - 12/02/2024 9:09 AM EDT Please notify patient that urine culture report grew low bacterial load of staph epidermidis which is part of a given body sites's normal fadumo. How is she feeling? If she is still having symptoms, Iwill send in an ATB for her. Follow up with PCP if not improving. Thanks. * Telephone Encounter - Sandhya Jaramillo NP - 11/29/2024 2:53 PM EDT Please notify patient that in house testing for BV, yeast, and Trich are all negative. These are not the cause of her symptoms. We will call with urine culture results once they are completed. Thanks. documented in this encounter Plan of Treatment Upcoming Encounters Date Type Department Care Team (Late st Contact Info) Description 01/09/2025 8:10 AM EDT Office Visit [facility] [address] [facility] [address] Shmuel Beverly, DO [address] [facility] [place] [address] documented as of this encounter Goals Goal Patient Goal Type Associated Problems Recent Progress Patient-Stated? Author Reminders Care Plan OB Reminders No Open Scheduling, Background documented as of this encounter Visit Diagnoses Diagnosis Dysuria- Primary documented in this encounter Additional Health Concerns Active Problems Noted Date Diagnosed Date OB Reminders 02/02/2023 documented as of this encounter Care Teams Banquet Pilot Relationship Specialty Start Date End Date Sheng Frankel DO [address] [facility] [address] [place] [address] PCP - General Family Medicine 08/10/24 Sheng Frankel DO [address] [facility] [address] [place] [address] PCP - Jaymie Ryan 09/20/24 documented as of this encounter
--- OUTSIDE RECORDS SUMMARY | 2024-12-12 19:41 | XMS_ITS | Encounter Summary ---
Author Organization [facility] Address [address] [place] [address] Care Team Providers Care Mine Wirer Name Role Phone Sheng Frankel DO Primary Care Provider [phone] [phone] Sheng Frankel DO Unavailable [phone] Encounter Details Date Type Department Care Team (Late st Contact Info) Description 08/28/2024 Abstract [facility] [address] [facility] [address] [place] [address] Sheng Frankel, [address] [facility] [address] [place] [address] Social History Tobacco Use Types Packs/Day Years [...] often do you attend chur ch or jainism services? Patient declined 08/09/2024 Do you belong to any clubs o r organizations such as buddhism groups, unions, fraternal or athletic groups, or [...] Recorded Patient Health Questionnaire-2 Score 0 08/10/2024 [facility] of Occupat ional Health - [...] any time in the past 12 m [facility], were you homeless or living in a fdc (including now)? No 08/09/2024 Comments Unknown Sex [...] EDT Office Visit [facility] [address] [facility] [place] [address] Shmuel Beverly DO [address] [facility] [place] [address] documented as of this encounter Goals Goal Patient Goal Type Associated Problems Recent Progress Patient-Stated? Author Reminders Care Plan OB Reminders No Open Scheduling, Background documented as of this encounter Visit Diagnoses Not on filedocumented in this encounter Additional Health Concerns Active Problems Noted Date Diagnosed Date OB Reminders 02/02/2023 documented as of this encounter Care Teams Mine Wirer Relationship Specialty Start Date End Date Sheng Frankel DO [address] [place] [address] PCP - General Family Medicine 08/10/24 Sheng Frankel DO [address] [place] [address] PCP - [place] [employer] 09/20/24 documented as of this encounter
--- OUTSIDE RECORDS SUMMARY | 2024-12-12 19:41 | XMS_ITS | Encounter Summary ---
Author Organization [facility] Address [address] [facility] [place] [address] Care Team Providers Care Lead Enterprise Architect Name Role Phone Sheng Frankel DO Primary Care Provider [phone] Sheng Frankel DO Unavailable [phone] Encounter Details Date Type Department Care Team (Late Contact Info) Description 08/22/2023 Abstract [facility] OB [address] [facility] [place] [address] Debbie Pelaez LPN [address] [place] [address] Social History Tobacco Use Types Packs/Day Years [...] 01/09/2025 8:10 AM EDT Office Visit [facility] OB [address] [place] [address] Shmuel Beverly DO [address] [place] [address] [address] Parmar, [facility] documented as of this encounter Goals Goal Patient Goal Type Associated Problems Recent Progress Patient-Stated? Author Reminders Care Plan OB Reminders No Open Scheduling, Background documented as of this encounter Visit Diagnoses Not on filedocumented in this encounter Additional Health Concerns Active Problems Noted Date Diagnosed Date OB Reminders 02/02/2023 documented as of this encounter Care Teams Lead Enterprise Architect Relationship Specialty Start Date End Date Sheng Frankel DO [address] [place] [address] PCP - General Family Medicine 08/10/24 Sheng Frankel DO [address] [place] [address] PCP - Jaymie Ryan 09/20/24 documented as of this encounter
--- OUTSIDE RECORDS SUMMARY | 2024-12-12 19:41 | XMS_ITS | Encounter Summary ---
Author Organization [facility] Address [address] [place] [address] Care Team Providers Care Senior Research Scientist Name Role Phone RochelleSheng rocha DO Primary Care Provider [phone] RochelleSheng rocha DO Unavailable [phone] Encounter Details Date Type Department Care Team (Late st Contact Info) Description 12/12/2024 Bamboo flowsheet [facility] [address] [place] [id number] Shmuel Beverly, DO [address] [facility] [address] [place], [facility] Social History Tobacco Use Types Packs/Day Years [...] often do you attend chur ch or worship services? Patient declined 08/09/2024 Do you belong to any clubs o r organizations such as islam groups, unions, fraternal or athletic groups, or [...] Recorded Patient Health Questionnaire-2 Score 0 08/10/2024 [facility] of Occupat ional Health - [...] No 08/09/2024 Housing Stability Vital Sign Answer Danile e Recorded In the last 12 months, was t here a time when you were not able to pay the mortgage or rent on time? No 08/09/2024 In the past 12 months, how m any times have you moved where you were living? 0 08/09/2024 At any time in the past 12 m [facility], were you homeless or living in a chcf (including now)? No 08/09/2024 Comments Unknown Sex [...] [address] [facility] [address] Shmuel Beverly DO [address] [facility] [place] [address] documented as of this encounter Goals Goal Patient Goal Type Associated Problems Recent Progress Patient-Stated? Author Reminders Care Plan OB Reminders No Open Scheduling, Background documented as of this encounter Visit Diagnoses Not on filedocumented in this encounter Additional Health Concerns Active Problems Noted Date Diagnosed Date OB Reminders 02/02/2023 documented as of this encounter Care Teams Senior Research Scientist Relationship Specialty Start Date End Date Sheng Frankel DO [address] [place] [address] PCP - General Family Medicine 08/10/24 Sheng Frankel DO [address] [place] [address] PCP - [facility]mie [facility] 09/20/24 documented as of this encounter
--- OUTSIDE RECORDS SUMMARY | 2024-12-12 19:41 | XMS_ITS | Encounter Summary ---
Author Organization [facility] Address [address] [place] [address] Care Team Providers Care Explosive Expert Name Role Phone Sheng Frankel DO Primary Care Provider [phone] Sheng Frankel DO Unavailable [phone] Encounter Details Date Type Department Care Team (Late st Contact Info) Description 08/28/2024 Abstract [facility] [address] [facility] [address] [place] [address] Sheng Frankel, [address] [facility] [address] [place] [address] Social History Tobacco Use Types Packs/Day Years [...] often do you attend chur ch or jew services? Patient declined 08/09/2024 Do you belong to any clubs o r organizations such as mu-ism groups, unions, fraternal or athletic groups, or [...] Recorded Patient Health Questionnaire-2 Score 0 08/10/2024 [facility] of Occupat ional Health - Occupational Stress [...] any time in the past 12 m [facility], were you homeless or living in a long term (including now)? No 08/09/2024 Comments Unknown Sex [...] EDT Office Visit [facility] [address] [facility] [place] [place] [address] Shmuel Beverly DO [address] [facility] [place] [address] documented as of this encounter Goals Goal Patient Goal Type Associated Problems Recent Progress Patient-Stated? Author Reminders Care Plan OB Reminders No Open Scheduling, Background documented as of this encounter Visit Diagnoses Not on filedocumented in this encounter Additional Health Concerns Active Problems Noted Date Diagnosed Date OB Reminders 02/02/2023 documented as of this encounter Care Teams Explosive Expert Relationship Specialty Start Date End Date Sheng Frankel DO [address] [place] [address] PCP - General Family Medicine 08/10/24 Sheng Frankel DO [address] [place] [address] PCP - [facility] [employer] 09/20/24 documented as of this encounter
--- OUTSIDE RECORDS SUMMARY | 2024-12-12 19:41 | XMS_ITS | Encounter Summary ---
Author Organization [facility] Address [address] [place] [address] Care Team Providers Care Manager Document Name Role Phone Sheng Frankel DO Primary Care Provider [phone] Sheng Frankel DO Unavailable [phone] Encounter Details Date Type Department Care Team (Late st Contact Info) Description 09/20/2024 Abstract [facility] FM [address] [facility] [address] [place] [phone] Sheng Frankel, [address] [facility] [address] [place] [address] Social History Tobacco Use Types Packs/Day Years [...] often do you attend chur ch or mormon services? Patient declined 08/09/2024 Do you belong to any clubs o r organizations such as taoist groups, unions, fraternal or athletic groups, or [...] Recorded Patient Health Questionnaire-2 Score 0 08/10/2024 [facility] - Occupational [...] any time in the past 12 m [facility], were you homeless or living in a jail (including now)? No 08/09/2024 Comments Unknown Sex [...] EDT Office Visit [facility] BCP OB [address] [facility] [place] [phone] Shmuel Beverly DO [address] [facility] [place] [address] documented as of this encounter Goals Goal Patient Goal Type Associated Problems Recent Progress Patient-Stated? Author Reminders Care Plan OB Reminders No Open Scheduling, Background documented as of this encounter Visit Diagnoses Not on filedocumented in this encounter Additional Health Concerns Active Problems Noted Date Diagnosed Date OB Reminders 02/02/2023 documented as of this encounter Care Teams Manager Document Relationship Specialty Start Date End Date Sheng Frankel DO [address] [place] [address] PCP - General Family Medicine 08/10/24 Sheng Frankel DO [address] [place] [address] PCP - [place] [employer] 09/20/24 documented as of this encounter
--- OUTSIDE RECORDS SUMMARY | 2024-12-12 19:41 | XMS_ITS | Encounter Summary ---
Author Organization [facility] Address [address] [facility] [place] [address] Care Team Providers Care Blow Down Operator Name Role Phone Elaina Villarreal INDUSTRIAL SOCIOLOGIST-ONCOLOGY PHYSICIAN ASSISTANT Unavailable + [phone] Sheng Frankel DO Primary Care Provider + [phone] Sheng Frankel DO Unavailable [phone] Encounter Details Date Type Department Care Team (Late Contact Info) Description 07/19/2023 Clinisync Result Encounter [facility] External Department Unsolicited Jaida Beverly, DO [address], [place] [address] Social History Tobacco Use Types Packs/Day Years [...] 01/09/2025 8:10 AM EDT Office Visit [facility] OB [address] [place] [address] Jaida Beverly, DO [address] [place], [place] [id number] documented as of this encounter Goals Goal Patient Goal Type Associated Problems Recent Progress Patient-Stated? Author Reminders Care Plan OB Reminders No Open Scheduling, Background documented as of this encounter Procedures Procedure Name Priority Date/Time Associated Diagnosis Comments US OB GROWTH 07/19/2023 10:37 AM EST documented in this encounter Results * US OB GROWTH (07/19/2023 10:37 AM EST) Anatomical Region Laterality Modality Other 07/19/2023 10:3 7 AM EST Narrative 07/19/2023 10:40 [place] [address] Ultrasound Report Signed Patient: GRACE FUENTES MR#: [id number] : 2000 Acct:[id number] Age/Sex: 23 / F ADM Date: 07/19/23 Loc: [facility] Attending Dr: Jaida Beverly D.O. Ordering Physician: Jaida Beverly D.O. Date of Service: 07/19/23 Procedure(s): US OB growth Accession Number(s): [id number] cc: Jaida Beverly D.O.; Physician,Non-Staff MDayanna The [place] [id number] Patient Name: GRACE FUENTES MRN: [id number] date: 2000 Sex: F Assigned Patient Location: [facility] Current Patient Location: [facility] Accession/Order Number: [id number] Exam Date: 07/19/2023 09:27 Report Date: 07/19/2023 10:37 At the request of: JAIDA BEVERLY Procedure: US OB growth EXAMINATION: US OB growth HISTORY: SIZE INCONSISTENT WITH DATES COMPARISON: 04/11/2023 TECHNIQUE: Transabdominal sonographic examination was performed for obstetrical and evaluation. FINDINGS: Number: 1 Heart Rate: 138.0 bpm H.B. /min Amniotic Fluid Volume: 12.3 cm, largest fluid pocket 4.3 cm position: Cephalic presentation, longitudinal lie Placental Location: Anterior Cervix Length: Not measured BIOMETRY: BPD: 8.2 cm 32 weeks 5 days , 9% HC: 30.1 cm 33 weeks 2 days, 4% AC: 29.8 cm 33 weeks 5 days, 34% FL: 6.1 cm 31 weeks 5 days , less than 3% EFW:2103.6 grams; 4 lbs. 10 oz., 12% FL/AC: 20.5 FL/BPD: 75.0 HC/AC: 1.0 GESTATIONAL AGE: Age by EDC: 34 weeks 3 days Age by current US: 32 weeks 6 days ANDI by current US: 09/07/2023 ANDI by EDC: 08/27/2023 US/US OB growth IMPRESSION: Femur length less than the 3rd percentile Head circumference at the 4th percentile Estimated weight 12% *Reference: [employer] Practice Guideline for the performance of Obstetric Ultrasound Examinations, February 20, 2007. Electronically authenticated by: WILD VOSS Date: 07/19/2023 10:37 Dictated By: Wild Voss M.D. Signed By: 07/19/23 1040 DD/ 1037 TD/TT: Nailing Machine Operator: Procedure Note Radiology, Radiologist, MD - 07/19/2023 [place] [address] Ultrasound Report Signed Patient: GRACE FUENTES MMR#: [id number] : 2000Acct:[id number] Age/Sex: FADM Date: 07/19/23 Loc: [facility] Attending Dr: Jaida Beverly D.O. Ordering Physician: Jaida Beverly D.O. Date of Service: 07/19/23 Procedure(s): US OB growth Accession Number(s): [id number] cc: Jaida Beverly D.O.; Physician,Non-Staff Yesenia The [address] [address] Patient Name: GRACE FUENTES MRN: [id number] date: 2000 Sex: F Assigned Patient [facility] Current [facility] Accession/Order Number: [id number] Exam Date: 07/19/2023 09:27 Report Date: 07/19/2023 10:37 At the request of: JAIDA BEVERLY Procedure: US OB growth EXAMINATION: US OB growth HISTORY: SIZE INCONSISTENT WITH DATES COMPARISON: 04/11/2023 TECHNIQUE: Transabdominal sonographic examination was performed for obstetrical and evaluation. FINDINGS: Number: 1 Heart Rate: 138.0 bpm H.B. /min Amniotic Fluid Volume: 12.3 cm, largest fluid pocket 4.3 cm position: Cephalic presentation, longitudinal lie Placental Location: Anterior Cervix Length: Not measured BIOMETRY: BPD: 8.2 cm 32 weeks 5 days , 9% HC: 30.1 cm 33 weeks 2 days, 4% AC: 29.8 cm 33 weeks 5 days, 34% FL: 6.1 cm 31 weeks 5 days , less than 3% EFW:2103.6 grams; 4 lbs. 10 oz., 12% FL/AC: 20.5 FL/BPD: 75.0 HC/AC: 1.0 GESTATIONAL AGE: Age by EDC: 34 weeks 3 days Age by current US: 32 weeks 6 days ANDI by current US: 09/07/2023 ANDI by EDC: 08/27/2023 US/US OB growth IMPRESSION: Femur length less than the 3rd percentile Head circumference at the 4th percentile Estimated weight 12% *Reference: [employer] Practice Guideline for the performance of Obstetric Ultrasound Examinations, February 20, 2007. Electronically authenticated by: WILD VOSS Date: 07/19/2023 10:37 Dictated By: Wild Voss M.D. Signed By:07/19/23 1040 DD/ 1037 TD/TT: Nailing Machine Operator: us Jaida Beverly DO [facility] Final Result documented in this encounter Visit Diagnoses Not on filedocumented in this encounter Additional Health Concerns Active Problems Noted Date Diagnosed Date OB Reminders 02/02/2023 documented as of this encounter Care Teams Blow Down Operator Relationship Specialty Start Date End Date Elaina Villarreal, INDUSTRIAL SOCIOLOGIST-ONCOLOGY PHYSICIAN ASSISTANT [address] [place] [address] PCP - [facility] 08/21/22 4 Sheng Frankel DO [address] [facility] [address] [place] [address] PCP - General Family Medicine 08/10/24 Sheng Frankel DO [address] [facility] [address] [place] [address] PCP - [place] [employer] 09/20/24 documented as of this encounter
--- OUTSIDE RECORDS SUMMARY | 2024-12-12 19:41 | XMS_ITS | Clinical Summary ---
Author Organization [facility] Address [address] [place], [place] [id number] Care Team Providers Care Independent Crop Consultant Name Role Phone Unavailable Primary Care Provider Unavailabl e Allergies No known active allergies Medications No known medications Social History Tobacco Use Types Packs/Day Years Used Date Smoking Tobacco: Never Assessed Comments Unknown Sex and Gender Information Value Date Recorded Sex Assigned at Female 06/26/2024 12:17 PM EST Legal Sex Female 12:11 PM EST Gender Identity Female 06/26/2024 12:17 PM EST Sexual Orientation Straight 06/26/2024 12 :17 PM EST Plan of Treatment Health Maintenance Due Date Last Done Comments Peds To Adult Transition Initial Discussion 2011 Peds To Adult Transition Annual Assessment 2013 HPV Vaccine (1 - 3-dose series) 2014 Anxiety Screening 2017 Depression Screening 2017 HIV Screening 2017 Hepatitis C Screening 2017 Hepatitis B Vaccine (1 of 3 - 19+ 3-dose series) 01/28 Cervical Cancer Screening 01/29/2020 Influenza Vaccine (#1) 2025 DTaP,Tdap,Td Vaccine (2 - Tdap) 02/02/2032 2 Insurance
--- OUTSIDE RECORDS SUMMARY | 2024-12-12 19:41 | XMS_ITS | Encounter Summary ---
Author Organization [facility] Address [address] [place] [address] Care Team Providers Care Fish Butcher Name Role Phone Sheng Frankel DO Primary Care Provider [phone] Sheng Frankel DO Unavailable [phone] Encounter Details Date Type Department Care Team (Late st Contact Info) Description 08/12/2024 Orders Only [facility] FM [address] [facility] [facility] [address] [place] [address] Sheng Frankel, [address] [facility] [address] [place] [address] Acute cystitis without hematuria Social History Tobacco Use Types Packs/Day Years [...] often do you attend chur ch or mormonism services? Patient declined 08/09/2024 Do you belong to any clubs o r organizations such as judaism groups, unions, fraternal or athletic groups, or [...] Recorded Patient Health Questionnaire-2 Score 0 08/10/2024 [facility] Health - Occupational [...] any time in the past 12 m [facility], were you homeless or living in a [place] health care facility (including now)? No 08/09/2024 Comments Unknown Sex [...] [facility] [place] [address] Shmuel Beverly DO [address] [facility] [place] [address] documented as of this encounter Goals Goal Patient Goal Type Associated Problems Recent Progress Patient-Stated? Author Reminders Care Plan OB Reminders No Open Scheduling, Background documented as of this encounter Visit Diagnoses Diagnosis Acute cystitis without hematuria documented in this encounter Additional Health Concerns Active Problems Noted Date Diagnosed Date OB Reminders 02/02/2023 documented as of this encounter Care Teams Fish Butcher Relationship Specialty Start Date End Date Sheng Frankel DO [address] [place] [address] PCP - General Family Medicine 08/10/24 Sheng Frankel DO [address] [place] [address] PCP - [facility] [employer] 09/20/24 documented as of this encounter
--- OUTSIDE RECORDS SUMMARY | 2024-12-12 19:41 | XMS_ITS | Encounter Summary ---
Author Organization [facility] Address [address] [place] [address] Care Team Providers Care Cork Insulation Installer Name Role Phone Elaina Villarreal DEPUTY SHERIFF K9 HANDLER-DIRECTIONAL DRILLER Unavailable + [phone] Sheng Frankel DO Primary Care Provider + [phone] Sheng Frankel DO Unavailable [phone] Encounter Details Date Type Department Care Team (Late Contact Info) Description 08/03/2023 Clinisync Result Encounter [facility] External Department Unsolicited Jaida Beverly, DO [address], [place] [address] Social History Tobacco Use Types Packs/Day Years [...] 01/09/2025 8:10 AM EDT Office Visit [facility] OB [address] [place] [address] Jaida Beverly, DO [address] [place], [place] [address] documented as of this encounter Goals Goal Patient Goal Type Associated Problems Recent Progress Patient-Stated? Author Reminders Care Plan OB Reminders No Open Scheduling, Background documented as of this encounter Procedures Procedure Name Priority Date/Time Associated Diagnosis Comments US OB GROWTH 08/03/2023 2:36 PM EDT documented in this encounter Results * US OB GROWTH (08/03/2023 2:36 PM EDT) Anatomical Region Laterality Modality Other 08/03/2023 2:36 PM EDT Narrative 08/03/2023 2:39 [place] [address] Ultrasound Report Signed Patient: GRACE FUENTES MR#: [id number] : 2000 Acct:[id number] Age/Sex: 23 / F ADM Date: 08/03/23 Loc: [facility] Attending Dr: Jaida Beverly D.O. Ordering Physician: Jaida Beverly D.O. Date of Service: 08/03/23 Procedure(s): US OB growth Accession Number(s): [id number] cc: Jaida Beverly D.O.; Physician,Non-Staff Yesenia The [address] [id number] Patient Name: GRACE FUENTES MRN: [facility]:[id number] date: 2000 Sex: F Assigned Patient Location: [facility] Current Patient Location: [facility] Accession/Order Number: [id number] Exam Date: 08/03/2023 14:01 Report Date: 08/03/2023 14:36 At the request of: JAIDA BEVERLY Procedure: US OB growth EXAMINATION: US OB growth HISTORY: Size of fetus inconsistent with dates O26.843 COMPARISON: No relevant comparison available. FINDINGS: Heart Rate: 148.0 bpm Number: 1.0 Position: CEPHALIC Amniotic Fluid Volume: 15.5 cm Maximum Vertical Pocket: 6.3 cm BIOMETRY: BPD: 8.6 cm cm; 34 weeks 4 days; 11% HC: 31.5 cmcm; 35 weeks 2 days; 5% AC: 30.4 cm cm; 34 weeks 2 days; 8% FL: 7.4 cm cm; 37 weeks 6 days; 78% EFW: 2672.3 grams; 24% FL/AC: 24.3 FL/BPD: 86.3 HC/AC: 1.0 GESTATIONAL AGE: Age by EDC: 36 weeks 4 days ANDI by EDC: 08/27/2023 Age by US: 35 weeks 4 days ANDI by US: 09/03/2023 US/US OB growth IMPRESSION: 1. Single live intrauterine with growth detailed above. 2. Head circumference is at 5th percentile. Abdominal circumference 8th percentile. Electronically authenticated by: SHON RUIZ Date: 08/03/2023 14:36 Dictated By: Shon Ruiz M.D. Signed By: 08/03/23 1439 DD/ 35 TD/TT: Air And Water Tester: Procedure Note Radiology, Radiologist, MD - 08/03/2023 [place] [address] Ultrasound Report Signed Patient: GRACE FUENTES MMR#: [id number] : 2000Acct:[id number] Age/Sex: 23 / FADM Date: 08/03/23 Loc: [facility] Attending Dr: Jaida Beverly D.O. Ordering Physician: Jaida Beverly D.O. Date of Service: 08/03/23 Procedure(s): US OB growth Accession Number(s): [id number] cc: Jaida Beverly D.O.; Physician,Non-Staff Yesenia The [address] [address] Patient Name: GRACE FUENTES MRN: [id number] date: 2000 Sex: F Assigned Patient Location: [facility] Current Patient Location: [facility] Accession/Order Number: [id number] Exam Date: 08/03/2023 14:01 Report Date: 08/03/2023 14:36 At the request of: JAIDA BEVERLY Procedure: US OB growth EXAMINATION: US OB growth HISTORY: Size of fetus inconsistent with dates O26.843 COMPARISON: No relevant comparison available. FINDINGS: Heart Rate: 148.0 bpm Number: 1.0 Position: CEPHALIC Amniotic Fluid Volume: 15.5 cm Maximum Vertical Pocket: 6.3 cm BIOMETRY: BPD: 8.6 cm cm; 34 weeks 4 days; 11% HC: 31.5 cmcm; 35 weeks 2 days; 5% AC: 30.4 cm cm; 34 weeks 2 days; 8% FL: 7.4 cm cm; 37 weeks 6 days; 78% EFW: 2672.3 grams; 24% FL/AC: 24.3 FL/BPD: 86.3 HC/AC: 1.0 GESTATIONAL AGE: Age by EDC: 36 weeks 4 days ANDI by EDC: 08/27/2023 Age by US: 35 weeks 4 days ANDI by US: 09/03/2023 US/US OB growth IMPRESSION: 1. Single live intrauterine with growth detailed above. 2. Head circumference is at 5th percentile. Abdominal circumference 8th percentile. Electronically authenticated by: SHON RUIZ Date: 08/03/2023 14:36 Dictated By: Shon Ruiz M.D. Signed By:08/03/239 DD/ 35 TD/TT: Air And Water Tester: us Jaida Beverly DO [facility] Final Result documented in this encounter Visit Diagnoses Not on filedocumented in this encounter Additional Health Concerns Active Problems Noted Date Diagnosed Date OB Reminders 02/02/2023 documented as of this encounter Care Teams Cork Insulation Installer Relationship Specialty Start Date End Date Elaina Villarreal, DEPUTY SHERIFF K9 HANDLER-DIRECTIONAL DRILLER [address] [place] [address] PCP - [facility] 08/21/22 4 Sheng Frankel DO [address] [place] [address] PCP - General Family Medicine 08/10/24 Sheng Frankel DO [address] [place] [address] PCP - [facility] 09/20/24 documented as of this encounter
--- OUTSIDE RECORDS SUMMARY | 2024-12-12 19:41 | XMS_ITS | Encounter Summary ---
Author Organization [facility] Address [address] [place] [address] Care Team Providers Care Manager Dental Name Role Phone Sheng Frankel DO Primary Care Provider [phone] Sheng Frankel DO Unavailable [phone] Encounter Details Date Type Department Care Team (Late st Contact Info) Description 08/29/2024 Abstract [facility] FM [address] [facility] [address] [place] [phone] Sheng Frankel, [address] [facility] [address] [place] [address] Social History Tobacco Use Types Packs/Day Years [...] often do you attend chur ch or denominational services? Patient declined 08/09/2024 Do you belong to any clubs o r organizations such as methodist groups, unions, fraternal or athletic groups, or [...] Recorded Patient Health Questionnaire-2 Score 0 08/10/2024 [facility] Occup[facility] ional Health - [...] any time in the past 12 m [facility], were you homeless or living in a correction (including now)? No 08/09/2024 Comments Unknown Sex [...] EDT Office Visit [facility] BCP OB [address] [facility] [place] [address] Shmuel Beverly DO [address] [facility] [place] [address] documented as of this encounter Goals Goal Patient Goal Type Associated Problems Recent Progress Patient-Stated? Author Reminders Care Plan OB Reminders No Open Scheduling, Background documented as of this encounter Visit Diagnoses Not on filedocumented in this encounter Additional Health Concerns Active Problems Noted Date Diagnosed Date OB Reminders 02/02/2023 documented as of this encounter Care Teams Manager Dental Relationship Specialty Start Date End Date Sheng Frankel DO [address] [place] [address] PCP - General Family Medicine 08/10/24 Sheng Frankel DO [address] [place] [address] PCP - [place] [employer] 09/20/24 documented as of this encounter
--- OUTSIDE RECORDS SUMMARY | 2024-12-12 19:41 | XMS_ITS | Clinical Summary ---
Author Organization [facility] Address [address] [place] [address] Care Team Providers Care Document Photographer Name Role Phone Deep WaterSheng rocha Sameer DO Primary Care Provider [phone] Jostin Sheng L DO Unavailable [phone] Allergies No known active allergies Medications amoxicillin-cl avulanate (Augmentin) 875-125 MG tabletIndicati ons:Dysuria Take 1 tablet (875 mg) by mouth in the morning and 1 tablet (875 mg) before bedtime. Do all this for 10 days. 20 tablet 5 12/13/19 25 Active FLUoxetine (PROzac) 10 MG capsuleIndicat ions:Anxiety, generalized,Mo od changes Take 1 capsule (10 mg) by mouth Daily 30 capsule 11 5 12/13/19 26 Active metFORMIN XR (Glucophage-XR ) 500 MG 24 hr tabletIndicati ons:PCOS (polycystic ovarian syndrome) Take 1 tablet (500 mg) by mouth in the evening. Take with meals Do not crush, chew, or split. 90 tablet 5 12/13/19 25 Discontinued Active Problems Problem Noted Date Diagnosed Date Abnormal cervical Papanicolaou smear 08/10/2024 Obesity 08/10/2024 SGA (small for gestational age) ([facility]) 2023 Size of fetus inconsistent w ith dates in third trimester ([facility]) 07/25/2023 Encounters Date Type Department Care Team Description 12/12/2024 3:40 PM EDT Office Visit [facility] [address] [facility] [id number] Jaida Beverly, Well woman exam with routine gynecological exam; Anxiety, generalized ; Mood changes 12/12/2024 Bamboo flowsheet [facility] [address] [place] [address] Jaida Beverly, DO 12/09/2024 Travel 11/29/2024 10:40 AM EDT Office Visit [facility] [address] [place] [phone] Sandhya Jaramillo, PSYCHOLOGIST RESEARCH ASSISTANT Dysuria (Primary Dx); Vaginal itching 11/29/2024 Results Follow-Up [facility] [address] [place] [phone] Sandhya Jaramillo, PSYCHOLOGIST RESEARCH ASSISTANT Dysuria (Primary Dx) 11/29/2024 Travel 11/05/2024 Telephone [facility] [address] [place] [address] Sheng Frankel, DO Referral 09/20/2024 Telephone [facility] [address] [place] [address] Beverley Joy MA 09/20/2024 Abstract [facility] [address] [place] [phone] Sheng Frankel, DO 09/20/2024 Telephone [facility] [address] [place] [address] Beverley Joy MA 09/20/2024 Clinisync Result Encounter [facility] External Department Unsolicited Jaida Beverly, 09/19/2024 1:00 PM EDT Office Visit [facility] [address] [place] [address] Jaida Beverly, Pelvic pain in female 09/19/2024 Bamboo flowsheet [facility] [address] [place] [address] Jaida Beverly, 09/12/2024 Travel from Last 3 Months Social History Tobacco Use Types Packs/Day Years Used Date Smoking Tobacco: Never Smokeless Tobacco: Never Tobacco Cessation:Counseling Given: Not Answered Alcohol Use Standard Drinks/Week Comments Yes 0 [...] How often do you attend chur or druze services? Patient declined 08/09/2024 Do you belong [...] Recorded Patient Health Questionnaire-2 Score 0 08/10/2024 [facility] - Occupational Stress Questionnaire Answer Date [...] any time in the past 12 m [facility], were you homeless or living in a halfway (including now)? No 08/09/2024 Comments Unknown Sex and Gender Information Value Date Recorded Sex Assigned at Female 01/13/2023 1:36 PM EDT Legal Sex Female 11:47 PM EDT Gender Identity Female 01/13/2023 1:36 PM EDT Sexual Orientation Straight 01/13/2023 1: 36 PM EDT Last Filed Vital Signs Vital Sign Reading Time Taken Comments Blood Pressure 120/82 12/12/2024 4:01 PM EDT Pulse 103 11/29/2024 10:50 AM EDT Temperature 36.7 C (98.1 F) 11/29/2024 10:50 AM EDT Respiratory Rate 20 11/29/2024 10:50 AM EDT Oxygen Saturation 98% 11/29/2024 10:50 AM EDT Inhaled Oxygen Concentration - - Weight 77.6 kg (171 lb 1.9 oz) 12/12/2024 4:01 P M EDT Height 160 cm (5' 3 ) 08/10/2024 11:12 AM EDT Body Mass Index 30.31 08/10/2024 11:12 AM EDT Plan of Treatment Upcoming Encounters Date Type Department Care Team (Late st Contact Info) Description 01/09/2025 8:10 AM EDT Office Visit [facility] [address] [facility] [address] Jaida Beverly, DO [address] [facility] [place] [address] Health Maintenance Due Date Last Done Comments Influenza Vaccine (#1) 2025 Goals Goal Patient Goal Type Associated Problems Recent Progress Patient-Stated? Author Reminders Care Plan OB Reminders No Open Scheduling, Background Procedures Procedure Name Priority Date/Time Associated Diagnosis Comments POCT CEPHEID MVP Routine 11/29/2024 2:08 PM EDT Vaginal itching URINARY TRACT INFECTION (HTRX) Routine 11/29/2024 11:32 AM EDT Dysuria URINALYSIS ANALYZER TEST Routine 11/29/2024 10:56 AM EDT Dysuria US PELVIS W/ TRANSVAGINAL 09/20/2024 9:12 AM EDT RECURRENT VAGINITIS (HTRX) Routine 09/19/2024 3:22 PM EDT from Last 3 Months Results * (ABNORMAL) URINARY TRACT INFECTION (HTRX) (11/29/2024 11:32 AM EDT) ACINETOBACTER BAUMANII 0 19.961 - 24.689 ppm 11/30/2024 6:48 AM EDT [facility] ACINETOBACTER BAUMANII Not Detected 19.961 - 24.689 ppm 11/30/2024 6:48 AM EDT [facility] CITROBACTER FREUNDII 0 23.000 - 31.881 ppm 11/30/2024 6:48 AM EDT [facility] CITROBACTER FREUNDII Not Detected 23.000 - 31.881 ppm 11/30/2024 6:48 AM EDT [facility] ENTEROBACTER AEROGENES, CLOACAE 0 23.000 - 31.535 ppm 11/30/2024 6:48 AM EDT [facility] ENTEROBACTER AEROGENES, CLOACAE Not Detected 23.000 - 31.535 ppm 11/30/2024 6:48 AM EDT [facility] ENTEROCOCCUS FAECALIS, FAECIUM 0 26.000 - 31.575 ppm 11/30/2024 6:48 AM EDT [facility] ENTEROCOCCUS FAECALIS, FAECIUM Not Detected 26.000 - 31.575 ppm 11/30/2024 6:48 AM EDT [facility] ESCHERICHIA COLI 0 23.000 - 28.500 ppm 11/30/2024 6:48 AM EDT [facility] ESCHERICHIA COLI Not Detected 23.000 - 28.500 ppm 11/30/2024 6:48 AM EDT [facility] KLEBSIELLA PNEUMONIAE, OXYTOCA 0 23.000 - 30.500 ppm 11/30/2024 6:48 AM EDT [facility] KLEBSIELLA PNEUMONIAE, OXYTOCA Not Detected 23.000 - 30.500 ppm 11/30/2024 6:48 AM EDT [facility] MORGANELLA MORGANII 0 19.961 - 24.689 ppm 11/30/2024 6:48 AM EDT [facility] MORGANELLA MORGANII Not Detected 19.961 - 24.689 ppm 11/30/2024 6:48 AM EDT [facility] PROTEUS MIRABILIS, VULGARIS 0 23.000 - 28.500 ppm 11/30/2024 6:48 AM EDT [facility] PROTEUS MIRABILIS, VULGARIS Not Detected 23.000 - 28.500 ppm 11/30/2024 6:48 AM EDT [facility] PSEUDOMONAS AERUGINOSA 0 23.000 - 28.500 ppm 11/30/2024 6:48 AM EDT [facility] PSEUDOMONAS AERUGINOSA Not Detected 23.000 - 28.500 ppm 11/30/2024 6:48 AM EDT [facility] STAPHYLOCOCCUS AUREUS 0 26.000 - 30.902 ppm 11/30/2024 6:48 AM EDT [facility] STAPHYLOCOCCUS AUREUS Not Detected 26.000 - 30.902 ppm 11/30/2024 6:48 AM EDT [facility] STREPTOCOCCUS AGALACTIAE (GROUP B STREP) 0 26.000 - 32.222 ppm 11/30/2024 6:48 AM EDT [facility] STREPTOCOCCUS AGALACTIAE (GROUP B STREP) Not Detected 26.000 - 32.222 ppm 11/30/2024 6:48 AM EDT [facility] TAWANDA ALBICANS, PARAPSILOSIS, TROPICALIS 0 19.961 - 30.770 ppm 11/30/2024 6:48 AM EDT [facility] TAWANDA ALBICANS, PARAPSILOSIS, TROPICALIS Not Detected 19.961 - 30.770 ppm 11/30/2024 6:48 AM EDT [facility] TAWANDA GLABRATA 0 23.000 - 32.138 ppm 11/30/2024 6:48 AM EDT [facility] TAWANDA GLABRATA Not Detected 23.000 - 32.138 ppm 11/30/2024 6:48 AM EDT [facility] TAWANDA KRUSEI 0 23.000 - 32.271 ppm 11/30/2024 6:48 AM EDT [facility] TAWANDA KRUSEI Not Detected 23.000 - 32.271 ppm 11/30/2024 6:48 AM EDT [facility] SERRATIA MARCESCENS 0 23.000 - 31.204 ppm 11/30/2024 6:48 AM EDT [facility] SERRATIA MARCESCENS Not Detected 23.000 - 31.204 ppm 11/30/2024 6:48 AM EDT [facility] STREPTOCOCCUS PYOGENES (GROUP A STREP) 0 19.961 - 24.689 ppm 11/30/2024 6:48 AM EDT [facility] STREPTOCOCCUS PYOGENES (GROUP A STREP) Not Detected 19.961 - 24.689 ppm 11/30/2024 6:48 AM EDT [facility] STAPHYLOCOCCUS EPIDERMIDIS, HAEMOLYTICUS, LUGDUNENSIS, SAPROPHYTICUS (URINA 0 19.961 - 24.689 ppm 11/30/2024 6:48 AM EDT [facility] STAPHYLOCOCCUS EPIDERMIDIS, HAEMOLYTICUS, LUGDUNENSIS, SAPROPHYTICUS (URINA Not Detected 19.961 - 24.689 ppm 11/30/2024 6:48 AM EDT [facility] STAPHYLOCOCCUS EPIDERMIDIS, HAEMOLYTICUS, LUGDUNENSIS, SAPROPHYTICUS (URINA 30.382(A) 19.961 - 24.689 ppm 11/30/2024 6:48 AM EDT [facility] STAPHYLOCOCCUS EPIDERMIDIS, HAEMOLYTICUS, LUGDUNENSIS, SAPROPHYTICUS (URINA Detected(A) 19.961 - 24.689 ppm 11/30/2024 6:48 AM EDT [facility] Urine 11/29/2024 11:3 2 AM EDT 11/30/2024 1:41 AM EDT Sandhya Jaramillo PSYCHOLOGIST RESEARCH ASSISTANT LAB BLOOD ORDERABLES Final R esult [facility] [address] [place] [address] * URINALYSIS ANALYZER TEST (11/29/2024 10:56 AM EDT) LEUKOCYTES - Negative NITRITES - Negative UROBILINOGEN - 0.2 - 1.0 PROTEIN - Negative PH 7.0 5.0 - 6.0 BLOOD - Negative SPECIFIC GRAVITY 1.000 1.001 - 1.035 KETONES - Negative BILIRUBIN - Negative GLUCOSE - Negative Urine 11/29/2024 10:5 6 AM EDT Sandeep Bejarano DO POINT OF CARE TEST ENTER/ED IT ORDERABLES Final Result * US PELVIS W/ TRANSVAGINAL (09/20/2024 9:12 AM EDT) Anatomical Region Laterality Modality Other 09/20/2024 9:12 AM EDT Narrative 09/20/2024 9:15 [place] [address] Ultrasound Report Signed Patient: GRACE FUENTES MR#: [id number] : 2000 Acct:[id number] Age/Sex: 24 / F ADM Date: 09/20/24 Loc: US Attending Dr: Jaida Beverly D.O. Ordering Physician: Jaida Beverly D.O. Date of Service: 09/20/24 Procedure(s): US pelvis w/ transvaginal Accession Number(s): [id number] cc: Sheng Frankel; Jaida Beverly D.O. [place] [id number] Patient Name: GRACE FUENTES MRN: [id number] date: 2000 Sex: F Assigned Patient Location: Current Patient Location: US Accession/Order Number: [id number] Exam Date: 09/20/2024 09:08 Report Date: 09/20/2024 [...] Jr., D.O. 09/20/2024 9:12 AM Dictation Location: [place] [address] Electronically authenticated by: [id number] Y Date: 09/20/2024 09:12 Dictated By: Arturo Ruggiero M.D. Signed By: 09/20/24914 DD/ 1 TD/TT: Ordering Machine Operator: Procedure Note Radiology, Radiologist, - 09/20/2024 [place] [address] Ultrasound Report Signed Patient: GRACE FUENTES MMR#: [id number] : 2000Acct:[id number] Age/Sex: M Date: 09/20/24 Loc: US Attending Dr: Jaida Beverly D.O. Ordering Physician: Jaida Beverly D.O. Date of Service: 09/20/24 Procedure(s): US pelvis w/ transvaginal Accession Number(s): [id number] cc: Sheng Frankel; Jaida Beverly D.O. The [place] [id number] Patient Name: GRACE FUENTES MRN: [id number] date: 2000 Sex: F Assigned Patient Location: US Current Patient Location: US Accession/Order Number: [id number] Exam Date: 09/20/2024 09:08 Report Date: 09/20/2024 09:12 At the request of: JAIDA BEVERLY DO Procedure: US pelvis w/ transvaginal Pelvic ultrasound. Reason for exam: Pelvic pain Comparison: none Technique: Transabdominal imaging of the uterus and ovaries was performed. Transvaginal imaging of the uterus and ovaries was also obtained.Additional spectral Doppler analysis of the ovaries was also obtained. Findings: Uterus measures 7.6 x 5.9 x 4.4 cm. No fibroid. Endometrium measures 7.4 mm without focal abnormality. No free fluid is seen. Right ovary measures 3.4 x 2.0 x 1.7 cm. The left ovary measures 3.1 x1.6 x 2.0 cm. No evidence of adnexal mass or cyst. Normal arterial and venous Doppler waveforms. US/US pelvis w/ transvaginal Impression: Unremarkable pelvic ultrasound. Impression dictated by: Arturo Ruggiero Jr., D.O. 09/20/2024 9:12 AM Dictation Location: [place] [address] Electronically authenticated by: [id number] Y Date: 9:12 Dictated By: Arturo Ruggiero M.D. Signed By:09/20/24914 DD/ 1 TD/TT: Ordering Machine Operator: [facility] Siria DO [facility] Final Result * RECURRENT VAGINITIS (HTRX) (09/19/2024 3:22 PM EDT) [facility] ATOPOBIUM VAGINAE 0.000 19.961 - 24.689 ppm 09/20/2024 7:14 AM EDT [facility] ATOPOBIUM VAGINAE Not Detected 19.961 - 24.689 ppm 09/20/2024 7:14 AM EDT [facility] BVAB 2,3 (BACTERIAL VAGINOSIS ASSOCIATED BACTERIA 2, 3); MOBILUNCUS SPP 0.000 19.961 - 24.689 ppm 09/20/2024 7:14 AM EDT [facility] BVAB 2,3 (BACTERIAL VAGINOSIS ASSOCIATED BACTERIA 2, 3); MOBILUNCUS SPP Not Detected 19.961 - 24.689 ppm 09/20/2024 7:14 AM EDT [facility] TAWANDA ALBICANS, PARAPSILOSIS, TROPICALIS 0.000 19.961 - 30.770 ppm 09/20/2024 7:14 AM EDT [facility] TAWANDA ALBICANS, PARAPSILOSIS, TROPICALIS Not Detected 19.961 - 30.770 ppm 09/20/2024 7:14 AM EDT [facility] TAWANDA GLABRATA 0.000 23.000 - 32.138 ppm 09/20/2024 7:14 AM EDT [facility] TAWANDA GLABRATA Not Detected 23.000 - 32.138 ppm 09/20/2024 7:14 AM EDT [facility] TAWANDA KRUSEI 0.000 23.000 - 32.271 ppm 09/20/2024 7:14 AM EDT [facility] TAWANDA KRUSEI Not Detected 23.000 - 32.271 ppm 09/20/2024 7:14 AM EDT [facility] CHLAMYDIA TRACHOMATIS 0.000 23.000 - 31.467 ppm 09/20/2024 7:14 AM EDT [facility] CHLAMYDIA TRACHOMATIS Not Detected 23.000 - 31.467 ppm 09/20/2024 7:14 AM EDT [facility] GARDNERELLA VAGINALIS 0.000 19.961 - 24.689 ppm 09/20/2024 7:14 AM EDT [facility] GARDNERELLA VAGINALIS Not Detected 19.961 - 24.689 ppm 09/20/2024 7:14 AM EDT [facility] MEGASPHAERA (TYPES 1, 2) 0.000 19.961 - 24.689 ppm 09/20/2024 7:14 AM EDT [facility] MEGASPHAERA (TYPES 1, 2) Not Detected 19.961 - 24.689 ppm 09/20/2024 7:14 AM EDT [facility] NEISSERIA GONORRHOEAE 0.000 23.000 - 32.117 ppm 09/20/2024 7:14 AM EDT [facility] NEISSERIA GONORRHOEAE Not Detected 23.000 - 32.117 ppm 09/20/2024 7:14 AM EDT [facility] TRICHOMONAS VAGINALIS 0.000 23.000 - 32.119 ppm 09/20/2024 7:14 AM EDT [facility] TRICHOMONAS VAGINALIS Not Detected 23.000 - 32.119 ppm 09/20/2024 7:14 AM EDT [facility] MYCOPLASMA GENITALIUM 0.000 19.961 - 24.689 ppm 09/20/2024 7:14 AM EDT [facility] MYCOPLASMA GENITALIUM Not Detected 19.961 - 24.689 ppm 09/20/2024 7:14 AM EDT [facility] Tissue 09/19/2024 3:22 PM EDT 09/20/2024 2:13 AM EDT Jaida Beverly DO LAB BLOOD ORDERABLES Final Resul t [facility] [address] [place] [address] from Last 3 Months Additional Health Concerns Active Problems Noted Date Diagnosed Date OB Reminders 02/02/2023 Insurance [facility] Care Teams Document Photographer Relationship Specialty Start Date End Date Sheng Frankel DO [address] [place] [address] PCP - General Family Medicine 08/10/24 Sheng Frankel DO [address] [place] [address] PCP - [place] [facility] 09/20/24
[2024-12-17 18:08] LABS: Age Gdln ACOG Testing Note (.); IGP, rfx Aptima HPV ASCU Note (.)
== END 2024-12-12 19:38 | disposition home or self-care (01) ==
LOC: LAB 19:37
PROVIDERS: PCP Family Medicine; Visit Provider Obstetrics & Gynecology
DX: Z01.419 Encounter for gynecological examination (general) (routine) without abnormal findings (principal)
CPT/HCPCS: 88175

== ENCOUNTER 2025-01-09 12:35 | Outpatient (OUT) | payer BC, SELFPAY ==
--- OUTSIDE RECORDS SUMMARY | 2025-01-09 12:38 | XMS_ITS | Encounter Summary ---
Author Organization [facility] Address [address] [place] [address] Care Team Providers Care Hand Sander Name Role Phone JostinSheng Sameer DO Primary Care Provider + [phone] JostinSheng DO Unavailable Encounter Details Date Type Department Care Team (Latest Contact Info) Description 01/09/2025 Travel Social History Tobacco Use Types Packs/Day [...] week 08/09/2024 How often do you attend [facility] or christianity services? Patient declined 08/09/2024 Do you belong to any clubs o r organizations such as tenriism groups, unions, fraternal or athletic groups, or [...] [facility] of Occupat ional [facility] - Occupational Stress Questionnaire Answer Date [...] any time in the past 12 m [facility], were you homeless or living in a long-term (including now)? No 08/09/2024 Comments Unknown Sex and Gender Information Value Date Recorded Sex Assigned at Female 01/13/2023 1:36 PM EDT Legal Sex Female 11:47 PM EDT Gender Identity Female 01/13/2023 1:36 PM EDT Sexual Orientation Straight 01/13/2023 1: 36 PM EDT documented as of this encounter Plan of Treatment Not on file documented as of this encounter Goals Goal Patient Goal Type Associated Problems Recent Progress Patient-Stated? Author Reminders Care Plan OB Reminders No Open Scheduling, Background documented as of this encounter Visit Diagnoses Not on filedocumented in this encounter Additional Health Concerns Active Problems Noted Date Diagnosed Date OB Reminders 02/02/2023 documented as of this encounter Care Teams Hand Sander Relationship Specialty Start Date End Date Sheng Frankel DO [address] [place] [address] PCP - General Family Medicine 08/10/24 Sheng Frankel DO [address] [place] [address] PCP - Jaymie Ryan 09/20/24 documented as of this encounter
--- OUTSIDE RECORDS SUMMARY | 2025-01-09 12:38 | XMS_ITS | Encounter Summary ---
Author Organization [facility] Address [address] [place] [address] Care Team Providers Care Assurance Senior Manager Name Role Phone Elaina Villarreal [place] ERNST-HOME HEALTH CARE SOCIAL WORKER Unavailable + [phone] Sheng Frankel DO Primary Care Provider + [phone] Sheng Frankel DO Unavailable [phone] Encounter Details Date Type Department Care Team (Late st Contact Info) Description 07/19/2023 Clinisync Result Encounter [facility] External Department Unsolicited Jaida Beverly DO [address] [place], [place] [address] Social History Tobacco Use Types Packs/Day Years [...] AM EST Narrative 07/19/2023 10:40 AM EST [address] [address] Ultrasound Report Signed Patient: GRACE FUENTES MR#: [id number] : 2000 Acct:[id number] Age/Sex: 23 / F ADM Date: 07/19/23 Loc: [facility] Attending Dr: Jaida Beverly D.O. Ordering Physician: Jaida Beverly D.O. Date of Service: 07/19/23 Procedure(s): US OB growth Accession Number(s): [id number] cc: Jaida Beverly D.O.; Physician,Non-Staff Yesenia The [address] [address] Patient Name: GRACE FUENTES MRN: [id number] date: 2000 Sex: F Assigned Patient [facility] Current Patient Location: [facility] Accession/Order Number: [id number] Exam Date: 07/19/2023 09:27 Report Date: 07/19/2023 [...] February 20, 2007. Electronically authenticated by: WILD OVSS Date: 07/19/2023 10:37 Dictated By: Wild Voss M.D. Signed By: 07/19/23 1040 DD/ 1037 TD/TT: Hand Braille Transcriber: Procedure Note Radiology, Radiologist, - 07/19/2023 [place] [address] Ultrasound Report Signed Patient: GRACE FUENTES MMR#: [id number] : 2000Acct:[id number] Age/Sex: 23 / FADM Date: 07/19/23 Loc: [facility] Attending Dr: Jaida Beverly D.O. Ordering Physician: Jaida Beverly D.O. Date of Service: 07/19/23 Procedure(s): US OB growth Accession Number(s): [id number] cc: Jaida Beverly D.O.; Physician,Non-Staff Yesenia The [place] [id number] Patient Name: GRACE FUENTES MRN: [id number] date: 2000 Sex: F Assigned Patient Location: [facility] Current Patient Location: [facility] Accession/Order Number: [id number] Exam Date: 07/19/2023 09:27 Report Date: 07/19/2023 [...] M.D. Signed By:07/19/23 1040 DD/ 1037 TD/TT: Hand Braille Transcriber: us Jaida Beverly DO [facility] Final Result documented in this encounter Visit Diagnoses Not on filedocumented in this encounter Additional Health Concerns Active Problems Noted Date Diagnosed Date OB Reminders 02/02/2023 documented as of this encounter Care Teams Assurance Senior Manager Relationship Specialty Start Date End Date Elaina Villarreal APRN-HOME HEALTH CARE SOCIAL WORKER [address] [place] [address] PCP - [facility] 08/21/22 4 Sheng Frankel DO [address] [place] [address] PCP - General Family Medicine 08/10/24 Sheng Frankel DO [address] [place] [address] PCP - [place] [employer] 09/20/24 documented as of this encounter
--- OUTSIDE RECORDS SUMMARY | 2025-01-09 12:38 | XMS_ITS | Encounter Summary ---
Author Organization [facility] Address [address] [place] [address] Care Team Providers Care Guard Supervisor Name Role Phone Sheng Frankel DO Primary Care Provider [phone] Sheng Frankel DO Unavailable [phone] Encounter Details Date Type Department Care Team (Late st Contact Info) Description 08/28/2024 Abstract [facility] [place] [facility] [address] [place] [phone] Sheng Frankel, [address] [place] [address] Social History Tobacco Use Types Packs/Day Years [...] often do you attend chur ch or moravian services? Patient declined 08/09/2024 Do you belong [...] Recorded Patient Health Questionnaire-2 Score 0 08/10/2024 [facility] of Occupat ional [facility] - Occupational Stress Questionnaire Answer Date [...] any time in the past 12 m [facility], were you homeless or living in a [...] documented as of this encounter Care Teams Guard Supervisor Relationship Specialty Start Date End Date Sheng Frankel DO [address] [place] [address] PCP - General Family Medicine 08/10/24 Sheng Frankel DO [address] [place] [address] PCP - Jaymie Ryan 09/20/24 documented as of this encounter
--- OUTSIDE RECORDS SUMMARY | 2025-01-09 12:38 | XMS_ITS | Encounter Summary ---
Author Organization [facility] Address [address] [place] [address] Care Team Providers Care Pediatric Physiatrist Name Role Phone Elaina Villarreal Tapan ERNST-TECHNICAL SUPPORT SPECIALIST Unavailable + [phone] Sheng Frankel DO Primary Care Provider + [phone] Sheng Frankel DO Unavailable [phone] Encounter Details Date Type Department Care Team (Late st Contact Info) Description 05/09/2023 Clinisync Result Encounter [facility] External Department Unsolicited Jaida Beverly DO [address] [facility] [address] [place], [place] [id number] Social History Tobacco Use Types Packs/Day Years [...] PM EST Narrative 05/09/2023 3:47 [place] [address] Ultrasound Report Signed Patient: GRACE FUENTES MR#: [id number] : 2000 Acct:[id number] Age/Sex: 23 / F ADM Date: 05/09/23 Loc: US Attending Dr: Jaida Beverly D.O. Ordering Physician: Jaida Beverly D.O. Date of Service: 05/09/23 Procedure(s): US OB cervical length Accession Number(s): [id number] cc: Jaida Beverly D.O.; Physician,Non-Staff [place] [address] [place] [address] Patient Name: GRACE FUENTES MRN: [id number]:[id number] date: 2000 Sex: F Assigned Patient Location: Current Patient Location: Accession/Order Number: [id number] Exam Date: 05/09/2023 14:31 Report Date: 05/09/2023 [...] Signed By: 05/09/23 1547 DD/ 1544 TD/TT: Plug Paster: Procedure Note Radiology, Radiologist, - 05/09/2023 [place] [address] Ultrasound Report Signed Patient: GRACE FUENTES MMR#: [id number] : 2000Acct:[id number] Age/Sex: 23 / FADM Date: 05/09/23 Loc: US Attending Dr: Jaida Beverly D.O. Ordering Physician: Jaida Beverly D.O. Date of Service: 05/09/23 Procedure(s): US OB cervical length Accession Number(s): [id number] cc: Jaida Beverly D.O.; Physician,Non-Staff [place] [address] [place] [address] Patient Name: GRACE FUENTES MRN: [facility]:[id number] date: 2000 Sex: F Assigned Patient Location: Current Patient Location: Accession/Order Number: [id number] Exam Date: 05/09/2023 14:31 Report Date: 05/09/2023 [...] M.D. Signed By:05/09/23 1547 DD/ 1544 TD/TT: Plug Paster: Jaida Andradezio DO [facility] Final Result documented in this encounter Visit Diagnoses Not on filedocumented in this encounter Additional Health Concerns Active Problems Noted Date Diagnosed Date OB Reminders 02/02/2023 documented as of this encounter Care Teams Pediatric Physiatrist Relationship Specialty Start Date End Date Elaina Villarreal, HEEL SHAVER-TECHNICAL SUPPORT SPECIALIST [address] [place] [address] PCP - [facility] 08/21/22 4 Sheng Frankel DO [address] [place] [address] PCP - General Family Medicine 08/10/24 Sheng Frankel DO [address] [place] [address] PCP - [facility] 09/20/24 documented as of this encounter
--- OUTSIDE RECORDS SUMMARY | 2025-01-09 12:38 | XMS_ITS | Encounter Summary ---
Author Organization [facility] Address [address] [facility] [place] [place] [address] Care Team Providers Care Rod Welder Name Role Phone Elaina Villarreal Tapan ERNST-ASPARAGUS CUTTER Unavailable + [phone] Sheng Frankel DO Primary Care Provider + [phone] Sheng Frankel DO Unavailable [phone] Encounter Details Date Type Department Care Team (Late st Contact Info) Description 03/07/2023 Abstract [facility] [address] [facility] [place] [phone] Shmuel Beverly DO [address] [facility] [address] [place], [id number] Social History Tobacco Use Types Packs/Day Years [...] documented as of this encounter Care Teams Rod Welder Relationship Specialty Start Date End Date Elaina Villarreal, PUNCH HAND-ASPARAGUS CUTTER [address] [place] [address] PCP - [facility] 08/21/22 4 Sheng Frankel DO [address] [place] [address] PCP - General Family Medicine 08/10/24 Sheng Frankel DO [address] [place] [address] PCP - [facility] 09/20/24 documented as of this encounter
--- OUTSIDE RECORDS SUMMARY | 2025-01-09 12:38 | XMS_ITS | Encounter Summary ---
Author Organization [facility] Address [address] [place] [address] Care Team Providers Care Forensic Nurse Name Role Phone Elaina Villarreal Tapan ERNST-DIGGING MACHINE OPERATOR Unavailable + [phone] Sheng Frankel DO Primary Care Provider + [phone] Sheng Frankel DO Unavailable [phone] Encounter Details Date Type Department Care Team (Late st Contact Info) Description 08/03/2023 Clinisync Result Encounter [facility] External Department Unsolicited Jaida Beverly DO [address] [facility] [address] [place], [place] [id number] Social History Tobacco Use Types Packs/Day Years [...] PM EDT Narrative 08/03/2023 2:39 PM EDT [address] [address] Ultrasound Report Signed Patient: GRACE FUENTES MR#: [id number] : 2000 Acct:[id number] Age/Sex: 23 / F ADM Date: 08/03/23 Loc: NOMS Attending Dr: Jaida Beverly D.O. Ordering Physician: Jaida Beverly D.O. Date of Service: 08/03/23 Procedure(s): US OB growth Accession Number(s): [id number] cc: Jaida Beverly D.O.; Physician,Non-Staff [place] [place] [address] Patient Name: GRACE FUENTES MRN: [id number]:[id number] date: 2000 Sex: F Assigned Patient Location: [facility] Current Patient Location: [facility] Accession/Order Number: [id number] Exam Date: 08/03/2023 14:01 Report Date: 08/03/2023 [...] Abdominal circumference 8th percentile. Electronically authenticated by: CAIO RUIZ Date: 08/03/2023 14:36 Dictated By: Caio Ruiz M.D. Signed By: 08/03/23 1439 DD/ 35 TD/TT: Tail End Rider: Procedure Note Radiology, Radiologist, MD - 08/03/2023 [place] [address] Ultrasound Report Signed Patient: GRACE FUENTES MMR#: [id number] : 2000Acct:[id number] Age/Sex: 23 / FADM Date: 08/03/23 Loc: [facility] Attending Dr: Jaida Beverly D.O. Ordering Physician: Jaida Beverly D.O. Date of Service: 08/03/23 Procedure(s): US OB growth Accession Number(s): [id number] cc: Jaida Beverly D.O.; Physician,Non-Staff Yes[address] [place] [id number] Patient Name: GRACE FUENTES MRN: [facility]:[id number] date: 2000 Sex: F Assigned Patient Location: [facility] Current Patient Location: [facility] Accession/Order Number: [id number] Exam Date: 08/03/2023 14:01 Report Date: 08/03/2023 [...] Abdominal circumference 8th percentile. Electronically authenticated by: CAIO RUIZ Date: 08/03/2023 14:36 Dictated By: Caio Ruiz M.D. Signed By:08/03/23 1439 DD/ 35 TD/TT: Tail End Rider: us Jaida Beverly DO [facility] Final Result documented in this encounter Visit Diagnoses Not on filedocumented in this encounter Additional Health Concerns Active Problems Noted Date Diagnosed Date OB Reminders 02/02/2023 documented as of this encounter Care Teams Forensic Nurse Relationship Specialty Start Date End Date Elaina Villarreal APRN-DIGGING MACHINE OPERATOR [address] [place] [address] PCP - [facility] 08/21/22 4 Sheng Frankel DO [address] [place] [address] PCP - General Family Medicine 08/10/24 Sheng Frankel DO [address] [place] [address] PCP - [facility] 09/20/24 documented as of this encounter
--- OUTSIDE RECORDS SUMMARY | 2025-01-09 12:38 | XMS_ITS | Encounter Summary ---
Author Organization [facility] Address [address] [place] [address] Care Team Providers Care Meals On Wheels Driver Name Role Phone Sheng Frankel DO Primary Care Provider [phone] Sheng Frankel DO Unavailable [phone] Encounter Details Date Type Department Care Team (Late st Contact Info) Description 09/20/2024 Abstract [facility] [address] [place] [phone] Sheng Frankel, [address] [place] [address] Social History Tobacco Use Types Packs/Day Years [...] often do you attend chur ch or faith services? Patient declined 08/09/2024 Do you belong to any clubs o r organizations such as jew groups, unions, fraternal or athletic groups, or [...] Recorded Patient Health Questionnaire-2 Score 0 08/10/2024 [facility] - Occupational Stress Questionnaire Answer Date [...] any time in the past 12 m [facility], were you homeless or living [...] documented as of this encounter Care Teams Meals On Wheels Driver Relationship Specialty Start Date End Date Sheng Frankel DO [address] [place] [address] PCP - General Family Medicine 08/10/24 Sheng Frankel DO [address] [place] [address] PCP - [facility] 09/20/24 documented as of this encounter
--- OUTSIDE RECORDS SUMMARY | 2025-01-09 12:38 | XMS_ITS | Clinical Summary ---
Author Organization [facility] Address [address] [place], [place] [id number] Care Team Providers Care Library Serials Assistant Name Role Phone Unavailable Primary Care Provider [...]
--- OUTSIDE RECORDS SUMMARY | 2025-01-09 12:38 | XMS_ITS | Encounter Summary ---
Author Organization [facility] Address [address] [place] [address] Care Team Providers Care Suction Roller Name Role Phone Sheng Frankel DO Primary Care Provider [phone] Sheng Frankel DO Unavailable [phone] Encounter Details Date Type Department Care Team (Late st Contact Info) Description 08/29/2024 Abstract [facility] [address] [place] [phone] Sheng Frankel, [address] [place] [address] Social History Tobacco Use Types Packs/Day Years [...] often do you attend chur ch or methodist services? Patient declined 08/09/2024 Do you belong to any clubs o r organizations such as alevism groups, unions, fraternal or athletic groups, or [...] Recorded Patient Health Questionnaire-2 Score 0 08/10/2024 [facility] - Occupational Stress Questionnaire Answer Date [...] time in the past 12 m [facility], were you homeless or living in a group home (including now)? No 08/09/2024 Comments Unknown [...] documented as of this encounter Care Teams Suction Roller Relationship Specialty Start Date End Date Sheng Frankel DO [address] [place] [address] PCP - General Family Medicine 08/10/24 Sheng Frankel DO [address] [place] [address] PCP - [facility] Ryan 09/20/24 documented as of this encounter
--- OUTSIDE RECORDS SUMMARY | 2025-01-09 12:38 | XMS_ITS | Encounter Summary ---
Author Organization [facility] Address [address] [place] [address] Care Team Providers Care Piano Builder Name Role Phone NorridgewockSheng rocha Sameer DO Primary Care Provider [phone] Jostin Sheng Sameer DO Unavailable [phone] Encounter Details Date Type Department Care Team (Late st Contact Info) Description 12/13/2024 Abstract [facility] [address] [facility] [place] [phone] Shmuel Beverly DO [address] [facility] [address] [place], [facility] Social History Tobacco Use Types Packs/Day [...] any clubs o r organizations such as pentecostalism groups, unions, fraternal or athletic groups, or [...] Recorded Patient Health Questionnaire-2 Score 0 08/10/2024 [facility] Occupat ional Health - [...] any time in the past 12 m [facility], were you homeless or living [...] documented as of this encounter Care Teams Piano Builder Relationship Specialty Start Date End Date Sheng Frankel DO [address] [address] PCP - General Family Medicine 08/10/24 Sheng Frankel DO [address] [facility] [address] [place] [address] PCP - Jaymie Ryan 09/20/24 documented as of this encounter
--- OUTSIDE RECORDS SUMMARY | 2025-01-09 12:38 | XMS_ITS | Encounter Summary ---
Author Organization [facility] Address [address] [facility] [address] Care Team Providers Care Lab Rn Name Role Phone Elaina Villarreal Tapan ERNST-BRAZER CRAWLER TORCH Unavailable + [phone] Sheng Frankel DO Primary Care Provider + [phone] Sheng Frankel DO Unavailable [phone] Encounter Details Date Type Department Care Team (Late st Contact Info) Description 05/09/2023 Clinisync Result Encounter [facility] External Department Unsolicited Jaida Beverly DO [address] [facility] [address] [place], [place] [phone] Social History Tobacco Use Types Packs/Day Years [...] PM EST Narrative 05/09/2023 3:47 [place] [address] Ultrasound Report Signed Patient: GRACE FUENTES MR#: [id number] : 2000 Acct:[id number] Age/Sex: 23 / F ADM Date: 05/09/23 Loc: US Attending Dr: Jaida Beverly D.O. Ordering Physician: Jaida Beverly D.O. Date of Service: 05/09/23 Procedure(s): US OB placenta Accession Number(s): [id number] cc: Jaida Beverly D.O.; Physician,Non-Staff [place] [place] [address] Patient Name: GRACE FUENTES MRN: [id number] date: 2000 Sex: F Assigned Patient Location: Current Patient Location: Accession/Order Number: [id number] Exam Date: 05/09/2023 14:31 Report Date: 05/09/2023 [...] Voss M.D. Signed By: 05/09/23 1547 DD/ 154 TD/TT: Outboard Motorboat Operator: Procedure Note Radiology, Radiologist, - 05/09/2023 [place] [address] Ultrasound Report Signed Patient: GRACE FUENTES MMR#: [id number] : 2000Acct:[id number] Age/Sex: 23 / FADM Date: 05/09/23 Loc: US Attending Dr: Jaida Beverly D.O. Ordering Physician: Jaida Beverly D.O. Date of Service: 05/09/23 Procedure(s): US OB placenta Accession Number(s): [id number] cc: Jaida Beverly D.O.; Physician,Non-Staff [place] [address] [place] [address] Patient Name: GRACE FUENTES MRN: [facility]:[id number] date: 2000 Sex: F Assigned Patient Location: US Current Patient Location: US Accession/Order Number: [id number] Exam Date: 05/09/2023 14:31 Report Date: 05/09/2023 [...] M.D. Signed By:05/09/23 1547 DD/ 1544 TD/TT: Outboard Motorboat Operator: Jaida Siria DO [facility] Final Result documented in this encounter Visit Diagnoses Not on filedocumented in this encounter Additional Health Concerns Active Problems Noted Date Diagnosed Date OB Reminders 02/02/2023 documented as of this encounter Care Teams Lab Rn Relationship Specialty Start Date End Date Elaina Villarreal APRN-BRAZER CRAWLER TORCH [address] [place] [address] PCP - [facility] 08/21/22 4 Sheng Frankel DO [address] [facility] [place] [address] PCP - General Family Medicine 08/10/24 Sheng Frankel DO [address] [email or web address] [address] [place] [address] PCP - [facility] 09/20/24 documented as of this encounter
--- OUTSIDE RECORDS SUMMARY | 2025-01-09 12:38 | XMS_ITS | Clinical Summary ---
Author Organization [facility] Address [address] [place] [address] Care Team Providers Care A And P Technician Name Role Phone Sheng Frankel DO Primary Care Provider [phone] Sheng Frankel DO Unavailable [phone] Allergies No known active allergies Medications FLUoxetine (PROzac) 10 MG capsuleIndicat ions:Anxiety, generalized,Mo od changes Take 1 capsule (10 mg) by mouth Daily 30 capsule 11 5 12/13/19 26 Active metFORMIN XR (Glucophage-XR ) 500 MG 24 hr tabletIndicati ons:PCOS (polycystic ovarian syndrome) Take 1 tablet (500 mg) by mouth in the evening. Take with meals Do not crush, chew, or split. 90 tablet 5 12/13/19 25 Discontinued amoxicillin-cl avulanate (Augmentin) 875-125 MG tabletIndicati ons:Dysuria Take 1 tablet (875 mg) by mouth in the morning and 1 tablet (875 mg) before bedtime. Do all this for 10 days. 20 tablet 5 12/13/19 25 Active Problems Problem Noted Date Diagnosed Date Abnormal cervical Papanicolaou smear 08/10/2024 Obesity 08/10/2024 SGA (small for gestational age) ([facility]) 2023 Size of fetus inconsistent w ith dates in third trimester ([facility]) 07/25/2023 Encounters Date Type Department Care Team Description 01/09/2025 Travel 01/02/2025 Abstract [facility] [address] [place] [address] Sheng Frankel DO 12/19/2024 Orders Only [facility] [address] [place] [address] Keyonna Lockett, ARA 12/13/2024 Abstract [facility] [address] [place] [address] Shmuel Beverly, 12/12/2024 3:40 PM EDT Office Visit [facility] [place] [address] Shmuel Beverly, Well woman exam with routine gynecological exam; Anxiety, generalized ; Mood changes 12/12/2024 Clinisync Result Encounter [facility] External Department Unsolicited Shmuel Beverly, 12/12/2024 Bamboo flowsheet [facility] [address] [place] [address] Shmuel Beverly, 12/09/2024 Travel 11/29/2024 10:40 AM EDT Office Visit [facility] [address] [place] [address] Sandhya Jaramillo, EPIDEMIOLOGIST Dysuria (Primary Dx); Vaginal itching 11/29/2024 Abstract [facility] [address] [place] [address] Shmuel Beverly, 11/29/2024 Results Follow-Up [facility] [address] [place] [address] Sandhya Jaramillo, EPIDEMIOLOGIST POCT CEPHEID MVP, URINARY TRACT INFECTION (HTRX) 11/29/2024 Travel 11/05/2024 Telephone [facility] [address] [place] [address] Neville, Sheng L, DO Referral from Last 3 Months Social History Tobacco [...] How often do you attend chur or oriental orthodox services? Patient declined 08/09/2024 Do you belong to any clubs o r organizations such as uatsdin groups, unions, fraternal or athletic groups, or [...] Recorded Patient Health Questionnaire-2 Score 0 08/10/2024 [facility] of Occupat ional Health - Occupational Stress [...] any time in the past 12 m [facility], were you homeless or living in a half-way (including now)? No 08/09/2024 Comments Unknown Sex [...] 08/10/2024 11:12 AM EDT Plan of Treatment Health Maintenance Due Date Last Done Comments Influenza Vaccine (#1) 2025 Goals Goal Patient Goal Type Associated Problems Recent Progress Patient-Stated? Author Reminders Care Plan OB Reminders No Open Scheduling, Background Procedures Procedure Name Priority Date/Time Associated Diagnosis Comments IGP,APTIMA HPV,AGE GDLN Routine 12/12/2024 3:52 PM EDT PAP SMEAR Routine 12/12/2024 12:00 AM EDT POCT CEPHEID MVP Routine 11/29/2024 2:08 PM EDT Vaginal itching URINARY TRACT INFECTION (HTRX) Routine 11/29/2024 11:32 AM EDT Dysuria URINALYSIS ANALYZER TEST Routine 11/29/2024 10:56 AM EDT Dysuria from Last 3 Months Results * IGP,APTIMA HPV,AGE GDLN (12/12/2024 3:52 PM EDT) AGE GDLN ACOG TESTING Note . [facility] Comment: TESTS RESULT FLAG UNITS REF RANGE LAB Clinician Provided Cytology Information Source.............Cervix;Endocervix No. of containers..01 ThinPrep Vial Age Eliciao ACOG Arminda... FLAG LEGEND: L-Low Normal,H-High Normal,LL-Alert Low,HH-Alert High <-Panic Low,>-Panic High,A-Abnormal,AA-Critical Abnormal Performed at: 01 =G [facility] [address] [facility] [place] [address] Shannon Lopez MD, IGP, RFX APTIMA HPV ASCU Note . [facility] Comment: TESTS RESULT FLAG UNITS REF RANGE LAB DIAGNOSIS: 02 NEGATIVE FOR INTRAEPITHELIAL LESION OR MALIGNANCY. Specimen adequacy: 02 Satisfactory for evaluation. No endocervical component is identified. Performed by: Francisca Ayala, Textile Engraver ([facility]) . 02 Note: Note 02 The Pap smear is a screening test designed to aid in the detection of premalignant and malignant conditions of the uterine cervix. It is not a diagnostic procedure and should not be used as the sole means of detecting cervical cancer. Both false-positive and false-negative reports do occur. Test Methodology: Note 02 This liquid based ThinPrep(R) pap test was screened with the use of an image guided system. . 02 The HPV DNA reflex criteria were not met with this specimen result therefore, no HPV testing was performed. FLAG LEGEND: L-Low Normal,H-High Normal,LL-Alert Low,HH-Alert High <-Panic Low,>-Panic High,A-Abnormal,AA-Critical Abnormal Performed at: 02 WB [facility] [place] [address] [facility] [place] [address] Shannon Lopez MD, Performed at: =G - [facility] [address] [id number] Rags Laborer: Shannon Lopez MD, Phone: [phone] Performed at: - [facility] [address] [id number] Rags Laborer: Shannon Lopez MD, Phone: [phone] 12/12/2024 3:52 PM EDT 12/12/2024 8:58 PM EDT Narrative [facility] - 12/17/2024 6:08 PM EDT BRUSH-SPATULA CERVIX ENDOCERVIX Shmuel Siria DO LAB BLOOD ORDERABLES Final Resul t [facility] * Pap Smear (12/12/2024 12:00 AM EDT) Swab Cervical swab / Unknown Shmuel Siria DO LAB CYTOLOGY ORDERABLES Final Re sult EXTERNAL LAB * (ABNORMAL) URINARY TRACT INFECTION (HTRX) (11/29/2024 11:32 AM EDT) Pathologist [facility] ACINETOBACTER BAUMANII 0 19.961 - 24.689 ppm 11/30/2024 6:48 AM EDT [facility] ACINETOBACTER BAUMANII Not Detected 19.961 - 24.689 ppm 11/30/2024 6:48 AM EDT [facility] CITROBACTER FREUNDII 0 23.000 - 31.881 ppm 11/30/2024 6:48 AM EDT [facility] CITROBACTER FREUNDII Not Detected 23.000 - 31.881 ppm 11/30/2024 6:48 AM EDT [facility] ENTEROBACTER AEROGENES, CLOACAE 0 23.000 - 31.535 ppm 11/30/2024 6:48 AM EDT [facility] ENTEROBACTER AEROGENES, CLOACAE Not Detected 23.000 - 31.535 ppm 11/30/2024 6:48 AM EDT [facility] ENTEROCOCCUS FAECALIS, FAECIUM 0 26.000 - 31.575 ppm 11/30/2024 6:48 AM EDT [facility] ENTEROCOCCUS FAECALIS, FAECIUM Not Detected 26.000 - 31.575 ppm 11/30/2024 6:48 AM EDT [facility] ESCHERICHIA COLI 0 23.000 - 28.500 ppm 11/30/2024 6:48 AM EDT [facility] ESCHERICHIA COLI Not Detected 23.000 - 28.500 ppm 11/30/2024 6:48 AM EDT [facility] KLEBSIELLA PNEUMONIAE, OXYTOCA 0 23.000 - 30.500 ppm 11/30/2024 6:48 AM EDT [facility] KLEBSIELLA PNEUMONIAE, OXYTOCA Not Detected 23.000 - 30.500 ppm 11/30/2024 6:48 AM EDT [facility] MORGANELLA MORGANII 0 19.961 - 24.689 ppm 11/30/2024 6:48 AM EDT [facility] MORGANELLA MORGANII Not Detected 19.961 - 24.689 ppm 11/30/2024 6:48 AM EDT [facility] PROTEUS MIRABILIS, VULGARIS 0 23.000 - 28.500 ppm 11/30/2024 6:48 AM EDT [facility] PROTEUS MIRABILIS, VULGARIS Not Detected 23.000 - 28.500 ppm 11/30/2024 6:48 AM EDT [facility] PSEUDOMONAS AERUGINOSA 0 23.000 - 28.500 ppm 11/30/2024 6:48 AM EDT [facility] PSEUDOMONAS AERUGINOSA Not Detected 23.000 - 28.500 ppm 11/30/2024 6:48 AM EDT [facility] STAPHYLOCOCCUS AUREUS 0 26.000 - 30.902 ppm 11/30/2024 6:48 AM EDT [facility] STAPHYLOCOCCUS AUREUS Not Detected 26.000 - 30.902 ppm 11/30/2024 6:48 AM EDT [facility] STREPTOCOCCUS AGALACTIAE (GROUP B STREP) 0 26.000 - 32.222 ppm 11/30/2024 6:48 AM EDT [facility] STREPTOCOCCUS AGALACTIAE (GROUP B STREP) Not Detected 26.000 - 32.222 ppm 11/30/2024 6:48 AM EDT [facility] TAWANDA ALBICANS, PARAPSILOSIS, TROPICALIS 0 19.961 - 30.770 ppm 11/30/2024 6:48 AM EDT [facility] TAWANDA ALBICANS, PARAPSILOSIS, TROPICALIS Not Detected 19.961 - 30.770 ppm 11/30/2024 6:48 AM EDT [facility] TAWANDA GLABRATA 0 23.000 - 32.138 ppm 11/30/2024 6:48 AM EDT [facility] TAWANDA GLABRATA Not Detected 23.000 - 32.138 ppm 11/30/2024 6:48 AM EDT [facility] TAWANDA KRUSEI 0 23.000 - 32.271 ppm 11/30/2024 6:48 AM EDT [facility] TAWANDA KRUSEI Not Detected 23.000 - 32.271 ppm 11/30/2024 6:48 AM EDT [facility] SERRATIA MARCESCENS 0 23.000 - 31.204 ppm 11/30/2024 6:48 AM EDT [facility] SERRATIA MARCESCENS Not Detected 23.000 - 31.204 ppm 11/30/2024 6:48 AM EDT [facility] STREPTOCOCCUS PYOGENES (GROUP A STREP) 0 19.961 - 24.689 ppm 11/30/2024 6:48 AM EDT [facility] STREPTOCOCCUS PYOGENES (GROUP A STREP) Not Detected 19.961 - 24.689 ppm 11/30/2024 6:48 AM EDT [facility] STAPHYLOCOCCUS EPIDERMIDIS, HAEMOLYTICUS, LUGDUNENSIS, SAPROPHYTICUS (URINA 0 19.961 - 24.689 ppm 11/30/2024 6:48 AM EDT [facility] STAPHYLOCOCCUS EPIDERMIDIS, HAEMOLYTICUS, LUGDUNENSIS, SAPROPHYTICUS (URINA Not Detected 19.961 - 24.689 ppm 11/30/2024 6:48 AM EDT [facility] STAPHYLOCOCCUS EPIDERMIDIS, HAEMOLYTICUS, LUGDUNENSIS, SAPROPHYTICUS (URINA 30.382(A) 19.961 - 24.689 ppm 11/30/2024 6:48 AM EDT [facility] STAPHYLOCOCCUS EPIDERMIDIS, HAEMOLYTICUS, LUGDUNENSIS, SAPROPHYTICUS (URINA Detected(A) 19.961 - 24.689 ppm 11/30/2024 6:48 AM EDT [facility] Urine 11/29/2024 11:3 2 AM EDT 11/30/2024 1:41 AM EDT Sandhya Jaramillo EPIDEMIOLOGIST LAB BLOOD ORDERABLES Final R [facility] [address] [place] [address] * URINALYSIS ANALYZER TEST (11/29/2024 10:56 AM EDT) LEUKOCYTES - Negative NITRITES - Negative UROBILINOGEN - 0.2 - 1.0 PROTEIN - Negative PH 7.0 5.0 - 6.0 BLOOD - Negative SPECIFIC GRAVITY 1.000 1.001 - 1.035 KETONES - Negative BILIRUBIN - Negative GLUCOSE - Negative Urine 11/29/2024 10:5 6 AM EDT Sandeep Bejarano DO POINT OF CARE TEST ENTER/ED IT ORDERABLES Final Result from Last 3 Months Additional Health Concerns Active Problems Noted Date Diagnosed Date OB Reminders 02/02/[address] [facility] Care Teams A And P Technician Relationship Specialty Start Date End Date Sheng Frankel DO [address] [place] [address] PCP - General Family Medicine 08/10/24 Sheng Frankel DO [address] [place] [address] [facility] 09/[facility]
--- OUTSIDE RECORDS SUMMARY | 2025-01-09 12:38 | XMS_ITS | Encounter Summary ---
Author Organization [facility] Address [address] [place] [address] Care Team Providers Care Creche Attendant Name Role Phone Sheng Frankel DO Primary Care Provider [phone] Sheng Frankel DO Unavailable [phone] Encounter Details Date Type Department Care Team (Late st Contact Info) Description 08/12/2024 Orders Only [facility] [address] [place] [address] Sheng Frankel, [address] [place] [address] Acute cystitis without hematuria Social History Tobacco [...] often do you attend chur ch or muslim services? Patient declined 08/09/2024 Do you belong to any clubs o r organizations such as caodaism groups, unions, fraternal or athletic groups, or [...] Recorded Patient Health Questionnaire-2 Score 0 08/10/2024 [facility] Occupat ional Health - Occupational Stress [...] any time in the past 12 m [facility], were you homeless or living in a prison (including now)? No 08/09/2024 Comments Unknown Sex [...] documented as of this encounter Care Teams Creche Attendant Relationship Specialty Start Date End Date Sheng Frankel DO [address] [facility] [address] [place] [address] PCP - General Family Medicine 08/10/24 Sheng Frankel DO [address] [place] [address] PCP - Jaymie Ryan 09/20/24 documented as of this encounter
--- OUTSIDE RECORDS SUMMARY | 2025-01-09 12:38 | XMS_ITS | Encounter Summary ---
Author Organization [facility] Address [address] [place] [address] Care Team Providers Care Loss Prevention Operations Manager Name Role Phone MoundsSheng rocha Sameer ROGERS Primary Care Provider [phone] JostinSheng Sameer ROGERS Unavailable [phone] Encounter Details Date Type Department Care Team (Late st Contact Info) Description 08/22/2023 Abstract [facility] [address] [place] [address] Debbie Pelaez LPN [address] [facility] [place] [id number] Social History Tobacco Use Types Packs/Day Years [...] documented as of this encounter Care Teams Loss Prevention Operations Manager Relationship Specialty Start Date End Date Mounds, Sheng L, DO [address] [place] [address] PCP - General Family Medicine 08/10/24 Sheng Frankel DO [address] [facility] [address] [place] [address] PCP - Jaymie Ryan 09/20/24 documented as of this encounter
--- OUTSIDE RECORDS SUMMARY | 2025-01-09 12:38 | XMS_ITS | Encounter Summary ---
Author Organization [facility] Address [address] [place] [address] Care Team Providers Care Combination Saw Operator Name Role Phone Elaina Villarreal Tapan ERNST-CHEMICAL DEPENDENCY NURSE Unavailable + [phone] Sheng Frankel DO Primary Care Provider [phone] Sheng Frankel DO Unavailable [phone] Encounter Details Date Type Department Care Team (Late st Contact Info) Description 04/11/2023 Clinisync Result Encounter [facility] External Department Unsolicited Jaida Beverly DO [address] [facility] [address] [place], [place] [id number] Social History Tobacco Use Types Packs/Day Years [...] Priority Date/Time Associated Diagnosis Comments US OB ANATOMY 04/11/2023 9:28 PM EST documented in this encounter Results * US OB ANATOMY (04/11/2023 9:28 PM EST) Anatomical Region Laterality Modality Other 04/11/2023 9:28 PM EST Narrative 04/11/2023 9:28 [place] [address] Ultrasound Report Signed Patient: GRACE FUENTES MR#: [id number] : 2000 Acct:[id number] Age/Sex: 23 / F ADM Date: 04/11/23 Loc: US Attending Dr: Jaida Beverly D.O. Ordering Physician: Jaida Beverly D.O. Date of Service: 04/11/23 Procedure(s): US OB anatomy Accession Number(s): [id number] cc: Jaida Beverly D.O.; Physician,Non-Staff Yesenia The [place] [address] Patient Name: GRACE FUENTES MRN: [id number] date: 2000 Sex: F Assigned Patient Location: Current Patient Location: Accession/Order Number: [id number] Exam Date: 04/11/2023 08:09 Report Date: 04/11/2023 21:28 At the request of: JAIDA BEVERLY Procedure: US OB anatomy EXAMINATION: US OB anatomy, US OB transvaginal [...] ANDI by current US: 08/27/2023 US/US OB anatomy IMPRESSION: 1. Single live intrauterine with growth detailed above. 2. Anterior low-lying placenta. Electronically authenticated by: CAIO RUIZ Date: 04/11/2023 21:28 Dictated By: Caio Ruiz M.D. Signed By: 04/11/232130 DD/ 27 TD/TT: Pulmonary Physician: Procedure Note Radiology, Radiologist, MD - 04/11/2023 [place] [address] Ultrasound Report Signed Patient: GRACE FUENTES MMR#: [id number] : 2000Acct:[id number] Age/Sex: 23 / FADM Date: 04/11/23 Loc: US Attending Dr: Jaida Beverly D.O. Ordering Physician: Jaida Beverly D.O. Date of Service: 04/11/23 Procedure(s): US OB anatomy Accession Number(s): [id number] cc: Jaida Beverly D.O.; Physician,Non-Staff Yes[facility] The [address] [address] Patient Name: GRACE FUENTES MRN: [facility]:[id number] date: 2000 Sex: F Assigned Patient Location: US Current Patient Location: Accession/Order Number: [id number] Exam Date: 04/11/2023 08:09 Report Date: 04/11/2023 21:28 At the request of: JAIDA BEVERLY Procedure: US OB anatomy EXAMINATION: US OB anatomy, US OB transvaginal [...] ANDI by current US: 08/27/2023 US/US OB anatomy IMPRESSION: 1. Single live intrauterine with growth detailed above. 2. Anterior low-lying placenta. Electronically authenticated by: CAIO RUIZ Date: 04/11/2023 21:28 Dictated By: Caio Ruiz M.D. Signed By:04/11/232130 DD/ 27 TD/TT: Pulmonary Physician: us Jaida Beverly DO [facility] Final Result documented in this encounter Visit Diagnoses Not on filedocumented in this encounter Additional Health Concerns Active Problems Noted Date Diagnosed Date OB Reminders 02/02/2023 documented as of this encounter Care Teams Combination Saw Operator Relationship Specialty Start Date End Date Elaina Villarreal, PROPOSAL EDITOR-CHEMICAL DEPENDENCY NURSE [address] [place] [address] PCP - [facility] 08/21/22 4 Sheng Frankel DO [address] [place] [address] PCP - General Family Medicine 08/10/24 Sheng Frankel DO [address] [place] [address] PCP - [facility] 09/20/24 documented as of this encounter
--- OUTSIDE RECORDS SUMMARY | 2025-01-09 12:38 | XMS_ITS | Encounter Summary ---
Author Organization [facility] Address [address] [place] [address] Care Team Providers Care Women'S Studies Professor Name Role Phone Elaina Villarreal Tapan ERNST-HEALTH SERVICE WORKER Unavailable + [phone] Sheng Frankel DO Primary Care Provider + [phone] Sheng Frankel DO Unavailable [phone] Encounter Details Date Type Department Care Team (Late st Contact Info) Description 08/20/2023 Abstract [facility] [address] [place] [address] Shmuel Beverly DO [address] Martins, [facility] Social History Tobacco Use Types Packs/Day [...] documented as of this encounter Care Teams Women'S Studies Professor Relationship Specialty Start Date End Date Elaina Villarreal, TOP IRONER-HEALTH SERVICE WORKER [address] [place] [address] PCP - [facility] 08/21/22 4 Sheng Frankel DO [address] [place] [address] PCP - General Family Medicine 08/10/24 Sheng Frankel DO [address] [place] [address] PCP - Jaymie Ryan 09/20/24 documented as of this encounter
--- OUTSIDE RECORDS SUMMARY | 2025-01-09 12:38 | XMS_ITS | Encounter Summary ---
Author Organization [facility] Address [address] [place] [address] Care Team Providers Care Brine Tank Operator Name Role Phone Sheng Frankel DO Primary Care Provider [phone] Sheng Frankel DO Unavailable [phone] Encounter Details Date Type Department Care Team (Late st Contact Info) Description 08/28/2024 Abstract [facility] [address] [place] [address] Sheng Frankel, [address] [place] [address] Social History Tobacco Use Types Packs/Day Years [...] any clubs o r organizations such as zoroastrianism groups, unions, fraternal or athletic groups, or [...] Recorded Patient Health Questionnaire-2 Score 0 08/10/2024 [facility] of Occupat ional [facility] - Occupational Stress Questionnaire Answer Date Recorded [...] in the [facility] m [facility] were you homeless or living in a [...] documented as of this encounter Care Teams Brine Tank Operator Relationship Specialty Start Date End Date Sheng Frankel DO [address] [place] [address] PCP - General Family Medicine 08/10/24 Sheng Frankel DO [address] [place] [address] PCP - Jaymie Ryan 09/20/24 documented as of this encounter
--- OUTSIDE RECORDS SUMMARY | 2025-01-09 12:38 | XMS_ITS | Encounter Summary ---
Author Organization [facility] Address [address] [place] [address] Care Team Providers Care Appeals Representative Name Role Phone PipestemSheng rocha Sameer DO Primary Care Provider [phone] Jostin Sheng Sameer DO Unavailable [phone] Encounter Details Date Type Department Care Team (Late st Contact Info) Description 11/29/2024 Abstract [facility] [address] [phone] Shmuel Beverly DO [address] Martins, [facility] Social History Tobacco Use Types Packs/Day [...] often do you attend chur ch or confucianist services? Patient declined 08/09/2024 Do you belong [...] Recorded Patient Health Questionnaire-2 Score 0 08/10/2024 [facility] of Occupat ional Health - Occupational [...] any time in the past [address] [facility], were you homeless or living [...] documented as of this encounter Care Teams Appeals Representative Relationship Specialty Start Date End Date Sheng Frankel DO [address] [address] PCP - General Family Medicine 08/10/24 Sheng Frankel DO [address] [facility] [address] [place] [address] PCP - Jaymie Ryan 09/20/24 documented as of this encounter
--- OUTSIDE RECORDS SUMMARY | 2025-01-09 12:38 | XMS_ITS | Encounter Summary ---
Author Organization [facility] Address [address] [place] [address] Care Team Providers Care Wax Cutter Name Role Phone Sheng Frankel DO Primary Care Provider [phone] Sheng Frankel DO Unavailable [phone] Encounter Details Date Type Department Care Team (Late st Contact Info) Description 01/02/2025 Abstract [facility] [address] [place] [address] Sheng Frankel, [address] [place] [address] Social History Tobacco Use Types Packs/Day Years [...] often do you attend chur ch or yazidi services? Patient declined 08/09/2024 Do you belong to any clubs o r organizations such as faith groups, unions, fraternal or athletic groups, or [...] Recorded Patient Health Questionnaire-2 Score 0 08/10/2024 [facility] of Occupat ional [facility] - Occupational Stress Questionnaire Answer Date Recorded [...] were you homeless or living in a mcc (including now)? No 08/09/2024 Comments Unknown Sex [...] documented as of this encounter Care Teams Wax Cutter Relationship Specialty Start Date End Date Sheng Frankel DO [address] [place] [address] PCP - General Family Medicine 08/10/24 Sheng Frankel DO [address] [place] [address] PCP - Jaymie Ryan 09/20/24 documented as of this encounter
--- OUTSIDE RECORDS SUMMARY | 2025-01-09 12:38 | XMS_ITS | Encounter Summary ---
Author Organization [facility] Address [address] [place] [address] Care Team Providers Care Physicist [employer] Name Role Phone JostinSheng Sameer DO Primary Care Provider + [phone] JostinSheng DO Unavailable [phone] Encounter Details Date Type Department Care Team (Late st Contact Info) Description 12/19/2024 Orders Only [facility] [address] [place] [address] [place] [id number] Akash [place] Social History Tobacco Use Types Packs/Day Years [...] often do you attend chur ch or nondenominational services? Patient declined 08/09/2024 Do you belong to any clubs o r organizations such as quaker groups, unions, fraternal or athletic groups, or [...] Recorded Patient Health Questionnaire-2 Score 0 08/10/2024 [employer] [place] [facility] Occupat ional Health - Occupational Stress [...] any time in the past 12 m [facility], were you homeless or living in a assisted (including now)? No 08/09/2024 Comments Unknown Sex [...] Procedure Name Priority Date/Time Associated Diagnosis Comments PAP SMEAR Routine 12/12/2024 12:00 AM EDT documented in this encounter Results * Pap Smear (12/12/2024 12:00 AM EDT) Swab Cervical swab / Unknown us Shmuel Beverly DO LAB CYTOLOGY ORDERABLES Final Re sult EXTERNAL LAB documented in this encounter Visit Diagnoses Not on filedocumented in this encounter Additional Health Concerns Active Problems Noted Date Diagnosed Date OB Reminders 02/02/2023 documented as of this encounter Care Teams Physicist [employer] Relationship Specialty Start Date End Date Sheng Frankel DO [address] [place] [address] PCP - General Family Medicine 08/10/24 Sheng Frankel DO [address] [place] [address] PCP - [place] [employer] 09/20/24 documented as of this encounter
--- OUTSIDE RECORDS SUMMARY | 2025-01-09 12:38 | XMS_ITS | Encounter Summary ---
Author Organization [facility] Address [address] [address] Care Team Providers Care Commercial Real Estate Appraiser Name Role Phone Elaina Villarreal [place] ERNST-HOSPICE NURSE PRACTITIONER Unavailable + [phone] Sheng Frankel DO Primary Care Provider + [phone] Sheng Frankel DO Unavailable [phone] Encounter Details Date Type Department Care Team (Late st Contact Info) Description 04/11/2023 Clinisync Result Encounter [facility] Department Unsolicited Jaida Beverly DO [address] [facility] [address] [place], [place] [id number] Social History Tobacco Use Types Packs/Day Years [...] PM EST Narrative 04/11/2023 9:28 [place] [address] Ultrasound Report Signed Patient: GRACE FUENTES MR#: [id number] : 2000 Acct:[id number] Age/Sex: 23 / F ADM Date: 04/11/23 Loc: US Attending Dr: Jaida Beverly D.O. Ordering Physician: Jaida Beverly D.O. Date of Service: 04/11/23 Procedure(s): US OB transvaginal Accession Number(s): [id number] cc: Jaida Beverly D.O.; Physician,Non-Staff [place] [id number] Patient Name: GRACE FUENTES MRN: [id number] date: 2000 Sex: F Assigned Patient Location: Current Patient Location: [place] Accession/Order Number: [id number] Exam Date: 04/11/2023 08:09 Report Date: 04/11/2023 [...] M.D. Signed By: 04/11/232130 DD/ 27 TD/TT: Film Booker: Procedure Note Radiology, Radiologist, MD - 04/11/2023 [place] [address] Ultrasound Report Signed Patient: GRACE FUENTES MMR#: [id number] : 2000Acct:[id number] Age/Sex: 23 FADM Date: 04/11/23 Loc: US Attending Dr: Jaida Beverly D.O. Ordering Physician: Jaida Beverly D.O. Date of Service: 04/11/23 Procedure(s): US OB transvaginal Accession Number(s): [id number] cc: Jaida Beverly D.O.; Physician,Non-Staff [place] [id number] Patient Name: GRACE FUENTES MRN: [facility]:[id number] date: 2000 Sex: F Assigned Patient Location: [place] Current Patient Location: [place] Accession/Order Number: [id number] Exam Date: 04/11/2023 08:09 Report Date: 04/11/2023 [...] Ruiz M.D. Signed By:04/11/232130 DD/ 27 TD/TT: Film Booker: us Jaida Beverly DO [facility] Final Result documented in this encounter Visit Diagnoses Not on filedocumented in this encounter Additional Health Concerns Active Problems Noted Date Diagnosed Date OB Reminders 02/02/2023 documented as of this encounter Care Teams Commercial Real Estate Appraiser Relationship Specialty Start Date End Date Elaina Villarreal APRN-HOSPICE NURSE PRACTITIONER [address] [place] [address] PCP - [facility] 08/21/22 4 Sheng Frankel DO [address] [place] [address] PCP - General Family Medicine 08/10/24 Sheng Frankel DO [address] [place] [address] PCP - Jaymie Ryan 09/20/24 documented as of this encounter
--- OUTSIDE RECORDS SUMMARY | 2025-01-09 12:41 | XMS_ITS | CCD ---
Author Organization [facility] Care Team Providers Care Mule Tender Name Role Phone CIERRA ., DR WATKINS [...] Unavailable SIRIA ., DR SENA Admitting Unavailable SIIRA ., DR SENA Attending Unavailable WEST, DR [...] e Unavailable Primary Care Provider Unavailabl e [place] Bjorn ROGERS Sameer Primary Care Provider Jostin Bjorn Sameer Unavailable BJORN FRANKEL Attending Unavailable SHMUEL BEVERLY Attending Unavailable AIMEE IVORY Attending Unavailable SHMUEL BEVERLY Attending Unavailable Praneeth Hernandez MD Attending Provider [phone] NON STAFF Primary Care Provider Unavailabl e Medications Current Medications Medication Drug Class(es) Dates [...] day at the same time 0 Active FLUoxetine 10 mg oral capsule (4 sources) Serotonin Reuptake Inhibitor Start: 12-12-2024 End: 12-12-2025 take 1 capsule by mouth once daily nitrofurantoin, macrocrystals 25 mg / nitrofurantoin, monohydrate [...] chew.. 30 capsule 11 05/17/2023 05/16/2024 Active Sod Picosulf-Mag Ox-Citric Ac (1 source) Start: 01-01-2025 Completed/Discontinued Medications Medication Drug Class(es) Dates Sig (Normalized) Sig (Original) amoxicillin 875 mg / clavulanate 125 mg oral tablet (4 sources) Penicillin-class Antibacterial Start: 12-02-2024 End: 12-12-2024 take 1 tablet by mouth in the morning amoxicillin-clavul anate (Augmentin) 875-125 MG tablet Indications: Dysuria Take 1 tablet (875 mg) by mouth in the morning and 1 tablet (875 mg) before bedtime. Do all this for 10 days. 20 tablet 12/02/2024 12/12/2024 24 hr metFORMIN hydrochloride 500 mg extended release oral tablet (7 sources) Biguanide Start: 09-20-2024 End: 12-19-2024 take 1 tablet by mouth every twenty-four hours at mealtime metFORMIN XR (Glucophage-XR) 500 MG 24 hr tablet Indications: PCOS (polycystic ovarian syndrome) Take 1 tablet (500 mg) by mouth in the evening. Take with meals Do not crush, chew, or split. 90 tablet 09/20/2024 12/12/2024 Discontinued Problems Active Problems Problem Classification Problem Date Documented Da te Episodic/Chronic Abdominal pain (4 sources) Pain in female pelvis; Translations: [Pelvic and perineal pain] 09-19-2024 Episodic Anxiety disorders (2 sources) Generalized anxiety disorder; Translations: [Generalized anxiety disorder] 12-12-2024 Chronic Gastrointestinal hemorrhage (2 sources) Gastrointestinal hemorrhage; Translations: [Hemorrhage of anus and rectum] 01-01-2025 Episodic Genitourinary symptoms and ill-defined conditions (4 sources) Dysuria; Translations: [Dysuria] 06-26-2024 Episodic Immunizations and screening for infectious disease (1 source) Encounter for screening for human papillomavirus (HPV); Translations: [ENC SCREENING HUMAN PAPILLOMAVIRUS] Onset: Episodic Mood disorders (2 sources) Disturbance in mood; Translations: [Emotional lability] 12-12-2024 Episodic Other female genital disorders (2 sources) Pruritus of vagina; Translations: [Other specified noninflammatory disorders of vagina] 11-29-2024 Episodic Other gastrointestinal disorders (2 sources) Altered bowel function; Translations: [Change in bowel habit] 01-01-2025 Episodic Other nutritional; endocrine; and metabolic disorders (13 sources) Obesity; Translations: [Obesity, unspecified] Onset: 5 08-10-2024 Chronic Other and delivery including normal (3 sources) Single live ; Translations: [Third trimester ] Onset: 2 06-21-2023 Episodic Unclassified (15 sources) OB Reminders Onset: 3 02-02-2023 Past or Other Problems Problem Classification [...] MOTHER] Onset: 11-02-2021 Episodic Other complications of (13 sources) size does not accord with dates; [...] Short gestation; low weight; and growth retardation (13 sources) Lqjjf-gdt-uocke baby; Translations: [Orion small for gestational age, unspecified weight] Onset: 07-25-2023 07-25-2023 Episodic Results Test Name Value Interpretation Reference Range Facility IGP,APTIMA HPV,AGE GDLNon AGE GDLN ACOG TESTING Note . [facility] Comment on above: TESTS RESULT FLAG UN ITS REF RANGE LAB Clinician Provided Cytology Information Source.............Cervix;Endocervix No. of containers..01 ThinPrep Vial Age Algo ACOG [place]... - 01 FLAG LEGEND: L-Low Normal,H-High Normal,LL-Alert Low,HH-Alert High <-Panic Low,>-Panic High,A-Abnormal,AA-Critical Abnormal Performed at: 01 =G [address] [id number] Shannon Lopez MD, IGP, RFX APTIMA HPV ASCU Note . [facility] Comment on above: TESTS RESULT FLAG UN ITS REF RANGE LAB DIAGNOSIS: 02 NEGATIVE FOR INTRAEPITHELIAL LESION OR MALIGNANCY. Specimen adequacy: 02 Satisfactory for evaluation. No endocervical component is identified. Performed by: Francisca Ayala, Windows Server Administrator ([facility]) . 02 Note: Note 02 The Pap [...] <-Panic Low,>-Panic High,A-Abnormal,AA-Critical Abnormal Performed at: [address] [place] [address] Shannon Lopez MD, Performed at: = - [facility] [id number] Atomic Fuel Assembler: Shannon Lopez MD, Phone: [phone] Performed at: [facility] [address] [id number] Atomic Fuel Assembler: Shannon Lopez MD, Phone: [phone] [facility] No Panel Informationon 07-11 -2025 ACINETOBACTER BAUMANII 0 NO [facility] ACINETOBACTER [...] 0 [facility] ESCHERICHIA COLI Not detected [facility] Interpretation and review of laboratory results [...] PYOGENES (GROUP A STREP) Not detected [facility] Laboratory - Chemistry and C hemistry - challengeon 11-29-2024 Bilirubin Ql (U) - Negative [facility] Glucose [Mass/Vol] - Negative [facility] Ketones Ql (U) - Negative [facility] pH (U) 7 [pH] 5.0 - 6.0 [facility] Specific gravity (U) [Rel density] 1 1.001 - 1.035 [facility] Laboratory - Hematology and Cell countson 11-29-2024 Hemoglobin Ql (U) - Negative [facility] Laboratory - Urinalysison Nitrite Ql (U) - Negative [facility] Protein Ql (U) - Negative [facility] No Panel Informationon 11-29 Interpretation and review of laboratory results Normal [facility] LEUKOCYTES - Negative [facility] UROBILINOGEN - 0.2 - 1.0 [facility] US PELVIS W/ TRANSVAGINALon 09-20-2024 [place] [address] Ultrasound Report Signed Patient: DELIA FUENTES MR#: [id number] : 2000 Acct:[id number] Age/Sex: 24 / F ADM Date: 09/20/24 Loc: US Attending Dr: Shmuel Beverly D.O. Ordering Physician: Shmuel Beverly D.O. Date of Service: 09/20/24 Procedure(s): US pelvis w/ transvaginal Accession Number(s): [id number] cc: Bjorn Frankel; Shmuel Beverly D.O. [place] [address] Patient Name: DELIA FUENTES MRN: [id number] date: 2000 Sex: F Assigned Patient Location: Current Patient Location: Accession/Order Number: [id number] Exam Date: 09/20/2024 09:08 Report Date: 09/20/2024 09:12 At the request of: SHMUEL BEVERLY DO Procedure: US pelvis w/ transvaginal [...] Jr., D.O. 09/20/2024 9:12 AM Dictation Location: [place] [address] Electronically authenticated by: [id number] Y Date: 09/20/2024 09:12 Dictated By: Arturo Ruggiero M.D. Signed By: 09/20/24914 DD/ 1 TD/TT: [employer]ressed [employer] Plant Worker: [facility] Radiology, Radiologist, MD - 09/20/2024 [place] [address] Ultrasound Report Signed Patient: DELIA FUENTES MR#: [id number] : 2000 Acct:[id number] Age/Sex: 24 / F ADM Date: 09/20/24 Loc: US Attending Dr: Shmuel Beverly D.O. Ordering Physician: Shmuel Beverly D.O. Date of Service: 09/20/24 Procedure(s): US pelvis w/ transvaginal Accession Number(s): [id number] cc: Bjorn Frankel; Shmuel Beverly D.O. The [address] [id number] Patient Name: DELIA FUENTES MRN: [facility]:[id number] date: 2000 Sex: F Assigned Patient Location: Current Patient Location: US Accession/Order Number: [id number] Exam Date: 09/20/2024 09:08 Report Date: 09/20/2024 09:12 At the request of: SHMUEL BEVERLY DO Procedure: US pelvis w/ transvaginal [...] Jr., D.O. 09/20/2024 9:12 AM Dictation Location: [place] [address] Electronically authenticated by: [id number] Y Date: 09/20/2024 09:12 Dictated By: Arturo Ruggiero M.D. Signed By: 09/20/24914 DD/ 1 TD/TT: [employer] Plant Worker: [facility] Radiology Study observation (narrative) [facility] US PELVIS W/ TRANSVAGINALOrd ered By: Radiologist Radiology on 09-20-2024 [facility] [employer] Work Phone: Urinalysis macro (dipstick) panel (U)Ordered By: Debbie Pelaez on 06-23-2023 Bilirubin, UA Negative Negative - 4(70) +++ mg/dL [facility] [employer] Work Phone: Blood, UA Negative Negative - 50 Hugh/mcL [facility] Work Phone: Clarity, UA Clear [facility] Work Phone: Color, UA Yellow [facility] [employer] Work Phone: Glucose, UA Negative Negative - 2000(110) ++++ mg/dL [facility] [employer] Work Phone: Interpretation and review of laboratory results Normal [facility] [employer] Work Phone: Ketones, UA Negative Negative - 160(16) ++++ mg/dL [facility] [employer] Work Phone: Leukocytes, UA Negative Negative - 500+++ Joe/mcL [facility] Work Phone: Nitrite, UA Negative Negative - Positive [facility] [employer] Work Phone: pH, UA 5.5 5 - 9 [facility] Work Phone: Protein, UA Negative Negative - 1999(20) ++++ mg/dL [facility] Work Phone: Spec Grav, UA 1.015 1 - 1.03 [facility] Work Phone: Urobilinogen, UA 0.2 0.2 - 12 mg/dL [facility] Healthcare Work Phone: [facility] Work Phone: PAP ACOG PANEL 2: 21 to 29on 09-29-2022 . . [facility] Comment on above: Performed By: #### 4 [id number] #### [facility] [address] [place] [address] Dr. Tyree Paiz Age Gdln ACOG Testing - [facility] Comment on above: Performed By: #### 4 [id number] #### [facility] [address] [place] [address] Dr. Tyree Paiz DIAGNOSIS: Comment [facility] Comment on above: Result Comment: NEGA TIVE FOR INTRAEPITHELIAL LESION OR MALIGNANCY. Performed By: #### 4 [id number] #### [facility] [address] [place] [address] Dr. Tyree Paiz Methodology: Comment [facility] Comment on above: Result Comment: This liquid based ThinPrep(R) pap test was screened with the use of an image guided system. Performed By: #### 4 [id number] #### [facility] [address] [place] [address] Dr. Tyree Paiz Note: Comment [facility] Comment on above: Result Comment: The Pap smear is a screening test designed to aid in the detection of premalignant and malignant conditions of the uterine cervix. It is not a diagnostic procedure and should not be used as the sole means of detecting cervical cancer. Both false-positive and false-negative reports do occur. . Performed By: #### 4 [id number] #### [facility] [address] [place] [address] Dr. Tyree Paiz Performed by: Comment [facility] Comment on above: Result Comment: Rafael Tejada, Water Plumber (ASCP) Performed By: #### 4 [id number] #### [facility] [address] [place] [address] Dr. Tyree Paiz Reflex Criteria: Comment Normal [facility] Comment on above: Result Comment: The HPV DNA reflex criteria were not met with this specimen result therefore, no HPV testing was performed. . Performed By: #### 4 [id number] #### [facility] [address] [place] [address] Dr. Tyree Paiz Specimen adequacy: Comment Normal [facility] Comment on above: Result Comment: Sati sfactory for evaluation. Endocervical and/or squamous metaplastic cells (endocervical component) are present. Performed By: #### 4 [id number] #### [facility] [address] [place] [address] Dr. Tyree Paiz TYPE AND SCREENon 02-01-2022 TYPE AND SCREEN Antibody Screen NEGATIVE Blood Bank Notes testing done by 01/29/22 ABO Rh Typing AB Rh Positive Blood Bank Notes testing done by 01/29/22 [facility] Comment on above: Performed By: #### T NS ####[facility] [address] [place] [address]Dr. Tyree Paiz CBC AUTO DIFFon 01-31-2022 BASO # 0.0 103/ul Normal 0.0-0.1 [facility] Comment on above: Performed By: #### C BC #### [facility] [address] [place] [address] Dr. Tyree Paiz Basophils/100 WBC (Bld) 0.3 % Normal 0.2-2.0 [facility] Comment on above: Performed By: #### C BC #### [facility] [address] [place] [address] Dr. Tyree Paiz EO # 0.1 103/ul Normal 0.0-0.7 [facility] Comment on above: Performed By: #### C BC #### [facility] [address] [place] [address] Dr. Tyree Paiz Eosinophils/100 WBC (Bld) 0.8 % Critically low 0.9-7.0 [facility] Comment on above: Performed By: #### C BC #### [facility] [address] [place] [address] Dr. Tyree Paiz Erythrocyte distribution width (RBC) [Ratio] 13.4 % Normal 11.0-15.0 [facility] Comment on above: Performed By: #### C BC #### [facility] [address] [place] [address] Dr. Tyree Paiz Hematocrit (Bld) [Volume fraction] 27.4 % Critically low 36.0-48.0 [facility] Comment on above: Performed By: #### C BC #### [facility] [address] [place] [address] Dr. Tyree Paiz Hemoglobin (Bld) [Mass/Vol] 8.6 g/dL Critically low 12.0-16.0 [facility] Comment on above: Performed By: #### C BC #### [facility] [address] [place] [address] Dr. Tyree Paiz IG # 0.12 10e3/ul Critically high 0.00-0.03 [facility] Comment on above: Performed By: #### C BC #### [facility] [address] [place] [address] Dr. Tyree Paiz IG % 0.9 % Critically high 0.0-0.5 [facility] Comment on above: Performed By: #### C BC #### [facility] [address] [place] [address] Dr. Tyree Paiz LYMPH # 1.9 103/ul Normal 1.2-3.8 [facility] Comment on above: Performed By: #### C BC #### [facility] [address] [place] [address] Dr. Tyree Paiz Lymphocytes/100 WBC (Bld) 13.7 % Critically low 20.5-60.0 [facility] Comment on above: Performed By: #### C BC #### [facility] [address] [place] [address] Dr. Tyree Paiz MANUAL DIFF REQ NO Normal [facility] Comment on above: Performed By: #### C BC #### [facility] [address] [place] [address] [address] Tyree Paiz MCH (RBC) [Entitic mass] 27.0 pg Normal 26.7-34.0 [facility] Comment on above: Performed By: #### C BC #### [facility] [address] [place] [address] Dr. Tyree Paiz MCHC (RBC) [Mass/Vol] 31.4 g/dL Normal 29.9-35.2 [facility] Comment on above: Performed By: #### C BC #### [facility] [address] [place] [address] Dr. Tyree Paiz MCV (RBC) [Entitic vol] 85.9 fL Normal 81.0-99.0 [facility] Comment on above: Performed By: #### C BC #### [facility] [address] [place] [address] Dr. Tyree Paiz MONO # 1.1 103/ul Critically high 0.3-0.8 [facility] Comment on above: Performed By: #### C BC #### [facility] [address] [place] [address] Dr. Tyree Paiz Monocytes/100 WBC (Bld) 8.1 % Normal 1.7-12.0 [facility] Comment on above: Performed By: #### C BC #### [facility] [address] [place] [address] Dr. Tyree Paiz NEUT # 10.3 103/ul Critically high 1.4-6.5 [facility] Comment on above: Performed By: #### C BC #### [facility] [address] [place] [address] Dr. Tyree Paiz Neutrophils/100 WBC (Bld) 76.2 % Critically high 43.0-75.0 [facility] Comment on above: Performed By: #### C BC #### [facility] [address] [place] [address] Dr. Tyree Paiz Platelet mean volume (Bld) [Entitic vol] 9.5 fL Normal 9.5-13.5 [facility] Comment on above: Performed By: #### C BC #### [facility] [address] [place] [address] [address] Tyree Paiz PLT 196 103/ul Normal 150-450 [facility] Comment on above: Performed By: #### C BC #### [facility] [address] [place] [address] [address] Tyree Paiz RBC 3.19 106/ul Critically low 4.20-5.40 [facility] Comment on above: Performed By: #### C BC #### [facility] [address] [place] [address] [address] Tyree Paiz WBC 13.5 103/ul Critically high 4.0-11.0 [facility] Comment on above: Performed By: #### C BC #### [facility] [address] [place] [address] [address] Tyree Paiz CBC W MANUAL DIFFon 01-30-20 22 ATYPICAL LYMPH # Normal [facility] Comment on above: Performed By: #### C BCMAN ####[facility] [address] [place] [address]DrSarah Paiz ATYPICAL LYMPH % Normal [facility] Comment on above: Performed By: #### C BCMAN ####[facility] [address] [place] [address]DrSarah Paiz BAND # 0.0 103/ul Normal 0.0-0.3 [facility] Comment on above: Performed By: #### C BCMAN ####[facility] [address] [place] [address]DrSarah Paiz BAND % 0 % Normal 0-5 [facility] Comment on above: Performed By: #### C BCMAN ####[facility] [address] [place] [address]DrSarah Paiz BASOM # 0.00 103/ul Normal 0.00-0.10 [facility] Comment on above: Performed By: #### C BCMAN ####[facility] [address] [place], [place] [address]Dr. Tyree Paiz BASOM % 0.0 % Critically low 0.2-2.0 [facility] Comment on above: Performed By: #### C BCMAN ####[facility] [address] [place] [id number]. Tyree Paiz BLAST # Normal [facility] Comment on above: Performed By: #### C BCTY ####[facility] [address] [place] [address]Dr. Tyree Paiz BLAST % Normal [facility] Comment on above: Performed By: #### C BCTY ####[facility] [address] [place] [address]Dr. Tyree Paiz CORRECTED WBC Normal 4.0-11.0 [facility] Comment on above: Performed By: #### C LEWIS ####[facility] [address] [place], [place] [address]Dr. Tyree Paiz EOS # 0.41 103/ul Normal 0.00-0.70 [facility] Comment on above: Performed By: #### C LEWIS ####[facility] [address] [place] [address]Dr. Tyree Paiz EOS% 3.0 % Normal 0.9-7.0 [facility] Comment on above: Performed By: #### C LEWIS ####[facility] [address] [place] [address]Dr. Tyree Paiz HCT 31.3 % Critically low 36.0-48.0 [facility] Comment on above: Performed By: #### C LEWIS ####[facility] [address] [place] [address]Dr. Tyree Paiz HGB 10.2 g/dl Critically low 12.0-16.0 [facility] Comment on above: Performed By: #### C BCTY ####[facility] [address] [place], [place] [address]Dr. Tyree Paiz LYMPHM # 1.63 103/ul Normal 1.20-3.80 [facility] Comment on above: Performed By: #### C LEWIS ####[facility] [address] [place], [place] [address]Dc. Tyree Paiz LYMPHM% 12.0 % Critically low 20.5-60.0 [facility] Comment on above: Performed By: #### C LEWIS ####[facility] [address] [place], [place] [address]Sy. Tyree Paiz MCH 27.4 pg Normal 26.7-34.0 [facility] Comment on above: Performed By: #### C LEWIS ####[facility] [address] [place] [id number]. Tyree Paiz MCHC 32.6 g/dl Normal 29.9-35.2 [facility] Comment on above: Performed By: #### C LEWIS ####[facility] [address] [place] [id number]. Tyree Paiz MCV 84.1 fL Normal 81.0-99.0 [facility] Comment on above: Performed By: #### C LEWIS ####[facility] [address] [place] [id number]. Tyree Paiz METAMYELOCYTE # Normal [facility] Comment on above: Performed By: #### C LEWIS ####[facility] [address] [place] [phone]. Tyree Paiz METAMYELOCYTE % Normal [facility] Comment on above: Performed By: #### C LEWIS ####[facility] [address] [place] [id number]. Tyree Paiz MONOM# 1.36 103/ul Critically high 0.30-0.80 [facility] Comment on above: Performed By: #### C LEWIS ####[facility] [address] [place] [phone]. Tyree Paiz MONOM% 10.0 % Normal 1.7-12.0 [facility] Comment on above: Performed By: #### C LEWIS ####[facility] [address] [place] [id number]. Tyree Paiz MPV 9.5 fL Normal 9.5-13.5 [facility] Comment on above: Performed By: #### C BCTY ####[facility] [address] [place] [phone]. Tyree Paiz MYELOCYTE # Normal [facility] Comment on above: Performed By: #### C LEWIS ####[facility] [address] [place], [place] [address]Pz. Tyree Paiz MYELOCYTE % Normal [facility] Comment on above: Performed By: #### C BCTY ####[facility] [address] [place] [phone]. Tyree Paiz NRBC Normal [facility] Comment on above: Performed By: #### C LEWIS ####[facility] [facility] [id number] [place] [id number]. Tyere Paiz PLT 258 103/ul Normal 150-450 [facility] Comment on above: Performed By: #### C LEWIS ####[facility] [address] [place] [id number]. Tyree Paiz RBC 3.72 106/ul Critically low 4.20-5.40 [facility] Comment on above: Performed By: #### C LEWIS ####[facility] [address] [place] [id number]. Tyree Paiz RDW 13.0 % Normal 11.0-15.0 [facility] Comment on above: Performed By: #### C LEWIS ####[facility] [address] [place] [phone]. Tyree Paiz SEG # 10.20 103/ul Critically high 1.40-6.50 [facility] Comment on above: Performed By: #### C LEWIS ####[facility] [address] [place] [id number]. Tyree Paiz SEG % 75.0 % Normal 43.0-75.0 [facility] Comment on above: Performed By: #### C LEWIS ####[facility] [address] [place] [id number]. Tyree Paiz WBC 13.6 103/ul Critically high 4.0-11.0 [facility] Comment on above: Performed By: #### C BCMAN ####[facility] [address] [place], [place] [address]AiDr. Tyree Paiz [facility]on SARS-CoV-2 (COVID-19) RNA GINO+probe Ql (Unsp spec) Not detected Normal NOT DETECTED [facility] Comment on above: Result Comment: When diagnostic [...] for this test is supported by the Facility Mechanic of Health and Human Service's declaration that [...] longer be used). Performed By: #### C VDTB #### [facility] Laboratory [address] [place], [place] [address] Dr. Tyree Paiz DRUG SCREEN RAPID (URINE)on 01-29-2022 AMP Negative Normal NEGATIVE [facility] Comment on above: Performed By: #### D RUGRPD #### [facility] [address], [place] [address] Dr. Tyree Paiz BAR Negative Normal NEGATIVE [facility] Comment on above: Performed By: #### D RUGRPD #### [facility] [address], [place] [address] Dr. Tyree Paiz BUP Negative Normal NEGATIVE [facility] Comment on above: Performed By: #### D RUGRPD #### [facility] [address] [place] [address] [address] Tyree Paiz BZO Negative Normal NEGATIVE [facility] Comment on above: Performed By: #### D RUGRPD #### [facility] [address] [place] [address] [address] Tyree Paiz ZACHARY Negative Normal NEGATIVE [facility] Comment on above: Performed By: #### D RUGRPD #### [facility] [address] [place] [address] Dr. Tyree Paiz CUT-OFFS SEE BELOW Normal [facility] Comment on above: Result Comment: AMP [...] RUGRPD #### [facility] [address] [place] [address] Dr. Tyree Paiz DRUG CUT HEADER DRUG CLASS TEST SYSTEM CUT-OFF CONCENTRATIONS ARE FOLLOWS: Normal [facility] Comment on above: Performed By: #### D RUGRPD #### [facility] [address] [place] [address] Dr. Tyree Paiz mAMP Negative Normal NEGATIVE [facility] Comment on above: Performed By: #### D RUGRPD #### [facility] [address] [place] [address] Dr. Tyree Paiz MTD Negative Normal NEGATIVE [facility] Comment on above: Performed By: #### D RUGRPD #### [facility] [address] [place] [address] Dr. Tyree Paiz OPI Negative Normal NEGATIVE [facility] Comment on above: Performed By: #### D RUGRPD #### [facility] [address] [place] [address] Dr. Tyree Paiz OXY Negative Normal NEGATIVE [facility] Comment on above: Performed By: #### D RUGRPD #### [facility] [address] [place] [address] [address] Tyree Paiz PCP Negative Normal NEGATIVE [facility] Comment on above: Performed By: #### D RUGRPD #### [facility] [address] [place] [address] [address] Tyree Paiz PPX Negative Normal NEGATIVE [facility] Comment on above: Performed By: #### D RUGRPD #### [facility] [address] [place] [address] [address] Tyree Paiz TCA Negative Normal NEGATIVE [facility] Comment on above: Performed By: #### D RUGRPD #### [facility] [address] [place] [address] Dr. Tyree Paiz THC Negative Normal NEGATIVE [facility] Comment on above: Performed By: #### D RUGRPD #### [facility] [address] [place] [address] Dr. Tyree Paiz US PREG BIOPHY W [...] WILD [place] Date: 2022-01-26 19:11 Normal [facility] US PREG BIOPHY W NON STRESSo n [...] WILD [place] Date: 2022-01-19 07:52 Normal [facility] GROUP B STREP CULTUREon 12-22 S. agalactiae Ag Ql (Unsp spec) Culture Observations: NEGATIVE FOR GROUP B STREPTOCOCCUS. Normal [facility] Comment on above: Performed By: #### G BSCX ####[facility] [address] [place], [place] [address]GnDr. Tyree Paiz US PREG GROWTHon 01-12-2022 US [...] Normal [facility] GLUCOSE - 1HRon 11-10-2021 Glucose [Mass/Vol] 98 mg/dL Normal 74-106 [facility] Comment on above: Performed By: #### G LU1HR #### [facility] [address], [place] [address] Dr. Tyree Paiz HEMOGRAM AND PLATELon 2021 Hematocrit (Bld) [Volume fraction] 36.3 % Normal 36.0-48.0 [facility] Comment on above: Performed By: #### H H #### [facility] [address] [place] [address] Dr. Tyree Paiz Hemoglobin (Bld) [Mass/Vol] 11.9 g/dL Critically low 12.0-16.0 [facility] Comment on above: Performed By: #### H H #### [facility] [address] [place] [address] Dr. Tyree Paiz MCH (RBC) [Entitic mass] 30.1 pg Normal 26.7-34.0 [facility] Comment on above: Performed By: #### H H #### [facility] [address] [place] [address] Dr. Tyree Paiz MCHC (RBC) [Mass/Vol] 32.8 g/dL Normal 29.9-35.2 [facility] Comment on above: Performed By: #### H H #### [facility] [address] [place] [address] Dr. Tyree Paiz MCV (RBC) [Entitic vol] 91.7 fL Normal 81.0-99.0 [facility] Comment on above: Performed By: #### H H #### [facility] [address] [place] [address] Dr. Tyree Paiz PLT 237 103/ul Normal 150-450 [facility] Comment on above: Performed By: #### H H #### [facility] [address] [place] [address] Dr. Tyree Paiz RBC 3.96 106/ul Critically low 4.20-5.40 [facility] Comment on above: Performed By: #### H H #### [facility] [address] [place] [address] Dr. Tyree Paiz WBC 12.6 103/ul Critically high 4.0-11.0 [facility] Comment on above: Performed By: #### H H #### [facility] [address] [place] [address] Dr. Tyree Paiz US PREG INCOMPLETE ANATOMYon [...] Normal [facility] ED Note-Physicianon 06-07-19 ED Note-Physician Basic Information [...] worse. She is attempted to use an qttr-ryf-onnwhif eczema cream but states that it is [...] Appropriate mood & affect. Integumentary: Warm, Dry, [place] Medical Decision Making I believe this to [...] Instructions Follow-up With When Contact Information Austyn Sahra In 3 days 06/09/2020 [facility] [address] [facility], [place] [id number] [facility] (1) Additional Instructions: Use the eye ointment as prescribed, return should vision disturbance develop, otherwise follow-up with the model photographers' as directed for reevaluation. Patient Education Eczema [...] Diagnostic Results No qualifying data available. Normal [facility] Comment on above: Result Comment: Elec tronically Signed By: Milli SOMMERS, Calvin\.br\Date and Time Signed: 06/06/20 12:03 EST\.br\Electronically Co-Signed By: Jr Solomon DO\.neil\Date and Time Co-Signed: 06/06/20 22:16 EST Coding Summary.on 06-06-2020 Coding Summary. CODING DATE: 06/06/2020 FINAL [facility] STATUS: Home (Routine DC) PAYOR: Self Pay [...] Mejía Date Saved: 06/06/2020 05:36 pm Normal [facility] Consent for Treatmenton 05-23 Consent for Treatment [id number] #1.00CD:127 Normal [facility] Discharge Instructionson Discharge Instructions [id number] 6#1.00CD:127 Normal [facility] ED Clinical Summaryon 2020 ED Clinical Summary [place] [id number] ED Clinical Summary Person Information Name: DELIA PENNY Krupa/[facility] Age: 20 Years : 2000 Sex: Female Language: Armenian PCP: Tony PHAN MD Marital Status: Single [...] 06/06/2020 12:00:00 06/06/2020 12:00:00 06/06/2020 12:00:00 ADDRESS: [address] [place] [address] PHYS DOC NOTES: MEDICAL INFORMATION: Prescriptions Given: New Medications Printed Prescriptions loteprednol ophthalmic (Lotemax 0.5% ophthalmic ointment) 1 eloise OPTH QID. Refills: 0. Medications to Continue with No Changes Other Medications naproxen (naproxen 500 mg Tab) 1 Tablets By Mouth 2 times a day as needed for pain. Refills: 0. PATIENT EDUCATION INFORMATION: Instructions: Eczema Follow up: With: Address: When: Austyn Bocanegra [facility] [address], [address] [place] [address] Business (1) In 3 days 06/09/2020 Comments: Use the eye ointment as prescribed, return should vision disturbance develop, otherwise follow-up with the model photographers' as directed for reevaluation. DIAGNOSIS: 1:Eyelid dermatitis, eczematous Normal [facility] ED Patient Education Noteon 06-06-2020 ED [...] the itching and scratching. ? ? Use kwsr-yxy-usizzut antihistamines as directed for itching. This is especially useful at night when the itching tends to be worse. ? ? Use xgmo-zzt-eeduuhr steroid creams as directed for itching. ? [...] ? HOME CARE INSTRUCTIONS ? Only take akwq-ecl-eugmkmy or prescription medicines as directed by your [...] Document Reviewed: 12/10/2013 ExitCare? Patient Information ?2015 [employer]. This information is not intended to replace advice given to you by your health care provider. Make sure you discuss any questions you have with your health care provider. Normal [facility] ED Patient Summaryon 021 ED Patient Summary [address] [address] Patient Discharge Instructions Person Information Name: DELIA PENNY Age: 20 Years Arrival Date: 06/06/2020 11:09:25 Discharge Diagnosis: 1:Eyelid dermatitis, eczematous Primary Care Physician: Tony PHAN MD Provider Information Primary Provider: Jr Solomon DO [employer] Hospit[employer] Services Manager:Calvin Morley PA-C The exam and treatment you received in the Emergency Department were for an urgent problem and are not intended as complete care. It is important that you follow up with a doctor, nurse practitioner, or physician?s sales assistant entertainment and media for ongoing care. If your symptoms become worse or you do not improve as expected and you are unable to reach your usual health care provider, you should return to the Emergency Department. We are available 24 hours a day. DELIA PENNY has been given the following list of patient education materials, prescriptions and follow-up instructions: Follow-up Instructions: With: Address: When: Austyn Bocanegra [facility] [address], [address] [place] [address] Business (1) In 3 days 06/09/2020 Comments: Use the eye ointment as prescribed, return should vision disturbance develop, otherwise follow-up with the model photographers' as directed for reevaluation. In the event that this physician does not participate in your insurance network, please consult with your insurance company to find a nearby participating provider. Patient Education Materials: Eczema A MESSAGE TO ALL PATIENTS REGARDING OPIOIDS PRESCRIPTION OPIOIDS: WHAT YOU NEED TO KNOW Prescription opioids can be used to help relieve onqozudt-gm-kydjbf pain and are often prescribed following a [...] abuse and overdose. (more content not included)... Normal [facility] Registrationon 04-08-2020 Registration [id number] 3#1.00CD:127 [facility] Consenton 04-07-2020 Consent [id number] 0#1.00CD:127 [facility] Registrationon 04-07-2020 Registration [id number] 6#1.00CD:127 [facility] Vital Signs Date Time Vital Sign Value Performing Clinician Facility 01-01-2025 10:47-0400 Body height 160.02 cm Praneeth Hernnadez MD Work Phone: [facility] 01-01-2025 10:47-0400 Body mass index (BMI) [Ratio] 30.1 kg/m2 Praneeth Hernandez MD Work Phone: [facility] 01-01-2025 10:47-0400 Body weight 77.11 kg Praneeth Hernandez MD Work Phone: [facility] 01-01-2025 10:47-0400 Diastolic blood pressure 88 mm[Hg] Praneeth Hernandez MD Work Phone: [facility] 01-01-2025 10:47-0400 Heart rate 97 /min Praneeth Hernandez MD Work Phone: [facility] 01-01-2025 10:47-0400 Systolic blood pressure 124 mm[Hg] Praneeth Hernandez MD Work Phone: [facility] 12-12-2024 16:01-0400 Body mass index (BMI) [Ratio] 30.31 kg/m2 Shmuel Beverly DO Work Phone: [facility] 12-12-2024 16:01-0400 Body weight 77.62 kg Shmuel Beverly DO Work Phone: [facility] 12-12-2024 16:01-0400 Diastolic blood pressure 82 mm[Hg] Shmuel Siria DO Work Phone: [facility] 12-12-2024 16:01-0400 Systolic blood pressure 120 mm[Hg] Shmuel Siria DO Work Phone: [facility] 11-29-2024 10:50-0400 Body temperature 98.1 [degF] Aimee Ivory SALES REPRESENTATIVE [employer] Work Phone: [facility] 11-29-2024 10:50-0400 Diastolic blood pressure 80 mm[Hg] Aimee Ivory SALES REPRESENTATIVE [employer] Work Phone: [facility] 11-29-2024 10:50-0400 Heart rate 103 /min Aimee Ivory SALES REPRESENTATIVE [employer] Work Phone: [facility] 11-29-2024 10:50-0400 Respiratory rate 20 /min Aimee Ivory SALES REPRESENTATIVE [employer] Work Phone: [facility] 11-29-2024 10:50-0400 SaO2% (BldA) [Mass fraction] 98 % Aimee Ivory SALES REPRESENTATIVE [employer] Work Phone: [facility] 11-29-2024 10:50-0400 Systolic blood pressure 110 mm[Hg] Aimee Ivory SALES REPRESENTATIVE [employer] Work Phone: [facility] 09-19-2024 13:00-0400 Body mass index (BMI) [Ratio] 30.56 kg/m2 Shmuel Siria DO Work Phone: [facility] 09-19-2024 13:00-0400 Body weight 78.25 kg Shmuel Siria DO Work Phone: [facility] 09-19-2024 13:00-0400 Diastolic blood pressure 80 mm[Hg] Shmuel Siria DO Work Phone: [facility] 09-19-2024 13:00-0400 Systolic blood pressure 130 mm[Hg] Shmuel Siria DO Work Phone: [facility] 06-23-2023 11:47-0500 Body mass index (BMI) [Ratio] 33.37 kg/m2 Shmuel Siria DO Work Phone: [facility] 06-23-2023 11:47-0500 Body weight 85.46 kg Shmuel Siria DO Work Phone: [facility] 06-23-2023 11:47-0500 Diastolic blood pressure 70 mm[Hg] Shmuel Siria DO Work Phone: [facility] 06-23-2023 11:47-0500 Systolic blood pressure 120 mm[Hg] Shmuel Siria DO Work Phone: [facility] Encounters Encounter Date Encounter Type Care Provider Facility Start: 01-01-2025 End: 01-01-2025 ambulatory NON STAFF [facility] Work Phone: Start: 01-01-2025 End: 01-01-2025 Patient encounter procedure Praneeth Hernandez MD -[facility] Work Phone: Start: 12-12-2024 End: 12-12-2024 Patient encounter procedure Shmuel Siria DO Work Phone: [facility] Work Phone: Start: 12-12-2024 End: 12-12-2024 Periodic preventive med est patient 18-39 yrs Shmuel Siria DO Work Phone: [facility] Comment on above: Well woman exam with routine gynecological exam; Anxiety, generalized ; Mood changes Start: 12-12-2024 End: 12-12-2024 ambulatory SHMUEL SIRIA Not Available Start: 12-12-2024 End: 12-12-2024 Bamboo flowsheet Shmuel Siria DO Work Phone: [facility] Start: 12-12-2024 End: 12-17-2024 Bamboo flowsheet Shmuel Siria DO Work Phone: [facility] Start: 12-12-2024 End: 12-17-2024 Clinisync Result Encounter Shmuel Siria DO Work Phone: [facility] External Department Unsolicited Start: 11-29-2024 End: 12-02-2024 Follow-up encounter Aimee Yap Clint SALES REPRESENTATIVE [employer] Work Phone: [facility] Comment on above: Dysuria (Primary Dx) Start: 11-29-2024 End: 11-29-2024 Office outpatient visit 25 minutes Aimee Ivory SALES REPRESENTATIVE [employer] Work Phone: [facility] Comment on above: Dysuria (Primary Dx) ; Vaginal itching Start: 11-29-2024 End: 11-29-2024 ambulatory AIMEE IVORY Not Available Start: 11-05-2024 End: 11-05-2024 Telephone encounter Bjorn L Felts [place] DO Work Phone: [facility] Comment on above: Referral Start: 09-20-2024 End: 09-20-2024 Clinisync Result Encounter Shmuel Siria DO Work Phone: [facility] External Department Unsolicited Start: 09-20-2024 End: 09-20-2024 Clinisync Result Encounter Shmuel Siira DO Work Phone: [facility] External Department Unsolicited Start: 09-19-2024 End: 09-19-2024 Bamboo flowsheet Shmuel Siria DO Work Phone: [facility] Start: 09-19-2024 End: 09-19-2024 Bamboo flowsheet Shmuel Siria DO Work Phone: [facility] Start: 09-19-2024 End: 09-19-2024 Office outpatient visit 15 minutes Shmuel Siria DO Work Phone: [facility] Comment on above: Pelvic pain in femal e Start: 09-19-2024 End: 09-19-2024 ambulatory SHMUEL SIRIA Not Available Start: 08-31-2024 End: 08-31-2024 Telephone encounter Bjorn L Felts [place] DO Work Phone: [facility] Start: 08-10-2024 End: 08-10-2024 ambulatory BJORN L CUTLER Not Available Start: 06-26-2024 End: 06-26-2024 ambulatory Facility:[facility] Start: 06-26-2024 End: 06-26-2024 Telemedicine consultation with patient Floresita Ornelas APRN.PROJECT DEVELOPMENT DIRECTOR Work Phone: Telemedicine Comment on above: Dysuria (Primary Dx) Start: 06-23-2023 End: 06-23-2023 flow sheet Shmuel Beverly DO Work Phone: [facility] Comment on above: Third trimester preg jose Start: 09-22-2022 End: 09-22-[address] SHMUEL BEVERLY . Facility:[facility] Start: 01-29-2022 End: 02-01-2022 Evaluation and management of inpatient DR ROLAND NORTON . Facility:[facility] Start: 01-29-2022 End: 01-29-[address] SHMUEL BEVERLY . Facility: Start: 01-26-2022 End: 01-26-[address] WILD VOSS Facility: Start: 01-21-2022 End: 01-21-[address] SHMUEL BEVERLY . Facility: Start: 01-18-2022 End: 01-18-[address] WILD VOSS Facility: Start: 01-12-2022 End: 01-12-[address] SHMUEL BEVERLY . Facility: Start: 01-12-2022 End: 01-13-2022 ambulatory NONE LISTED REQUEST Facility: Start: 11-10-2021 End: 11-11-[address] SHMUEL BEVERLY . Facility: Start: 11-02-2021 End: 11-03-[address] SHMUEL BEVERLY . Facility: Procedures Date Procedure Procedure Detail Performing Clinician Start: 12-12-2024 IGP,APTIMA HPV,AGE GDLN Shmuel Beverly DO Work Phone: Start: 11-29-2024 POCT CEPHEID MVP Sarah Ivory SALES REPRESENTATIVE [employer] Work Phone: Start: 11-29-2024 URINARY TRACT INFECT ION (HTRX) Aimee Ivory SALES REPRESENTATIVE [employer] Work Phone: Start: 11-29-2024 Urnls dip stick/tabl et rgnt auto w/o microscopy Sandeep Bejarano DO Work Phone: Start: 09-20-2024 US PELVIS W/ TRANSVAGINAL Shmuel Sirai DO Work Phone: Start: 06-23-2023 Urnls dip stick/tabl et rgnt non-auto w/o micrscp Shmuel Siria DO Work Phone: Start: 01-30-2022 Extraction of Produc ts of Conception, Low Cervical, Open Approach DR ROLAND NORTON . Plan of Treatment Date Care Activity Detail Author Start: 02-02-2032 Urine microalbumin profile DTaP,Tdap,Td Vaccine (2 - Tdap) [facility] Start: 01-21-2025 Influenza vaccination N [facility] Start: 01-09-2025 End: 01-09-2025 Patient encounter procedure 01/09/2025 8:10 AM EDT Office Visit RM LOERA [address] [place] [phone] Siria, Shmuel, DO [address] [place] [address] [facility] Start: 12-12-2024 End: 12-12-2024 Patient encounter procedure [facility] Comment on above: Arrived Start: 09-19-2024 End: 03-21-2025 US Pelvis US Pelvis w/ TV Imaging Routine Pelvic pain in female Expected: 09/19/2024, Expires: 03/21/2025 [facility] Comment on above: Expected: 09/19/2024 , Expires: 03/21/2025 Start: 09-19-2024 End: 03-21-2025 US Pelvis transvaginal US pelvis transvaginal Imaging Routine Pelvic pain in female Expected: 09/19/2024, Expires: 03/21/2025 [facility] Comment on above: Expected: 09/19/2024 , Expires: 03/21/2025 Start: 09-19-2024 End: 09-19-2024 Patient encounter procedure 09/19/2024 1:00 PM EDT Office Visit [facility] [address] [place] [phone] Shmuel Beverly, DO [address] [place] [address] Arrived [facility] Comment on above: Arrived Start: 01-22-2024 Covid-19 Vaccine ( season) Covid-19 Vaccine () [facility] Start: 01-22-2024 Influenza vaccination Influenza Vacc ine (#1) [facility] Start: 07-11-2023 End: 07-11-2023 Patient encounter procedure 07/11/2023 3:10 PM EST Routine [facility] [address] [facility] [place] [phone] Shmuel Beverly, DO [address] [place] [address] [facility] Start: 01-29-2020 Screening for malign ant neoplasm of cervix Cervical Cancer Screening [facility] Start: 2018 Hepatitis B Vaccine (1 of 3 - 19+ 3-dose series) Hepatitis B Vaccine (1 of 3 - 19+ 3-dose series) [facility] Start: 2017 Anxiety Screening Anxiety Screening [facility] Start: 2017 Depression Screening Depression Scre ening [facility] Start: 2017 Hepatitis C screening Hepatitis C Sc reening [facility] Start: 2017 HIV screening HIV Screening [facility] Start: 2014 HPV Vaccine (1 - 3-d ose series) HPV Vaccine (1 - 3-dose series) [facility] Start: 2013 Peds To Adult Transi tion Annual Assessment Peds To Adult Transition Annual Assessment [facility] Start: 2011 Peds To Adult Transi tion Initial Discussion Peds To Adult Transition Initial Discussion [facility] CHLAMYDIA TRACHOMATI S (GENITO/STI) CHLAMYDIA TRACHOMATIS (GENITO/STI) Lab Routine Pelvic pain in female Ordered: 09/19/2024 [facility] Comment on above: Ordered: 09/19/2024 Comprehensive metabo lic 2000 panel - Serum or Plasma [facility] Cytology Cervical or vaginal smear or scraping study Pap Smear Pathology and Cytology Routine Well woman exam with routine gynecological exam Ordered: 12/12/2024 [facility] Healthcare Work Phone: Comment on above: Ordered: 12/12/2024 Neisseria gonorrhoea e DNA [Presence] in Unspecified specimen by GINO with probe detection Neisseria gonorrhea DNA probe, direct Lab Routine Pelvic pain in female Ordered: 09/19/2024 [facility] Comment on above: Ordered: 09/19/2024 POCT CEPHEID MVP POCT CEPHEID MV P Point of Care Testing Routine Vaginal itching 11/29/2024 2:08 PM EDT [facility] Healthcare Work Phone: SURESWAB(R) ADVANCED VAGINITIS PLUS, TMA SURESWAB(R) ADVANCED VAGINITIS PLUS, TMA Pathology and Cytology Routine Pelvic pain in female Ordered: 09/19/2024 [facility] Healthcare Work Phone: Comment on above: Ordered: 09/19/2024 [facility] Payers Date Payer Category Payer [facility] BCBS [id number] 2022 Unknown BCBS BCBS xxxxxx [id number] 2022-Present [phone] [address] [place] [address] [id number] 1999 Unknown [id number] 2.16.840.1.307626.3.579. 2.593 1999 Unknown [id number] 2.16.840.1.366568.3.579. 2.593 1999 Unknown [id number] 2.16.840.1.900670.3.579. 2.593 1999 Unknown [id number] 2.16.840.1.670667.3.579. 2.593 1999 Unknown [id number] 2.16.840.1.653942.3.579. 2.593 1999 Unknown [id number] 2.16.840.1.163332.3.579. 2.593 1999 Unknown [id number] 2.16.840.1.312080.3.579. 2.593 1999 Unknown [id number] 2.16.840.1.244578.3.579. 2.593 1999 Unknown [id number] 2.16.840.1.209302.3.579. 2.593 1999 Unknown [id number] 2.16.840.1.147155.3.579. 2.593 1999 Unknown [id number] 2.16.840.1.517095.3.579. 2.1259 1999 Unknown [id number] 2.16.840.1.074801.3.579. 2.1259 1999 Unknown [id number] 2.16.840.1.764987.3.579. 2.1259 1999 Unknown [id number] 2.16.840.1.801551.3.579. 2.1259 1959 Unknown [id number] Social History Date Type Detail Facility Start: 02-02-2023 Tobacco smoking status WAIS Never smoked tobacco [facility] Start: 02-02-2023 Tobacco use and exposure Smokeless tobacco non-user [facility] Start: 06-23-2023 End: 12-12-2024 Alcohol intake Current drinker of alcohol (finding) [facility] Start: 02-02-2023 End: 08-09-2024 History of Social function [facility] Start: 02-02-2023 End: 08-09-2024 Tobacco use panel [facility] Start: 02-02-2023 Alcohol Comment Occasional alcohol use [facility] Start: 12-04-2022 [facility] Start: 2000 Sex Assigned At Female [facility] Start: 01-13-2023 Gender identity Identifies as female gender (finding) [facility] Start: 01-13-2023 Sexual orientation Heterosexual (finding) [facility] Tobacco smoking stat us NHIS Tobacco smoking consumption unknown [facility] How often do you att end congregation or temple services? Patient declined [facility] Do you belong to any clubs or organizations such as congregation groups, unions, fraternal or athletic groups, or [...] to buy more. Never true [facility] Sex Female (finding) [facility] Goals Date Patient Goal Desired Activity /State Personal health goal Clinical Notes 08-08-2020 to 12-12-2024 Rosalie Matos LPN - 12/12/2024 3:40 PM EDTTelephone Encounter - Aimee Ivory NP - 12/02/2024 11:18 AM EDTTelephone Encounter - Aimee Ivory NP - 12/02/2024 11:18 AM EDTPatient Instructions Note Date & Type Note Facility 12-12-2024 History of Presen t illness Narrative Reason for Appointment: Patient ID: Delia Fuentes is a 24 y.o. female who presents for Well Women Visit Patient presents today for Annual Exam. MEDICATIONS Current Outpatient Medications Medication Instructions amoxicillin-clavulanate (Augmentin) 875-125 MG tablet 875 mg, Oral, 2 times daily ALLERGIES No Known Allergies PROBLEMS Active Ambulatory Problems Diagnosis Date Noted SGA (small for gestational age) ([facility]) 07/25/2023 Size of fetus inconsistent with dates in third trimester ([facility]) 07/25/2023 Abnormal cervical Papanicolaou smear 08/10/2024 Obesity 08/10/2024 Resolved Ambulatory Problems Diagnosis Date Noted No Resolved Ambulatory Problems Past Medical History: Diagnosis Date 6 weeks follow-up ([facility]) Abnormal Pap smear of cervix History of Obesity (BMI 30-39.9) HISTORY PAST MEDICAL HISTORY SOCIAL HISTORY Past Medical History: Diagnosis Date 6 weeks follow-up ([facility]) Abnormal Pap smear of cervix History of [...] Cardiovascular: Negative. Gastrointestinal: Negative. Genitourinary: Positive for menstrual problem. Musculoskeletal: Negative. Skin: Negative. Neurological: Negative. Psychiatric/Behavioral: Positive for sleep disturbance. The patient is nervous/anxious. All other systems reviewed and are negative. Hematological: Negative. Endocrine: Negative. Allergic/Immunologic: Negative. OBJECTIVE Objective: Physical Exam Constitutional: Appearance: Normal appearance. She is well-developed. Genitourinary: Vulva normal. Breasts: Breasts are soft. Right: Normal. Left: Normal. Cardiovascular: Rate and Rhythm: Normal rate and [...] nursing note reviewed. Exam conducted with a client success director present. Vitals: Estimated body mass index is 30.31 kg/m as calculated from the following: Height as of 08/10/24: 5' 3 . Weight as of this encounter: 171 lb 1.9 oz. BP: 120/82 Patient's last menstrual period was 12/03/2024. ASSESSMENT & PLAN ICD-10-CM 1. Well woman exam with routine gynecological exam Z01.419 Pap Smear No orders of the defined types were placed in this encounter. Annual Wellness Exam: Patient presents today for routine annual exam. Patient states she has complaints of anxiety and bloating, cramps, staph infection, recent referral to GI, low energy. Discussed adding medication prozac or effexor for anxiety, pt denies suicidal and homicidal ideations. Rx for prozac faxed to pharmacy. Pt to have telehealth in 4 weeks for medication follow up . Patients vitals were reviewed and within normal limits. Growth and development is noted to be appropriate for age. Menstrual history is noted to be irregular with concerns reported. Discussed with pt in great detail. Pap Smear: Speculum was inserted into the vagina and pap was obtained without difficulty. No HPV testing was performed per age guideline. Patient was advised that pap results could take anywhere from 7 to 10 days to receive and our office will reach out to the patient with those once we have them. Patient can also view results via [employer]. I reinforced importance of condom use for STI prevention. Patient declined cultures to be performed with today's visit. Breast Exam: Upon examination, clinical breast exam was noted to be normal. Patient was counseled on breast self-awareness, including the importance of knowing what is normal for her own breasts and promptly reporting any changes such as new lumps, skin dimpling, nipple discharge, or pain. Screening mammogram recommended annually beginning at age 40 or earlier if risk factors are present. Discussed signs and symptoms of breast cancer and when to seek medical attention. Answered all patient questions. Contraceptive Counseling (if applicable): Patient is currently using no control at this time as a form of contraceptive. Patient does not desire control at this time. Follow Up: Patient is to return to our office in one year for annual exam unless needed otherwise. Documented by Rosalie Matos LPN on behalf of: Shmuel Beverly DO documented in this encounter [facility] 12-02-2024 Telephone encounter Note Sent Augmentin to [facility]. [facility] 12-02-2024 Miscellaneous Notes Sent Augmentin to [facility]. Spoke with patient and she is still having some discomfort. Would like atb to be sent to [facility] Please notify patient that urine culture report [...] are completed. Thanks. documented in this encounter [facility] 12-02-2024 Telephone encounter Note Spoke with patient and she is still having some discomfort. Would like atb to be sent to [facility] 12-02-2024 Telephone encounter Note Please notify patient that urine culture report grew low bacterial load of staph epidermidis which is part of a given body sites's normal fadumo. How is she feeling? If she is still having symptoms, I will send in an ATB for her. Follow up with PCP if not improving. Thanks. [facility] 11-29-2024 Telephone encounter Note Please notify patient that in house testing for BV, yeast, and Trich are all negative. These are not the cause of her symptoms. We will call with urine culture results once they are completed. Thanks. [facility] 11-29-2024 History of Presen t illness Narrative Images from the original note were not included. [address] , [address] [facility], [address] P: [phone] F: [phone] HPI Historian of HPI: patient Delia Fuentes is a 24 y.o. female who [...] 2024 . She has seen her PCP, [facility]PERATOR, and now has an upcoming appointment with [...] See telephone encounter. documented in this encounter [facility] 11-05-2024 Telephone encounter Note Pt is still having the same issues as when she was seen in July. She still has cramping and goes between constipation and diarrhea. She states she has felt sick for 5 months. 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 She was thinking the next step would be a GI referral. She was wondering if Dr. Frankel would refer her to a GI or if she needed to been seen again in the office? [facility] 11-05-2024 Miscellaneous Notes Pt is still having the same issues as when she was seen in July. She still has cramping and goes between constipation and diarrhea. She states she has felt sick for 5 months. 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 She was thinking the next step would be a GI referral. She was wondering if Dr. Frankel would refer her to a GI or if she needed to been seen again in the office? documented in this encounter [facility] 09-19-2024 History of Presen t illness Narrative Reason for Appointment: Patient ID: Delia Fuentes is a 24 y.o. female who [...] nursing note reviewed. Exam conducted with a client success director present. Vitals: Estimated body mass index is [...] by Rosalie Matos LPN on behalf of: Shmuel Beverly DO documented in this encounter [facility] 08-31-2024 Telephone encounter Note Let pt know her labs were all unremarkable, no changes needed at this time. [facility] 08-31-2024 Miscellaneous Notes Let pt know her labs were all unremarkable, no changes needed at this time. documented in this encounter [facility] 06-26-2024 Instructions Floresita Ornelas APRN.[facility] - 06/26/2024 12:45 PM EST [facility] [...] have an infection. documented in this encounter [facility] 06-26-2024 Note HNO ID: [id number] Author: FLORESITA ORNELAS APRN.CNP Service: ? Author Type: Nurse Practitioner Type: Progress Notes Filed: 06/26/2024 12:45 Note Text: Telemedicine Visit - Distance Health Virtual Visit Note Patient seen on [employer] Video Visit platform. Location of patient: [place] I have communicated my name and active licensure. The patient's identity and physical location were verified at the time of this visit. Either the patient or their legal account manager sales representative has been informed of the risks and benefits of -- and alternatives to -- treatment through a remote evaluation and consents to proceed with the evaluation remotely. History of Present Illness Delia Fuentes is a 24 year old female [...] when wiping. Pt. Does not live near [facility] lab. Advised patient will empirically treat [...] or other concerning symptoms All questions answered Floresita Ornelas APRN.[facility] 06-26-2024 History of Presen t illness Narrative Telemedicine Visit - Distance Health Virtual Visit Note Patient seen on [employer] Video Visit platform. Location of patient: [place] I have communicated my name and active licensure. The patient's identity and physical location were verified at the time of this visit. Either the patient or their legal account manager sales representative has been informed of the risks and benefits of -- and alternatives to -- treatment through a remote evaluation and consents to proceed with the evaluation remotely. History of Present Illness Delia Fuentes is a 24 year old female [...] or other concerning symptoms All questions answered Floresita Ornelas APRN.[facility] documented in this encounter [facility] 06-23-2023 History of Presen t illness Narrative Reason for Appointment: Patient ID: Delia Fuentes is a 23 y.o. female who [...] Documented by BHARAT Xavier on behalf of: YEVTTE Xavier documented in this encounter [facility] 01-29-2022 Note OPERATIVE NOTE OPERATION DATE: 01/30/2022 PROCEDURE: Primary low transverse section. PREOPERATIVE DIAGNOSIS: 1. Intrauterine at 38+ weeks. 2. Spontaneous labor. 3. Failure to descend. POSTOPERATIVE DIAGNOSIS: 1. Intrauterine at 38+ weeks. 2. Spontaneous labor. 3. Failure to descend. ANESTHESIA: Epidural with Duramorph. SURGEON: Shmuel Beverly D.O. RNP: JOCELYNN Matos URINE OUTPUT: Yellow and clear. [...] condition. [facility] 01-29-2022 Note DISCHARGE SUMMARY DISCHARGE DATE: 02/16/2022 [...] narcotics. [facility] 08-08-2020 Note HNO ID: [id number] Author: Jackelyn Russell Service: ? Author Type: Physician Type: Progress Notes Filed: 08/08/2020 1:56 PM Note Text: VIRTUAL VISIT PROGRESS NOTE This is a virtual visit using ec0 It required patient-provider interaction for the medical decision making as documented below. Delia Penny is a 20 year old female [...] file for this visit. Jackelyn Russell MD [facility] Evaluation note Diagnosis Third trimester state, incidental documented in this encounter [facility] HealthcareEvaluation note* Diagnosis Dysuria- Primary [facility] Diagnosis Pelvic pain in female Unspecified symptom associated with female genital organs documented in this encounter [facility] note* Diagnosis Dysuria- Primary documented in this encounter [facility] note* Diagnosis Dysuria- Primary Vaginal itching Pruritus of genital organs documented in this encounter [facility] HealthcareEvaluation note* Diagnosis Well woman exam with routine gynecological exam Routine gynecological examination Anxiety, generalized Mood changes Unspecified episodic mood disorder documented in this encounter [facility] Healthcare[facility] note* Diagnosis Onset Date Resolution Status Admit Date Abdominal pain acute December 10:43am BRBPR (bright red blood per rectum) acute January 01 10:43am Change in bowel habit acute Dec 10:43am [facility] Work Phone: Reason for referral (narrative)No reason for referral information available[facility]ier [facility] Work Phone: Summary Purpose Family History No Family History Records FoundNo Family History Records FoundNo Family History Records FoundNo Family History Records FoundNo Family History Records Found Advance Directives Advance Directive Response Recorded Date/ Time Advance Directives No November 07 11:39am Chief Complaint and Reason for Visit Chief Complaint Admit Date Referred by Dr Frankel: constipation, oumar rrhea January 01, 2025 10:43am Reason for Visit Admit Date Abdominal pain January 01, 2025 10 :43am BRBPR (bright red blood per rectum) Aug2024 10:43am Change in bowel habit January 01, 2025 10:43am Additional Source Comments INFORMATION SOURCE (unrecogn ized section and content) DATE CREATED AUTHOR 11/23/2020 [facility] DATE CREATED AUTHOR AUTHOR'S ORGANIZ ATION 06/21/2021 [facility] DATE CREATED AUTHOR AUTHOR'S ORGANIZ ATION 09/29/2022 [facility] DATE CREATED AUTHOR AUTHOR'S ORGANIZ ATION 06/28/2024 [facility] DATE CREATED AUTHOR AUTHOR'S ORGANIZ ATION 12/14/2024 [facility] Reason for Visit (unrecogniz ed section and content) Reason Comments Routine Visit Reason Comments UTI Reason Comments Pelvic Pain Reason Onset Date Comments Referral 11/05/2024 Reason Comments Well Women Visit Source Comments (unrecognize d section and content) In the event this informatio n is protected by the Federal Confidentiality of Alcohol and Drug Abuse Patient Records regulations: The Federal rules restrict any use of the information to criminally investigate or prosecute any alcohol or drug abuse patient.[facility] Care Teams (unrecognized sec tion and content) Mule Tender Relationship Specialty Start Date End Date Bjorn Frankel DO [address] [place] [address] PCP - General Family Medicine 08/10/24 Mule Tender Relationship Specialty Start Date End Date Bjorn Frankel DO [address] [place] [address] PCP - General Family Medicine 08/10/24 Mule Tender Relationship Specialty Start Date End Date Bjorn Frankel DO [address] [place] [address] PCP - General Family Medicine 08/10/24 Bjorn Frankel DO [address] [place] [address] PCP - [facility] 09/20/24 Mule Tender Relationship Specialty Start Date End Date Bjorn Frankel DO [address] [place] [address] PCP - General Family Medicine 08/10/24 Bjorn Frankel, DO [address] [place] [address] PCP - [facility] 09/20/24 Mule Tender Relationship Specialty Start Date End Date Bjorn Frankel, DO [address] [place] [address] PCP - General Family Medicine 08/10/24 Bjorn Frankel, DO [address] [place] [address] PCP - [facility] 09/20/24 Mule Tender Relationship Specialty Start Date End Date Bjorn Frankel, DO [address] [place] [address] PCP - General Family Medicine 08/10/24 Bjorn Frankel, DO [address] [place] [address] PCP - [facility] 09/20/24 Mule Tender Relationship Specialty Start Date End Date Bjorn Frankel, DO [address] [place] [address] PCP - General Family Medicine 08/10/24 Bjorn Frankel, DO [address] [place] [address] PCP - [facility] 09/20/24 Mule Tender Relationship Specialty Start Date End Date Bjorn Frankel, DO [address] [place] [address] PCP - General Family Medicine 08/10/24 Bjorn Frankel DO [address] [place] [address] PCP - Jay[facility] Ryan 09/20/24 Team Status: Active Member Role Status Dates NON STAFF Primary Care Provider Active Team Status: Inactive Member Role Status Dates Praneeth Hernandez MD Attending Provider Active S tart: January 01, 2025 End: January 01, 2025 NON STAFF Primary Care Provider Active Start: January 01, 2025 End: January 01, 2025 Goals (unrecognized section and content) Goals may be documented in a n alternate section FOR RECORDS PERTAINING TO PATIENTS WHO ARE [...] BE BASED ON THE PRIMARY CLINICAL RECORDS. [employer] provides no warranty or guarantee of the accuracy or completeness of information in this document.
[2025-01-09 13:06] LABS: Hematocrit 44.5 % (36.0-48.0); Hemoglobin 15.1 g/dL (12.0-16.0); Immature Granulocytes Abs Auto 0.03 10^3/uL (0.00-0.03); Immature Granulocytes Pct Auto 0.4 % (0.0-0.5); Lymphocytes Absolute Auto 2.0 10^3/uL (1.2-3.8); Mean Corpuscular HGB Conc 33.9 g/dL (29.9-35.2); Mean Corpuscular Hemoglobin 30.1 pg (26.7-34.0); Mean Corpuscular Volume 88.6 fL (81.0-99.0); Platelet Count 263 10^3/uL (150-450); Red Blood Count 5.02 10^6/uL (4.20-5.40); White Blood Count 8.1 10^3/uL (4.0-11.0)
[2025-01-09 13:39] LABS: Alanine Aminotransferase 33 U/L (14-59); Albumin Globulin Ratio 1.2; Albumin Level 4.5 g/dL (3.4-5.0); Alkaline Phosphatase 71 U/L (46-116); Anion Gap 10.1; Aspartate Amino Transferase 16 U/L (15-37); Blood Urea Nitrogen 10.0 mg/dL (7.0-18.0); Calcium 9.3 mg/dL (8.5-10.1); Carbon Dioxide 30.8 mmol/L (21.0-32.0); Chloride 107 mmol/L (98-107); Estimated GFR (African America >60 (>=60 mL/min/1.73m^2); Estimated GFR (Non-African Ame >60 (>=60 mL/min/1.73m^2); Globulin 3.7 g/dL; Glucose 75 mg/dL (74-106); Potassium 3.9 mmol/L (3.5-5.1); Sodium 144 mmol/L (136-145); TSH W/ REFLEX FT4 0.828 uIU/mL (0.358-3.740); Total Protein 8.2 g/dL (6.4-8.2)
[2025-01-11 08:09] LABS: Deamidated Gliadin Abs, IgA 3 units (0-19); Deamidated Gliadin Abs, IgG 2 units (0-19); Immunoglobulin A, Qn, Serum 143 mg/dL (87-352)
== END 2025-01-09 12:36 | disposition home or self-care (01) ==
LOC: LAB 12:36
PROVIDERS: PCP Family Medicine; Visit Provider Internal Medicine
DX: R19.4 Change in bowel habit (principal); R10.9 Unspecified abdominal pain
CPT/HCPCS: 36415; 80053; 82784; 84443; 85025; 86231; 86258; 86364

== ENCOUNTER 2025-03-27 08:39 | Emergency (ER) | payer BC, SELFPAY ==
--- OUTSIDE RECORDS SUMMARY | 2025-03-21 10:03 | XMS_ITS | Continuity of Care Document ---
Author Organization [facility] Address [address] [place] [address] Phone Care Team Providers Care Aging Department Supervisor Name Role Phone Praneeth Hernandez MD Attending Provider [phone] NON STAFF Primary Care Provider Praneeth Flores MD Other Provider Sheng Frankel DO Primary Care Provider Ulises Pimentel APRN Attending Provider Care Teams Patient Care Team Team Status: Active Member Role/Relationship Status Dates Sheng Frankel DO Primary Care Provider Active Visit Care Team Team Status: Inactive Member Role/Relationship Status Dates Praneeth Hernandez MD Attending Provider Active S tart: January 01, 2025 End: January 01, 2025NON STAFFPrimary Care ProviderActiveStart: January 01, 2025 End: January 01, 2025 Visit Care Team Team Status: Active Member Role/Relationship Status Dates Praneeth Hernandez MD Attending Provider Active S tart: January 16, 2025 Praneeth Hernandez MDOther ProviderActiveStart: January 16, 2025 Cooper Victor Care ProviderActiveStart: January 16, 2025 Visit Care Team Team Status: Inactive Member Role/Relationship Status Dates Sheng Frankel DO Primary Care Provider Active Start: February 04, 2025 End: February 04, 2025Autumn Beth ProviderActiveStart: February 04, 2025 End: February 04, 2025 Visit Care Team Team Status: Inactive Member Role/Relationship Status Dates Sheng Frankel DO Primary Care Provider Active Start: February 04, 2025 End: February 04, 2025Ulises Pimentel BOSSMANKeturahtealarissa ProviderActiveStart: February 04, 2025 End: February 04, 2025 Patient Care Team Team Status: Inactive Member Role/Relationship Status Dates Sheng Frankel DO Primary Care Provider Active Start: March 21, 2025 End: March 21, 2025Autumn Beth ProviderActiveStart: March 21, 2025 End: March 21, 2025 Chief Complaint and Reason for Visit Chief Complaint Admit Date Referred by Dr Frankel: constipation, oumar rrhea January 01, 2025 10:43am change in bowel habits January 16, 2025 9:00am 2wk F/U colonoscopy / Change in bowel moon bits February 04, 2025 1:26pm R10.9 R19.4 February 04, 2025 2:13pm 6wk F/U IBS March 21, 2025 2 :50pm Reason for Visit Admit Date Abdominal pain January 01, 2025 10 :43am BRBPR (bright red blood per rectum) Augu 2024 10:43am Change in bowel habit January 01, 2025 10:43am Abdominal cramping February 04, 2025 1:26pm IBS (irritable bowel syndrome) February 04, 2025 1:26pm Abdominal cramping March 21, 2025 2 :50pm IBS (irritable bowel syndrome) February 222024 2:50pm Allergies, Adverse Reactions, Alerts Allergen Type Severity Reaction Last Updated Verified Status No Known Drug Allergies Allergy Mild Unknown Reaction March 21, 2025 2:55pm Yes Active Social History Smoking Status Status Start Date End Date Date of Observa tion Never smoked tobacco (finding) February 04, 2025 1:35pm Observation Status Observation Response Date of Response Legal Sex Female (finding) Sex Assigned At BirthFemaleSeptember 1999 Family History Relationship Condition Age at Onset Recorded Date/T shannon father Diabetes mellitus Unknown Problems Active Problems Problem Diagnosis/Recorded Date Onset Date Stat us Change in bowel habit January 01, 2025 10:56am Unknow n Active Abdominal cramping February 04, 2025 1:58pm Unknown Active BRBPR (bright red blood per rectum) January 01, 2025 11:04am Unknown Active Abdominal pain January 01, 2025 10:56am Unknown Active IBS (irritable bowel syndrome) February 04, 2025 1: 58pm Unknown Active Medications Medication Status Dose Units Route Directions Qty Days Refills S tart Date Stop Date End Date Reason(s) Instructions Adherence Polyethylene Glycol 3350 (Miralax) 17 gram/dose powder Discontinued 17 GM PO Three times daily 1530 30 5 February 05, 2025 12:00am March 21, 2025 2:56pmFluoxetine 10 mg juttbtqQunznu22YOLHVswldOqcjso 2024 12:00amComplies with drug therapySod Picosulf-Mag Ox-Citric Ac (Clenpiq) 10 mg-3.5 gram- 12 gram/175 mL oagmridjXvmjkektgstp358ECPU.LKOPFWJ71201Cvvekz 2024 12:00amSept2024 1:36pmFollow instructions given by office Procedures Procedure Date Performed Status XR KUB February 04, 2025 2:17pm comp leted Relevant Diagnostic Tests and/or Laboratory Data Diagnostic Imaging Reports Author Franco Villarreal [facility] CenterAuthoredSeptember 2024 9:10pmReport Dictated Date/TimeDictated ByStatusRadiology ReportSept2024 9:10pm Franco Villarreal II [facility] [place] [address] XRay Report Signed Patient: Grace Gayle MR#: [id number] : 2000 Acct:[id number] Age/Sex: 25 / F ADM Date: 5 Loc: XD Room: Type: [facility] CLI Attending Dr: Ulises Pimentel APRN Copies to: Ulises Pimentel APRN~ Ordering Provider: Ulises Pimentel APRN Date of Service: 02/04/25 XR/XR KUB: R10.9 - Unspecified abdominal pain XR KUB 02/04/2025 2:37 PM SIGNS AND SYMPTOMS: ^R10.9 - Unspecified abdominal pain PROTOCOL: Frontal radiographs of the abdomen and pelvis COMPARISON: None FINDINGS: There is a nonobstructive bowel gas pattern. There is a moderate amount stool within the rectum. No radiographic evidence of free air. The bony structures are within normal limits. XR/XR KUB IMPRESSION: No bowel obstruction or free air. There is a moderate amount stool within the rectum. Impression dictated by: Franco Villarreal M.D. 02/04/2025 9:11 PM Dictation Location: [place] [address] Transcribed By: [facility] 02/04/252110 Dictated By: Franco Villarreal II, MD 02/04/252109 Signed By: <Electronically signed by Franco Villarreal II, MD in OV> 02/04/252110 Vital Signs Vital Reading Result Reference Range Collection Date/Time Height 63 [in_i] January 01, 2025 10:79ueLsjptd96.11 kgAugust 2024 10:47amHeart Rate97 /ach66-139Dhmgkd 2024 10:47amBP Omrqqfsh700 mm[Hg]100-140August 2024 10:47amBP Coxskmyqj26 mm[Hg]60-100August 2024 10:47amBMI (Body Mass Index)30.1 kg/j7Syyknn 2024 10:09orFcsldf93 [in_i]January 16, 2025 9:34am Dkizzy18.11 kgAugust 2024 9:34amHeart Rate88 /mmz91-742Qdhkbk 2024 11:10amRespiratory rate16 /atj73-17Tomaxn 2024 11:10amOxygen saturation by Pulse nwtmpeae240 %95-100August 2024 11:10amBP Exyeasay732 mm[Hg]100-140 January 16, 2025 11:10amBP Dichivowz77 mm[Hg]60-100August 2024 11:10am Kmdnru35 [in_i]February 04, 2025 1:17trTaonuv86.00 kgSept2024 1:33pmBMI (Body Mass Index)30.0 kg/o1Kdyhrlmwf2024 1:66pnFhrxum67 [in_i] March 21, 2025 2:05rrGtloug40.37 kgOctbaptist health [facility] 2024 2:53pmHeart Rate93 /neg91-387Wcnhvni 30th, 2025 2:53pmBP Dcdrcvjv492 mm[Hg]100-140Octbaptist health [facility] 2024 2:53pmBP Fludydoia40 mm[Hg]60-100Octbaptist health [facility] 2024 2:53pmBMI (Body Mass Index)30.9 kg/n7Gqeoldh 2024 2:53pm Advance Directives Advance Directive Response Recorded Date/ Time Advance Directives No January 09, 2025 2:54pm Insurance Providers Guarantor Grace Moonfner Address [address] [place] [phone] Info.Home Phone: Coverage Status Update:2024 Payer Group Member ID Coverage Type Subscriber Relationship to Subscriber Effective Date Expiration Date Jaymie GRIMM [id number] GINA Id: [id number] [address] [place] [id number] Home Phone: Encounters Encounter Location(s) Arrival/Admit Date Discharge/Departure Date Discharge/Departure Disposition Provider(s) Departed Physician/ Provider Office Visit -[facility] January 01, 2025 10:43am January 01, 2025 11:22am Discharged to home care or self care (routine discharge) Praneeth Hernandez MD Non-patient / Non-visit -[facility] Augus t 2024 9:00am BETY Marquezeparted Physician/Provider [facility] 1:26pmSept2024 1:58pmDischarged to home care or self care (routine discharge)[facility]ed [facility] 2:13pmSept2024 2:14pmDischarged to home care or self care (routine discharge)Ulises A Grohe , APRNDeparted Physician/Provider [facility] 2:50pm March 21, 2025 3:02pmDischarged to home care or self care (routine discharge)Ulises Pimentel APRN Recent Diagnosis Onset Date Admit Date Abdominal pain Unknown January 01 10:43am BRBPR (bright red blood per rectum) Unknown January 01, 2025 10:43am Change in bowel habit Unknown December 10:43am Abdominal cramping Unknown January 1:26pm IBS (irritable bowel syndrome) Unknown S eptember 2024 1:26pm Abdominal cramping Unknown March 21, 2025 2:50pm IBS (irritable bowel syndrome) Unknown O ctober 2024 2:50pm Assessments Diagnosis Onset Date Resolution Status Admit Date Abdominal pain acuteAugust 2024 10:43amBRBPR (bright red blood per rectum)acuteAugust 2024 10:43amChange in bowel habitacuteAugus2024 10:43amAbdominal crampingacuteSeptember 2024 1:26pmIBS (irritable bowel syndrome)acute February 04, 2025 1:26pmAbdominal crampingacuteOctober 2024 2:50pmIBS (irritable bowel syndrome)acuteOctober 2024 2:50pm Plan of Treatment Author Praneeth Hernandez [facility] 2024 11:05amMost likely her symptoms are consistent with IBS. Her bright red blood was likely anal outlet pathology during her episode, however she has never had a colonoscopy and is still at the tail end of the age range for IBD presentation. We will schedule her for colonoscopy, biopsies to rule out microscopic colitis, TI intubation to rule out Crohn's. Check basic blood work today including celiac and TSH. [facility]imentel [facility]- Order KUB for evaluation of stool burden given continued abdominal cramping. Will tailor treatment based on KUB findings. -Neuromodulation via Prozac being managed by PCP. - Follow-up office visit in 6 weeks for further evaluation of IBS. Future Tests Future scheduled test information is unavailable Pending Tests Test Name Ordered Date Scheduled Date Comprehensive Metabolic Panel January 01, 2025 10:55am Future Visits Future appointment information is unavailable Future Procedures Procedure Name Ordered Date Scheduled Date Discharge Order January 16, 2025 10:41am January 16, 2025 10:41am Complete Blood Count Auto Diff January 01, 2025 10:55am CeliacAugust 2024 10:55amThyroid Stim Hormone w/RflxAugust 2024 10:55am Future Medications Future medication information is unavailable Patient Instructions Instruction Admit Date Know your Meds January 16, 2025 9: 00am
--- OUTSIDE RECORDS SUMMARY | 2025-03-27 08:45 | XMS_ITS | Encounter Summary ---
Author Organization [facility] Address [address] [place] [address] Care Team Providers Care Shrimp Peeler Name Role Phone Elaina Villarreal [place]apan ERNST-HAND PLATE STACKER Unavailable + [phone] Sheng Frankel DO Primary Care Provider + [phone] Sheng Frankel DO Unavailable [phone] Sandhya Jaramillo MOTOR EXPERT Unavailable [phone] Encounter Details DateTypeDepartmentCare Team (Latest Contact Info)Yowsnfezkqy76/20/2023Clinisync Result Encounter [facility] External Department Unsolicited Jaida Beevrly DO [address] [place] [place], [place] [id number] Social History Tobacco UseTypesPacks/DayYears UsedDateSmoking Tobacco: NeverSmokeless Tobacco: NeverAlcohol UseStandard Drinks/WeekCommentsYes0 (1 standard drink = 0.6 oz pure alcohol)Occasional alcohol useSocial Connection and Isolation PanelAnswerDate RecordedIn a typical week, how many times do you talk on the phone with family, friends, or neighbors?More than three times a week08/09/2024How often do you get together with friends or relatives?Once a week08/09/2024How often do you attend temple or holiness services?Patient zaxjdopi39/20/2025Do you belong to any clubs or organizations such as temple groups, unions, fraternal or athletic lico ups, or school groups?No08/09/2024How often do you attend meetings of the clubs or organizations you belong to?Never03/20/2025Are you , , , , never , or living with a partner?Eijrhcx3408/09/2024 AUDIT-CAnswerDate RecordedQ1: How often do you have a drink containing alcohol? Never08/09/2024Q2: How many drinks containing alcohol do you have on a typical day when you are drinking?Patient does not drink08/09/2024Q3: How often do you have six or more drinks on one occasion?Never08/09/2024Overall Financial Resource Strain (CARDIA)AnswerDate RecordedHow hard is it for you to pay for the very basics like food, housing, medical care, and heating?Not hard at all 08/09/2024PHQ-2AnswerDate RecordedPatient Health Questionnaire-2 Score0 08/10/2024Finmountain point medical center [place] of Occupational Health - Occupational Stress QuestionnaireAnswerDate RecordedDo you feel stress - tense, restless, nervous, or anxious, or unable to sleep at night because yourmind is troubled all the time - these days?Only a nhcxav8008/09/2024Exercise Vital SignAnswerDate Recorded On average, how many days per week do you engage in moderate to strenuous exercise (like a brisk walk)?4 days08/09/2024On average, how many minutes do you engage in exercise at this level?30 min08/09/2024Hunger Vital SignAnswerDate RecordedWithin the past 12 months, you worried that your food would run out before you got the money to buymore.Never true08/09/2024Within the past 12 months, the food you bought just didn't last and you didn't have money to get more.Never true08/09/2024PRAPARE - TransportationAnswerDate RecordedIn the past 12 months, has lack of transportation kept you from medical appointments or from getting medications?No08/09/2024In the past 12 months, has lack of transportation kept you from meetings, work, or from getting things needed for daily living?No08/09/2024Housing Stability Vital SignAnswerDate RecordedIn the last 12 months, was there a time when you were not able to pay the mortgage or rent on time?No08/09/2024In the past 12 months, how many times have you moved where you were living?t any time in the past 12 months, were you homeless or living in a long-term (including now)?No08/09/2024CommentsYes Sex and Gender InformationValueDate RecordedSex Assigned at BirthFemale 01/13/2023 1:36 PM EDTLegal TomJomiga13/15/2023 11:47 PM EDTGender Identity Wnlpsx1901/13/2023 1:36 PM EDTSexual FrqknrpjautZsaifxyi39/24/2023 1:36 PM EDT COVID-19 ExposureResponseDate RecordedIn the last 10 days, have you been in contact with someone who was confirmed or suspected to have Co ronavirus/COVID-19?No / Psjkpq7804/12/2023 8:47 AM ESTdocumented as of this encounter Functional Status * AUDIT-C ScoreAnswerDate of JhfgvtrgwtSilvni098/20/2025 3:36 AM Hector Generic * Q1: How often do you have a drink containing alcohol?AnswerDate of Assessment AqqzlfVsfjx82/20/2025 3:36 AM EDHong, Generic * Q2: How many drinks containing alcohol do you have on a typical day when you are drinking?AnswerDate of AssessmentAuthorPatient does not drink08/09/2024 3:36 AM Hector, Generic * Q3: How often do you have six or more drinks on one occasion?AnswerDate of OllasvorqtFnofuoOiuzk23/20/2025 3:36 AM Hector, Generic * Over the past 2 weeks, how often have you been bothered by any of the following problems?QuestionAnswerDate of AssessmentAuthorLittle interest or pleasure in doing thingsNot at all08/10/2024 11:14 AM JANELLE ROBLESeeling down, depressed, or hopelessNot at all08/10/2024 11:14 AM DENILSON ROBLES Patient Health Questionnaire-2 Sebhh644 11:14 AM DENILSON ROBLES documented as of this encounter Plan of Treatment Not on file documented as of this encounter Goals GoalPatient Goal TypeAssociated ProblemsRecent ProgressPatient-Stated?Author Reminders Care PlanOB RemindersNoOpen Scheduling, Backgrounddocumented as of this encounter Procedures Procedure NamePriorityDate/TimeAssociated DiagnosisCommentsUS OB ANATOMY 04/11/2023 9:28 PM EST documented in this encounter Results * US OB ANATOMY (04/11/2023 9:28 PM EST)Anatomical RegionLateralityModalityOther Specimen (Source)Anatomical Location / LateralityCollection Method / Volume Collection TimeReceived Time04/11/2023 9:28 PM EST Narrative 04/11/2023 9:28 PM EST [facility] ?[address] ? [place] [address] ? Ultrasound Report ? Signed ? Patient: GINAGRACE Karlos ?MR#: [id number] ?? : 2000 ?Acct:[id number] ?? Age/Sex: 23 / F ?ADM Date: 04/11/23 ?? Loc: US ? Attending Dr: Jaida Beverly D.O. ? Ordering Physician: Jaida Beverly D.O. ?? Date of Service: 04/11/23 ?? Procedure(s): US OB anatomy ?? Accession Number(s): [id number] ? cc: Jaida Beverly D.O.; Physician,Non-Staff MDayanna ? [facility] ? [facility] ? [place] [address] ? Patient Name: ?? GRACE FUENTES ? MRN: [facility]:[id number] ? date: 2000 ?Sex: F ?? Assigned Patient Location: US ?? Current Patient Location: US ?? Accession/Order Number: [id number] ?? Exam Date: 04/11/2023 ??08:09 ?Report Date: 04/11/2023 ??21:28 ? At the request of: ?? JAIDA ??SIRIA ? Procedure: ??US OB anatomy ? EXAMINATION: US OB anatomy, US OB transvaginal ? HISTORY: SECOND TRIMESTER Z34.92 ? COMPARISON: No relevant comparison available. ? TECHNIQUE: Transabdominal sonographic examination was performed for ?? obstetrical ?? and evaluation. ? FINDINGS: ? Number: 1 ?? Heart Rate: 131.0 bpm H.B. /min ?? Amniotic Fluid Volume: Subjectively normal ?? Placental Location: ANTERIOR with lower margin 1.9 cm from os. ?? Cervix Length: 4.4 cm; closed. ? ANATOMY: Normal Structures -cerebellum, choroid plexus, cisterna magna, ?? lateral ?? cerebral ventricles, orbits, midline falx, hard palate, four-chamber heart, ?? RVOT, LVOT, stomach, kidneys, bladder, umbilical cord insertion into abdomen, ?? three-vessel cord, cervical spine, thoracic spine, lumbar spine, sacral spine, ? right upper extremity, left upper extremity, right lower extremity, left lower ? extremity. ? SUBOPTIMALLY SEEN: None ?? ABNORMALITIES: None ? BIOMETRY: ?? BPD: 4.4 cm 19 weeks 2 days ?? HC: 17.7 cm 20 weeks 2 days ?? AC: 15.8 cm 20 weeks 6 days ?? FL: 3.4 cm 20 weeks 5 days ?? EFW:370.9 grams; ?? FL/AC: 21.6 ?? FL/BPD: 78.0 ?? HC/AC: 1.1 ? GESTATIONAL AGE: ?? Age by EDC: 20 weeks 2 days ?? ANDI by EDC: 08/27/2023 ?? Age by current US: 20 weeks 2 days ?? ANDI by current US: 08/27/2023 ? US/US OB anatomy ?? IMPRESSION: ? 1. Single live intrauterine with growth detailed above. ?? 2. Anterior low-lying placenta. ? Electronically authenticated by: SHON ??JENI ?? Date: 04/11/2023 ??21:28 ? Dictated By: ?Shon Ruiz M.D. ? Signed By: ?04/11/232130 ? DD/ 27 ? TD/TT: ? Commercial Counsel: Procedure Note Radiology, Radiologist, MD - 04/11/2023 [place] [address] Ultrasound Report Signed Patient: GRACE FUENTES [facility]#: [id number] : 2000Acct:[id number] Age/Sex: 23 / FADM Date: 04/11/23 Loc: US Attending Dr: Jaida Beverly D.O. Ordering Physician: Jaida Beverly D.O. Date of Service: 04/11/23 Procedure(s): US OB anatomy Accession Number(s): [id number] cc: Jaida Beverly D.O.; Physician,Non-Staff Yesenia [address] [address] Patient Name: GRACE FUENTES MRN: [id number] date: 2000 Sex: F Assigned Patient Location: US Current Patient Location: US Accession/Order Number: [id number] Exam Date: 04/11/2023 08:09 Report Date: 04/11/2023 [...] Ruiz M.D. Signed By:04/11/232130 DD/ 27 TD/TT: Commercial Counsel: Authorizing ProviderResult TypeResult StatusCorey Siria DOCLINISYNC IMAGINGFinal Result documented in this encounter Visit Diagnoses Not on filedocumented in this encounter Additional Health Concerns Active ProblemsNoted DateDiagnosed DateOB Cbyyuxbnf65/13/2023 documented as of this encounter Care Teams Team MemberRelationshipSpecialtyStart DateEnd Date Elaina Villarreal, BUSINESS MACHINES TEACHER-HAND PLATE STACKER [address] [place] [address] PCP - [facility]/ Sheng Frankel DO [address] [place] [address] PCP - [facility]08/10/24 Sheng Frankel DO [address] [place] [address] PCP - [place] [facility] Sadnhya Jaramillo NP [address] [place] [address] PCP - [place] [facility]01/21/25documented as of this encounter
[2025-03-27 08:46] VITALS: BP 106/78; PULSE 87; TEMP 36.8; O2SAT 99; BMI 31.0
--- OUTSIDE RECORDS SUMMARY | 2025-03-27 08:46 | XMS_ITS | Encounter Summary ---
Author Organization [facility] Address [address] [place] [address] Care Team Providers Care Forest Technology Professor Name Role Phone Sheng Frankel DO Primary Care Provider [phone] Sandhya Jaramillo MATERIAL ENGINEER Unavailable [phone] Reason for Referral * Consultation (Routine) - AuthorizedSpecialtyDiagnoses / ProceduresReferred By ContactReferred To ContactUrology Diagnoses Dysuria Procedures [place] OFFICE/OUTPATIENT [facility] MDM 60 MINUTES Sheng Frankel DO [address] [place] [address] Phone: tel: fax: Drew Lai MD [address] [place] [address] Phone: tel: fax: Referral IDStatusReasonStart DateExpiration DateVisits RequestedVisits [id number] Specialty Services Required / Reason for Visit * ReasonOnset GykgNjmhicmwZyozula30/22/2025 Encounter Details DateTypeDepartmentCare Team (Latest Contact Info)Umupujjtain22/22/2025Results Follow-Up [facility] [address] [place] [address] Sheng Frankel DO [address] [place] [address] URINARY TRACT INFECTION + HIGH RISK SEXUAL BEHAVIOR (HTRX) Social History Tobacco UseTypesPacks/DayYears UsedDateSmoking Tobacco: NeverSmokeless Tobacco: NeverAlcohol UseStandard Drinks/WeekCommentsYes0 (1 standard drink = 0.6 oz pure alcohol)Occasional alcohol useSocial Connection and Isolation PanelAnswerDate RecordedIn a typical week, how many times do you talk on the phone with family, friends, or neighbors?More than three times a week08/09/2024How often do you get together with friends or relatives?Once a week08/09/2024How often do you attend hinduism or mosque services?Patient jtawgxqp13/20/2025Do you belong to any clubs or organizations such as hinduism groups, unions, [employer] or athletic lico ups, or school groups?No08/09/2024How often do you attend meetings of the clubs or organizations you belong to?Never08/09/2024re you , , , , never , or living with a partner?Ludxijy3608/09/2024 AUDIT-CAnswerDate RecordedQ1: How often do you have [...] at all 08/09/2024PHQ-2AnswerDate RecordedPatient Health Questionnaire-2 Score0 08/10/2024[facility] [place] of Occup[facility] - Occupational Stress QuestionnaireAnswerDate RecordedDo you feel stress - tense, restless, nervous, or anxious, or unable to sleep at night because yourmind is troubled all the time - these days?Only a qxnrli4608/09/2024Exercise Vital SignAnswerDate Recorded On average, how many [...] were you homeless or living in a intermediate (including now)?No08/09/2024CommentsNo Sex and Gender InformationValueDate RecordedSex Assigned at BirthFemale 01/13/2023 1:36 PM EDTLegal IiaXqpadt79/15/2023 11:47 PM EDTGender Identity Viexmz6801/13/2023 1:36 PM EDTSexual RjwnjethykuCxsbzlhw27/24/2023 1:36 PM EDT documented as of this encounter Miscellaneous Notes * Telephone Encounter - Aliya Nash MA - 03/21/2025 4:20 PM EDT Sent OV and labs * Telephone Encounter - Ally King - 03/21/2025 3:27 PM EDT [phone] fax [facility], requesting ov notes and urine culture for referral. * Telephone Encounter - Nicky Lawrence LPN - 03/13/2025 12:46 PM EDT Patient made aware of results and direction and wishes to proceed with referral. Referral started. * Telephone Encounter - Nicky Lawrence LPN - 03/13/2025 12:44 PM EDT ----- Message from Dr. Sheng Frankel sent at 03/13/2025 12:36 PM EDT ----- Please let the patient know her urine culture was normal. If she would like to see urology, please place referral on my behalf, dx: dysuria ----- Message ----- From: [facility] Results In Sent: 03/13/2025 9:34 AM EDT To: Sheng Frankel DO documented in this encounter Plan of Treatment NameTypePriorityAssociated DiagnosesOrder ScheduleAmbulatory referral to Urology Outpatient ReferralRoutine Dysuria Expected: 03/13/2025 (Approximate), Expires: 09/11/2025documented as of this encounter Goals GoalPatient Goal TypeAssociated ProblemsRecent ProgressPatient-Stated?Author Reminders Care PlanOB RemindersNoOpen Scheduling, Backgrounddocumented as of this encounter Visit Diagnoses Diagnosis Dysuria documented in this encounter Additional Health Concerns Active ProblemsNoted DateDiagnosed DateOB Halplfica47/13/2023 documented as of this encounter Care Teams Team MemberRelationshipSpecialtyStart DateEnd Date Sheng Frankel DO [address] [place] [address] PCP - GeneralFamily Medicine08/10/24 Sandhya Jaramillo NP [address] [place] [address] JOSE - [employer]01/21/25documented as of this encounter
--- OUTSIDE RECORDS SUMMARY | 2025-03-27 08:46 | XMS_ITS | Encounter Summary ---
Author Organization [facility] Address [address] [facility] [place] [address] Care Team Providers Care Survey Director Name Role Phone Elaina Villarreal Tapan ERNST-CYBER FORENSIC SPECIALIST Unavailable + [phone] Sheng Frankel DO Primary Care Provider + [phone] Sheng Frankel DO Unavailable [phone] Sandhya Jaramillo ENTERPRISE SALES EXECUTIVE Unavailable [phone] Encounter Details DateTypeDepartmentCare Team (Latest Contact Info)Jrwqovsnkoc62/13/2024Clinisync Result Encounter [facility] External Department Unsolicited Jaida Beverly DO [address] [place] [id number] Social History Tobacco UseTypesPacks/DayYears UsedDateSmoking Tobacco: NeverSmokeless Tobacco: NeverAlcohol UseStandard Drinks/WeekCommentsYes0 (1 standard drink = 0.6 oz pure alcohol)Occasional alcohol useSocial Connection and Isolation PanelAnswerDate RecordedIn a typical week, how many times do you talk on the phone with family, friends, or neighbors?More than three times a week08/09/2024How often do you get together with friends or relatives?Once a week08/09/2024How often do you attend mandaeism or latter day services?Patient gisoaofl01/20/2025Do you belong to any clubs or organizations such as mandaeism groups, unions, fraternal or athletic lico ups, or school groups?No08/09/2024How often do you attend meetings of the clubs or organizations you belong to?Never03/20/2025Are you , , , , never , or living with a partner?Yhyoagq9108/09/2024 AUDIT-CAnswerDate RecordedQ1: How often do you have [...] at all 08/09/2024PHQ-2AnswerDate RecordedPatient Health Questionnaire-2 Score0 08/10/2024[facility] Occupational Health - Occupational Stress QuestionnaireAnswerDate RecordedDo you feel stress - tense, restless, nervous, or anxious, or unable to sleep at night because yourmind is troubled all the time - these days?Only a cgzpqv0208/09/2024Exercise Vital SignAnswerDate Recorded On average, how many [...] were you homeless or living in a senior living (including now)?No08/09/2024CommentsYes Sex and Gender InformationValueDate RecordedSex Assigned at BirthFemale 01/13/2023 1:36 PM EDTLegal NbaKpcsot32/15/2023 11:47 PM EDTGender Identity Qzwgcw3401/13/2023 1:36 PM EDTSexual TotvyefiucxXklpnwvg56/24/2023 1:36 PM EDT documented as of this encounter Functional Status * AUDIT-C ScoreAnswerDate of XkmgtruuhiEaczri864/20/2025 3:36 AM EDHong, Generic * Q1: How often do you have a drink containing alcohol?AnswerDate of Assessment JzjpzmCeeiy07/20/2025 3:36 AM EDHong, Generic * Q2: How many drinks containing alcohol do you have on a typical day when you are drinking?AnswerDate of AssessmentAuthorPatient does not drink08/09/2024 3:36 AM EDKIYAychasael, Generic * Q3: How often do you have six or more drinks on one occasion?AnswerDate of OewxmcakbtCnpjbcMqpyu11/20/2025 3:36 AM EDHong, Generic * Over the past 2 weeks, how often have you been bothered by any of the following problems?QuestionAnswerDate of AssessmentAuthorLittle interest or pleasure in doing thingsNot at all08/10/2024 11:14 AM JANELLE ROBLESeeling down, depressed, or hopelessNot at all08/10/2024 11:14 AM DENILSON ROBLES Patient Health Questionnaire-2 Wdhck366 11:14 AM DENILSON ROBLES documented as of this encounter Plan of Treatment Not on file documented as of this encounter Goals GoalPatient Goal TypeAssociated ProblemsRecent ProgressPatient-Stated?Author Reminders Care PlanOB RemindersNoOpen Scheduling, Backgrounddocumented as of this encounter Procedures Procedure NamePriorityDate/TimeAssociated DiagnosisCommentsUS OB GROWTH 08/03/2023 2:36 PM EDT documented in this encounter Results * US OB GROWTH (08/03/2023 2:36 PM EDT)Anatomical RegionLateralityModalityOther Specimen (Source)Anatomical Location / LateralityCollection Method / Volume Collection TimeReceived Time08/03/2023 2:36 PM EDT Narrative 08/03/2023 2:39 PM EDT [facility] ?[address] ? [place] [address] ? Ultrasound Report ? Signed ? Patient: GINAGRACE Karlos ?MR#: [id number] ?? : 2000 ?Acct:[id number] ?? Age/Sex: 23 / F ?ADM Date: 08/03/23 ?? [facility] ? Attending Dr: Jaida Beverly D.O. ? Ordering Physician: Jaida Beverly D.O. ?? Date of Service: 08/03/23 ?? Procedure(s): US OB growth ?? Accession Number(s): [id number] ? cc: Jaida Beverly D.O.; Physician,Non-Staff M.D. ? [facility] ? [address] ? [place] [address] ? Patient Name: ?? GRACE FUENTES ? MRN: [facility]:[id number] ? date: 2000 ?Sex: F ?? Assigned Patient Location[facility] ?? Current Patient Location: [facility] ?? Accession/Order Number: [id number] ?? Exam Date: 08/03/2023 ??14:01 ?Report Date: 08/03/2023 ??14:36 ? At the request of: ?? JAIDA ??SIRIA ? Procedure: ??US OB growth ? EXAMINATION: US OB growth ? HISTORY: Size of fetus inconsistent with dates O26.843 ? COMPARISON: No relevant comparison available. ? FINDINGS: ? Heart Rate: 148.0 bpm ?? Number: 1.0 ?? Position: CEPHALIC ?? Amniotic Fluid Volume: 15.5 cm ?? Maximum Vertical Pocket: 6.3 cm ? BIOMETRY: ?? BPD: 8.6 cm cm; 34 weeks 4 days; 11% ?? HC: 31.5 cmcm; 35 weeks 2 days; 5% ?? AC: 30.4 cm cm; 34 weeks 2 days; 8% ?? FL: 7.4 cm cm; 37 weeks 6 days; 78% ?? EFW: 2672.3 grams; 24% ?? FL/AC: 24.3 ?? FL/BPD: 86.3 ?? HC/AC: 1.0 ? GESTATIONAL AGE: ?? Age by EDC: 36 weeks 4 days ?? ANDI by EDC: 08/27/2023 ?? Age by US: 35 weeks 4 days ?? ANDI by US: 09/03/2023 ? US/US OB growth ?? IMPRESSION: ? 1. Single live intrauterine with growth detailed above. ?? 2. Head circumference is at 5th percentile. Abdominal circumference 8th ?? percentile. ? Electronically authenticated by: SHON ??JENI ?? Date: 08/03/2023 ??14:36 ? Dictated By: ?Shon Ruiz M.D. ? Signed By: ?08/03/239 ? DD/ 1436 ? TD/TT: ? Bulb Weeder: Procedure Note Radiology, Radiologist, MD - 08/03/2023 [place] [address] Ultrasound Report Signed Patient: GRACE FUENTES MMR#: [id number] : 2000Acct:[id number] Age/Sex: Date: 08/03/23 Loc: [facility] Attending Dr: Jaida Beverly D.O. Ordering Physician: Jaida Beverly D.O. Date of Service: 08/03/23 Procedure(s): US OB growth Accession Number(s): [id number] cc: Jaida Beverly D.O.; Physician,Non-Staff M.Daniel The [address] [address] Patient Name: GRACE FUENTES MRN: [facility]:[id number] date: 2000 Sex: F Assigned Patient [facility] Current Patient Location: [facility] Accession/Order Number: [id number] Exam Date: 08/03/2023 14:01 Report Date: 08/03/2023 [...] 14:36 Dictated By: Shon Ruiz M.D. Signed By:08/03/23 1439 DD/ 35 TD/TT: Bulb Weeder: Authorizing ProviderResult TypeResult StatusCorey Siria DOCLINISYNC IMAGINGFinal Result documented in this encounter Visit Diagnoses Not on filedocumented in this encounter Additional Health Concerns Active ProblemsNoted DateDiagnosed DateOB Xqidxiaff90/13/2023 documented as of this encounter Care Teams Team MemberRelationshipSpecialtyStart DateEnd Date Elaina Villarreal, ELECTRICAL TECHNICIAN INSTRUCTOR-CYBER FORENSIC SPECIALIST [address] [place] [address] PCP - [facility] Sheng Frankel DO [address] [place] [address] [facility] - [facility] Sheng Frankel DO [address] [place] [address] PCP - [place] [employer] Sandhya Jaramillo NP [address] [place] [address] PCP - [place] [employer]01/21/25documented as of this encounter
--- OUTSIDE RECORDS SUMMARY | 2025-03-27 08:46 | XMS_ITS | Encounter Summary ---
Author Organization [facility] Address [address] [place] [address] Care Team Providers Care Senior Information Security Consultant Name Role Phone Elaina Villarreal Tapan ERNST-DIGITAL ANALYST Unavailable + [phone] Sheng Frankel DO Primary Care Provider + [phone] Sheng Frankel DO Unavailable [phone] Sandhya Jaramillo SAS BI DEVELOPER Unavailable [phone] Encounter Details DateTypeDepartmentCare Team (Latest Contact Info)Qdfasxyzqri47/18/2023Clinisync Result Encounter [facility] External Department Unsolicited Jaida Beverly DO [address] [place] [place], [place] [id number] Social History Tobacco UseTypesPacks/DayYears UsedDateSmoking Tobacco: NeverSmokeless Tobacco: NeverAlcohol UseStandard Drinks/WeekCommentsYes0 (1 standard drink = 0.6 oz pure alcohol)Occasional alcohol useSocial Connection and Isolation PanelAnswerDate RecordedIn a typical week, how many times do you talk on the phone with family, friends, or neighbors?More than three times a week08/09/2024How often do you get together with friends or relatives?Once a week08/09/2024How often do you attend evangelical or druze services?Patient /20/2025Do you belong to any clubs or organizations such as evangelical groups, unions, fraternal or athletic lico ups, or school groups?No08/09/2024How often do you attend meetings of the clubs or organizations you belong to?Never03/20/2025Are you , , , , never , or living with a partner?Ufiviah8708/09/2024 AUDIT-CAnswerDate RecordedQ1: How often do you have [...] at all 08/09/2024PHQ-2AnswerDate RecordedPatient Health Questionnaire-2 Score0 08/10/2024[facility] [place] of Occupational Health - Occupational Stress QuestionnaireAnswerDate RecordedDo you feel stress - tense, restless, nervous, or anxious, or unable to sleep at night because yourmind is troubled all the time - these days?Only a dmfcvf0108/09/2024Exercise Vital SignAnswerDate Recorded On average, how many [...] homeless or living in a fpc (including now)?No08/09/2024CommentsYes Sex and Gender InformationValueDate RecordedSex Assigned at BirthFemale 01/13/2023 1:36 PM EDTLegal BaoNxixjo30/15/2023 11:47 PM EDTGender Identity Zegbmq4501/13/2023 1:36 PM EDTSexual QrpeepsticmWdsafkhy98/24/2023 1:36 PM EDT COVID-19 ExposureResponseDate RecordedIn the last 10 days, have you been in contact with someone who was confirmed or suspected to have Co ronavirus/COVID-19?No / Vwcyak7604/12/2023 8:47 AM ESTdocumented as of this encounter Functional Status * AUDIT-C ScoreAnswerDate of OnoncrufuuVubwkl809/20/2025 3:36 AM Hector Generic * Q1: How often do you have a drink containing alcohol?AnswerDate of Assessment TmreezJanrf43/20/2025 3:36 AM EDHong, Generic * Q2: How many drinks containing alcohol do you have on a typical day when you are drinking?AnswerDate of AssessmentAuthorPatient does not drink08/09/2024 3:36 AM Hector, Generic * Q3: How often do you have six or more drinks on one occasion?AnswerDate of AppcqcvjasGfxlehQwbjc35/20/2025 3:36 AM Hector, Generic * Over the past 2 weeks, how often have you been bothered by any of the following problems?QuestionAnswerDate of AssessmentAuthorLittle interest or pleasure in doing thingsNot at all08/10/2024 11:14 AM JANELLE ROBLESeeling down, depressed, or hopelessNot at all08/10/2024 11:14 AM DENILSON ROBLES Patient Health Questionnaire-2 Dhihm183 11:14 AM DENILSON ROBLES documented as of this encounter Plan of Treatment Not on file documented as of this encounter Goals GoalPatient Goal TypeAssociated ProblemsRecent ProgressPatient-Stated?Author Reminders Care PlanOB RemindersNoOpen Scheduling, Backgrounddocumented as of this encounter Procedures Procedure NamePriorityDate/TimeAssociated DiagnosisCommentsUS OB PLACENTA 05/09/2023 3:44 PM EST documented in this encounter Results * US OB PLACENTA (05/09/2023 3:44 PM EST)Anatomical RegionLateralityModality OtherSpecimen (Source)Anatomical Location / LateralityCollection Method / VolumeCollection TimeReceived Time05/09/2023 3:44 PM EST Narrative 05/09/2023 3:47 PM EST [facility] ?[address] ? [place] [address] ? Ultrasound Report ? Signed ? Patient: GINAGRACE Everett ?MR#: [id number] ?? : 2000 ?Acct:[id number] ?? Age/Sex: 23 / F ?ADM Date: 05/09/23 ?? Loc: US ? Attending Dr: Jaida Beverly D.O. ? Ordering Physician: Jaida Beverly D.O. ?? Date of Service: 05/09/23 ?? Procedure(s): US OB placenta ?? Accession Number(s): [id number] ? cc: Jaida Beverly D.O.; Physician,Non-Staff MDayanna ? [facility] ? [address] [place] [address] ? [place] [address] ? Patient Name: ?? GRACE FUENTES ? MRN: [facility]:[id number] ? date: 2000 ?Sex: F ?? Assigned Patient Location: US ?? Current Patient Location: US ?? Accession/Order Number: [id number] ?? Exam Date: 05/09/2023 ??14:31 ?Report Date: 05/09/2023 ??15:44 ? At the request of: ?? JAIDA ??SIRIA ? Procedure: ??US OB placenta ? EXAM: US OB placenta, US OB cervical length ? HISTORY: LOW LYING PLACENTA ? COMPARISON: None. ? TECHNIQUE: Transabdominal and transvaginal ? FINDINGS: ? position: Breech presentation, longitudinal lie ? Placenta: Anterior. The placental edge is 3.9 cm from the internal os. Grade ?? 1. ?? No intraplacental or retroplacental echogenic abnormality ? Heart rate: 137 bpm ? Cervix: 5.1 cm, closed ? Clinical age: 24 weeks 2 days ? US/US OB placenta ?? IMPRESSION: ? Low lying placenta, the placental edge is 3.9 cm from the internal os ? Closed cervix measuring 5.1 cm ? Electronically authenticated by: WILD ??SHANIKA ?? Date: 05/09/2023 ??15:44 ? Dictated By: ?Wild Voss M.D. ? Signed By: ?18/ 1547 ? DD/ 1544 ? TD/TT: ? Nurse'S Assistant: Procedure Note Radiology, Radiologist, MD - 05/09/2023 [place] [address] Ultrasound Report Signed Patient: GRACE FUENTES MMR#: [id number] : 2000Acct:[id number] Age/Sex: 23 / FADM Date: 05/09/23 Loc: US Attending Dr: Jaida Beverly D.O. Ordering Physician: Jaida Beverly D.O. Date of Service: 05/09/23 Procedure(s): US OB placenta Accession Number(s): [id number] cc: Jaida Beverly D.O.; Physician,Non-Staff Yes[place] The [address] [address] Patient Name: GRACE FUENTES MRN: [facility]:[id number] date: 2000 Sex: F Assigned Patient Location: US Current Patient Location: US Accession/Order Number: [id number] Exam Date: 05/09/2023 14:31 Report Date: 05/09/2023 15:44 At the request of: JAIDA BEVELRY Procedure: US OB placenta EXAM: US OB [...] M.D. Signed By:05/09/23 1547 DD/ 1544 TD/TT: Nurse'S Assistant: Authorizing ProviderResult TypeResult StatusCorey Siria DOCLINISYNC IMAGINGFinal Result documented in this encounter Visit Diagnoses Not on filedocumented in this encounter Additional Health Concerns Active ProblemsNoted DateDiagnosed DateOB Jlgdebjyt93/13/2023 documented as of this encounter Care Teams Team MemberRelationshipSpecialtyStart DateEnd Date Elaina Villarreal APRN-DIGITAL ANALYST [address] [place] [address] PCP - [facility]/ Sheng Frankel DO [address] [place] [address] PCP - [facility] Medicine08/10/24 Sheng Frankel DO [address] [place] [address] PCP - [place] [employer] Sandhya Jaramillo NP [address] [place] [address] PCP - [place] [employer]01/21/25documented as of this encounter
--- OUTSIDE RECORDS SUMMARY | 2025-03-27 08:46 | XMS_ITS | Encounter Summary ---
Author Organization [facility] Address [address] [facility] [facility] [place] [address] Care Team Providers Care Geriatric Nurse Assistant Name Role Phone Elaina Villarreal Tapan ERNST-FAMILY CONSUMER SCIENTIST Unavailable + [phone] Sheng Frankel DO Primary Care Provider + [phone] Sheng Frankel DO Unavailable [phone] Sandhya Jaramillo DIRECTOR INPATIENT HEADACHE PROGRAM Unavailable +[phone] Encounter Details DateTypeDepartmentCare Team (Latest Contact Info)Drtzzzjyavf14/18/2023Clinisync Result Encounter [facility] External Department Unsolicited Jaida Beverly DO [address] [place]ba [place], [place] [address] Social History Tobacco UseTypesPacks/DayYears UsedDateSmoking Tobacco: NeverSmokeless Tobacco: NeverAlcohol UseStandard Drinks/WeekCommentsYes0 (1 standard drink = 0.6 oz pure alcohol)Occasional alcohol useSocial Connection and Isolation PanelAnswerDate RecordedIn a typical week, how many times do you talk on the phone with family, friends, or neighbors?More than three times a week08/09/2024How often do you get together with friends or relatives?Once a week08/09/2024How often do you attend catholic or hoahaoism services?Patient zlsqefrl19/20/2025Do you belong to any clubs or organizations such as catholic groups, unions, fraternal or athletic lico ups, or school groups?No08/09/2024How often do you attend meetings of the clubs or organizations you belong to?Never03/20/2025Are you , , , , never , or living with a partner?Lxthfgb2708/09/2024 AUDIT-CAnswerDate RecordedQ1: How often do you have [...] at all 08/09/2024PHQ-2AnswerDate RecordedPatient Health Questionnaire-2 Score0 08/10/2024[facility] [place] of Occupational Health - Occupational Stress QuestionnaireAnswerDate RecordedDo you feel stress - tense, restless, nervous, or anxious, or unable to sleep at night because yourmind is troubled all the time - these days?Only a hncktc3908/09/2024Exercise Vital SignAnswerDate Recorded On average, how many [...] homeless or living in a mcc (including now)?No08/09/2024CommentsYes Sex and Gender InformationValueDate RecordedSex Assigned at BirthFemale 01/13/2023 1:36 PM EDTLegal PgzHgmpia46/15/2023 11:47 PM EDTGender Identity Kllqcu4001/13/2023 1:36 PM EDTSexual CpmfosdweziJtyrtpqn94/24/2023 1:36 PM EDT COVID-19 ExposureResponseDate RecordedIn the last 10 days, have you been in contact with someone who was confirmed or suspected to have Co ronavirus/COVID-19?No / Xawfyh2604/12/2023 8:47 AM ESTdocumented as of this encounter Functional Status * AUDIT-C ScoreAnswerDate of XxlhaewgbzKsbekk392/20/2025 3:36 AM Hector Generic * Q1: How often do you have a drink containing alcohol?AnswerDate of Assessment RurudoCfbzw10/20/2025 3:36 AM EDHong, Generic * Q2: How many drinks containing alcohol do you have on a typical day when you are drinking?AnswerDate of AssessmentAuthorPatient does not drink08/09/2024 3:36 AM Hector, Generic * Q3: How often do you have six or more drinks on one occasion?AnswerDate of EabudpedkgLxnlvdOvvdw74/20/2025 3:36 AM Hector, Generic * Over the past 2 weeks, how often have you been bothered by any of the following problems?QuestionAnswerDate of AssessmentAuthorLittle interest or pleasure in doing thingsNot at all08/10/2024 11:14 AM JANELLE ROBLESeeling down, depressed, or hopelessNot at all08/10/2024 11:14 AM DENILSON ROBLES Patient Health Questionnaire-2 Rfnov842 11:14 AM DENILSON ROBLES documented as of this encounter Plan of Treatment Not on file documented as of this encounter Goals GoalPatient Goal TypeAssociated ProblemsRecent ProgressPatient-Stated?Author Reminders Care PlanOB RemindersNoOpen Scheduling, Backgrounddocumented as of this encounter Procedures Procedure NamePriorityDate/TimeAssociated DiagnosisCommentsUS OB CERVICAL LENGTH 05/09/2023 3:44 PM EST documented in this encounter Results * US OB CERVICAL LENGTH (05/09/2023 3:44 PM EST)Anatomical RegionLaterality ModalityOtherSpecimen (Source)Anatomical Location / LateralityCollection Method / VolumeCollection TimeReceived Time05/09/2023 3:44 PM EST Narrative 05/09/2023 3:47 PM EST [facility] ?[address] ? [place] [address] ? Ultrasound Report ? Signed ? Patient: GINAGRACE Everett ?MR#: [id number] ?? : 2000 ?Acct:[id number] ?? Age/Sex: 23 / F ?ADM Date: 05/09/23 ?? Loc: US ? Attending Dr: Jaida Beverly D.O. ? Ordering Physician: Jaida Beverly D.O. ?? Date of Service: 05/09/23 ?? Procedure(s): US OB cervical length ?? Accession Number(s): [id number] ? cc: Jaida Beverly D.O.; Physician,Non-Staff MDayanna ? [facility] ? [address] [place] [address] ? [place] [address] ? Patient Name: ?? GRACE FUENTES ? MRN: [facility]:[id number] ? date: 2000 ?Sex: F ?? Assigned Patient Location: US ?? Current Patient Location: US ?? Accession/Order Number: [id number] ?? Exam Date: 05/09/2023 ??14:31 ?Report Date: 05/09/2023 ??15:44 ? At the request of: ?? JAIDA ??SIRIA ? Procedure: ??US OB cervical length ? EXAM: US OB placenta, US OB [...] 24 weeks 2 days ? US/US OB cervical length ?? IMPRESSION: ? Low lying placenta, the placental edge is 3.9 cm from the internal os ? Closed cervix measuring 5.1 cm ? Electronically authenticated by: WIDL ??SHANIKA ?? Date: 05/09/2023 ??15:44 ? Dictated By: ?Wild Voss M.D. ? Signed By: ?18/23 1547 ? DD/ 1544 ? TD/TT: ? Air Defense Control Officer: Procedure Note Radiology, Radiologist, MD - 05/09/2023 [place] [address] Ultrasound Report Signed Patient: GRACE FUENTES MMR#: [id number] : 2000Acct:[id number] Age/Sex: 23 / FADM Date: 05/09/23 Loc: US Attending Dr: Jaida Beverly D.O. Ordering Physician: Jaida Beverly D.O. Date of Service: 05/09/23 Procedure(s): US OB cervical length Accession Number(s): [id number] cc: Jaida Beverly D.O.; Physician,Non-Staff M.Daniel The [address] [address] Patient Name: GRACE FUENTES MRN: [facility]:[id number] date: 2000 Sex: F Assigned Patient Location: US Current Patient Location: US Accession/Order Number: [id number] Exam Date: 05/09/2023 14:31 Report Date: 05/09/2023 [...] M.D. Signed By:05/09/23 1547 DD/ 1544 TD/TT: Air Defense Control Officer: Authorizing ProviderResult TypeResult StatusCorey Siria DOCLINISYNC IMAGINGFinal Result documented in this encounter Visit Diagnoses Not on filedocumented in this encounter Additional Health Concerns Active ProblemsNoted DateDiagnosed DateOB Tbwfjptum62/13/2023 documented as of this encounter Care Teams Team MemberRelationshipSpecialtyStart DateEnd Date Elaina Villarreal APRN-FAMILY CONSUMER SCIENTIST [address] [place] [address] PCP - [facility]/ Sheng Frankel DO [address] [place] [address] PCP - [facility] Medicine08/10/24 Sheng Frankel DO [address] [place] [address] PCP - [facility] Sandhya Jaramillo NP [address] [place] [address] PCP - [facility]01/21/25documented as of this encounter
--- OUTSIDE RECORDS SUMMARY | 2025-03-27 08:46 | XMS_ITS | Clinical Summary ---
Author Organization [facility] Address [address] [place], [place] [address] Care Team Providers Care Microfilm Mounter Name Role Phone Unavailable Primary Care Provider Unavailabl e Allergies No known active allergies Medications No known medications Social History Tobacco UseTypesPacks/DayYears UsedDateSmoking Tobacco: Never Assessed CommentsUnknownSex and Gender InformationValueDate RecordedSex Assigned at Mzmdhs8106/26/2024 12:17 PM ESTLegal XhxTehxml27/04/2025 12:11 PM ESTGender MrkdnaonQggend10/04/2025 12:17 PM ESTSexual BusydvutbztBzvzmsve20/04/2025 12:17 PM EST Plan of Treatment Health MaintenanceDue DateLast DoneCommentsPeds To Adult Transition Initial Qqlqcpftak93/08/2011Peds To Adult Transition Annual Uihpxzlltd73/08/2013HPV Vaccine (1 - 3-dose series)2014nxiety Sclrzmkxs99/08/2017Depression Gzcjlnqtj96/08/2017HIV Tqfjrbmjp32/08/2017Hepatitis C Lgnowqjjy62/08/2017 Hepatitis B Vaccine (1 of 3 - 19+ 3-dose series)2018Cervical Cancer Durbqhozl82/08/2020Covid-19 Vaccine ( - 2024- season)2025Influenza Vaccine (#1)2025DTaP,Tdap,Td Vaccine (2 - Tdap) Insurance MemberSubscriberPlan / Payer (Effective 2022-Present)Name:GRACE FUENTES Relation to Subscriber:SpouseName:JAYDEN FUENTES Date of :1997 (Home) Address: [address] [id number] Payer ID:[id number] (NAIC) Group ID:Not on file Type:PPO Address: [id number] [place] [id number]
--- OUTSIDE RECORDS SUMMARY | 2025-03-27 08:46 | XMS_ITS | Encounter Summary ---
Author Organization [facility] Address [address] [facility] [place] [address] Care Team Providers Care Cae Engineer Name Role Phone Elaina Villarreal Tapan ERNST-SPECIAL PROJECTS MANAGER Unavailable + [phone] Sheng Frankel DO Primary Care Provider + [phone] Sheng Frankel DO Unavailable [phone] Sandhya Jaramillo FLAG MAKER Unavailable [phone] Encounter Details DateTypeDepartmentCare Team (Latest Contact Info)Pnyioiunzmi34/27/2024Clinisync Result Encounter [facility] External Department Unsolicited Jaida Beverly DO [address] [place], [place] [address] Social History Tobacco UseTypesPacks/DayYears UsedDateSmoking Tobacco: NeverSmokeless Tobacco: NeverAlcohol UseStandard Drinks/WeekCommentsYes0 (1 standard drink = 0.6 oz pure alcohol)Occasional alcohol useSocial Connection and Isolation PanelAnswerDate RecordedIn a typical week, how many times do you talk on the phone with family, friends, or neighbors?More than three times a week08/09/2024How often do you get together with friends or relatives?Once a week08/09/2024How often do you attend rastafarian or sikhism services?Patient dwsazomq22/20/2025Do you belong to any clubs or organizations such as rastafarian groups, unions, fraternal or athletic lico ups, or school groups?No08/09/2024How often do you attend meetings of the clubs or organizations you belong to?Never03/20/2025Are you , , , , never , or living with a partner?Okxzusa6208/09/2024 AUDIT-CAnswerDate RecordedQ1: How often do you have [...] at all 08/09/2024PHQ-2AnswerDate RecordedPatient Health Questionnaire-2 Score0 08/10/2024[facility] [place] [facility] - Occupational Stress QuestionnaireAnswerDate RecordedDo you feel stress - tense, restless, nervous, or anxious, or unable to sleep at night because yourmind is troubled all the time - these days?Only a djkzdy7908/09/2024Exercise Vital SignAnswerDate Recorded On average, how many [...] Assigned at BirthFemale 01/13/2023 1:36 PM EDTLegal LhmMcdxxo40/15/2023 11:47 PM EDTGender Identity Clmucw0201/13/2023 1:36 PM EDTSexual DoffskqmfbgJqnfxmpu38/24/2023 1:36 PM EDT documented as of this encounter Functional Status * AUDIT-C ScoreAnswerDate of HukhxrqhwvNshazd620/20/2025 3:36 AM EDTMjerry, Generic * Q1: How often do you have a drink containing alcohol?AnswerDate of Assessment WwqaufCxmyt47/20/2025 3:36 AM EDHong, Generic * Q2: How many drinks containing alcohol do you have on a typical day when you are drinking?AnswerDate of AssessmentAuthorPatient does not drink08/09/2024 3:36 AM EDTMychasael, Generic * Q3: How often do you have six or more drinks on one occasion?AnswerDate of BkgbnxtjfaCovymjOogro47/20/2025 3:36 AM EDTMychasael, Generic * Over the past 2 weeks, how often have you been bothered by any of the following problems?QuestionAnswerDate of AssessmentAuthorLittle interest or pleasure in doing thingsNot at all08/10/2024 11:14 AM JANELLE ROBLESeeling down, depressed, or hopelessNot at all08/10/2024 11:14 AM DENILSON ROBLES Patient Health Questionnaire-2 Lqfki583 11:14 AM DENILSON ROBLES documented as of this encounter Plan of Treatment Not on file documented as of this encounter Goals GoalPatient Goal TypeAssociated ProblemsRecent ProgressPatient-Stated?Author Reminders Care PlanOB RemindersNoOpen Scheduling, Backgrounddocumented as of this encounter Procedures Procedure NamePriorityDate/TimeAssociated DiagnosisCommentsUS OB GROWTH 07/19/2023 10:37 AM EST documented in this encounter Results * US OB GROWTH (07/19/2023 10:37 AM EST)Anatomical RegionLateralityModalityOther Specimen (Source)Anatomical Location / LateralityCollection Method / Volume Collection TimeReceived Time07/19/2023 10:37 AM EST Narrative 07/19/2023 10:40 AM EST [facility] ?[address] ? [place] [address] ? Ultrasound Report ? Signed ? Patient: GRACE FUENTES ?MR#: [id number] ?? : 2000 ?Acct:[id number] ?? Age/Sex: 23 / F ?ADM Date: 07/19/23 ?? Loc: [facility] ? Attending Dr: Jaida Beverly D.O. ? Ordering Physician: Jaida Beverly D.O. ?? Date of Service: 07/19/23 ?? Procedure(s): US OB growth ?? Accession Number(s): [id number] ? cc: Jaida Beverly D.O.; Physician,Non-Staff M.Daniel ? [facility] ? [address] [place] [address] ? [place] [address] ? Patient Name: ?? GRACE FUENTES ? MRN: [facility]:[id number] ? date: 2000 ?Sex: F ?? Assigned Patient Location: [facility] ?? Current Patient Location: [facility] ?? Accession/Order Number: [id number] ?? Exam Date: 07/19/2023 ??09:27 ?Report Date: 07/19/2023 ??10:37 ? At the request of: ?? JAIDA ??SIRIA ? Procedure: ??US OB growth ? EXAMINATION: US OB growth ? HISTORY: SIZE INCONSISTENT WITH DATES ? COMPARISON: 04/11/2023 ? TECHNIQUE: Transabdominal sonographic examination was performed for ?? obstetrical ?? and evaluation. ? FINDINGS: ? Number: 1 ?? Heart Rate: 138.0 bpm H.B. /min ?? Amniotic Fluid Volume: 12.3 cm, largest fluid pocket 4.3 cm ?? position: Cephalic presentation, longitudinal lie ?? Placental Location: Anterior ?? Cervix Length: Not measured ? BIOMETRY: ?? BPD: 8.2 cm 32 weeks 5 days , 9% ?? HC: 30.1 cm 33 weeks 2 days, 4% ?? AC: 29.8 cm 33 weeks 5 days, 34% ?? FL: 6.1 cm 31 weeks 5 days , less than 3% ?? EFW:2103.6 grams; 4 lbs. 10 oz., 12% ?? FL/AC: 20.5 ?? FL/BPD: 75.0 ?? HC/AC: 1.0 ? GESTATIONAL AGE: ?? Age by EDC: 34 weeks 3 days ?? Age by current US: 32 weeks 6 days ?? ANDI by current US: 09/07/2023 ?? ANDI by EDC: 08/27/2023 ? US/US OB growth ?? IMPRESSION: ? Femur length less than the 3rd percentile ? Head circumference at the 4th percentile ? Estimated weight 12% ? *Reference: [facility] Practice Guideline for the performance of Obstetric ?? Ultrasound ?? Examinations, February 20, 2007. ? Electronically authenticated by: WILD ??SHANIKA ?? Date: 07/19/2023 ??10:37 ? Dictated By: ?Wild Voss M.D. ? Signed By: ?07/19/23 1040 ? DD/ 1037 ? TD/TT: ? Cdl Driver: Procedure Note Radiology, Radiologist, - 07/19/[address] [address] Ultrasound Report Signed Patient: GRACE FUENTES MMR#: [id number] : 2000Acct:[id number] Age/Sex: 23 / FADM Date: 07/19/23 Loc: [facility] Attending Dr: Jaida Beverly D.O. Ordering Physician: Jaida Beverly D.O. Date of Service: 07/19/23 Procedure(s): [facility] Accession Number(s): [id number] cc: Jaida Beverly D.O.; Physician,Non-Staff MDayanna The [address] [address] Patient Name: GRACE FUENTES MRN: [facility]:[id number] date: 2000 Sex: F Assigned Patient Location: [facility] Current Patient Location: [facility] Accession/Order Number: [id number] Exam Date: 07/19/2023 09:27 Report Date: 07/19/2023 [...] M.D. Signed By:07/19/23 1040 DD/ 1037 TD/TT: Cdl Driver: Authorizing ProviderResult TypeResult StatusCorey Siria DOCLINISYNC IMAGINGFinal Result documented in this encounter Visit Diagnoses Not on filedocumented in this encounter Additional Health Concerns Active ProblemsNoted DateDiagnosed DateOB Ztlzogysl93/13/2023 documented as of this encounter Care Teams Team MemberRelationshipSpecialtyStart DateEnd Date Elaina Villarreal, PLASTERER JOURNEYMAN-SPECIAL PROJECTS MANAGER [address] [place] [address] PCP - [facility]/ Sheng Frankel DO [address] [facility] [address] [place] [address] PCP - [facility]08/10/24 Sheng Frankel DO [address] [facility] [address] [place] [address] PCP - [facility] Sandhya Jaramillo NP [address] [place] [address] PCP - [facility]01/21/25documented as of this encounter
--- OUTSIDE RECORDS SUMMARY | 2025-03-27 08:46 | XMS_ITS | Encounter Summary ---
Author Organization [facility] Address [address] [facility] [address] Care Team Providers Care Toy Parts Former Supervisor Name Role Phone Elaina Villarreal Tapan ERNST-RAMP ATTENDANT Unavailable + [phone] Sheng Frankel DO Primary Care Provider + [phone] Sheng Frankel DO Unavailable [phone] Sandhya Jaramillo TRAIN DISPATCHER Unavailable [phone] Encounter Details DateTypeDepartmentCare Team (Latest Contact Info)Ozesuccirdt88/20/2023Clinisync Result Encounter [facility] External Department Unsolicited Jaida Beverly DO [address] [place], [place] [address] Social History Tobacco UseTypesPacks/DayYears UsedDateSmoking Tobacco: NeverSmokeless Tobacco: NeverAlcohol UseStandard Drinks/WeekCommentsYes0 (1 standard drink = 0.6 oz pure alcohol)Occasional alcohol useSocial Connection and Isolation PanelAnswerDate RecordedIn a typical week, how many times do you talk on the phone with family, friends, or neighbors?More than three times a week08/09/2024How often do you get together with friends or relatives?Once a week08/09/2024How often do you attend confucianist or moravian services?Patient nskotweh75/20/2025Do you belong to any clubs or organizations such as confucianist groups, unions, fraternal or athletic lico ups, or school groups?No08/09/2024How often do you attend meetings of the clubs or organizations you belong to?Never03/20/2025Are you , , , , never , or living with a partner?Vogiwer4708/09/2024 AUDIT-CAnswerDate RecordedQ1: How often do you have [...] at all 08/09/2024PHQ-2AnswerDate RecordedPatient Health Questionnaire-2 Score0 08/10/2024[facility] [place] of Occupational Health - Occupational Stress QuestionnaireAnswerDate RecordedDo you feel stress - tense, restless, nervous, or anxious, or unable to sleep at night because yourmind is troubled all the time - these days?Only a jiyysp1208/09/2024Exercise Vital SignAnswerDate Recorded On average, how many [...] homeless or living in a mcfp (including now)?No08/09/2024CommentsYes Sex and Gender InformationValueDate RecordedSex Assigned at BirthFemale 01/13/2023 1:36 PM EDTLegal SftHwibnq37/15/2023 11:47 PM EDTGender Identity Vfizqt9001/13/2023 1:36 PM EDTSexual MaoqcrugpsoUcmayxow41/24/2023 1:36 PM EDT COVID-19 ExposureResponseDate RecordedIn the last 10 days, have you been in contact with someone who was confirmed or suspected to have Co ronavirus/COVID-19?No / Yhduhi0104/12/2023 8:47 AM ESTdocumented as of this encounter Functional Status * AUDIT-C ScoreAnswerDate of QderdgyrgoOpwwbq302/20/2025 3:36 AM Hector Generic * Q1: How often do you have a drink containing alcohol?AnswerDate of Assessment AitgynWgjjf46/20/2025 3:36 AM EDHong, Generic * Q2: How many drinks containing alcohol do you have on a typical day when you are drinking?AnswerDate of AssessmentAuthorPatient does not drink08/09/2024 3:36 AM Hector, Generic * Q3: How often do you have six or more drinks on one occasion?AnswerDate of GsgjromcouIdarufRfoqe58/20/2025 3:36 AM Hector, Generic * Over the past 2 weeks, how often have you been bothered by any of the following problems?QuestionAnswerDate of AssessmentAuthorLittle interest or pleasure in doing thingsNot at all08/10/2024 11:14 AM JANELLE ROBLESeeling down, depressed, or hopelessNot at all08/10/2024 11:14 AM DENILSON ROBLES Patient Health Questionnaire-2 Phunk138 11:14 AM DENILSON ROBLES documented as of this encounter Plan of Treatment Not on file documented as of this encounter Goals GoalPatient Goal TypeAssociated ProblemsRecent ProgressPatient-Stated?Author Reminders Care PlanOB RemindersNoOpen Scheduling, Backgrounddocumented as of this encounter Procedures Procedure NamePriorityDate/TimeAssociated DiagnosisCommentsUS OB TRANSVAGINAL 04/11/2023 9:28 PM EST documented in this encounter Results * US OB TRANSVAGINAL (04/11/2023 9:28 PM EST)Anatomical RegionLateralityModality OtherSpecimen (Source)Anatomical Location / LateralityCollection Method / VolumeCollection TimeReceived Time04/11/2023 9:28 PM EST Narrative 04/11/2023 9:28 PM EST The [facility] ?[address] ? [place] [id number] ? Ultrasound Report ? Signed ? Patient: GINAGRACE M ?MR#: [id number] ?? : 2000 ?Acct:[id number] ?? Age/Sex: 23 / F ?ADM Date: 04/11/23 ?? Loc: US ? Attending Dr: Jaida Beverly D.O. ? Ordering Physician: Jaida Beverly D.O. ?? Date of Service: 04/11/23 ?? Procedure(s): US OB transvaginal ?? Accession Number(s): [id number] ? cc: Jaida Beverly D.O.; Physician,Non-Staff M.D. ? The [facility] ? [address] [place] [address] ? [place] [address] ? Patient Name: ?? GRACE FUENTES ? MRN: [facility]:[id number] ? date: 2000 ?Sex: F ?? Assigned Patient Location: US ?? Current Patient Location: US ?? Accession/Order Number: [id number] ?? Exam Date: 04/11/2023 ??08:09 ?Report Date: 04/11/2023 ??21:28 ? At the request of: ?? JAIDA ??SIRIA ? Procedure: ??US OB transvaginal ? EXAMINATION: US OB anatomy, US OB [...] ?? ANDI by current US: 08/27/2023 ? US/ OB transvaginal ?? IMPRESSION: ? 1. Single live intrauterine with growth detailed above. ?? 2. Anterior low-lying placenta. ? Electronically authenticated by: SHON ??JENI ?? Date: 04/11/2023 ??21:28 ? Dictated By: ?Shon Ruiz M.D. ? Signed By: ?04/11/232130 ? DD/ 27 ? TD/TT: ? Is Analyst: Procedure Note Radiology, Radiologist, MD - 04/11/[address] [address] Ultrasound Report Signed Patient: GRACE FUENTES [facility]#: [id number] : 2000Acct:[id number] Age/Sex: 23 / FADM Date: 04/11/23 Loc: US Attending Dr: Jaida Beverly D.O. Ordering Physician: Jaida Beverly D.O. Date of Service: 04/11/23 Procedure(s): US OB transvaginal Accession Number(s): [id number] cc: Jaida Beverly D.O.; Physician,Non-Staff [place] [address] Patient Name: GRACE FUENTES MRN: [facility]:[id number] date: 2000 Sex: F Assigned Patient Location: US Current Patient Location: US Accession/Order Number: [id number] Exam Date: 04/11/2023 08:09 Report Date: 04/11/2023 [...] Ruiz M.D. Signed By:04/11/232130 DD/ 27 TD/TT: Is Analyst: Authorizing ProviderResult TypeResult StatusCorey Siria DOCLINISYNC IMAGINGFinal Result documented in this encounter Visit Diagnoses Not on filedocumented in this encounter Additional Health Concerns Active ProblemsNoted DateDiagnosed DateOB Kvijksdnj59/13/2023 documented as of this encounter Care Teams Team MemberRelationshipSpecialtyStart DateEnd Date Elaina Villarreal APRN-RAMP ATTENDANT [address] [place] [address] PCP - [facility]/ Sheng Frankel DO [address] [place] [address] [facility] Sheng Frankel DO [address] [place] [address] PCP - [facility] Sandhya Jaramillo NP [address] [place] [address] PCP - [facility]01/21/25documented as of this encounter
--- OUTSIDE RECORDS SUMMARY | 2025-03-27 08:46 | XMS_ITS | Clinical Summary ---
Author Organization [facility] Address [address] [place] [address] Care Team Providers Care Tumor Registrar Name Role Phone Sheng Frankel DO Primary Care Provider Sandhya Jaramillo STRONG NITRIC OPERATOR Unavailable [phone] Allergies No known active allergies Medications MedicationSigDispense QuantityRefillsLast FilledStart DateEnd DateStatus FLUoxetine (PROzac) 10 MG capsule Indications:Anxiety, generalized,Mood changesTake 1 capsule (10 mg) by mouth Daily 30 capsule 11012/12/2470416Active Active Problems ProblemNoted DateDiagnosed DateAbnormal cervical Papanicolaou smear08/10/2024 Iesdesu6408/10/2024SGA (small for gestational age) ([facility])07/25/2023Size of fetus inconsistent with dates in third trimester ([facility])07/25/2023 Encounters DateTypeDepartmentCare WlnrNkorckizarr74/22/2025Results Follow-Up [facility] [address] [place] [address] Sheng Frankel DO URINARY TRACT INFECTION + HIGH RISK SEXUAL BEHAVIOR (HTRX)03/11/2025 4:25 PM EDT Office Visit [facility] [address] [place] [id number] Sheng Frankel DO Dysuria (Primary Dx)03/11/20251707Lxcgld67/16/2025bstract [facility] [address] [place] [address] Sheng Frankel DO 01/16/2025Orders Only [facility] [place] [facility] [address] [place] [phone] Praneeth Hernandez MD 01/09/2025 8:10 AM EDTOffice Visit [facility] [address] [place] [address] [place] [phone] Shmuel Beverly DO Mood hmcyigi9001/09/20253849Xqsqgr64/13/2025bstract [facility] [address] [place] [address] Sheng Frankel DO from Last 3 Months Social History Tobacco UseTypesPacks/DayYears UsedDateSmoking Tobacco: NeverSmokeless Tobacco: Never Tobacco Cessation:Counseling Given: Not Answered Alcohol UseStandard Drinks/WeekCommentsYes0 (1 standard drink = 0.6 oz pure alcohol)Occasional alcohol useSocial Connection and Isolation PanelAnswerDate RecordedIn a typical week, how many times do you talk on the phone with family, friends, or neighbors?More than three times a week08/09/2024How often do you get together with friends or relatives?Once a week08/09/2024How often do you attend worship or oriental orthodox services?Patient simblpxj43/20/2025Do you belong to any clubs or organizations such as worship groups, unions, fraternal or athletic lico ups, or school groups?No08/09/2024How often do you attend meetings of the clubs or organizations you belong to?Never08/09/2024re you , , , , never , or living with a partner?Ncdtgzu5308/09/2024 AUDIT-CAnswerDate RecordedQ1: How often do you have [...] at all 08/09/2024PHQ-2AnswerDate RecordedPatient Health Questionnaire-2 Score0 08/10/2024[facility] [place] [facility] - Occupational Stress QuestionnaireAnswerDate RecordedDo you feel stress - tense, restless, nervous, or anxious, or unable to sleep at night because yourmind is troubled all the time - these days?Only a gpkdpu7708/09/2024Exercise Vital SignAnswerDate Recorded On average, how many [...] homeless or living in a fpc (including now)?No08/09/2024CommentsNo Sex and Gender InformationValueDate RecordedSex Assigned at BirthFemale 01/13/2023 1:36 PM EDTLegal JkcRcpfcc12/15/2023 11:47 PM EDTGender Identity Rgzlbk9001/13/2023 1:36 PM EDTSexual ZdrjgvyddpoDjqstipz41/24/2023 1:36 PM EDT Last Filed Vital Signs Vital SignReadingTime TakenCommentsBlood Bfatfuts942/801 4:36 PM EDT Zsztu82609/20/2025 4:36 PM MLCFpgbzutezss94.1 ??C (98.7 ??F)03/11/2025 4:36 PM EDTRespiratory Omnr018811/29/2024 10:50 AM EDTOxygen Hpzpodxwrn34%03/11/2025 4:36 PM EDTInhaled Oxygen Concentration--Zxgupa63 kg (172 lb)03/11/2025 4:36 PM EDT Qkzbjl408 cm (5' 3 )08/10/2024 11:12 AM EDTBody Mass Index30.47008/10/2024 11:12 AM EDT Plan of Treatment Health MaintenanceDue DateLast DoneCommentsMMR Vaccines (1 of 1 - Standard series)01/29/2000DTaP/Tdap/Td Vaccines (1 - Tdap)2006Varicella Vaccines (1 of 2 - 13+ 2-dose series)01/29/2012HPV Vaccines (1 - 3-dose series)2014 Hepatitis B Vaccines (1 of 3 - 19+ 3-dose series)2018COVID-19 Vaccine ( - season)2025Influenza Vaccine (#1)2025HIB VaccinesAged OutNo longer eligible based on patient's age to complete this topicHepatitis A VaccinesAged OutNo longer eligible based on patient's age to complete this topic IPV VaccinesAged OutNo longer eligible based on patient's age to complete this topicMeningococcal B VaccineAged OutNo longer eligible based on patient's age to complete this topicMeningococcal VaccineAged OutNo longer eligible based on patient's age to complete this topicPneumococcal Vaccine: Pediatrics (0 to 5 Years) and At-Risk Patients (6 to 64 Years)Aged OutNo longer eligible based on patient's age to complete this topicRotavirus VaccinesAged OutNo longer eligible based on patient's age to complete this topic Goals GoalPatient Goal TypeAssociated ProblemsRecent ProgressPatient-Stated?Author Reminders Care PlanOB RemindersNoOpen Scheduling, Background Procedures Procedure NamePriorityDate/TimeAssociated DiagnosisCommentsURINARY TRACT INFECTION + HIGH RISK SEXUAL BEHAVIOR (HTRX)Vokmrqm0703/11/2025 5:15 PM EDT Dysuria URINALYSIS ANALYZER HZCFQtvpxmi41/20/2025 4:52 PM EDT Dysuria COLONOSCOPY ZEIZKXOBSLDurhzsg08/27/2025 10:49 AM EDTfrom Last 3 Months Results * URINARY TRACT INFECTION + HIGH RISK SEXUAL BEHAVIOR (HTRX) (03/11/2025 5:15 PM EDT)ComponentValueRef RangeTest MethodAnalysis TimePerformed AtPathologist SignatureTRICHOMONAS VAGINALIS (URINARY TRACT)023.000 - 31.995 ppm03/13/2025 8:12 AM EDTHealthTrackRx at LabPortTRICHOMONAS VAGINALIS (URINARY TRACT)Not Qluxmysp28.000 - 31.995 ppm03/13/2025 8:12 AM EDTHealth[facility]Rx at [facility]Port STREPTOCOCCUS PYOGENES (GROUP A STREP) (URINARY TRACT)019.961 - 24.689 ppm 03/13/2025 8:12 AM EDTHealthTrackRx at LabPortSTREPTOCOCCUS PYOGENES (GROUP A STREP) (URINARY TRACT)Not Winrgwoq15.961 - 24.689 ppm03/13/2025 8:12 AM EDT [facility] LabPortSTREPTOCOCCUS AGALACTIAE (GROUP B STREP) (URINARY TRACT)026.000 - 32.435 ppm03/13/2025 8:12 AM EDTHealth[facility]Rx at [facility] STREPTOCOCCUS AGALACTIAE (GROUP B STREP) (URINARY TRACT)Not Vakwoxdc03.000 - 32.435 ppm03/13/2025 8:12 AM EDTHealthTrackRx at LabPortSTAPHYLOCOCCUS AUREUS (URINARY TRACT)026.000 - 31.595 ppm03/13/2025 8:12 AM EDTHealthTrackRx at LabPortSTAPHYLOCOCCUS AUREUS (URINARY TRACT)Not Pdutuslp36.000 - 31.595 ppm 03/13/2025 8:12 AM EDTHealthTrackRx at LabPortSERRATIA MARCESCENS (URINARY TRACT)023.000 - 31.581 ppm03/13/2025 8:12 AM EDT[facility] SERRATIA MARCESCENS (URINARY TRACT)Not Qrdgfrpv92.000 - 31.581 ppm03/13/2025 8:12 AM EDTHealthTrackRx at LabPortPSEUDOMONAS AERUGINOSA (URINARY TRACT)0 23.000 - 31.801 ppm03/13/2025 8:12 AM EDTHealthTrackRx at LabPortPSEUDOMONAS AERUGINOSA (URINARY TRACT)Not Omnryotz28.000 - 31.801 ppm03/13/2025 8:12 AM EDTHealthTrackRx at LabPortPROTEUS MIRABILIS, VULGARIS (URINARY TRACT)023.000 - 28.500 ppm03/13/2025 8:12 AM EDTHealthTrackRx at LabPortPROTEUS MIRABILIS, VULGARIS (URINARY TRACT)Not Sybolbmb68.000 - 28.500 ppm03/13/2025 8:12 AM EDT [facility] at LabPortNEISSERIA GONORRHOEAE (URINARY TRACT)023.000 - 32.587 ppm03/13/2025 8:12 AM EDTHealthTrackRx at LabPortNEISSERIA GONORRHOEAE (URINARY TRACT)Not Wtbabqip72.000 - 32.587 ppm03/13/2025 8:12 AM EDT [facility] at LabPortKLEBSIELLA PNEUMONIAE, OXYTOCA (URINARY TRACT)023.000 - 31.865 ppm03/13/2025 8:12 AM EDTHealthTrackRx at LabPortKLEBSIELLA PNEUMONIAE, OXYTOCA (URINARY TRACT)Not Nnydplbz64.000 - 31.865 ppm03/13/2025 8:12 AM EDTHealthTrackRx at LabPortESCHERICHIA COLI (URINARY TRACT)023.000 - 28.500 ppm03/13/2025 8:12 AM EDTHealthTrackRx at LabPortESCHERICHIA COLI (URINARY TRACT)Not Tpnvudps46.000 - 28.500 ppm03/13/2025 8:12 AM EDT [facility] LabPortENTEROCOCCUS FAECALIS, FAECIUM (URINARY TRACT)026.000 - 33.043 ppm03/13/2025 8:12 AM EDTHealthTrackRx at LabPortENTEROCOCCUS FAECALIS, FAECIUM (URINARY TRACT)Not Mqcmkvie40.000 - 33.043 ppm03/13/2025 8:12 AM EDTHealthTrackRx at LabPortENTEROBACTER CLOACAE COMPLEX, KLEBSIELLA (ENTEROBACTER) AEROGENES (HKSOKMP957.000 - 32.290 ppm03/13/2025 8:12 AM EDT [facility] at LabPortENTEROBACTER CLOACAE COMPLEX, KLEBSIELLA (ENTEROBACTER) AEROGENES (URINARYNot Smijwqtt33.000 - 32.290 ppm03/13/2025 8:12 AM EDTHealthTrackRx at LabPortCITROBACTER FREUNDII (URINARY TRACT)023.000 - 32.015 ppm03/13/2025 8:12 AM EDTHealthTrackRx at LabPortCITROBACTER FREUNDII (URINARY TRACT)Not Fqqgtwye27.000 - 32.015 ppm03/13/2025 8:12 AM EDT [facility] at LabPortCHLAMYDIA TRACHOMATIS (URINARY TRACT)023.000 - 31.586 ppm03/13/2025 8:12 AM EDTHealthTrackRx at LabPortCHLAMYDIA TRACHOMATIS (URINARY TRACT)Not Bxfzblhi14.000 - 31.586 ppm03/13/2025 8:12 AM EDT [facility] at LabPortACINETOBACTER BAUMANNII (URINARY TRACT)019.961 - 24.689 ppm03/13/2025 8:12 AM EDTHealthTrackRx at LabPortACINETOBACTER BAUMANNII (URINARY TRACT)Not Gwxlhkcg66.961 - 24.689 ppm03/13/2025 8:12 AM EDT [facility] at LabPortMORGANELLA MORGANII (URINARY TRACT)019.961 - 24.689 ppm03/13/2025 8:12 AM EDTHealthTrackRx at LabPortMORGANELLA MORGANII (URINARY TRACT)Not Opatulsw13.961 - 24.689 ppm03/13/2025 8:12 AM EDTHealthTrackRx at LabPortCANDIDA ALBICANS, PARAPSILOSIS, TROPICALIS (URINARY TRACT)023.000 - 30.347 ppm03/13/2025 8:12 AM EDTHealthTrackRx at LabPortCANDIDA ALBICANS, PARAPSILOSIS, TROPICALIS (URINARY TRACT)Not Nrgctoak46.000 - 30.347 ppm 03/13/2025 8:12 AM EDTHealthTrackRx at LabPortCANDIDA GLABRATA (URINARY TRACT) 023.000 - 31.618 ppm03/13/2025 8:12 AM EDTHealthTrackRx at LabPortCANDIDA GLABRATA (URINARY TRACT)Not Hchlqigs71.000 - 31.618 ppm03/13/2025 8:12 AM EDT [facility] LabPortCANDIDA KRUSEI (URINARY TRACT)023.000 - 30.873 ppm 03/13/2025 8:12 AM EDTHealthTrackRx at LabPortCANDIDA KRUSEI (URINARY TRACT) Not Foponwop39.000 - 30.873 ppm03/13/2025 8:12 AM EDTHealth[facility]Rx at LabPort MYCOPLASMA DBUFFAVNXP624.961 - 24.689 ppm03/13/2025 8:12 AM EDTHealthTrackRx at LabPortMYCOPLASMA GENITALIUMNot Tyumzbse59.961 - 24.689 ppm03/13/2025 8:12 AM EDTHealthTrackRx at LabPortMYCOPLASMA TXOHFDX070.961 - 24.689 ppm03/13/2025 8:12 AM EDTHealthTrackRx at LabPortMYCOPLASMA HOMINISNot Yacljuna79.961 - 24.689 ppm03/13/2025 8:12 AM EDTHealthTrackRx at LabPortSTAPHYLOCOCCUS ZUPSRVLCXDLOA533.961 - 24.689 ppm03/13/2025 8:12 AM EDTHealthTrackRx at LabPortSTAPHYLOCOCCUS SAPROPHYTICUSNot Qwoatcvl17.961 - 24.689 ppm03/13/2025 8:12 AM EDTHealthTrackRx at LabPortSTAPHYLOCOCCUS EPIDERMIDIS, HAEMOLYTICUS, ZOQTJLYSXYU390.961 - 24.689 ppm03/13/2025 8:12 AM EDT[facility] STAPHYLOCOCCUS EPIDERMIDIS, HAEMOLYTICUS, LUGDUNENSISNot Ottmvbhw77.961 - 24.689 ppm03/13/2025 8:12 AM EDTHealthTrackRx at LabPortUREAPLASMA UREALYTICUM 019.961 - 24.689 ppm03/13/2025 8:12 AM EDTHealthTrackRx at LabPortUREAPLASMA UREALYTICUMNot Xfzxhotd95.961 - 24.689 ppm03/13/2025 8:12 AM EDTHealthTrackRx at LabPortUREAPLASMA CCQBUY771.961 - 24.689 ppm03/13/2025 8:12 AM EDT [facility] at LabPortUREAPLASMA PARVUMNot Jkltsefu52.961 - 24.689 ppm 03/13/2025 8:12 AM EDTHealthTrackRx at LabPortSpecimen (Source)Anatomical Location / LateralityCollection Method / VolumeCollection TimeReceived Time Urine03/11/2025 5:15 PM EDT1 1:35 AM EDT Narrative Authorizing ProviderResult TypeResult StatusTimzee Frankel DOLAB BLOOD ORDERABLESFinal ResultPerforming OrganizationAddressCity/State/ZIP CodePhone Number [facility] [address] [place] [address] * URINALYSIS ANALYZER TEST (03/11/2025 4:52 PM EDT)ComponentValueRef RangeTest MethodAnalysis TimePerformed AtPathologist SignatureLEUKOCYTESnegativeNegative NITRITESnegativeNegativeUROBILINOGENnegative0.2 - 1.0PROTEINnegativeNegativePH 6.05.0 - 6.0BLOODnegativeNegativeSPECIFIC GRAVITY1.0151.001 - 1.035KETONES negativeNegativeBILIRUBINnegativeNegativeGLUCOSEnegativeNegativeSpecimen (Source)Anatomical Location / LateralityCollection Method / VolumeCollection TimeReceived GlceQirbn23/20/2025 4:52 PM EDT Narrative Authorizing ProviderResult TypeResult StatusSandeep Bejarano DOPOINT OF CARE TEST ENTER/EDIT ORDERABLESFinal Result * COLONOSCOPY DIAGNOSTIC (01/16/2025 10:49 AM EDT)Anatomical RegionLaterality ModalityRadiographic Imaging Narrative Authorizing ProviderResult TypeResult StatusCamcody Hernandez MDIMG XR PROCEDURES Final Result from Last 3 Months Additional Health Concerns Active ProblemsNoted DateDiagnosed DateOB Drplyvqwt88/13/2023 Insurance Care Teams Team MemberRelationshipSpecialtyStart DateEnd Sheng Frankel DO [address] [place] [address] PCP - GeneralFamily Medicine08/10/24 Sandhya Jaramillo NP [address] [place] [address] PCP - Jaymie Ryan01/21/25
--- OUTSIDE RECORDS SUMMARY | 2025-03-27 08:48 | XMS_ITS | CCD ---
Author Organization [facility] CliniSyfl Care Team Providers Care Tube Drawing Supervisor Name Role Phone CIERRA ., DR WATKINS [...] e Unavailable Primary Care Provider Unavailabl e Bjorn Frankel DO Primary Care Provider Bjorn Frankel DO Unavailable Praneeth Hernandez MD Attending Provider [phone] NON STAFF Primary Care Provider UnavailPraneeth Moore MD Other Provider [phone] Bjorn Frankel DO Primary Care Provider [phone] Ulises Pimentel APRN Attending Provider Praneeth Hernandez Attending Unavailable Praneeth Hernandez Admitting Unavailable Bjorn Frankel Primary Care Unavailable Bjorn Frankel L Primary Care Unavailable Ulises Pimentel Attending Unavailable Ulises Pimentel Admitting Unavailable Dianelys MICHAEL, Aimee Yap Unavailable [phone] BJORN FRANKEL Attending Unavailable SHMUEL BEVERLY Attending Unavailable AIMEE IVORY Attending Unavailable SHMUEL BEVERLY Attending Unavailable BJORN FRANKEL L Attending Unavailable Cherelle ERNST-POLITICAL SCIENCE FACULTY MEMBER, Elaina A Unavailable Bjorn Frankel DO Unavailable [phone] BJORN FRANKEL Referring Unavailable Angie Campa Attending Unavailable Allergies Allergy ClassificationReported Allergen(s)Allergy TypeDate of OnsetReaction(s) Facility (1 source)No Known Medication Allergies; Translations: [No Known Medication Allergies]Propensity to adverse reactions (disorder)[facility] Repository Medications Current Medications MedicationDrug Class(es)DatesSig (Normalized)Sig (Original)FLUoxetine 10 mg oral capsule (12 sources)Serotonin Reuptake InhibitorStart: 12-12-2024 End: 56-96-2264gdez 1 capsule by mouth once dailyFluoxetine 10 mg capsule Active 10 MG PO Daily January 01, 2025 12:00am Complies with drug therapy nitrofurantoin, macrocrystals 25 mg / nitrofurantoin, monohydrate 75 mg oral capsule (1 source)Nitrofuran AntibacterialStart: 06-26-2024 End: 54-74-3670pkoq 1 capsule by mouth twice dailynitrofurantoin monohydrate and macrocrystal (MACROBID) 100 mg capsule Indications: Dysuria Take 1 capsule by mouth two times a day for 5 days. 10 capsule 06/26/2024 07/01/2024 Active Completed/Discontinued Medications MedicationDrug Class(es)DatesSig (Normalized)Sig (Original)alpha-tocopherol acetate 30 unt / ascorbic acid 100 mg / beta carotene 1000 unt / calcium xksblaxzt037 mg / calcium pantothenate 7 mg / cholecalciferol 400 unt / docusate sodium 25 mg / ferrous fumarate 29 mg / folic acid 1 mg / niacinamide 15 mg / pyridoxine hydrochloride 20 mg / riboflavin 3 mg / thiamine 3 mg / vitamin b12 0.012 mg / zinc oxide 20 mg oral tablet (3 sources)Vitamin B12, Vitamin D, Vitamin C End: 06-74-0051Pzkyzsrz Vit-DSS-Fe Fum-FA ( 19) tablet 1 (one) time each day at the same time 09/29/2023 Discontinuedamoxicillin 875 mg / clavulanate 125 mg oral tablet (4 sources)Penicillin-class AntibacterialStart: 12-02-2024 End: 12-93-2665xrif 1 tablet by mouth in the morningamoxicillin-clavulanate (Augmentin) 875-125 MG tablet Indications: Dysuria Take 1 tablet (875 mg) by mouth in the morning and 1 tablet (875 mg) before bedtime. Do all this for 10 days. 20 tablet 12/02/2024 12/12/2024 Aesqvrw57 hr metFORMIN hydrochloride 500 mg extended release oral tablet (7 sources)BiguanideStart: 09-20-2024 End: 83-84-2377ngkz 1 tablet by mouth every twenty-four hours at mealtime metFORMIN XR (Glucophage-XR) 500 MG 24 hr tablet Indications: PCOS (polycystic ovarian syndrome) Take 1 tablet (500 mg) by mouth in the evening. Take with meals Do not crush, chew, or split. 90 tablet 09/20/2024 12/12/2024 Discontinued omeprazole 20 mg delayed release oral capsule (3 sources)Proton Pump InhibitorStart: 05-17-2023 End: 03-24-1923oysr 1 capsule by mouth once before mealtimeomeprazole (PriLOSEC) [address] capsule Indications: Heartburn during in second trimester ( HHS-HCC) Take 1 capsule (20 mg) by mouth in the morning. Take before meals. Do not crush or chew.. 30 capsule 11 05/17/2023 08/25/2023 Discontinued (Other) polyethylene glycol 3350 41542 mg powder for oral solution (1 source)Osmotic LaxativeStart: 02-05-2025 End: 98-39-8891Xzlykxzulcaz Glycol 3350 (Miralax) 17 gram/dose powder Discontinued 17 GM PO Three times daily 242986 5 February 05, 2025 12:00am March 21, 2025 2:56pmSod Picosulf-Mag Ox-Citric Ac (5 sources)Start: 01-01-2025 End: 39-60-2321Bje Picosulf-Mag Ox-Citric Ac (Clenpiq) 10 mg-3.5 gram- 12 gram/175 mL solution Discontinued 175 MLPO .COMPLEX 350 1 0 January 01, 2025 12:00am February 04, 2025 1:36pm Follow instructions givenby officeStart: 01-01-2025 End: 60-42-5187Ytc Picosulf-Mag Ox-Citric Ac (Clenpiq) 10 mg-3.5 gram- 12 gram/175 mL solution Discontinued 175 MLPO .COMPLEX 350 1 January 01, 2025 12:00am February 04, 2025 1:36pm Follow instructions given by officeStart: 01-01-2025 Problems Active Problems Problem ClassificationProblemDateDocumented DateEpisodic/ChronicAbdominal pain (18 sources)Pain in female pelvis; Translations: [Pelvic and perineal pain] Onset: 666431-54-0011GtmfzulvTxcolkm disorders (2 sources)Generalized anxiety disorder; Translations: [Generalized anxiety disorder]11-07-0158CtceuzeRoxxbgcgajbqrgoy hemorrhage (11 sources)Gastrointestinal hemorrhage; Translations: [Hemorrhage of anus and rectum]Onset: 569691-83-8272JlaklokhMoagferaxisyw symptoms and ill-defined conditions (6 sources)Dysuria; Translations: [Dysuria]93-15-6517PojfwzvhRnidytsyycxfn and screening for infectious disease (1 source)Encounter for screening for human papillomavirus (HPV); Translations: [ENC SCREENING HUMAN PAPILLOMAVIRUS]Onset: 12-74-9514BivqwhseZets disorders (4 sources)Disturbance in mood; Translations: [Emotional lability]12-12-2024 EpisodicOther female genital disorders (2 sources)Pruritus of vagina; Translations: [Other specified noninflammatory disorders of vagina]25-21-2425JbhseswgKmcfi gastrointestinal disorders (5 sources)Irritable bowel syndrome; Translations: [Irritable bowel syndrome without diarrhea]45-06-0132FcvwejdItgvo gastrointestinal disorders (10 sources)Altered bowel function; Translations: [Change in bowel habit] 19-30-1780JakemdnrShsjh gastrointestinal disorders (1 source)Change in bowel habit; Translations: [Change in bowel habit]Onset: 02-29-1435ZianromlDiwaw nutritional; endocrine; and metabolic disorders (20 sources)Obesity; Translations: [Obesity, unspecified]Onset: 08-10-2024 36-28-9698VyloyrcRlmbh and delivery including normal (3 sources)Single live ; Translations: [Third trimester ]Onset: 281075-89-4625WgpxptstDsxgtmqnlwrv (20 sources)OB RemindersOnset: 234691-37-9092 Past or Other Problems Problem ClassificationProblemDateDocumented DateEpisodic/ChronicMalposition; malpresentation (1 source)Maternal care for high head at term, not applicable or unspecified; Translations: [MATERNAL CARE HIGH HEAD TERM NA/UNS]Onset: 64-41-9347Ypbgoguk Other complications of (5 sources)Maternal care for excessive growth, third trimester, not applicable or unspecified; Translations: [MAT CARE EXCSS FTL GRTH 3RD TRI UNS] Onset: 22-16-7367TtypnvwjQgtcs complications of (4 sources)Abnormal ultrasonic finding on screening of mother; Translations: [ABNORM US SCREEN MOTHER]Onset: 28-58-5807EmpkvasvSwkoh complications of (20 sources) size does not accord with dates; Translations: [Uterine size- date discrepancy, third trimester]Onset: 239229-82-6755GevvekrbPfvvb screening for suspected conditions (not mental disorders or infectious disease) (20 sources)Encounter for screening for malignant neoplasm of cervix; Translations: [Encounter for screening for Streptococcus B]Onset: 77-35-8509XnmmsdlaJxezjspqqeqcbf and other problems of amniotic cavity (3 sources)Full-term premature rupture of membranes, unspecified as to length of time between rupture and onset of labor; Translations: [FT PROM UNS TM BTWN RUPT ONSET LABR]Onset: 45-22-2476YzvhrfswDwrjjhpb codes; unclassified (1 source)38 weeks gestation of ; Translations: [38 WEEKS GESTATION OF ]Onset: 55-70-3051NvpyqbabRpwaoawd codes; unclassified (1 source)37 weeks gestation of ; Translations: [37 WEEKS GESTATION OF ]Onset: 78-83-0892FnqkhvloMoydyqvk codes; unclassified (1 source)36 weeks gestation of ; Translations: [36 WEEKS GESTATION OF ]Onset: 60-91-0784FjucmhoeZmfnowui codes; unclassified (1 source)35 weeks gestation of ; Translations: [35 WEEKS GESTATION OF ]Onset: 60-86-8042XhrbkwckFfimu gestation; low weight; and growth retardation (20 sources)Sywxi-dle-jwldc baby; Translations: [ small for gestational age, unspecified weight]Onset: 483466-99-9692Rszkllmw Results Test NameValueInterpretationReference RangeFacilityLaboratory - Chemistry and Chemistry - challengeon 70-07-6607Chmghmrut Ql (U)NegativeNegativeNOMS HealthcareGlucose [Mass/Vol]NegativeNegativeNOMS HealthcareKetones Ql (U) NegativeNegativeNOMS HealthcarepH (U)6.0 [pH]5.0 - 6.0NOMS HealthcareSpecific gravity (U) [Rel density]1.0151.001 - 1.035NOMS HealthcareUrobilinogen (U) [Mass/Vol]Negative0.2 - 1.0NOMS HealthcareLaboratory - Hematology and Cell countson 58-33-3435Tnbyozribc Ql (U)NegativeNegativeNOMS HealthcareLaboratory - Urinalysison 75-72-0057Izvzogm Ql (U)NegativeNegativeNOMS HealthcareProtein Ql (U)NegativeNegativeNOMS HealthcareNo Panel Informationon 03-11-2025 Interpretation and review of laboratory resultsNormalNOMS HealthcareLEUKOCYTES NegativeNegativeNOMS HealthcareNOMS HealthcareX-ray reportOrdered By: Franco Villarreal on 37-06-0745Ipigc reportUNIVERSITY [facility] Main [address] [address] XRay Report Signed Patient: Delia Gayle MR#: [id number] : 2000 Acct:[id number] Age/Sex: 25 / F ADM Date: 5 Loc: XD Room: Type: REG CLI Attending Dr: Ulises Pimentel APRN Copies [...] a moderate amount stool within the rectum. Noradiographic evidence of free air. The bony structures are within normal limits. XR/XR KUB IMPRESSION: No bowel obstruction or free air. There is a moderate amount stool within the rectum. Impression dictated by: Franco Villarreal M.D. 02/04/2025 9:11 PM Dictation Location: [place] [address] Transcribed By: [facility] 02/04/252110 Dictated By: Franco Villarreal II, MD 02/04/252109 Signed By: 02/04/25[address] [facility] Work Phone: xr [facility] [phone] [facility] Main [address] [address] XRay Report Signed Patient: Delia Gayle MR#: [id number] : 2000 Acct:[id number] Age/Sex: 25 / F ADM Date: 02/04/25 Loc: XD Room: Type: REG CLI Attending Dr: Ulises Pimentel APRN Copies to: Ulises Pimentel APRN Ordering Provider: Ulises Pimentel APRN Date of Service: 02/04/25 XR/XR KUB: R10.9 - Unspecified abdominal pain XR KUB 02/04/2025 2:37 PM SIGNS AND SYMPTOMS: R10.9 - Unspecified abdominal pain PROTOCOL: Frontal radiographs [...] Villarreal M.D. 02/04/2025 9:11 PM Dictation Location: [place] [address] Transcribed By: [facility] 02/04/252110 Dictated By: Franco Villarreal II, MD 02/04/252109 Signed By: 02/04/252110NoSloop [facility] Hospital Physician GroupHCG,Urineon 08-15-9791Ngtb HCG ( test) Ql (U)NegativeCommunity Memorial HospitalComment on above:Result Comment: PERFORMED BY: [place] [address] PATHOLOGIST POURING CRANE OPERATOR LACEY LAO M.D.Performed By: #### UHCG #### [address]karma 01-16-2025L Specimen: [id number] Received: 01/16/25 Status: JARVIS Grimes Num: [id number] Spec Type: Surgical Subm Dr: Praneeth Hernandez MD Tissues: A Colon Biopsy (RANDOM COLON BX) Procedures: ELIZABETH/Sudhir, Gross/Micro L4 Age/ Patient Sex Location Account Attending Physician Delia Gayle [id number] Praneeth Hernandez MD SPEC NUM: [id number] RECD: 01/16/25 STATUS: JARVIS SACHIN NUM: [id number] JUANTIA: 01/16/25-[address] [facility] [address]: Praneeth Hernandez MD ENTERED: 01/16/[address] [facility] [address]: MOHINDER TYPE: Surgical DEPT: S ENTERED BY: [id number] RECV BY: [id number] ORDERED: ELIZABETH/Sudhir, Gross/Micro L4 ORDERED: ELIZABETHSudhir, Gross/Micro L4 Pathological Diagnosis Colon, random, biopsy: - Benign colonic mucosa with lamina propria edema. - No evidence of chronic, active or microscopic colitis identified. Clinical Information Change in bowel habits, rule out microscopic colitis Gross Description Received in formalin labeled with the patients name, date of , and random colon BX are two strong-merlos, focally erythematous, friable, 0.3 cm each in greatest dimension tissue bits with a 0.7 cm in greatest dimension tissue strip. The specimen is entirely submitted in a single cassette. (1, ns, [id number] A) Microscopic Description Microscopic examination is performed. CPT Codes 09698 Specimen: [id number] Received: 01/16/25 Status: JARVIS Sachin Num: [id number] Spec Type: Surgical Subm Dr: Praneeth Hernandez MD Tissues: A Colon Biopsy (RANDOM COLON BX) Procedures: HE/Sudhir, Gross/Micro L4 Patient: Delia Gayle [id number] (Continued) Signed (signature on file) Rodo Marcus MD 01/17/25 1105Normal [facility] Physician GroupIGP,APTIMA HPV,AGE GDLNon 41-61-8398SWK GDLN ACOG TESTINGNote.[facility] HealthcareComment on above:TESTS RESULT FLAG UNITS REF RANGE LAB Clinician Provided Cytology Information Source.............Cervix;Endocervix No. of containers..01 ThinPrep Vial Age Algo ACOG [place]... FLAG LEGEND: L-Low Normal,H-High Normal,LL-Alert Low,HH-Alert High <-Panic Low,>-Panic High,A-Abnormal,AA-Critical Abnormal Performed at: 01 =G [facility] [address] [place] [address] Shannon Lopez MD, IGP, RFX APTIMA HPV ASCUNote.[facility] HealthcareComment on above:TESTS RESULT FLAG UNITS REF RANGE LAB DIAGNOSIS: 02 NEGATIVE FOR INTRAEPITHELIAL LESION OR MALIGNANCY. Specimen adequacy: 02 Satisfactory for evaluation. No endocervical component is identified. Performed by: 02 Ernestina Ayala, Personnel Training Officer ([facility]) . 02 Note: Note 02 The Pap [...] <-Panic Low,>-Panic High,A-Abnormal,AA-Critical Abnormal Performed at: [address] [facility] [address] [address] Shannon Lopez MD, Performed at: =G - [facility] [address] [id number] Building Energy Consultant: Shannon Lopez MD, Phone: [phone] Performed at: - [facility] [id number] Building Energy Consultant: Shannon Lopez MD, Phone: [phone] BRUSH-SPATULA CERVIX ENDOCERVIX CLINISYNCNOMS HealthcareNo Panel Informationon 92-59-4914HCDSGNTLNJVQJ BAUMANII0 NOMS HealthcareACINETOBACTER BAUMANIINot detectedNOMS HealthcareCANDIDA ALBICANS, PARAPSILOSIS, BJTAXKSFEO2NOLZ HealthcareCANDIDA ALBICANS, PARAPSILOSIS, TROPICALISNot detectedNOMS HealthcareCANDIDA QPZSOEAZ9OYCM HealthcareCANDIDA GLABRATANot detectedNOMS HealthcareCANDIDA XTUVIH6ZSJN HealthcareCANDIDA KRUSEINot detectedNOMS HealthcareCITROBACTER QAQKOBNP6GMXH HealthcareCITROBACTER FREUNDIINot detectedNOMS HealthcareENTEROBACTER AEROGENES, GTCQGGX1YFZP HealthcareENTEROBACTER AEROGENES, CLOACAENot detectedNOMS HealthcareENTEROCOCCUS FAECALIS, WFIEAHV3SSIO HealthcareENTEROCOCCUS FAECALIS, FAECIUMNot detectedNOMS HealthcareESCHERICHIA YQRX2PNEC HealthcareESCHERICHIA COLINot detectedNOMS HealthcareInterpretation and review of laboratory results AbnormalNOMS HealthcareKLEBSIELLA PNEUMONIAE, NDTMMAQ6EQTM HealthcareKLEBSIELLA PNEUMONIAE, OXYTOCANot detectedNOMS HealthcareMORGANELLA EJEENRRL8HIRC HealthcareMORGANELLA MORGANIINot detectedNOMS HealthcarePROTEUS MIRABILIS, NIGDEOCB4NKHD HealthcarePROTEUS MIRABILIS, VULGARISNot detectedNOMS Healthcare PSEUDOMONAS MJLKVKBXKG7OBPE HealthcarePSEUDOMONAS AERUGINOSANot detectedNOMS HealthcareSERRATIA PQVXPCKZUH2XUHL HealthcareSERRATIA MARCESCENSNot detectedNOMS HealthcareSTAPHYLOCOCCUS JIKKRN8JRJW HealthcareSTAPHYLOCOCCUS AUREUSNot detectedNOMS HealthcareSTAPHYLOCOCCUS EPIDERMIDIS, HAEMOLYTICUS, LUGDUNENSIS, SAPROPHYTICUS (FMMCY8HCJP HealthcareSTAPHYLOCOCCUS EPIDERMIDIS, HAEMOLYTICUS, LUGDUNENSIS, SAPROPHYTICUS (URINANot detectedNOMS HealthcareSTAPHYLOCOCCUS EPIDERMIDIS, HAEMOLYTICUS, LUGDUNENSIS, SAPROPHYTICUS (URINA30.382AbnormalNOMS HealthcareSTAPHYLOCOCCUS EPIDERMIDIS, HAEMOLYTICUS, LUGDUNENSIS, SAPROPHYTICUS (URINADetectedAbnormalNOMS HealthcareSTREPTOCOCCUS AGALACTIAE (GROUP B STREP)0 NOMS HealthcareSTREPTOCOCCUS AGALACTIAE (GROUP B STREP)Not detectedNOMS HealthcareSTREPTOCOCCUS PYOGENES (GROUP A STREP)0NOMS HealthcareSTREPTOCOCCUS PYOGENES (GROUP A STREP)Not detectedNOMS HealthcareNOMS HealthcareLaboratory - Chemistry and Chemistry - challengeon 16-48-5119Clridqaul Ql (U)-NegativeNOMS HealthcareGlucose [Mass/Vol]-NegativeNOMS HealthcareKetones Ql (U)-NegativeNOMS HealthcarepH (U)7 [pH]5.0 - 6.0NOMS HealthcareSpecific gravity (U) [Rel density] 11.001 - 1.035NOMS HealthcareLaboratory - Hematology and Cell countson 92-90-3935Jlhcrtoamn Ql (U)-NegativeNOMS HealthcareLaboratory - Urinalysison 22-08-8517Zxfgalm Ql (U)-NegativeNOMS HealthcareProtein Ql (U)-NegativeNOMS HealthcareNo Panel Informationon 40-83-8826Fleixzezzzziky and review of laboratory resultsNormalNOCO HealthcareLEUKOCYTES-NegativeNOCO Healthcare UROBILINOGEN-0.2 - 1.0NOMS HealthcareNOMS HealthcareUS PELVIS W/ TRANSVAGINALon 57-16-7425JhaWaucond[place] [address] Ultrasound Report Signed Patient: DELIA GAYLE MR#: [id number] : 2000 Acct:[id number] Age/Sex: 24 / F ADM Date: 09/20/24 Loc: US Attending Dr: Shmuel Beverly D.O. Ordering Physician: Shmuel Beverly D.O. Date of Service: 09/20/24 Procedure(s): US pelvis w/ transvaginal Accession Number(s): [id number] cc: Bjorn Frankel Corey D.O. The [address] [address] Patient Name: DELIA GAYLE MRN: [id number]:[id number] date: 2000 Sex: F Assigned Patient Location: Current Patient Location: US Accession/Order Number: [id number] Exam Date: 09/20/2024 09:08 Report Date: 09/20/2024 [...] 09/20/2024 9:12 AM Dictation Location: [place] [address] Electronically authenticated by: [id number] Y Date: 09/20/2024 09:12 Dictated By: Arturo Ruggiero M.D. Signed By: 09/20/24914 DD/ 1 TD/TT: Industry Analyst:TBHRadiology, Radiologist, - 09/20/2024 [place] [address] Ultrasound Report Signed Patient: DELIA GAYLE MR#: [id number] : 2000 Acct:[id number] Age/Sex: 24 / F ADM Date: 09/20/24 Loc: US Attending Dr: Shmuel Beverly D.O. Ordering Physician: Shmuel Beverly D.O. Date of Service: 09/20/24 Procedure(s): US pelvis w/ transvaginal Accession Number(s): [id number] cc: Bjorn Frankel; Shmuel Beverly D.O. The [address] [id number] Patient Name: DELIA GAYLE MRN: [id number] date: 2000 Sex: F Assigned Patient Location: Current Patient Location: US Accession/Order Number: [id number] Exam Date: 09/20/2024 09:08 Report Date: 09/20/2024 [...] 09/20/2024 9:12 AM Dictation Location: [place] [address] Electronically authenticated by: [id number] Y Date: 09/20/2024 09:12 Dictated By: Arturo Ruggiero M.D. Signed By: 09/20/24914 DD/ 1 TD/TT: Industry Analyst: RM HealthcareRadiology Study observation (narrative)NOMS HealthcareUS PELVIS W/ TRANSVAGINALOrdered By: Radiologist Radiology on 71-22-8151NDCQ [employer] Work Phone: US OB GROWTHon [phone], [place] [address] Ultrasound Report Signed Patient: DELIA GAYLE MR#: [id number] : 2000 Acct:[id number] Age/Sex: 23 / F ADM Date: 08/03/23 Loc: NOMS Attending Dr: Shmuel Beverly D.O. Ordering Physician: Shmuel Beverly D.O. Date of Service: 08/03/23 Procedure(s): US OB growth Accession Number(s): [id number] cc: Shmuel Beverly D.O.; Physician,Non-Staff MDayanna The [address] [address] Patient Name: DELIA GAYLE MRN: [facility]:[id number] date: 2000 Sex: F Assigned Patient Location: [facility] Current Patient Location: [facility] Accession/Order Number: [id number] Exam Date: 08/03/2023 14:01 Report Date: 08/03/2023 14:36 At the request of: SHMUEL BEVERLY Procedure: US OB growth EXAMINATION: US [...] circumference 8th percentile. Electronically authenticated by: CAIO NGO Date: 08/03/2023 14:36 Dictated By: Caio Ngo M.D. Signed By: 08/03/23 1439 DD/ 143 TD/TT: Industry Analyst:TBHRadiology, Radiologist, MD - 08/03/2023 [place] [address] Ultrasound Report Signed Patient: DELIA GAYLE MR#: [id number] : 2000 Acct:[id number] Age/Sex: 23 / F ADM Date: 08/03/23 Loc: NOMS Attending Dr: Shmuel Beverly D.O. Ordering Physician: Shmuel Beverly D.O. Date of Service: 08/03/23 Procedure(s): US OB growth Accession Number(s): [id number] cc: Shmuel Beverly D.O.; Physician,Non-Staff [place] [address] Patient Name: DELIA GAYLE MRN: [facility]:[id number] date: 2000 Sex: F Assigned Patient Location: [facility] Current Patient Location: [facility] Accession/Order Number: [id number] Exam Date: 08/03/2023 14:01 Report Date: 08/03/2023 14:36 At the request of: SHMUEL BEVERLY Procedure: US OB growth EXAMINATION: US [...] circumference 8th percentile. Electronically authenticated by: CAIO NGO Date: 08/03/2023 14:36 Dictated By: Caio Ngo M.D. Signed By: 08/03/23 1439 DD/ 35 TD/TT: Industry Analyst: RM HealthcareRadiology Study observation (narrative)[facility] OB GROWTHOrdered By: Radiologist Radiology on 77-88-8377JTGW Healthcare Work Phone: us OB GROWTHon [phone] [address] Ultrasound Report Signed Patient: DELIA GAYLE MR#: [id number] : 2000 Acct:[id number] Age/Sex: 23 / F ADM Date: 07/19/23 Loc: NOMS Attending Dr: Shmuel Beverly D.O. Ordering Physician: Shmuel Beverly D.O. Date of Service: 07/19/23 Procedure(s): US OB growth Accession Number(s): [id number] cc: Shmuel Beverly D.O.; Physician,Non-Staff Yesenia The [address] [address] Patient Name: DELIA GAYLE MRN: [id number] date: 2000 Sex: F Assigned Patient Location: NOMS Current Patient Location: [facility] Accession/Order Number: [id number] Exam Date: 07/19/2023 09:27 Report Date: 07/19/2023 10:37 At the request of: SHMUEL BEVERLY Procedure: US OB growth EXAMINATION: US [...] by current US: 32 weeks 6 days ADNI by current US: 09/07/2023 ANDI by EDC: 08/27/2023 US/US OB growth IMPRESSION: Femur length less than the 3rd percentile Head circumference at the 4th percentile Estimated weight 12% *Reference: [facility] Practice Guideline for the performance of Obstetric Ultrasound Examinations, February 20, 2007. Electronically authenticated by: WILD LANE Date: 07/19/2023 10:37 Dictated By: Wild Lane M.D. Signed By: 07/19/23 1040 DD/ 1037 TD/TT: Industry Analyst:TBHRadiology, Radiologist, - 07/19/2023 [place] [address] Ultrasound Report Signed Patient: DELIA GAYLE MR#: [id number] : 2000 Acct:[id number] Age/Sex: 23 / F ADM Date: 07/19/23 Loc: NOMS Attending Dr: Shmuel Beverly D.O. Ordering Physician: Shmuel Beverly D.O. Date of Service: 07/19/23 Procedure(s): US OB growth Accession Number(s): [id number] cc: Shmuel Beverly D.O.; Physician,Non-Staff Yesenia The [place] [id number] Patient Name: DELIA GAYLE MRN: [id number] date: 2000 Sex: F Assigned Patient Location: [facility] Current Patient Location: N[facility]S Accession/Order Number: [id number] Exam Date: 07/19/2023 09:27 Report Date: 07/19/2023 10:37 At the request of: SHMUEL BEVERLY Procedure: US OB growth EXAMINATION: US [...] February 20, 2007. Electronically authenticated by: WILD LANE Date: 07/19/2023 10:37 Dictated By: Wild Lane M.D. Signed By: 07/19/23 1040 DD/ 1037 TD/TT: Industry Analyst: [facility] CenterRadiology Study observation (narrative)[facility] CenterUS OB GROWTHOrdered By: Radiologist Radiology on 90-38-7388JB[facility] Work Phone: Urinalysis macro (dipstick) panel (U)Ordered By: Debbie Pelaez on 75-77-5477Xhrzrnapf, UANegativeNegative - 4(70) +++ mg/dLNOMS Healthcare Work Phone: blood, UANegativeNegative - 50 Hugh/mcLNOMS Healthcare Work Phone: clarity, UAClearNOMS Healthcare Work Phone: color, UAYellowNOMS Healthcare Work Phone: Glucose, UANegativeNegative - 2000(110) ++++ mg/dLNOMS Healthcare Work Phone: Interpretation and review of laboratory resultsNormal [facility] Healthcare Work Phone: Ketones, UANegativeNegative - 160(16) ++++ mg/dLNOMS Healthcare Work Phone: Leukocytes, UANegativeNegative - 500+++ Joe/mcLNOMS Healthcare Work Phone: Nitrite, UANegativeNegative - PositiveNOMS Healthcare Work Phone: [phone], UA5.55 - 9N[facility] Healthcare Work Phone: Protein, UANegativeNegative - 2000(20) ++++ mg/dLNOMS Healthcare Work Phone: Spec Grav, UA1.0151 - 1.03[facility] Work Phone: Urobilinogen, UA0.20.2 - 12 mg/dLNOMS Healthcare Work Phone: [facility] Work Phone: No Panel InformationOrdered By: Radiologist Radiology on [id number] Work Phone: no Panel Informationon 53-57-8855Cgvwoaacy Study observation (narrative)NOMS HealthcareUS OB CERVICAL LENGTHon 75-66-0212Fgw [address] [address] Ultrasound Report Signed Patient: DELIA GAYLE MR#: [id number] : 2000 Acct:[id number] Age/Sex: 23 / F ADM Date: 05/09/23 Loc: US Attending Dr: Shmuel Beverly D.O. Ordering Physician: Shmuel Beverly D.O. Date of Service: 05/09/23 Procedure(s): US OB cervical length Accession Number(s): [id number] cc: Shmuel Beverly D.O.; Physician,Non-Staff M.Daniel The [address] [address] Patient Name: DELIA GAYLE MRN: [id number] date: 2000 Sex: F Assigned Patient Location: US Current Patient Location: US Accession/Order Number: [id number] Exam Date: 05/09/2023 14:31 Report Date: 05/09/2023 15:44 At the request of: SHMUEL BEVERLY Procedure: US OB cervical length EXAM: [...] measuring 5.1 cm Electronically authenticated by: WILD LANE Date: 05/09/2023 15:44 Dictated By: Wild Lane M.D. Signed By: 05/09/23 1547 DD/ 1544 TD/TT: Industry Analyst:TBHRadiology, Radiologist, MD - 05/09/2023 [place] [address] Ultrasound Report Signed Patient: DELIA GAYLE MR#: [id number] : 2000 Acct:[id number] Age/Sex: 23 / F ADM Date: 05/09/23 Loc: US Attending Dr: Shmuel Beverly D.O. Ordering Physician: Shmuel Beverly D.O. Date of Service: 05/09/23 Procedure(s): US OB cervical length Accession Number(s): [id number] cc: Shmuel Beverly D.O.; Physician,Non-Staff Yesenia The [place] [id number] Patient Name: DELIA GAYLE MRN: [id number] date: 2000 Sex: F Assigned Patient Location: Current Patient Location: US Accession/Order Number: [id number] Exam Date: 05/09/2023 14:31 Report Date: 05/09/2023 15:44 At the request of: SHMUEL BEVERLY Procedure: US OB cervical length EXAM: [...] measuring 5.1 cm Electronically authenticated by: WILD LANE Date: 05/09/2023 15:44 Dictated By: Wild Lane M.D. Signed By: 05/09/23 1547 DD/ 154 TD/TT: Industry Analyst: RM Payne OB PLACENTAon [id number] [address] Ultrasound Report Signed Patient: DELIA GAYLE MR#: [id number] : 2000 Acct:[id number] Age/Sex: 23 / F ADM Date: 05/09/23 Loc: US Attending Dr: Shmuel Beverly D.O. Ordering Physician: Shmuel Beverly D.O. Date of Service: 05/09/23 Procedure(s): US OB placenta Accession Number(s): [id number] cc: Shmuel Beverly D.O.; Physician,Non-Staff Yes[place] [address] Patient Name: DELIA GAYLE MRN: [id number] date: 2000 Sex: F Assigned Patient Location: US Current Patient Location: US Accession/Order Number: [id number] Exam Date: 05/09/2023 14:31 Report Date: 05/09/2023 15:44 At the request of: SHMUEL BEVERLY Procedure: US OB placenta EXAM: US [...] measuring 5.1 cm Electronically authenticated by: WILD LANE Date: 05/09/2023 15:44 Dictated By: Wild Lane M.D. Signed By: 05/09/23 1547 DD/ 1544 TD/TT: Industry Analyst:TBHRadiology, Radiologist, MD - 05/09/2023 [place] [address] Ultrasound Report Signed Patient: DELIA GAYLE MR#: [id number] : 2000 Acct:[id number] Age/Sex: 23 / F ADM Date: 05/09/23 Loc: US Attending Dr: Shmuel Beverly D.O. Ordering Physician: Shmuel Beverly D.O. Date of Service: 05/09/23 Procedure(s): US OB placenta Accession Number(s): [id number] cc: Shmuel Beverly D.O.; Physician,Non-Staff Yesenia The [place] [id number] Patient Name: DELIA GAYLE MRN: [facility]:[id number] date: 2000 Sex: F Assigned Patient Location: Current Patient Location: US Accession/Order Number: [id number] Exam Date: 05/09/2023 14:31 Report Date: 05/09/2023 15:44 At the request of: SHMUEL BEVERLY Procedure: US OB placenta EXAM: US [...] measuring 5.1 cm Electronically authenticated by: WILD LANE Date: 05/09/2023 15:44 Dictated By: Wild Lane M.D. Signed By: 05/09/23 1547 DD/ 1544 TD/TT: Industry Analyst: RM Minor Panel InformationOrdered By: Radiologist Radiology on [id number] Work Phone: No Panel Informationon 93-34-3736Zonoskriz Study observation (narrative)RM Payne OB ANATOMYon 83-09-1184[place] [address] Ultrasound Report Signed Patient: DELIA GAYLE MR#: [id number] : 2000 Acct:[id number] Age/Sex: 23 / F ADM Date: 04/11/23 Loc: US Attending Dr: Shmuel Beverly D.O. Ordering Physician: Shmuel Beverly D.O. Date of Service: 04/11/23 Procedure(s): US OB anatomy Accession Number(s): [id number] cc: Shmuel Bevrely D.O.; Physician,Non-Staff Yes[place] The [place] [id number] Patient Name: DELIA GAYLE MRN: [id number] date: 2000 Sex: F Assigned Patient Location: US Current Patient Location: US Accession/Order Number: [id number] Exam Date: 04/11/2023 08:09 Report Date: 04/11/2023 21:28 At the request of: SHMUEL BEVERLY Procedure: US OB anatomy EXAMINATION: US [...] Anterior low-lying placenta. Electronically authenticated by: CAIO NGO Date: 04/11/2023 21:28 Dictated By: Caio Ngo M.D. Signed By: 04/11/232130 DD/ 27 TD/TT: Industry Analyst:TBHRadiology, Radiologist, - 04/11/2023 [place] [address] Ultrasound Report Signed Patient: DELIA GAYLE MR#: [id number] : 2000 Acct:[id number] Age/Sex: 23 / F ADM Date: 04/11/23 Loc: US Attending Dr: Shmuel Beverly D.O. Ordering Physician: Shmuel Beverly D.O. Date of Service: 04/11/23 Procedure(s): US OB anatomy Accession Number(s): [id number] cc: Shmuel Beverly D.O.; Physician,Non-Staff [place] [address] Patient Name: DELIA GAYLE MRN: [id number] date: 2000 Sex: F Assigned Patient Location: US Current Patient Location: Accession/Order Number: [id number] Exam Date: 04/11/2023 08:09 Report Date: 04/11/2023 21:28 At the request of: SHMUEL BEVERLY Procedure: US OB anatomy EXAMINATION: US [...] Anterior low-lying placenta. Electronically authenticated by: CAIO NGO Date: 04/11/2023 21:28 Dictated By: Caio Ngo M.D. Signed By: 04/11/232130 DD/ 27 TD/TT: Industry Analyst: RM Payne OB TRANSVAGINALokarma [id number] [address] Ultrasound Report Signed Patient: DELIA GAYLE MR#: [id number] : 2000 Acct:[id number] Age/Sex: 23 / F ADM Date: 04/11/23 Loc: US Attending Dr: Shmuel Beverly D.O. Ordering Physician: Shmuel Beverly D.O. Date of Service: 04/11/23 Procedure(s): US OB transvaginal Accession Number(s): [id number] cc: Shmuel Beverly D.O.; Physician,Non-Staff Yesenia The [address] [address] Patient Name: DELIA GAYLE MRN: [facility]:[id number] date: 2000 Sex: F Assigned Patient Location: US Current Patient Location: US Accession/Order Number: [id number] Exam Date: 04/11/2023 08:09 Report Date: 04/11/2023 21:28 At the request of: SHMUEL BEVERLY Procedure: US OB transvaginal EXAMINATION: US [...] Anterior low-lying placenta. Electronically authenticated by: CAIO NGO Date: 04/11/2023 21:28 Dictated By: Caio Ngo M.D. Signed By: 04/11/232130 DD/ 27 TD/TT: Industry Analyst:TBHRadiology, Radiologist, - 04/11/2023 [place] [address] Ultrasound Report Signed Patient: DELIA GAYLE MR#: [id number] : 2000 Acct:[id number] Age/Sex: 23 / F ADM Date: 04/11/23 Loc: US Attending Dr: Shmuel Beverly D.O. Ordering Physician: Shmuel Beverly D.O. Date of Service: 04/11/23 Procedure(s): US OB transvaginal Accession Number(s): [id number] cc: Shmuel Beverly D.O.; Physician,Non-Staff Yesenia The [address] [address] Patient Name: DELIA GAYLE MRN: [id number] date: 2000 Sex: F Assigned Patient Location: US Current Patient Location: US Accession/Order Number: [id number] Exam Date: 04/11/2023 08:09 Report Date: 04/11/2023 21:28 At the request of: SHMUEL BEVERLY Procedure: US OB transvaginal EXAMINATION: US [...] Anterior low-lying placenta. Electronically authenticated by: CAIO NGO Date: 04/11/2023 21:28 Dictated By: Caio Ngo M.D. Signed By: 04/11/232130 DD/ 27 TD/TT: Industry Analyst: RM [facility] ACOG PANEL 2: 21 to 29on 09-29-2022..NormalThe [address] Vincent HospitalComment on above:Performed By: #### [id number] #### [facility] [address] [place] [address] Dr. Tyree Quintana Gdln ACOG Dqbayxi38-37ChmmihVnuOhio State Harding HospitalComment on above:Performed By: #### [id number] #### [facility] [address] [place] [address] Dr. Tyree PaizDIAGNOSIS:CommentLima Memorial Hospital on above: Result Comment: NEGATIVE FOR INTRAEPITHELIAL LESION OR MALIGNANCY.Performed By: #### [id number] #### [facility] [address] [place] [address] Dr. Tyree PaizMethodology:CommentLima Memorial Hospital on above: Result Comment: This liquid based ThinPrep(R) pap test was screened with the use of an image guided system.Performed By: #### [id number] #### [place] [address] Dr. Tyree PaizNote:CommentLima Memorial Hospital on above:Result Comment: The Pap smear is a screening test designed to aid in the detection of premalignant and malignant conditions of the uterine cervix. It is not a diagnostic procedure and should not be used as the sole means of detecting cervical cancer. Both false-positive and false-negative reports do occur. .Performed By: #### [id number] #### [place] [address] Dr. Tyree PaizPerformed by:CommentLima Memorial Hospital on above: Result Comment: Delmy Smith, Sas Administrator (ASCP)Performed By: #### [id number] #### [place] [address] Dr. Tyree PaizReflex Criteria:[facility] on above:Result Comment: The HPV DNA reflex criteria were not met with this specimen result therefore, no HPV testing was performed. .Performed By: #### [id number] #### [facility] [address] [place] [address] Dr. Tyree PaizSpecimen adequacy:CommentLima Memorial Hospital on above:Result Comment: Satisfactory for evaluation. Endocervical and/or squamous metaplastic cells (endocervical component) are present.Performed By: #### [id number] #### [facility] [address] [place] [address] Dr. Tyree PaizTYPE AND SCREENon 81-96-7530QCCY AND SCREENAntibody Screen NEGATIVE Blood Bank Notes testing done by 01/29/22 ABO Rh Typing AB Rh Positive Blood Bank Notes testing done by 01/29/22[facility] on above:Performed By: #### TNS ####[facility] [address] [place] [address]Dr.Yilan LeonC AUTO DIFFon 84-59-5180PIOT #0.0 103/ulNormal0.0-0.1The [facility] Hospitalment on above:Performed By: #### CBC #### [facility] [address] [place] [address] Dr. Tyree PaizBasophils/100 WBC (Bld)0.3 %Normal0.2-2.0[facility] on above:Performed By: #### CBC #### [facility] [address] [place] [address] Dr. Tyree Samuels #0.1 103/ulNormal0.0-0.7The [facility] on above: Performed By: #### CBC #### [facility] [address] [place] [address] Dr. Tyree Anguloosinophils/100 WBC (Bld)0.8 %Critically low0.9-7.0The [facility] on above:Performed By: #### CBC #### [facility] [address] [place] [address] Dr. Tyree Angulorythrocyte distribution width (RBC) [Ratio]13.4 %Ljxzft81.0-15.0 [facility] Hospitalment on above:Performed By: #### CBC #### [facility] [address] [place] [address] Dr. Tyree PaizHematocrit (Bld) [Volume fraction]27.4 %Critically low36.0-48.0 [facility] Hospitalment on above:Performed By: #### CBC #### [facility] [address] [place] [address] Dr. Tyree PaizHemoglobin (Bld) [Mass/Vol]8.6 g/dLCritically low12.0-16.0The St. [facility] HospitalComment on above:Performed By: #### CBC #### [facility] [address] [place] [address] Dr. Tyree Aguilar #0.12 10e3/ulCritically high0.00-0.03The [facility] Comment on above:Performed By: #### CBC #### [facility] [address] [place] [address] Dr. Tyree Aguilar %0.9 %Critically high0.0-0.5The [facility] HospitalComment on above:Performed By: #### CBC #### [facility] [address] [place] [address] Dr. Tyree Sheehan #1.9 103/ulNormal1.2-3.8The St. Vincent HospitalComment on above:Performed By: #### CBC #### [facility] [address] [place] [address] Dr. Tyree Meneseshocytes/100 WBC (Bld)13.7 %Critically low20.5-60.0The St. Vincent HospitalComment on above:Performed By: #### CBC #### [facility] [address] [place] [address] Dr. Tyree Velasquez DIFF REQNONormalThe St. Vincent HospitalComment on above: Performed By: #### CBC #### [facility] [address] [place] [address] Dr. Tyree Reece (RBC) [Entitic mass]27.0 mqXbwviq19.7-34.0The St. Vincent HospitalComment on above:Performed By: #### CBC #### [facility] [address] [place] [address] Dr. Tyree Cook (RBC) [Mass/Vol]31.4 g/xJBppsbw72.9-35.2The [facility] HospitalComment on above:Performed By: #### CBC #### [facility] [address] [place] [address] Dr. Tyree Sullivan (RBC) [Entitic vol]85.9 kKZdqrva46.0-99.0The St. Vincent HospitalComment on above:Performed By: #### CBC #### [facility] [address] [place] [address] Dr. Tyree Olvera #1.1 103/ulCritically high0.3-0.8The [facility] Comment on above:Performed By: #### CBC #### [facility] [address] [place] [address] Dr. Tyree Tranocytes/100 WBC (Bld)8.1 %Normal1.7-12.0[facility] Comment on above:Performed By: #### CBC #### [facility] [address] [place] [address] Dr. Tyree Whaley #10.3 103/ulCritically high1.4-6.5ThKeenan Private Hospital Comment on above:Performed By: #### CBC #### [facility] [address] [place] [address] Dr. Tyree Sargentutrophils/100 WBC (Bld)76.2 %Critically high43.0-75.0The [facility]. Vincent HospitalComment on above:Performed By: #### CBC #### [facility] [address] [place] [address] Dr. Tyree Loja mean volume (Bld) [Entitic vol]9.5 fLNormal9.5-13.5The St. Vincent HospitalComment on above:Performed By: #### CBC #### [facility] [address] [place] [address] Dr. Tyree PaizPLT196 103/auOvkezh242-834Dzt St. Vincent HospitalComment on above: Performed By: #### CBC #### [facility] [address] [place] [address] Dr. Tyree PaizRBC3.19 106/ulCritically low4.20-5.40The St. Vincent HospitalComment on above:Performed By: #### CBC #### [facility] [address] [place] [address] Dr. Tyree PaizWBC13.5 103/ulCritically high4.0-11.0The St. Vincent HospitalComment on above:Performed By: #### CBC #### [facility] [address] [place] [address] [address] Tyree Brooks W MANUAL DIFFon 14-85-4954CCEDHINF LYMPH #NormalThe [facility] HospitalComment on above:Performed By: #### CBCMAN ####[facility] [address] [place] [address]Dr. Yilan ChangATYPICAL LYMPH %NormalThe [facility] HospitalComment on above:Performed By: #### CBCMAN ####[facility] [address]ofixut[address] [place], [place] [address]Dr. Yicy ChangBAND #0.0 103/ulNormal0.0-0.3The [facility] HospitalComment on above: Performed By: #### CBCMAN ####[facility] [address] [place] [address]Dr. Yilan ChangBAND %0 %Normal0-5The [facility] Comment on above:Performed By: #### CBCMAN ####[facility] Upyptsxu[address] [place], [place] [address]Dr. Tyree ChangBASOM #0.00 103/ulNormal 0.00-0.10The St. Vincent HospitalComment on above:Performed By: #### CBCMAN ####[facility] Cxljaatzth[address] [place] [address]Dr. Yilan ChangBASOM %0.0 %Critically low0.2-2.0The St. Vincent HospitalComment on above:Performed By: #### CBCMAN ####[facility] [address]se[address] [place], [place] [address]Dr. Yilan ChangBLAST #NormalSalem Regional Medical Center Comment on above:Performed By: #### CBCMAN ####[facility] [address]edojvw[address] [place], [place] [address]Dr. Yilan ChangBLAST %NormalOhiohealth Marion General Hospital HospitalComment on above:Performed By: #### CBCMAN ####[facility] [address]zy[address] [place] [address]Dr. Nuhalan ChangCORRECTED WBC Normal4.0-11.0The St. Vincent HospitalComment on above:Performed By: #### CBCTY ####[facility] Eapnpceamb[address] [place], [place] [address]Dr. Yilan ChangEOS #0.41 103/ulNormal0.00-0.70The St. Vincent HospitalComment on above: Performed By: #### CBCTY ####[facility] Divstatwya[address] [place], [place] [address]Dr. Yilan ChangEOS%3.0 %Normal0.9-7.0The St. [facility] HospitalComment on above:Performed By: #### CBCTY ####[facility] Dpcxqtislt4[address] [place], [place] [address]Dr. Yicy HznunSWQ55.3 % Critically low36.0-48.0The [facility]. [facility] HospitalComment on above:Performed By: #### CBCTY ####[facility] Askvrqndaf[address] [place], [place] [address]Dr. Tyree WsdufFNU76.2 g/dlCritically low12.0-16.0The [facility] Comment on above:Performed By: #### CBCTY ####[facility] Grbyvqshab[address] [place], [place] [address]Dr. Yilan ChangLYMPHM #1.63 103/ulNormal 1.20-3.80The St. Vincent HospitalComment on above:Performed By: #### CBCTY ####[facility] Ypanftqav[address] [place], [place] [address]Dr. Nuhalan ChangLYMPHM%12.0 %Critically low20.5-60.0The [facility]. [facility] HospitalComment on above:Performed By: #### CBCMAN ####[facility] [address]vcahebpi[address] [place], [place] [address]Dr. Nuhalan VsajgELP68.4 vnWjcavl23.7-34.0The [facility] HospitalComment on above:Performed By: #### CBCTY ####[facility] Kpgiqivffk[address] [place], [place] [address]Dr. Tyree PaizMCHC32.6 g/dl Rblkif24.9-35.2The [facility] HospitalComment on above:Performed By: #### CBCMAN ####[facility] [address]onsh[address] [place] [address]Dr. Tyree PaizMCV84.1 iDQuzhln87.0-99.0The [facility] HospitalComment on above: Performed By: #### CBCMAN ####[facility] [address]iggbif[address] [place] [address]Dr. Yilan ChangMETAMYELOCYTE #NormalThe [facility] HospitalComment on above:Performed By: #### CBCMAN ####[facility] Cwlmvpewts[address] [place] [address]Dr. Yilan ChangMETAMYELOCYTE %NormalThe [facility] HospitalComment on above:Performed By: #### CBCMAN ####[facility] [address]edrchryas[address] [place], [place] [address]Dr. Tyree ChangMONOM#1.36 103/ulCritically high0.30-0.80The St. [facility] HospitalComment on above:Performed By: #### CBCMAN ####[facility] Dinuawcpmb[address] [place], [place] [address]Dr. Nuhalan ChangMONOM%10.0 %Normal1.7-12.0The St. [facility] HospitalComment on above:Performed By: #### CBCMAN ####[facility] [address]pbxiqw[address] [place] [address]Dr. Tyree ChangMPV 9.5 fLNormal9.5-13.5The St. [facility] HospitalComment on above:Performed By: #### CBCMAN ####[facility] [address]nufrdk[address] [place] [address]Dr. Yilan ChangMYELOCYTE #NormalThe St. Vincent HospitalComment on above: Performed By: #### CBCMAN ####[facility] [address] [place], [place] [address]Dr. Yilan ChangMYELOCYTE %NormalThe [facility] Comment on above:Performed By: #### CBCMAN ####[facility] [address]efrtwt[address] [place] [address]Dr. Tyree ChangNRBCNormalThe St. Vincent HospitalComment on above:Performed By: #### BARBARA ####[facility] Xsxypdzpgc[address] [place], [place] [address]Dr. Tyree PaizPLT258 103/ul Qyvsnx185-131Eud St. Vincent HospitalComment on above:Performed By: #### BARBARA ####[facility] Welrvvtoav7[address] [place], [place] [address]Dr. Tyree PaizRBC3.72 106/ulCritically low4.20-5.40The [facility]. [facility] HospitalComment on above:Performed By: #### BARBARA ####[facility] Izksbpqvvp[address] [place], [place] [address]Dr. Tyree PaizRDW13.0 %Bpatlf38.0-15.0The [facility] HospitalComment on above:Performed By: #### BARBARA ####[facility] Sudzzsplol[address] [place], [place] [address]Dr. Tyree PaizSEG #10.20 103/ulCritically high1.40-6.50The St[facility] HospitalComment on above:Performed By: #### BARBARA ####[facility] [address]quukh[address] [place], [place] [address]Dr. Tyree PaizSEG %75.0 %Egtlvd90.0-75.0The [facility] HospitalComment on above:Performed By: #### CBCTY ####[facility] Utleakcuim[address] [place], [place] [address]Dr. Tyree AxkqnGLK39.6 103/ulCritically high 4.0-11.0The [facility] HospitalComment on above:Performed By: #### CBCTY ####[facility] [address]mgkbrbjau[address] [place], [place] [address]Dr. Tyree PaizCovid-19 PCR (CVDTBH)on 98-35-1480RMQP-CoV-2 (COVID-19) RNA GINO+probe Ql (Unsp spec)Not detectedNormalNOT DETECTEDThe St. Vincent HospitalComhenry ford [facility] on above:Result Comment: When diagnostic testing is negative, the [...] for this test is supported by the Clinic Lead of Health and Human Service's declaration that circumstances exist to justify the emergency use of in vitro diagnostics for the detection and/or diagnosis of the virus that causes COVID-19. This EUA will remain in effect for the duration of the COVID-19 declaration justifying emergency of IVDs, unless it is terminated or revoked by the FDA (after which the test may no longer be used).Performed By: #### CVDTBH #### [facility] [address] [place] [address] Dr. Tyree PaizDRUG SCREEN RAPID (URINE)on 26-11-1679KRFBnilmprkJsfcxoEXYWSYQT [facility] CenterComhenry [facility] on above:Performed By: #### DRUGRPD #### [facility] [address] [place] [address] Dr. Tyree PiazBARNegativeNormalNEGATIVESalem Regional Medical CenterComment on above: Performed By: #### DRUGRPD #### [facility] [address] [place] [address] Dr. Tyree PaizBUPNegativeNormalNEGATIVESalem Regional Medical CenterComment on above: Performed By: #### DRUGRPD #### [facility] [address] [place] [address] Dr. Tyree PaizBZONegativeNormalNEGATIVESalem Regional Medical CenterComment on above: Performed By: #### DRUGRPD #### [facility] [address] [place] [address] Dr. Tyree PaizCOCNegativeNormalNEGATIVESalem Regional Medical CenterComment on above: Performed By: #### DRUGRPD #### [facility] [address] [place] [address] Dr. Tyree Hernandez-OFFSSEE [facility] Parma Medical CenterComment on above: Result Comment: AMP (Amphetamine): 500ng/mL, BAR (Barbituates): 200 ng/mL, BZO (Benzodiazepines): 150 ng/mL, BUP (Buprenorphine): 10 ng/mL, ZACHARY (Cocaine): 150 ng/mL, mAMP (Methamphetamine): 500 ng/mL, MTD (Methadone): 200 ng/mL, OPI (Opiates): 100 ng/mL, OXY (Oxycodone): 100 ng/mL, PCP (Phencyclidine): 25 ng/mL, PPX (Propoxyphene): 300 ng/mL, THC (Cannabinoids): 50 ng/mL, TCA (Trycyclic Antidepressants): 300 ng/mLPerformed By: #### DRUGRPD #### [facility] [address] [place] [address] Dr. Tyree PaizDRUG CUT HEADERDRUG CLASS TEST SYSTEM CUT-OFF CONCENTRATIONS ARE FOLLOWS:NormalMemorial Health System [facility] on above:Performed By: #### DRUGRPD #### [facility] [address] [place] [address] Dr. Tyree PaizmAMPNegativeNormalNEGATIVESalem Regional Medical CenterComhenry ford [facility] hospital on above: Performed By: #### DRUGRPD #### [facility] [address] [place] [address] Dr. Tyree PaizMTDNegativeNormalNEGATIVEMemorial Health System [facility] on above: Performed By: #### DRUGRPD #### [facility] [address] [place] [address] Dr. Tyree FitzgeraldINegativeNormalNEGATIVEMemorial Health System [facility] on above: Performed By: #### DRUGRPD #### [facility] [address] [place] [address] Dr. Tyree PaizOXYNegativeNormalNEGATIVEMemorial Health System Marietta [facility] on above: Performed By: #### DRUGRPD #### [facility] [address] [place] [address] Dr. Tyree PaizPCPNegativeNormalNEGATIVESalem Regional Medical CenterComment on above: Performed By: #### DRUGRPD #### [facility] [address] [address] [address] Tyree SmithXNegativeNormalNEGATIVESalem Regional Medical CenterComment on above: Performed By: #### DRUGRPD #### [facility] [address] [address] [address] Tyree CoronaANegativeNormalNEGKindred Hospital DaytonComment on above: Performed By: #### DRUGRPD #### [facility] [address] [address] [address] Tyree PaizTHCNegativeNormalNEGKindred Hospital DaytonComment on above: Performed By: #### DRUGRPD #### [facility] [address] [address] [address] Tyree Temple PREG BIOPHY W NON STRESSon [id number] PREG BIOPHY W NON STRESSEXAMINATION: US PREG BIOPHY W NON STRESS HISTORY: [...] profile score: 8.0 Electronically authenticated by: WILD LANE Date: 2022-01-26 19:11[facility] CenterUS PREG BIOPHY W NON STRESSon 87-36-8340PH PREG BIOPHY W NON STRESSEXAMINATION: US PREG BIOPHY W NON STRESS HISTORY: [...] profile score: 8.0 Electronically authenticated by: WILD LANE Date: 2022-01-19 07:52[facility] B STREP CULTUREon 01-12-2022. agalactiae Ag Ql (Unsp spec)Culture Observations: NEGATIVE FOR GROUP B STREPTOCOCCUS.NormalThe St. Vincent HospitalComment on above: Performed By: #### GBSCX ####[facility] [address] [address]Dr. Tyree Temple PREG GROWTHon [id number] PREG GROWTHEXAMINATION: US PREG GROWTH HISTORY: Large for gestation [...] weight 96th percentile Electronically authenticated by: WILD LANE Date: 2022-01-12 16:41[facility] CenterGLUCOSE - 1HRon 50-92-8226Nazqhyg [Mass/Vol]98 mg/dLNormal 74-106The St. Vincent HospitalComment on above:Performed By: #### GLU1HR #### [facility] [address] [address] [address] Tyree PaizHEMOGRAM AND PLATELon 74-27-3128Kxnibbduqk (Bld) [Volume fraction]36.3 %Gowetd96.0-48.0The St. Vincent HospitalComment on above:Performed By: #### HH #### [facility] [address] [address] [address] Tyree PaizHemoglobin (Bld) [Mass/Vol]11.9 g/dLCritically low12.0-16.0The St. Vincent HospitalComment on above:Performed By: #### HH #### [facility] [address] [place] [address] Dr. Tyree CookH (RBC) [Entitic mass]30.[address]zmxgm85.7-34.0The [address] Vincent HospitalComment on above:Performed By: #### HH #### [facility] [address] [place] [address] Dr. Tyree PaizHC (RBC) [Mass/Vol]32.8 g/dTOdwxpn59.9-35.2The St. Vincent HospitalComment on above:Performed By: #### HH #### [facility] [address] [place] [address] Dr. Tyree CookV (RBC) [Entitic vol]91.7 nPFzrneo26.0-99.0The [facility] Vincent HospitalComment on above:Performed By: #### HH #### [facility] [address] [place] [address] Dr. Tyree PaizPLT237 103/mcHxcjdi881-139Lgn St. [facility] HospitalComhenry ford [facility] on above: Performed By: #### HH #### [facility] [address] [place] [address] Dr. Tyree PaizRBC3.96 106/ulCritically low4.20-5.40The [facility] Vincent HospitalComhenry ford cottage hospital on above:Performed By: #### HH #### [facility] [address] [place] [address] Dr. Tyree PaizWBC12.6 103/ulCritically high4.0-11.0[facility] on above:Performed By: #### HH #### [facility] [address] [place] [address] Dr. Tyree Temple PREG INCOMPLETE ANATOMYon 49-54-0988CG PREG INCOMPLETE ANATOMY EXAMINATION: US PREG INCOMPLETE [...] Electronically authenticated by: CAIO [employer] Date: 2021-11-02 17:30[facility] Note-Physicianon [id number] Note-PhysicianBasic Information Time Seen: Jr Solomon DO 06/06/2020 [...] worse. She is attempted to use an bapj-hoh-avqfveu eczema cream but states that it is not working. She istearful, denies any pain but states that the [...] erythematous scaly rash about the periorbital tissues bilaterally.There is mild periorbital edema noted. There is no injection of the sclera or conjunctiva, no evidence of ocular foreign bodies. Neck: Supple, Non-tender, No jugular venous distention. Musculoskeletal: Normal range of motion, Normal strength. Neurologic: Alert, Oriented, Normal sensory, Normal motor function. Cognition and Speech: Oriented, Speech clear and coherent. Psychiatric: Cooperative, Appropriate mood & affect. Integumentary: Warm, Dry, [place] Medical Decision Making I believe this to be eyelid dermatitis/eczema, patient will be started on Lotemax ophthalmic ointment. She was given instructions on how to use it, she is to return should her rash worsen or other problems arise. She was instructed to follow-up with ophthalmology for recheck. Patient understood andagreed with the plan. Assessment/Plan 1. Eyelid dermatitis, eczematous (H01.139: Eczematous dermatitis of unspecified eye, unspecified eyelid) Disposition Plan Patient Discharge Condition Stable Discharge Disposition Discharge home Discharge Prescription List Prescriptions Lotemax 0.5% ophthalmic ointment, See Instructions Follow-up With When Contact Information Austyn Bcoanegra In 3 days 06/09/2020 [facility] [address] [facility], [facility] [address] [phone] Business (1) Additional Instructions: Use the eye ointment as prescribed, return should vision disturbance develop, otherwise follow-up with the cytogenetics technologist as directed for reevaluation. Patient Education Eczema [...] data available. Diagnostic Results No qualifying data available.[facility] HospitalComment on above: Result Comment: Electronically Signed By: Calvin Morley PA-C\.br\Date and Time Signed: 06/06/20 12:03 EST\.br\Electronically Co-Signed By: Jr Solomon DO\.br\Date and Time Co-Signed: 06/06/2121:16 ESTCoding Summary.on 06-06-2020 Coding Summary.CODING DATE: 06/06/2020 FINAL [facility] STATUS: Home (Routine DC) PAYOR: Self [...] By: Aliya Mejía Date Saved: 06/06/2020 05:36 pmNSamaritan HospitalConsent for Treatmenton 79-88-6719Duytflb for Treatment [id number]:127[facility] Brentwood HospitalDischarge Instructionson 55-05-5666Xzckdtacp Instructions [id number]:127[facility] Clinical Summaryon [id number] Clinical Summary [address] [id number] ED Clinical Summary Person Information Name: DELIA PENNY [facility] Age: 20 Years : 2000 Sex: Female Language: Turkmen PCP: Tony PHAN MD Marital Status: Single [...] 12:00:00 06/06/2020 12:00:00 06/06/2020 12:00:00 ADDRESS: [address] [place] [address] PHYS DOC NOTES: MEDICAL INFORMATION: Prescriptions Given: New Medications Printed Prescriptions loteprednol ophthalmic (Lotemax 0.5% ophthalmic ointment) 1 eloise OPTH QID. Refills: 0. Medications to Continue with No Changes Other Medications naproxen (naproxen 500 mg Tab) 1 Tablets By Mouth 2 times a day as needed for pain. Refills: 0. PATIENT EDUCATION INFORMATION: Instructions: Eczema Follow up: With: Address: When: Austyn Bocanegra [facility] [address], [address] [place] [address] Business (1) In 3 days 06/09/2020 Comments: Use the eye ointment as prescribed, return should vision disturbance develop, otherwise follow-up with the cytogenetics technologist as directed for reevaluation. DIAGNOSIS: 1:Eyelid dermatitis, eczematousNormalFisher Harrisonburg Medical CenterED Patient Education Noteon [id number] Patient Education NoteImmunology Eczema Eczema, also called atopic dermatitis, is a skin disorder that causes inflammation of the skin. It causes a red rash and dry, scaly skin. The skin becomes very itchy. Eczema is generally worse duringthe cooler winter months and often improves with the warmth of summer. Eczema usually starts showing signs in infancy. Some children outgrow eczema, but it may last through adulthood. CAUSES The exact cause of eczema is not known, but it appears to run in families. People with eczema oftenhave a family history of eczema, allergies, asthma, [...] can be controlled with treatment and other strategies.A treatment plan might include: ? Controlling the itching and scratching. ? ? Use fhwc-sad-exwhcuu antihistamines as directed for itching. This is especially useful at night when the itching tends to be worse. ? ? Use eogf-qbe-ggoliub steroid creams as directed for itching. ? [...] be avoided because they can dry the skin.? ? Limiting exposure to things that you are sensitive or allergic to (allergens). ? ? Recognizing situations that cause stress. ? ? Developing a plan to manage stress. ? HOME CARE INSTRUCTIONS ? Only take ihja-nje-rsbxldk or prescription medicines as directed by your [...] is still damp, apply a moisturizing ointment tothe entire body. This ointment should be a petroleum ointment. This will seal in moisture and help prevent dryness. The thicker the ointment, the better. These should be unscented. ? ? Keep fingernails cut short. Children with eczema may need to wear soft gloves or mittens at nightafter applying an ointment. ? ? Dress in [...] Document Reviewed: 12/10/2013 ExitCare? Patient Information ?2015 Latest Medical. This information is not intended to replace advice given to you by your health care provider. Make sure you discuss any questions you have with yourhealth care provider.[facility] Patient Summaryon [id number] Patient Summary [address] [address] Patient Discharge Instructions Person Information Name: DELIA PENNY Age: 20 Years Arrival Date: 06/06/2020 11:09:25 Discharge Diagnosis: 1:Eyelid dermatitis, eczematous Primary Care Physician: Tony PHAN MD Provider Information Primary Provider: Jr Solomon DO Advanced Proof Sorter:Calvin Morley PA-C The exam and treatment you received in the Emergency Department were for an urgent problem and are not intended as complete care. It is important that you follow up with a doctor, nurse practitioner,or physician?s assistant sales center manager for ongoing care. If your symptoms become [...] With: Address: When: Austyn Bocanegra [facility] [address] [facility], [facility] [address] [place] [address] Business (1) In 3 days 06/09/2020 Comments: Use the eye ointment as prescribed, return should vision disturbance develop, otherwise follow-up with the cytogenetics technologist as directed for reevaluation. In the event that this physician does not participate in your insurance network, please consult with your insurance company to find a nearby participating provider. Patient Education Materials: Eczema A MESSAGE TO ALL PATIENTS REGARDING OPIOIDS PRESCRIPTION OPIOIDS: WHAT YOU NEED TO KNOW Prescription opioids can be used to help relieve zvjrcpmz-xh-vglgih pain and are often prescribed following a [...] and have fewer risks and side effects. Optionsmay include: ? Pain relievers such as acetaminophen, [...] unused prescription opioids: Find your community drug take- back program or yourTable8rmYapert mail-back program, or flush them down the toilet, following guidance from the Food and Drug Administration (www.fda.gov/Drugs/ResourcesForYou). ? Visit www.cdc.gov/drugoverdose to learn about the risks of opioids abuse and overdose. (more content not included)...[facility] HospitalRegistrationon [id number]#1.00CD:[address] [place], [place] [address]danielle [facility] HospitalConsenton 61-23-4902Yhwgneo [id number]#1.00CD:[address] [place], [place] [address]Registrationon 71-69-9151Gscevxvdofjm [id number]#1.00CD:[address] [place] [address] Vital Signs Date TimeVital SignValuePerforming QhqokuwvpYxhlxbtz78-85-7959 14:53-0400Body zwrkpy482.02 Eben Hernandez MD Work Phone: [phone]10-30-2025 14:53-0400 Body mass index (BMI) [Ratio]30.9 kg/c4WczefqvPraneeth Hernandez MD Work Phone: [phone])[address]10-30-2025 14:53-0400 Body eawrvh86.37 kgPraneeth Hernandez MD Work Phone: [phone]10-30-2025 14:53-0400 Diastolic blood vloofbli40 mm[Hg]Praneeth Hernandez MD Work Phone: [phone] [place], [place] [address]10-30-2025 14:53-0400 Heart rate93 /minPraneeth Hernandez MD Work Phone: [phone])8-[address] [place], [place] [address]18[address]10-30-2025 14:53-0400 Systolic blood mm[Hg]Praneeth Hernandez MD Work Phone: [phone])875-[address] [place], [place] [address]18[address]10-20-2025 16:36-0400 Body mass index (BMI) [Ratio]30.47 kg/p9Qbbdvsd Riverdale DO Work Phone: noms Ycdstpcmbp44-46-9708 16:36-0400Body temperature 98.71 [degF]Bjorn Riverdale DO Work Phone: noms Spvejdnycy83-81-3457 16:36-0400Body .02 kgTimothy Riverdale DO Work Phone: [facility] CenterVojsrcsxqf60-78-3118 16:36-0400Diastolic blood wiwiueoq99 mm[Hg]Bjorn Riverdale DO Work Phone: [phone] [place], [place] [address]Dbsqcdtnqu07-83-7528 16:36-0400Heart gbaj422 /min Bjorn Riverdale DO Work Phone: 1([phone] [place], [place] [address]Jhiuhzsnim11-41-5998 16:36-4757OdG7% (BldA) [Mass fraction]99 %Bjorn Riverdale DO Work Phone: 1(750)812-[address] [place], [place] [address]Yhuryfrdma08-25-1850 16:36-0400Systolic blood mm[Hg]Bjorn Riverdale DO Work Phone: [phone])299-[address] [place], [place] [address]Xpsbcnddiy05-97-1738 13:33-0400Body .02 Eben Hernandez MD Work Phone: [phone])[address]09-15-2025 13:33-0400 Body mass index (BMI) [Ratio]30 kg/t9GwsvtalPraneeth Hernandez MD Work Phone: 1(717)[address] [place], [place] [address]1009-15-2025 13:33-0400 Body kgPraneeth Hernandez MD Work Phone: [phone])[address] [place], [place] 5441008-27-2025 11:10-0400 Diastolic blood kdkksjaa66 mm[Hg]Praneeth Hernandez MD Work Phone: 1(437)[address] [place], [place] 5441008-27-2025 11:10-0400 Heart rate88 /minPraneeth Hernandez MD Work Phone: 1([phone])[address] [place], [place] 5441008-27-2025 11:10-0400 Respiratory rate16 /minPraneeth Hernandez MD Work Phone: [phone])[address] [place], [place] 5441008-27-2025 11:10-0400 SaO2% (BldA) [Mass fraction]100 %Praneeth Hernandez MD Work Phone: 1([phone])[address] [place], [place] 5441008-27-2025 11:10-0400 Systolic blood thodixkc007 mm[Hg]Praneeth Hernandez MD Work Phone: 1(475)[address] [place], [place] 5441008-27-2025 09:34-0400 Body .02 Eben Hernandez MD Work Phone: 1(361)[address] [place], [place] 5441008-27-2025 09:34-0400 Body ryrmvn66.11 Snow Hernandez MD Work Phone: [phone])[address] [place], [place] 5441008-12-2025 10:47-0400 Body tnurnl813.02 Eben Hernandez MD Work Phone: 1(385)[address] [place], [place] 5441008-12-2025 10:47-0400 Body mass index (BMI) [Ratio]30.1 kg/h1NwdsryyPraneeth Hernandez MD Work Phone: [phone])[address] [place], [place] 5441008-12-2025 10:47-0400 Body zfwnat01.11 Snow Hernandez MD Work Phone: [phone])[address] [place], [place] 5441008-12-2025 10:47-0400 Diastolic blood xozwbgbe26 mm[Hg]Praneeth Hernandez MD Work Phone: 1(314)[address] [place], [place] 5441008-12-2025 10:47-0400 Heart rate97 /minPraneeth Hernandez MD Work Phone: 1(085)[address] [place], [place] 5441008-12-2025 10:47-0400 Systolic blood fymmrlmb183 mm[Hg]Praneeth Hernandez MD Work Phone: 1(957)[address] [place], [place] 5441007-23-2025 16:01-0400 Body mass index (BMI) [Ratio]30.31 kg/e9Ghyib Siria DO Work Phone: [facility] CenterIclyfpapqy18-69-0490 16:01-0400Body .62 kgCoredeepak Siria DO Work Phone: [facility] CenterUfxmvizxda01-65-9009 16:01-0400Diastolic blood irocbxoj59 mm[Hg]Shmuel Siria DO Work Phone: [facility] CenterFaarzaaiwc15-29-0334 16:01-0400Systolic blood wxmnurvi660 mm[Hg]Shmuel Siria DO Work Phone: [facility] CenterOmdkvpzndf10-37-0739 10:50-0400Body temperature 98.1 [degF]Aimee Ivory [employer]PENTER FOREMAN Work Phone: [facility] CenterFmekrppvjb94-24-5093 10:50-0400Diastolic blood eierdjps15 mm[Hg]Aimee Ivory [employer]ENTER FOR[employer] Work Phone: [facility] CenterMfcjmetaxq75-05-3816 10:50-0400Heart vnde502 /min Aimee Ivory [employer] Work Phone: [facility] CenterFomnjqhoot59-24-1148 10:50-0400Respiratory rate20 /minAimee Ivory [employer]PENTER FOR[employer] Work Phone: [facility] CenterFzzwvsmxez46-99-3773 10:50-7314ArU8% (BldA) [Mass fraction]98 %Aimee Ivory [employer] Work Phone: [facility] CenterLurljqpnxv18-57-0268 10:50-0400Systolic blood fcwbviyo570 mm[Hg]Aimee Ivory [employer] Work Phone: [facility] CenterGuxzutkzfs64-19-8724 13:00-0400Body mass index (BMI) [Ratio]30.56 kg/r1Ztwsj Siria DO Work Phone: [facility] CenterLxrleltszg22-33-5692 13:00-0400Body ldofrp82.25 kgCorey Siria DO Work Phone: [facility] CenterYxnzynrrqw72-93-1725 13:00-0400Diastolic blood lrevlzyx33 mm[Hg]Shmuel Siria DO Work Phone: [facility] CenterYnemhhuczj24-49-1182 13:00-0400Systolic blood xmkwrfhu690 mm[Hg]Shmuel Siria DO Work Phone: [facility] CenterXbeervedhy01-81-1559 11:47-0500Body mass index (BMI) [Ratio]33.37 kg/q9Fsjbg Siria DO Work Phone: [facility] Vjdbldhxon00-57-8063 11:47-0500Body .46 kgCorey Siria DO Work Phone: noPutnam County Memorial HospitalVnlpvvuiia57-00-3092 11:47-0500Diastolic blood tkdczdro52 mm[Hg]Shmuel Siria DO Work Phone: noPutnam County Memorial HospitalAcvwilvetf69-58-0111 11:47-0500Systolic blood sigacivy956 mm[Hg]Shmuel Siria DO Work Phone: [facility] Encounters Encounter DateEncounter TypeCare ProviderFacilityStart: 30-73-9661yxzvqtvant BJORN L CUTLERFacility:EU BellevueStart: 03-21-2025 End: 22-88-3809momsyqrhyoWXM [facility] GastroStart: 03-21-2025 End: 00-66-6083Ifejjkh encounter procedureUlises Tapan [facility] Work Phone: Start: 05-82-9252ydbcflcokmLUTJMLO CUTLERFacility:EU [place]Start: 03-11-2025 End: 10-47-2975jpkxxkwhyxJNAQZGN L CUTLERNot AvailableStart: 03-11-2025 End: 87-70-5695Cisghc outpatient visit 15 minutesTimothy L Riverdale DO Work Phone: noms [facility] CareComment on above:Dysuria (Primary Dx)Start: 02-04-2025 End: 19-79-4838qiddytbwrqHFE [facility] Work Phone: Start: 02-04-2025 End: 52-52-3450Cjsapra encounter Yelitza Tapan [facility] Work Phone: Start: 01-16-2025 End: 90-62-5224tptujuzhuqLnhtcbg J DittyFacility:[facility] Hospitaltart: 23-41-5072Lyr-patient / Non-visitPraneeth Hernandez MD-[facility] Work Phone: Start: 01-09-2025 End: 52-88-2086Feduus digital e/m svc est pt <7 d 5-10 minutesCorey Siria DO Work Phone: [facility]oms [facility] OBGYNComment on above:Mood changesStart: 01-01-2025 End: 56-45-7246wtodvyvfvaEVW [facility] Work Phone: Start: 01-01-2025 End: 98-46-2838Xbaxmip encounter procedureCamcody Hernandez MD-[facility] Work Phone: Start: 12-12-2024 End: 78-41-0022Jgmwngf encounter procedureCorey Siria DO Work Phone: [facility] Work Phone: Start: 12-12-2024 End: 13-64-0994Jazxpvvz preventive med est patient 18-39 yrsCorey Siria DO Work Phone: noms [facility] OBGYNComment on above:Well woman exam with routine gynecological exam; Anxiety, generalized ; Mood changesStart: 12-12-2024 End: 96-48-8699tyqkgonsluAAIDQ FAZIONot AvailableStart: 12-12-2024 End: 61-69-7494Vlliff flowsheetCorey Siria DO Work Phone: NOIF BCP OBStart: 12-12-2024 End: 56-86-8490Hfsttk flowsheetCorey Siria DO Work Phone: noms BCP OBStart: 12-12-2024 End: 91-70-2793Gjvzxjqil Result EncounterCorey Siria DO Work Phone: noms External Department UnsolicitedStart: 11-29-2024 End: 38-46-5329Zhlmit-up encounterLindsflorentino Ivory [employer]ENTER [employer]EM[employer] Work Phone: noms SWS UCComment on above:Dysuria (Primary Dx)Start: 11-29-2024 End: 24-29-9995Mkzvmn outpatient visit 25 minutesLindsay N Dianelys [employer]PENTER FOREMAN Work Phone: NO SWS UCComment on above:Dysuria (Primary Dx); Vaginal itchingStart: 11-29-2024 End: 41-06-4295ivttseqqhfQXKINHZ N DIANELYSNot AvailableStart: 11-05-2024 End: 19-39-7500Ztofucgql encounterTimothy L Riverdale DO Work Phone: [facility] SWS FM 230Comment on above:ReferralStart: 09-20-2024 End: 65-67-3288Nwjdknywf Result EncounterCorey Siria DO Work Phone: [facility] External Department UnsolicitedStart: 09-20-2024 End: 18-29-8659Agvydirtp Result EncounterCorey Siria DO Work Phone: NOVI External Department UnsolicitedStart: 09-19-2024 End: 71-14-1831Ymtqzy flowsheetCorey Siria DO Work Phone: [facility] BCP OBStart: 09-19-2024 End: 48-12-8808Ejyamp flowsheetCorey Siria DO Work Phone: [facility] BCP OBStart: 09-19-2024 End: 15-17-1800Qrwxke outpatient visit 15 minutesCorey Siria DO Work Phone: [facility] BCP OBComment on above:Pelvic pain in female Start: 09-19-2024 End: 91-23-8981bmqfzkzcuqUMISK FAZIONot AvailableStart: 08-31-2024 End: 11-61-8256Moffnrigl encounterTimothy L Riverdale DO Work Phone: [facility] SWS FM 230Start: 08-10-2024 End: 65-47-0549hxbokswddbREPEFCR L CUTLERNot AvailableStart: 06-26-2024 End: 44-35-0348uhwhvdqkgiGdupiwgz:[facility] Hospitaltart: 06-26-2024 End: 47-24-3528Pwjgjigjnmdp consultation with Kerry Escalante APRN.POLITICAL SCIENCE FACULTY MEMBER Work Phone: TelemedicineComment on above:Dysuria (Primary Dx) Start: 08-03-2023 End: 02-95-9010Odjbekbmg Result EncounterCorey Siria DO Work Phone: noms External Department UnsolicitedStart: 08-03-2023 End: 93-32-7956Fyuyunoxx Result EncounterCorey Siria DO Work Phone: noms External Department UnsolicitedStart: 07-19-2023 End: 98-06-1369Mvywsmaug Result EncounterCorey Siria DO Work Phone: noms External Department UnsolicitedStart: 07-19-2023 End: 83-26-5455Wtedhmdzw Result EncounterCorey Siria DO Work Phone: noms External Department UnsolicitedStart: 06-23-2023 End: 51-19-0543Thezxcsp flow sheetCorey Siria DO Work Phone: noms BCP OBComment on above:Third trimester Start: 05-09-2023 End: 79-06-1448Ipihsksxx Result EncounterCorey Siria DO Work Phone: noms External Department UnsolicitedStart: 05-09-2023 End: 31-50-9220Kvjsjwlps Result EncounterCorey Siria DO Work Phone: noms External Department UnsolicitedStart: 04-11-2023 End: 13-78-0173Vxjvnwixk Result EncounterCorey Siria DO Work Phone: noms External Department UnsolicitedStart: 04-11-2023 End: 51-60-7969Ehpabukco Result EncounterCorey Siria DO Work Phone: noms External Department UnsolicitedStart: 09-22-2022 End: 74-77-4983luwbrawadjOQ SHMUEL SIRIA .Facility:Q3Wwvjl: 01-29-2022 End: 54-78-7831Eddsopnhgw and management of inpatientDR ROLAND NORTON . Facility:Z4Rbqvm: 01-29-2022 End: 68-62-2747ycpfrpxdraHH SHMUEL SIRIA .Facility:B6Ajuvj: 01-26-2022 End: 35-28-7820auehhtmyhuDX WILD Garner WESTFacility:U6Vxein: 01-21-2022 End: 38-04-9233aomfphcusmTP SHMUEL SIRIA .Facility:U5Ltjfd: 01-18-2022 End: 87-33-4223oaanbzavvhSY WILD Pascual WESTFacility:V9Kceqm: 01-12-2022 End: 06-94-8024lnmfrmoufsIB SHMUEL SIRIA .Facility:X8Jnylk: 01-12-2022 End: 18-84-1755zumqgmxosiOC NONE LISTED REQUESTFacility:V0Noxxz: 11-10-2021 End: 49-05-1512hjxaotxnrfZR SHMUEL SIRIA .Facility:E0Kglhe: 11-02-2021 End: 04-92-6871dtfwilmxioKU SHMUEL SIRIA .Facility: Procedures DateProcedureProcedure DetailPerforming ClinicianStart: 91-06-2663Misju dip stick/tablet rgnt auto w/o microscopyAnthmel Bejarano DO Work Phone: Start: 83-60-0352Gwkzwx abdominal X-rayCamcody Hernandez MD Work Phone: Start: 66-82-7995ITV,APTIMA HPV,AGE GDLNCorey Siria DO Work Phone: Start: 11-77-2926CXLH CEPHEID MVPLgris Ivory [employer]ENTER FOREMAN Work Phone: Start: 06-01-9839VNEQDVS TRACT INFECTION (HTRX)Aimee Ivory [employer] Work Phone: Start: 80-90-7409Wsfag dip stick/tablet rgnt auto w/o microscopyAnthony Hood Bejarano DO Work Phone: Start: 50-24-0338BN PELVIS W/ TRANSVAGINALCorey Siria DO Work Phone: Start: 61-90-6871UU OB GROWTHCorey Siria DO Work Phone: Start: 82-25-7580AS OB GROWTHCorey Siria DO Work Phone: Start: 86-90-6384Ktkip dip stick/tablet rgnt non-auto w/o micrscpCorey Siria DO Work Phone: Start: 02-27-1636BU OB CERVICAL LENGTHCorey Siria DO Work Phone: Start: 19-21-6857RK OB PLACENTACorey Siria DO Work Phone: Start: 24-22-9512EY OB ANATOMYCorey Siria DO Work Phone: Start: 34-73-3991HC OB TRANSVAGINALCorey Siria DO Work Phone: Start: 05-59-7587Ttgrahiwjg of Products of Conception, Low Cervical, Open ApproachDR ROLAND NORTON . Plan of Treatment DateCare ActivityDetailAuthorStart: 57-34-5962Dwteb microalbumin profile DTaP,Tdap,Td Vaccine (2 - Tdap)[facility] Hospitaltart: 57-36-0800Riticthwn vaccinationNOCO HealthcareStart: 29-86-8061JyttenajmMercy Health [facility] Start: 01-09-2025 End: 03-81-9820Urtwyhk encounter ewiyxfkfv55/20/2025 8:10 AM EDT Office Visit RM ANDERSONN [address] [place] [address] Shmuel Beverly, DO [address] [place] [address] RM TIRADOGYNStart: 12-12-2024 End: 80-37-6661Vydnmbk encounter procedureNOMS [facility] OBComment on above:Arrived Start: 09-19-2024 End: 36-81-7100AD PelvisUS Pelvis w/ TV Imaging Routine Pelvic pain in female Expected: 09/19/2024, Expires: 03/21/2025NOCO HealthcareComment on above: Expected: 09/19/2024, Expires: 03/21/2025Start: 09-19-2024 End: 18-47-5793ZH Pelvis transvaginalUS pelvis transvaginal Imaging Routine Pelvic pain in female Expected: 09/19/2024, Expires: 03/21/2025[facility] Healthcare Comment on above:Expected: 09/19/2024, Expires: 03/21/2025Start: 09-19-2024 End: 92-64-5872Ufbbqhy encounter pmheijzrf24/30/2025 1:00 PM EDT Office Visit [facility] BCP OB [address] [place] [id number] Shmuel Beverly, DO [address] [facility] [place] [address] ArrivedNOKAISER PERMANENTE [facility] OBComment on above:ArrivedStart: 22-14-2807Rvmeo-19 Vaccine ( season)Covid-19 Vaccine ( season)[facility]tart: 88-23-7922Tzpdkepuc vaccinationInfluenza Vaccine (#1)[facility] Hospitaltart: 07-11-2023 End: 66-20-3329Chltxvr encounter tagmkbvuo87/19/2024 3:10 PM EST Routine [facility] [address] [facility] [facility] [place] [phone] Shmuel Beverly, DO [address] [facility] [place] [address] NOMS BCP OBStart: 25-47-9639Epovlvrdl for malignant neoplasm of cervixCervical Cancer ScreeningCleCleveland Clinic Medina Hospitaltart: 19-83-7271Ocfbmpvgq B Vaccine (1 of 3 - 19+ 3-dose series)Hepatitis B Vaccine (1 of 3 - 19+ 3-dose series)[facility]art: 59-74-6460Uaqwhel Screening Anxiety ScreeningCleCleveland Clinic Medina Hospitaltart: 25-08-8060Tzqzhqdyls ScreeningDepression ScreeningCommunity Memorial Hospitaltart: 34-42-7387Xfacdyxww C screeningHepatitis C ScreeningCommunity Memorial Hospitaltart: 73-77-5153HGV screeningHIV ScreeningCommunity Memorial Hospitaltart: 06-96-9216VUP Vaccine (1 - 3-dose series)HPV Vaccine (1 - 3-dose series)[facility]: 73-75-8308Tjqp To Adult Transition Annual AssessmentPeds To Adult Transition Annual AssessmentCommunity Memorial Hospitaltart: 74-35-9915Umts To Adult Transition Initial DiscussionPeds To Adult Transition Initial DiscussionThe Jewish HospitalAMYDIA TRACHOMATIS (GENITO/STI)CHLAMYDIA TRACHOMATIS (GENITO/STI) Lab Routine Pelvic pain in female Ordered: 09/19/2024 [facility] HealthcareComment on above:Ordered: 09/19/2024omprehensive metabolic 2000 panel - Serum or PlasmaMercy Health St. Elizabeth [facility]man HospitalCytology Cervical or vaginal smear or scraping studyPap Smear Pathology and Cytology Routine Well woman exam with routine gynecological exam Ordered: 12/12/2024[facility] Healthcare Work Phone: comment on above:Ordered: 12/12/2024Neisseria gonorrhoeae DNA [Presence] in Unspecified specimen by GINO with probe detection Neisseria gonorrhea DNA probe, direct Lab Routine Pelvic pain in female Ordered: 09/19/2024[facility] HealthcareComment on above:Ordered: 09/19/2024Patient Education [facility] Work Phone: POCT CEPHEID MVPPOCT CEPHEID MVP Point of Care Testing Routine Vaginal itching 11/29/2024 2:[facility] Work Phone: Supine abdominal X-rayGrand Lake Joint Township District Memorial HospitalURESWAB(R) ADVANCED VAGINITIS PLUS, TMASURESWAB(R) ADVANCED VAGINITIS PLUS, TMA Pathology and Cytology Routine Pelvic pain in female Ordered: 09/19/2024[facility] Healthcare Work Phone: comment on above:Ordered: 09/19/2024URINARY TRACT INFECTION + HIGH RISK SEXUAL BEHAVIOR (HTRX)URINARY TRACT INFECTION + HIGH RISK SEXUAL BEHAVIOR (HTRX) Lab Routine Dysuria Ordered: 03/11/2025[facility] Healthcare Work Phone: Comment on above:Ordered: 03/11/2025[facility] Payers DatePayer CategoryPayerPolicy [id number] [facility] Member Subscriber Plan / Payer (Effective 2022-Present) Name: Delia Gayle Relation to Subscriber: Spouse Name: Garland Gayle of : 1997 Address: [address] [place] [address] Payer ID: Not on file Type: Not on file Address: [address] [place] [id number] [facility] BCBS [id number] 2022-Present [phone] [address] [place] [id number] 2..1.614411.3.57[id number] 2..1.225612.3.57[id number] 2..1.596735.3.57[id number] 2..1.255757.3.579.[id number] 2..1.949655.3.57[id number] 2..1.413054.3.57[id number] 2.16.840.1.812037.3.57[id number] 2.16.840.1.832617.3.57[id number] 2.16.840.1.199308.3.57[id number] 2.16.840.1.043967.3.57[id number] 2.16.840.1.909377.3.579.2.[id number] 2.16.840.1.422111.3.579.2.961533-19-6666Cvcyqxm79053070 2.16840.1.294840.3.57[id number] 2.16.840.1.643207.3.57[id number] 2.16.840.1.046289.3.57[id number] 2.840.1.773471.3.579.2.2462[id number] 2.16840.1.4[id number] 2.840.1.462677.3.579.2.531 Social History DateTypeDetailFacilityStart: 02-02-2023 End: 50-29-1584Jsglddm smoking status NHISNever smoked tobaccoNOMS Healthcare Start: 27-24-4639Wtfkxjl use and exposureSmokeless tobacco non-userNOMS HealthcareStart: 06-23-2023 End: 34-81-2823Cqgjkwm intakeCurrent drinker of alcohol (finding)[facility] Healthcare Start: 02-02-2023 End: 66-36-9523Lhtglfj of Social functionNOCO HealthcareStart: 02-02-2023 End: 37-73-9422Opvuart use panelNOCO HealthcareStart: 69-73-8067Tkwhazj Comment Occasional alcohol useNOCO HealthcareStart: 22-17-8890HdeswzpdfIXJE Healthcare Start: 16-41-4980Phw Assigned At BirthFemalBeaver Valley Hospital HealthcareStart: 01-13-2023 Gender identityIdentifies as female gender (finding)[facility] HealthcareStart: 62-74-0148Sumqzs orientationHeterosexual (finding)[facility] HealthcareTobacco smoking status NHISTobacco smoking consumption unknownCommunity Memorial Hospitaltart: 08-04-2022 How often do you attend taoist or cheondoism services?Patient declinedNOMS HealthcareDo you belong to any clubs or organizations such as taoist groups, unions, fraLeadCloud or athletic groups, or school groups?NoNOMS HealthcareAre you now , , , , never or living with a partner?MarriedNOMS HealthcareHow often to you have a drink containing alcohol? NeverNOMS HealthcareDo you feel stress - tense, restless, nervous, or anxious, or unable to sleep at night because yourmind is troubled all the time - these days [OSQ]Only a littleNOMS Healthcare(I/We) worried whether (my/our) food would run out before (I/we) got money to buy more.Never trueNOMS HealthcareSexFemale (finding)[facility] Hospitaltart: 04-02-2023 End: 47-55-1033Cclhoclw to SARS-CoV-2 (event)Not sureNOMS Healthcare Goals DatePatient GoalDesired Activity/StatePersonal health goal Functional Status ToeuBwioembicpWzbiirUvmhjeoc82-30-6715Snolzfw Health Questionnaire 2 item (PHQ- 2) [Reported][facility] CenterDfpgffssrh92-88-4737Kagdq score [AUDIT-C]0 08/09/2024 3:36 AM EDT Arsenio BuenoNOPutnam County Memorial HospitalZhogbptjsn02-46-6141Tur often do you have a drink containing alcohol?Never 08/09/2024 3:36 AM EDT Mychart, Generic NeverNOPutnam County Memorial HospitalDihexxqspy58-53-1191Vbjeyhjxuw statusPatient does not drink 08/09/2024 3:36 AM EDT Mychart, Generic Patient does not drinkNOPutnam County Memorial HospitalLyrhdyztbo04-40-1288Tyg often do you have 6 or more drinks on 1 occasion?Never 08/09/2024 3:36 AM EDT Nyahart, Generic [facility] Clinical Notes 08-08-2020 to 03-11-2025 Note Date & OmvgJgliNkexcatg23-30-8191 History of Present illness Narrative* Bjorn Frankel, DO - 03/11/2025 4:25 PM EDT Images from the original note were not included. [address] , [address] [facility], [address] P: [phone] F: [phone] HPI Historian of HPI: patient Delia Gayle is a 25 y.o. female who presents today to the Urgent Care with the following complaints and denials which have been present for 3 month(s) pt states she had a UTI back in November and was seen here and treated. Pt states she did notice some discharge in the toilet after she urinates about 2 days ago but that has now stopped. Pt is having lower ABD cramping. Pt has F/U with PCP and OB recently, had labs, scans, and exams which all came back negative. Pt denies any concerns for STI. Pt denies any chance of or currently breast feeding. Pt states she did feel a bit dizzy this morning but after pushing some fluids she soon felt better. C/O Denies Symptom Comments [x] [] Dysuria Burning sensation [] [x] hematuria [] [x] Urinary frequency [] [x] Urinary incontinence [] [x] Urinary urgency [x] [] Genital itching [x] [] Genital discharge [x] [] Back pain Bilateral back pain [x] [] Abd pain ABD cramping Additional Comments: pt has not taken any OTC medications IH Testing: An In-House UA has been obtained ROS A complete system ROS was performed and negative aside from the pertinent positives noted in the HPI and PE. PHYSICAL EXAM Physical Exam Constitutional: General: She is not in acute distress. Appearance: She is not ill-appearing or toxic-appearing. HENT: Head: Normocephalic. Eyes: Conjunctiva/sclera: Conjunctivae normal. Pulmonary: Effort: Pulmonary effort is normal. No respiratory distress. Breath sounds: No stridor. Abdominal: General: Abdomen is flat. Tenderness: There is no abdominal tenderness. Musculoskeletal: General: No swelling or signs of injury. Normal range of motion. Cervical back: Normal range of motion. Skin: General: Skin is warm and dry. Neurological: General: No focal deficit present. Mental Status: She is alert. Mental status is at baseline. Psychiatric: Mood and Affect: Mood normal. Behavior: Behavior normal. Thought Content: Thought content normal. Judgment: Judgment normal. TREATMENT PLAN 1. Dysuria (Primary) Discussed send out urine culture, consider urology referral prn based on result - URINALYSIS ANALYZER TEST - URINARY TRACT INFECTION + HIGH RISK SEXUAL BEHAVIOR (HTRX) documented in this encounterWestern Missouri Mental Health CenterQzadlkfooa49-03-3895 History of Present illness Narrative* Rosalie Matos LPN - 01/09/2025 8:10 AM EDT Reason for Appointment: Patient ID: Delia Gayle is a 24 y.o. female who presents for No chief complaint on file. Patient presents today via telephone call for a telehealth appointment. Patients Phone #: [phone] (mobile) Date: 01/09/2025 Time: 4:51 PM of the visit Platform Used: Audio call performed via in house telephone system. Location of Patient and Provider: Patient at home, provider at clinic Consent for Telehealth: Patient provided verbal consent to conduct the visit virtually via audio only phone call Current Medications: has a current medication list which includes the following prescription(s): fluoxetine. Medical History: Active Ambulatory Problems Diagnosis Date Noted SGA (small for gestational age) ([facility]) 07/25/2023 Size of fetus inconsistent with dates in third trimester ([facility]) 07/25/2023 Abnormal cervical Papanicolaou smear 08/10/2024 Obesity 08/10/2024 Resolved Ambulatory Problems Diagnosis Date Noted No Resolved Ambulatory Problems Past Medical History: Diagnosis Date 6 weeks follow-up ([facility]) Abnormal Pap smear of cervix History of Obesity (BMI 30-39.9) No family history on file. Social History Tobacco Use Smoking status: Never Smokeless tobacco: Never Substance Use Topics Alcohol use: Yes Comment: Occasional alcohol use Drug use: Never Past Surgical History: Procedure Laterality Date SECTION, LOW TRANSVERSE 01/2022 SECTION, LOW TRANSVERSE 08/20/2023 No Known Allergies Vitals: Estimated body mass index is 30.31 kg/m as calculated from the following: Height as of 08/10/24: 5' 3 . Weight as of 12/12/24: 171 lb 1.9 oz. BP: Patient's last menstrual period was 12/03/2024. Assessment/Plan Encounter Diagnosis Name Primary? Mood changes Pt was called and counseled on medication and mood. Pt states she is doing great on medications. Ptto return for annual unless needed sooner. Today's telehealth visit consisted of spending 5 minutes talking to patient on the phone. Documented by Rosalie Matos LPN on behalf of: Shmuel Beverly DO documented in this encounterWestern Missouri Mental Health CenterNyvxcrrbon32-10-8023 Evaluation note* Diagnosis Onset Date Resolution Status Admit Date Abdominal pain acuteAugust 2024 10:43amBRBPR (bright red blood per rectum)acuteAugust 2024 10:43amChange in bowel habitacuteAugus2024 10:43am [facility] Work Phone: 1(174) 675-248808-12-2025 Evaluation note* Diagnosis Onset Date Resolution Status Admit Date Abdominal pain acuteAugust 2024 10:43amBRBPR (bright red blood per rectum)acuteAugust 2024 10:43amChange in bowel habitacuteAugust 2024 10:43amAbdominal crampingacuteSept2024 1:26pmIBS (irritable bowel syndrome)acute February 04, 2025 1:26pm [facility] Work Phone: 1(968) 124-774008-12-2025 Evaluation note* Diagnosis Onset Date Resolution Status Admit Date Abdominal pain acuteAugust 2024 10:43amBRBPR (bright red blood per rectum)acuteAugust 2024 10:43amChange in bowel habitacutegus2024 10:43amAbdominal crampingacuteSeptember 2024 1:26pmIBS (irritable bowel syndrome)acute February 04, 2025 1:26pmAbdominal crampingacuteOctober 2024 2:50pmIBS (irritable bowel syndrome)acuteOctober 2024 2:50pm [facility] Work Phone: 1(657) 698-168807-23-2025 History of Present illness Narrative* Rosaliejoshua Matos, ADAPTED PHYSICAL EDUCATION TEACHER - 12/12/2024 3:40 PM EDT Reason for Appointment: Patient ID: Delia Gayle is a 24 y.o. female who presents for Well Women Visit Patient presents today for Annual Exam. MEDICATIONS Current Outpatient Medications Medication Instructions amoxicillin-clavulanate (Augmentin) 875-125 MG tablet 875 mg, Oral, 2 times daily ALLERGIES No Known Allergies PROBLEMS Active Ambulatory Problems Diagnosis Date Noted SGA (small for gestational age) ([facility]) 07/25/2023 Size of fetus inconsistent with dates in third trimester ([facility]) 07/25/2023 Abnormal cervical Papanicolaou smear 08/10/2024 Obesity 08/10/2024 Resolved Ambulatory Problems Diagnosis Date Noted No Resolved Ambulatory Problems Past Medical History: Diagnosis Date 6 weeks follow-up ([facility]) Abnormal Pap smear of cervix History of Obesity (BMI 30-39.9) HISTORY PAST MEDICAL HISTORY SOCIAL HISTORY Past Medical History: Diagnosis Date 6 weeks follow-up ([facility]) Abnormal Pap smear of cervix History of [...] nursing note reviewed. Exam conducted with a catheter builder present. Vitals: Estimated body mass index is [...] with those once we have them. Patient canalso view results via [employer]. I reinforced importance of condom use for [...] of: Shmuel Beverly DO documented in this encounterWestern Missouri Mental Health CenterPdmdxktgzb20-25-9606 Telephone encounter Note* Telephone Encounter - Aimee Ivory NP - 12/02/2024 11:18 AM EDT [facility]. [facility] CenterPbbcqleoyw19-23-4335 Miscellaneous Notes* Telephone Encounter - Aimee Ivory NP - 12/02/2024 11:18 AM EDT Sent Augmentin to [facility]. * Telephone Encounter - Debra Nunez MA - 12/02/2024 9:19 AM EDT Spoke with patient and she is still having some discomfort. Would like atb to be sent to [facility] in [place] * Telephone Encounter - Aimee Ivory NP - 12/02/2024 9:09 AM EDT Please notify patient that urine culture report grew low bacterial load of staph epidermidis which is part of a given body sites's normal fadumo. How is she feeling? If she is still having symptoms, Iwill send in an ATB for her. Follow up with PCP if not improving. Thanks. * Telephone Encounter - Aimee Ivory NP - 11/29/2024 2:53 PM EDT Please notify patient that in house testing for BV, yeast, and Trich are all negative. These are not the cause of her symptoms. We will call with urine culture results once they are completed. Thanks. documented in this encounterWestern Missouri Mental Health CenterTmuzpfvfws81-22-1215 Telephone encounter Note* Telephone Encounter - Debra Nunez MA - 12/02/2024 9:19 AM EDT Spoke with patient and she is still having some discomfort. Would like atb to be sent to [facility] in [place] [facility] CenterZidttbskfv24-64-5489 Telephone encounter Note* Telephone Encounter - Aimee Ivory NP - 12/02/2024 9:09 AM EDT Please notify patient that urine culture report grew low bacterial load of staph epidermidis which is part of a given body sites's normal fadumo. How is she feeling? If she is still having symptoms, Iwill send in an ATB for her. Follow up with PCP if not improving. Thanks. [facility] CenterTmsrofkpdg71-87-4518 Telephone encounter Note* Telephone Encounter - Aimee Ivory NP - 11/29/2024 2:53 PM EDT Please notify patient that in house testing for BV, yeast, and Trich are all negative. These are not the cause of her symptoms. We will call with urine culture results once they are completed. Thanks. [facility] Wuyulqaddi97-29-0704 History of Present illness Narrative* Aimee Ivory NP - 11/29/2024 10:40 AM EDT Images from the original note were not included. [address], [address] [facility], [address] P: [phone] F: [phone] HPI Historian of HPI: patient Delia Gayle is a 24 y.o. female who [...] 2024 . 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 documented in this encounterWestern Missouri Mental Health CenterPmdpmkiqce16-04-6563 Telephone encounter Note* Telephone Encounter - Ally Christine - 11/05/2024 9:58 AM EDT Pt is still having the same issues as when she was seen in July. She still has cramping and goes between constipation and diarrhea. She states she has felt sick for 5 months. She did see her terminal superintendent since and had further testing there but nothing was found. She was thinking the next step would be [facility] referral. She was wondering if Dr. Frankel would refer her to a GI or if she needed to been seen again in the office? [facility] CenterPofwurlgtt60-22-2067 Miscellaneous Notes* Telephone Encounter - Ally King - 11/05/2024 9:58 AM EDT Pt is still having the same issues as when she was seen in July. She still has cramping and goes between constipation and diarrhea. She states she has felt sick for 5 months. She did see her terminal superintendent since and had further testing there but nothing was found. She was thinking the next step would be [facility] referral. She was wondering if Dr. Frankel would refer her to a GI or if she needed to been seen again in the office? documented in this encounterWestern Missouri Mental Health CenterHefmorprlg38-70-9613 History of Present illness Narrative* Rosalie Matos LPN - 09/19/2024 1:00 PM EDT Reason for Appointment: Patient ID: Delia Gayle is a 24 y.o. female who [...] nursing note reviewed. Exam conducted with a catheter builder present. Vitals: Estimated body mass index is [...] of: Shmuel Beverly DO documented in this encounterWestern Missouri Mental Health CenterDvavxivkjv20-65-7095 Telephone encounter Note* Telephone Encounter - Bjorn Estrella Jostin, - 08/31/2024 3:31 PM EDT Let pt know her labs were all unremarkable, no changes needed at this time. [facility] CenterHeuyobuwdr76-06-7839 Miscellaneous Notes* Telephone Encounter - Bjorn Estrella Jostin, - 08/31/2024 3:31 PM EDT Let pt know her labs were all unremarkable, no changes needed at this time. documented in this encounterWestern Missouri Mental Health CenterGoxlhxvjvt71-18-8602 Instructions* Patient Instructions* Floresita Escalante APRN.POLITICAL SCIENCE FACULTY MEMBER - 06/26/2024 12:45 PM EST [facility] PATIENT INFO BLADDER INFECTION OVERVIEW Bladder infections are one of the most common infections, causing symptoms of burning with urination and needing to urinate frequently. A bladder infection is a type of urinary tract infection (UTI).Bladder infections are more common is women than men. Most women have an uncomplicated bladder infection that is easily treated with a short course of antibiotics. In men, bladder infections may alsoaffect the prostate gland, and a longer course [...] symptoms of a bladder infection, but can occurin people with a kidney infection (pyelonephritis). If [...] treatment is usually given for at least 7days. Your symptoms should begin to resolve within [...] UTIs. A similar medication is available without aprescription (eg, Uristat). Both medications change the color of the urine (usually blue or orange)and can interfere with laboratory testing. You should not take these medications for more than 48 hours due to the risk of side effects. These medications do not treat the infection and must be takenalong with an antibiotic. Some providers recommend drinking [...] -- Some adults, especially women, develop bladder infectionsfrequently. In this case, it is important to [...] actually have an infection. documented in this encounterSouthview Medical Center02-04-2025 NoteHNO ID: [id number] Author: FLORESITA ESCALANTE APRN.CNP Service: ? Author Type: Nurse Practitioner Type: Progress Notes Filed: 06/26/2024 12:45 Note Text: Telemedicine Visit - Distance Health Virtual Visit Note Patient seen on [employer] Video Visit platform. Location of patient: [place] I have communicated my name and active licensure. The patient's identity and physical location were verified at the time of this visit. Either the patient or their legal residential sales representative has been informed of the risks and benefits of -- and alternatives to -- treatment through a remote evaluation and consents to proceed with the evaluation remotely. History of Present Illness Delia Gayle is a 24 year old female with [...] when wiping. Pt. Does not live near [facility] lab. Advised patient will empirically treat [...] other concerning symptoms All questions answered Floresita Escalante APRN.[facility]REWOhio State Health System02-04-2025 History of Present illness Narrative* Floresita Escalante APRN.ANDREW - 06/26/2024 12:33 PM EST Telemedicine Visit - Distance Health Virtual Visit Note Patient seen on [employer] Education Video Visit platform. Location of patient: [place] I have communicated my name and active licensure. The patient's identity and physical location wereverified at the time of this visit. Either the patient or their legal residential sales representative has been informed of the risks and benefits of -- and alternatives to -- treatment through a remote evaluation andconsents to proceed with the evaluation remotely. History of Present Illness Delia Gayle is a 24 year old female with [...] other concerning symptoms All questions answered Floresita Escalante APRN.CNP [facility] History of Present illness Narrative* BHARAT Mandel - 06/23/2023 11:50 AM EST Reason for Appointment: Patient ID: Delia Gayle is a 23 y.o. female who presents for Routine Visit Patient presents today for Return OB appointment. Patient presents today for a routine obstetrics appointment. Patient is currently 30w5d with a Estimated Date of Delivery: 08/27/23. Current Medications: has a current medication list which includes the following prescription(s): omeprazole and . Medical History: Active Ambulatory Problems Diagnosis Date [...] Documented by BHARAT Mandel on behalf of: YVETTE Mandel documented in this encounterWestern [facility] [id number] NoteOPERATIVE NOTE OPERATION DATE: 01/30/2022 PROCEDURE: Primary low transverse section. PREOPERATIVE DIAGNOSIS: 1. Intrauterine at 38+ weeks. 2. Spontaneous labor. 3. Failure to descend. POSTOPERATIVE DIAGNOSIS: 1. Intrauterine at 38+ weeks. 2. Spontaneous labor. 3. Failure to descend. ANESTHESIA: Epidural with Duramorph. SURGEON: Shmuel Beverly D.O. ALTERATION WORKER: JOCELYNN Matos URINE OUTPUT: Yellow and clear. [...] taken to the Recovery Room in stable condition.[facility] [id number] Note DISCHARGE SUMMARY DISCHARGE DATE: 02/16/2022 PRIMARY [...] when pain free and no longer on narcotics.[facility] [id number] NoteHNO ID: [id number] Author: Jackelyn Russell Service: ? Author Type: [...] Instructions on file for this visit. Jackelyn Russell, [facility]* Diagnosis Third trimester state, incidental documented in this encounter [facility] HealthcareEvaluation note* Diagnosis Dysuria- Primary [facility]* Diagnosis Pelvic pain in female Unspecified symptom associated with female genital organs documented in this encounter [facility] HealthcareEvaluation note* Diagnosis Dysuria- Primary documented in this encounter [facility] HealthcareEvaluation note* Diagnosis Dysuria- Primary Vaginal itching Pruritus of genital organs documented in this encounter [facility] HealthcareEvaluation note* Diagnosis Well woman exam with routine gynecological exam Routine gynecological examination Anxiety, generalized Mood changes Unspecified episodic mood disorder documented in this encounter [facility] HealthcareEvaluation note* Diagnosis Onset Date Resolution Status Admit Date Abdominal pain acuteAugust 2024 10:43amBRBPR (bright red blood per rectum)acuteAugust 2024 10:43amChange in bowel habitacuteAugust 2024 10:43am [facility] Work Phone: Evaluation note* Diagnosis Mood changes Unspecified episodic mood disorder documented in this encounter [facility] HealthcareEvaluation note* Diagnosis Dysuria- Primary documented in this encounter [facility] HealthcareHospital Discharge instructions Additional Instructions DISCHARGE INSTRUCTIONS FOR COLONOSCOPY WHAT TO EXPECT: - You may feel full, gassy or cramping after your procedure. In some cases, this may be from a few hours to a day. Walking may help relieve the discomfort. - If you have polyp(s) removed you may note some minor bloody discharge after your first bowel movements. - You should begin to recover from anesthesia within 1 hour of the procedure, however may feel groggy for the next 24 hours. DO's AND DON'Ts: - Call your doctor right away if you have a hard abdomen, severe pain, are passing lots of bright red blood or clots. - Call your doctor if you develop any rashes, hives or difficulty breathing. - Let your doctor know if you have not had a bowel movement by 3 days after your procedure. - If you take 81 mg aspirin for your heart it is safe to resume this medication. - If you take other blood thinner medications your doctor will instruct you when these can safely be resumed. - Do NOT drive for 24 hours. - Do NOT operate machinery such as power tools, [employer] mowers, snow blowers, sewing machines, etc. for 24 hours. - Avoid alcoholic beverages and drugs for allergies, nerves, or sleep. - Do NOT stay alone. Do NOT leave your child unattended. - Do NOT make important personal or business decisions or sign any legal documents. - Eat solid foods and drink liquids in smaller amounts than usual until normal appetite returns. If you should experience an upset stomach, liquids high in sugar content (soda, Winston-Aid, non-acid juices) are recommended. - You can resume normal activities tomorrow. FOLLOW UP & RECOMMENDATIONS: - The GI office will schedule you a follow-up appointment. - Notify the doctor if you have any problems. - Follow up with PCP. - Office number [phone].[facility] Work Phone: Reason for referral (narrative)No reason for referral information availablePromedica Fost[facility] Work Phone: Summary Purpose Family History No Family History Records Found Relationship Condition Age at Onset Recorded Date/T shannon father Diabetes mellitus Unknown Advance Directives No Advanced Directives Records Found Advance Directive Response Recorded Date/ Time Advance Directives No November 07 11:39am Advance Directive Response Recorded Date/ Time Advance Directives No January 09, 2025 2:54pm Chief Complaint and Reason for Visit Chief Complaint Admit Date Referred by Dr Frankel: constipation, oumar rrhea January 01, 2025 10:43am Reason for Visit Admit Date Abdominal pain January 01, 2025 10 :43am BRBPR (bright red blood per rectum) Augu st 2024 10:43am Change in bowel habit January 01, 2025 10:43am Chief Complaint Admit Date Referred by Dr Frankel: constipation, oumar rrhea January 01, 2025 10:43am change in bowel habits January 16, 2025 9:00am Chief Complaint Admit Date Referred by Dr Frankel: constipation, oumar rrhea January 01, 2025 10:43am change in bowel habits January 16, 2025 9:00am 2wk F/U colonoscopy / Change in bowel iglesias bits February 04, 2025 1:26pm Chief Complaint Admit Date Referred by Dr Frankel: constipation, oumar rrhea January 01, 2025 10:43am change in bowel habits January 16, 2025 9:00am 2wk F/U colonoscopy / Change in bowel iglesias bits February 04, 2025 1:26pm R10.9 R19.4 February 04, 2025 2:13pm Reason for Visit Admit Date Abdominal pain January 01, 2025 10 :43am BRBPR (bright red blood per rectum) 2024 10:43am Change in bowel habit January 01, 2025 10:43am Abdominal cramping February 04, 2025 1:26pm IBS (irritable bowel syndrome) February 04, 2025 1:26pm Chief Complaint Admit Date Referred by Dr Frankel: constipation, oumar rrhea January 01, 2025 10:43am change in bowel habits January 16, 2025 9:00am 2wk F/U colonoscopy / Change in bowel iglesias bits February 04, 2025 1:26pm R10.9 R19.4 February 04, 2025 2:13pm 6wk F/U IBS March 21, 2025 2 :50pm Reason for Visit Admit Date Abdominal pain January 01, 2025 10 :43am BRBPR (bright red blood per rectum) Decu 2024 10:43am Change in bowel habit January 01, 2025 10:43am Abdominal cramping February 04, 2025 1:26pm IBS (irritable bowel syndrome) February 04, 2025 1:26pm Abdominal cramping March 21, 2025 2 :50pm IBS (irritable bowel syndrome) February 222024 2:50pm Additional Source Comments INFORMATION SOURCE (unrecogn ized section and content) DATE CREATED AUTHOR 11/23/2020 [facility] DATE CREATED AUTHOR AUTHOR'S ORGANIZ ATION 06/21/2021 [facility] DATE CREATED AUTHOR AUTHOR'S ORGANIZ ATION 09/29/[address] [facility] DATE CREATED AUTHOR AUTHOR'S ORGANIZ ATION 06/28/2024 [facility] DATE CREATED AUTHOR AUTHOR'S ORGANIZ ATION 02/05/2025 [facility] DATE CREATED AUTHOR AUTHOR'S ORGANIZ ATION 03/12/2025 [facility] DATE CREATED AUTHOR AUTHOR'S ORGANIZ ATION 03/27/2025 [facility] Reason for Visit (unrecogniz ed section and content) ReasonCommentsRoutine VisitReasonCommentsUTIReasonCommentsPelvic Pain ReasonOnset VufmMgbuazkcGsmdeqqr32/16/2025ReasonCommentsWell Women Visit Source Comments (unrecognize d section and content) In the event this informatio n is protected by the Federal Confidentiality of Alcohol and Drug Abuse Patient Records regulations: The Federal rules restrict any use of the information to criminally investigate or prosecute any alcohol or drug abuse patient.[facility] Care Teams (unrecognized sec tion and content) Team Status: Active Member Role Status Dates Bjorn Frankel DO Primary Care Provider Active Team Status: Inactive Member Role Status Dates Praneeth Hernandez MD Attending Provider Active S tart: January 01, 2025 End: January 01, 2025[facility] STAFFPrcape fear/harnett healthry Care ProviderActiveStart: January 01, 2025 End: January 01, 2025 Team Status: Active Member Role Status Dates Praneeth Hernandez MD Attending Provider Active S tart: January 16, 2025 Praneeth Hernandez MDOther ProviderActiveStart: January 16, 2025 [place] Victor Care ProviderActiveStart: January 16, 2025 Team MemberRelationshipSpecialtyStart DateEnd Date Bjorn Frankel DO [address] [facility] [address] [place] [address] PCP - GeneralFamily Medicine08/10/24Team MemberRelationshipSpecialtyStart DateEnd Date Bjorn Frankel, DO [address] [place] [address] PCP - GeneralFamily Medicine08/10/24Team MemberRelationshipSpecialtyStart DateEnd Date Bjorn Frankel, DO [address] [place] [address] PCP - Generalmily Medicine08/10/24 Bjorn Frankel, DO [address] [place] [address] PCP - [employer]09/20/24Team MemberRelationshipSpecialtyStart DateEnd Date Bjorn Frankel, DO [address] [place] [address] PCP - Generalmily Medicine08/10/24 Bjorn Frankel, DO [address] [place] [address] PCP - [employer]09/20/24Team MemberRelationshipSpecialtyStart DateEnd Date Bjorn Frankel, DO [address] [place] [address] PCP - GeneralFamily Medicine08/10/24 Bjorn Frankel, DO [address] [place] [address] PCP - [employer]09/20/24Team MemberRelationshipSpecialtyStart DateEnd Date Bjorn Frankel, DO [address] [place] [address] PCP - [facility] Medicine08/10/24 Bjorn Frankel, DO [address] [place] [address] PCP - [employer]09/20/24Team MemberRelationshipSpecialtyStart DateEnd Date Bojrn Frankel, DO [address] [place] [address] PCP - [facility] Medicine08/10/24 Bjorn Frankel DO [address] [place] [address] PCP - [employer]09/20/24Team MemberRelationshipSpecialtyStart DateEnd Date Bjorn Frankel, DO [address] [place] [address] PCP - [facility] Medicine08/10/24 Bjorn Frankel DO [address] [place] [address] PCP - [employer]09/20/24 Team Status: Active Member Role Status Dates NON STAFF Primary Care Provider Active Team Status: Inactive Member Role Status Dates Bjorn Frankel DO Primary Care Provider Active Start: February 04, 2025 End: February 04, 2025Autumn Beth ProviderActiveStart: February 04, 2025 End: February 04, 2025Team MemberRelationshipSpecialtyStart DateEnd Date Bjorn Frankel DO [address] [place] [address] PCP - Generalmily Medicine08/10/24 Aimee Ivory, CARPENTER FOREMAN [address] [place] [address] PCP - [employer]01/21/25Te MemberRelationshipSpecialtyStart [facility] Elaina Villarreal, SHOT COAT TENDER-POLITICAL SCIENCE FACULTY MEMBER [address] [place] [address] PCP - [facility]/ Bjorn Frankel, DO [address] [place] [address] PCP - [facility]08/10/24 Bjorn Frankel, DO [address] [place] [address] PCP - [employer] Aimee Ivory, CARPENTER FOREMAN [address] [place] [address] PCP - [employer]01/21/25Te MemberRelationshipSpecialtyStart DateEnd Elaina Davila, SHOT COAT TENDER-POLITICAL SCIENCE FACULTY MEMBER [address] [place] [address] PCP - [facility]/ Bjorn Frankel, DO [address] [place] [address] PCP - [facility]08/10/24 Bjorn Frankel DO [address] [place] [address] PCP - [facility]/ Aimee Ivory, CARPENTER FOREMAN [address] [place] [address] PCP - [facility]01/21/25Team MemberRelationshipSpecialtyStart DateEnd Date Elaina Villarreal, SHOT COAT TENDER-POLITICAL SCIENCE FACULTY MEMBER [address] [place] [address] PCP - [facility]/ Bjorn Frankel DO [address] [place] [address] PCP - [facility]08/10/24 Bjorn Frankel DO [address] [place] [address] PCP - [facility] Aimee Ivory, CARPENTER FOREMAN [address] [place] [address] PCP - [facility]01/21/25 Team Status: Active Member Role/Relationship Status Dates Bjorn Frankel DO Primary Care Provider Active Team Status: Inactive Member Role/Relationship Status Dates Praneeth Hernandez MD Attending Provider Active S tart: January 01, 2025 End: January 01, 2025[facility] STAFFPrimary Care ProviderActiveStart: January 01, 2025 End: January 01, 2025 Team Status: Active Member Role/Relationship Status Dates Praneeth Hernandez MD Attending Provider Active S tart: January 16, 2025 Praneeth Hernandez MDOther ProviderActiveStart: January 16, 2025 [place] Victor Care ProviderActiveStart: January 16, 2025 Team Status: Inactive Member Role/Relationship Status Dates Bjorn Frankel DO Primary Care Provider Active Start: February 04, 2025 End: February 04, 2025Ulises Pimentel Cherrielarissa ProviderActiveStart: February 04, 2025 End: February 04, 2025 Team Status: Inactive Member Role/Relationship Status Dates Bjorn Frankel DO Primary Care Provider Active Start: February 04, 2025 End: February 04, 2025Ulises Phelan Aimeeelizabeth BOSSMANKeturahtealarissa ProviderActiveStart: February 04, 2025 End: February 04, 2025 Team Status: Inactive Member Role/Relationship Status Dates Bjorn Frankel DO Primary Care Provider Active Start: March 21, 2025 End: March 21, 2025Ulises Pimentel Autumn ProviderActiveStart: March 21, 2025 End: March 21, 2025 Goals (unrecognized section and content) Goals may be documented in a n alternate sectionGoals may be documented in an alternate sectionGoals may be documented in an alternate sectionGoals may be documented in an alternate sectionGoals may be documented in an alternate section FOR RECORDS PERTAINING TO PATIENTS [...] BE BASED ON THE PRIMARY CLINICAL RECORDS. [employer] [facility]. provides no warranty or guarantee of the accuracy or completeness of information in this document.
[2025-03-27 08:56] LABS: Glucose Urine UA COLOR INTERFERENCE mg/dL (NEGATIVE)
[2025-03-27 08:57] LABS: HCG Qualitative Urine* NEGATIVE (NEGATIVE)
[2025-03-27 09:08] LABS: Cast Seen? NONE SEEN #/LPF (NONE SEEN); Crystals Seen? None Seen #/HPF (None Seen); Urine Culture Indicated YES-FRMC
--- NOTE | 2025-03-27 09:27 | ED.FEMALEGU1 ---
HPI - Female Genitourinary General Chief complaint: Urogenital-Female Stated complaint: uti complaints Time Seen by Provider: 03/27/25 08:42 Source: patient Mode of arrival: walk-in Limitations: no limitations History of Present Illness HPI Narrative: The patient 27-year-old female presented to the ER with a symptoms of frequency as well as burning with urination, started over the last 24 hours in addition to the sense of nausea the patient also did not have any fever here she said that she sometimes feels that she have chills No abdominal pain no other concerns no low back pain She was evaluated for similar symptoms almost a week ago and that was before her menstruation which she finished 2 days ago. They did some urine test that she did not have any UTI then Related Data Home Medications ?Medication ?Instructions ?Recorded ?Confirmed fluoxetine 10 mg capsule 10 mg PO DAILY 03/27/25 03/27/25 Previous Rx's ?Medication ?Instructions ?Recorded sulfamethoxazole 800 1 tab PO BID 5 days #10 tabs 03/27/25 mg-trimethoprim 160 mg tablet (Bactrim DS) Allergies Allergy/AdvReac Type Severity Reaction Status Date / Time No Known Drug Allergies Allergy Verified 03/27/25 08:46 Review of Systems ROS Status of ROS 10 or more systems reviewed and unremarkable except as noted in history and below [facility] Medical History (Updated 03/27/25 @ 09:14 by Chitra Liu MD) delivery delivered ?O82 - Encounter for delivery without indication (ICD-10) Social History Highest level of school completed/degree received: some college, no degree Little interest or pleasure in doing things: not at all Feeling down, depressed, or hopeless: not at all Exam Narrative Exam Narrative: Nurses notes and vital signs reviewed and patient is not hypoxic. General: Well-appearing and in no apparent distress. Skin: Warm, dry, no pallor noted. No rash. Head: Normocephalic, atraumatic. Neck: Supple, non-tender. Cardiovascular: Regular Rate and Rhythm without murmur, gallop or rub. Respiratory: No accessory muscle use or respiratory distress. Lungs are clear to auscultation, no wheezing, rales or rhonchi Chest Wall: no tenderness Back: No midline thoracic or lumbar vertebral tenderness. No CVA tenderness Musculoskeletal: normal ROM, no calf or popliteal tenderness, no lower extremity edema/swelling GI: Abdomen is soft, non-distended. Normal bowel sounds. No masses appreciated. No tenderness to palpation. No rebound, guarding, or rigidity noted. Neurological: A&O x4. No cranial nerve dysfunction observed. No truncal ataxia. Moves all extremities. Sensation intact. Psychiatric: Cooperative and interactive. Normal mood and affect. Constitutional Vital Signs, click to edit/add: Last Vital Signs Temp 98.2 F 03/27/25 08:46 Pulse 87 03/27/25 08:46 Resp 18 03/27/25 08:46 BP 106/78 03/27/25 08:46 Pulse Ox 99 03/27/25 08:46 O2 Del Method Room Air 03/27/25 08:46 Course Vital Signs Vital signs: Vital Signs Temperature 98.2 F 03/27/25 08:46 Pulse Rate 87 03/27/25 08:46 Respiratory Rate 18 03/27/25 08:46 Blood Pressure 106/78 03/27/25 08:46 Pulse Oximetry 99 03/27/25 08:46 Oxygen Delivery Method Room Air 03/27/25 08:46 Temperature 98.2 F 03/27/25 08:46 Pulse Rate 87 03/27/25 08:46 Respiratory Rate 18 03/27/25 08:46 Blood Pressure 106/78 03/27/25 08:46 Pulse Oximetry 99 03/27/25 08:46 Oxygen Delivery Method Room Air 03/27/25 08:46 MDM - Female Genitourinary MDM Narrative Medical decision making narrative: Patient have no other concern her urine was not showing adequate results with the fact that it was interfered with the Pyridium color The patient is having symptoms of urine infection and should be treated with Bactrim She was instructed about the importance of hydration and making sure that she have a good hygiene when going to the bathroom The patient to follow-up with the primary care within 2 to 3 days and to come back to the ER in case of any worsening of the current symptoms or any new symptoms or concerns Lab Data Labs: Lab Results 03/27/25 Range/Units 08:45 Urine Color Brown A (YELLOW) Urine Clarity Clear (CLEAR) Urine pH Color interference A (5.0-9.0) Ur Specific [place] 1.025 (1.005-1.025) Urine Protein Color interference A (NEG/TRACE) mg/dL Urine Glucose (UA) Color interference A (NEGATIVE) mg/dL Urine Ketones Color interference A (NEGATIVE) mg/dL Urine Occult Blood Color interference A (NEGATIVE) Urine Nitrite Color interference A (NEGATIVE) Urine Bilirubin Color interference A (NEGATIVE) Urine Urobilinogen Color interference A (0.2-1.0) EU/dL Ur Leukocyte Esterase Color interference A (NEGATIVE) Urine RBC >100 A (0-2) #/HPF Urine WBC 75-100 A (NONE SEEN) #/HPF Ur Squamous Epith Cells Moderate A (NONE/RARE) #/LPF Urine Crystals None seen (None Seen) #/HPF Urine Bacteria Small A (NONE SEEN) #/HPF Urine Casts None seen (NONE SEEN) #/LPF Urine Mucus None seen (NONE SEEN) Ur [place]icated[place] [place] HCG, Qual Negative (NEGATIVE) Discharge Plan Discharge Chief Complaint: Urogenital-Female Clinical Impression: Urinary tract infection Patient Disposition: Home, Self-Care Time of Disposition Decision: 09:13 Condition: Good Prescriptions / Home Meds: New sulfamethoxazole-trimethoprim [Bactrim DS] 800-160 mg tablet 1 tab PO BID 5 Days Qty: 10 0RF No Action fluoxetine 10 mg capsule 10 mg PO DAILY Print Language: Ukrainian Instructions: Urinary Tract Infection in Women (DC) Referrals: Sheng Frankel [Primary Care Provider] - 1 week Discharge Date/Time: 03/27/25 09:23
== END 2025-03-27 09:23 | disposition home or self-care (01) ==
PROVIDERS: Emergency Provider Emergency Medicine; PCP Family Medicine
DX: N39.0 Urinary tract infection, site not specified (principal)
CPT/HCPCS: 81001; 84703; 87086; 87088; 87186; 99283